=== PATIENT | male | born 1975 | race Caucasian/White ===

== ENCOUNTER 2020-08-03 19:57 | Emergency (ER) | payer OTHER, SELFPAY ==
--- NOTE | 2020-08-03 20:06 | XR_ITS ---
WS: [id number] Portable AP upright chest, 08/03/2020 Clinical Data: Dyspnea Comparison: None. Findings: No nodules, masses or effusions are seen. The heart is normal. The pulmonary vascularity is not increased. No pneumonia or pneumothorax is seen. The patient has a poor inspiratory effort. XR/XR chest 1V portable [id number] Impression: Negative chest.
--- NOTE | 2020-08-03 20:07 | ECG_ITS ---
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 Measurements Intervals [place] Rate: 122 P: 18 WA: 144 QRS: 7 QRSD: 81 T: 28 QT: 287 QTc: 410 Interpretive Statements SINUS TACHYCARDIA ABNORMAL RHYTHM ECG No previous ECG available for comparison Electronically Signed On 08-04-2020 20:20:45 CDT by Breezy Alexis M.D. [id number]
--- NOTE | 2020-08-03 20:13 | W.ED.GENADLT ---
HPI - General Adult General: Chief complaint: Shortness of Breath/Dyspnea Stated complaint: FEVER Time Seen by Provider: 08/03/20 19:59 Source: patient Mode of arrival: ambulatory Limitations: no limitations History of Present Illness: HPI narrative: Rui is a 44-year-old male comes in with cough, fever, shortness of breath, sore throat and generalized weakness. Patient's been exposed to multiple other family members that have been positive for the COVID-19 virus. Patient states that he has had the symptoms for the past 4 to 5 days. He is unaware of anything that makes his symptoms better or worse. He denies any chest pain only a pain when he coughs. Patient denies any urinary symptoms, skin rashes, headache or neck pain or stiffness. Associated symptoms: Deny chest pain, confusion, dyspnea, headache(s), rash, palpitations, syncope or vomiting Review of Systems Eyes: Denies: change in vision, blurry vision, photophobia, eye discomfort, eye discharge or eye redness ENMT: Denies: throat pain, odynophagia, hoarseness, swelling of lips/tongue, ear or mastoid pain, ear discharge, change in hearing or nasal discharge Card: Denies: chest pain, palpitations, irregular heart rhythm, edema, lightheadedness, syncope, pre-syncope, dyspnea on exertion or orthopnea Resp: Denies: dyspnea, productive cough, non-productive cough, wheezing, hemoptysis or chest congestion GI: Denies: abdominal pain, vomiting, hematemesis, coffee ground emesis, heartburn, diarrhea, constipation, GI cramping, hematochezia or melena : Denies: flank pain, dysuria, urinary frequency, urinary urgency or hematuria Musc: Denies: neck pain, back pain, extremity pain, extremity swelling, joint pain, joint swelling, joint redness, joint warmth or joint stiffness Skin/Breast: Denies: rash, pruritus, erythema or skin tenderness Neuro: Denies: headache(s), numbness in extremities, weakness in extremities, sensory changes, lack of coordination, difficulty walking, dizziness, vertigo, confusion, Slurred speech present or seizure-like activity Jeff/Lymph: Denies: easy bruising, easy bleeding, petechiae, purpura or enlarged lymph nodes All/Imm: Denies: urticaria, throat swelling, tongue swelling, facial swelling or acute wheezing [facility] ED PFSH: Medical History Anxiety DM type 2 (diabetes mellitus, type 2) Hypertension Physical Exam Const: COMMON NORMALS: no acute distress, patient oriented x3, no limitations, healthy appearing and well nourished GENERAL APPEARANCE: cooperative, well kempt and well developed HENMT: COMMON NORMALS: normocephalic, atraumatic, external ears normal, EAC's normal and Normal external nose present HEAD & SCALP: normal to inspection, normocephalic and atraumatic FACE & SINUS: normal facial exam and face symmetric NOSE: Normal external nose present and Normal nares present EXTERNAL EAR: Yes external ears normal EXTERNAL AUDITORY CANAL: EAC's normal MOUTH: Normal oral and palatal mucosa present, lip normal and tongue normal Eye: COMMON NORMALS: Equal, round and reactive pupils present and conjunctivae normal GENERAL EYE: appearance normal, both eyes and all related structures ALIGNMENT: Yes alignment normal PERIORBITAL: periorbital findings normal EYELID: eyelids normal CONJUNCTIVA: Yes conjunctivae normal SCLERA: sclerae normal PUPIL: Yes Equal, round and reactive pupils present Neck/C-Spine: COMMON NORMALS: full ROM, no lymphadenopathy, supple, no meningeal signs and no JVD GENERAL: Yes normal visual inspection and Yes trachea midline Chest: COMMONS NORMALS: normal inspection of the chest and normal palpation of entire chest wall Resp: COMMON NORMALS: normal respiratory effort, No retractions, No use of accessory muscles and clear to auscultation bilaterally EFFORT & INSPECTION: Yes able to speak in complete sentences and Yes symmetric chest movement AUSCULTATION: clear to auscultation bilaterally, no crackles, no rales, no rhonchi and no wheezes Cardio: COMMON NORMALS: no JVD, regular rhythm, S1 normal heart sound present and S2 normal heart sound present RATE: tachycardic RHYTHM: regular rhythm HEART SOUNDS: S1 normal heart sound present, S2 normal heart sound present, no click, no gallops, no murmurs, no rubs and abnormal split S2 GI: COMMON NORMALS: Soft to palpation and No hepatosplenomegaly present PALPATION: Yes Soft to palpation, No Tenderness to palpation present (GI), No Guarding due to palpation present (GI), No Rigid due to palpation, Yes No hepatosplenomegaly present, No Hernia present, No Palpable mass present and No Pulsatile mass present : COMMON NORMALS: Yes no CVA tenderness BLADDER/KIDNEY EXAM: Yes no CVA tenderness Back/Pelvis: COMMON NORMALS: no CVA tenderness, thoracic and lumbar spine normal to inspection, no thoracic nor lumbar tenderness and thoraco-lumbar ROM normal Extremity: COMMON NORMALS: normal to inspection, full ROM, capillary refill normal, no joint enlargement, no clubbing, cyanosis or edema and no calf tenderness Neuro: COMMON NORMALS: patient oriented x3, CN's II-XII intact bilaterally, moves all extremities, no focal motor deficits and no sensory deficits noted MENINGEAL SIGNS: Yes no meningeal signs SPEECH: speech normal Psych: COMMON NORMALS: mental status grossly normal, Normal thought process present, cooperative, normal affect, speech normal and activity/motor behavior normal APPEARANCE: Yes well kempt SPEECH: Yes normal speech THOUGHT PROCESS: Normal thought process present Skin: COMMON NORMALS: no rashes or lesions noted, turgor normal, no jaundice, no petechiae and no mottling GENERAL SKIN EXAM: no rashes or lesions noted and turgor normal Course Vital Signs: Vital signs: Vital Signs Temperature 100.8 F H 08/03/20 20:15 Pulse Rate 119 H 08/03/20 21:22 Respiratory Rate 16 08/03/20 21:22 Blood Pressure 141/88 08/03/20 21:22 Pulse Oximetry 93 08/03/20 21:22 MDM - General Adult MDM Narrative: Medical decision making narrative: Rui is a nice 44-year-old male who comes in with COVID-19 viral pneumonitis. On room air his pulse ox does not drop below 91%. He is not in respiratory distress. His chest x-ray shows a mild vascular prominence but no evidence of significant viral pneumonia. Patient is about 4 to 5 days into this illness. Because of his comorbidities I have recommended he come into the hospital for further care but he refuses. He states he thinks he can take care of this at home. I reviewed the case with Dr. Whaley and he believes the patient can be discharged but should go home on Decadron and azithromycin. The patient needs to check his pulse ox at home and if it worsens or goes below 90% he needs to come back to the ER. The patient states he does have a pulse oximeter at home and can do this. He agrees to return should his symptoms change or worsen. Lab Data: Attestation: I reviewed the patient's lab results. Labs: Lab Results 08/03/20 08/03/20 08/03/20 Range/Units 20:19 20:19 20:19 WBC 5.7 (4.0-10.0) 10^3/ uL RBC 5.77 H (4.1-5.3) 10^6/u L Hgb 16.5 (11.7-16.6) g/dL Hct 49.6 (42.0-52.0) % MCV 86.0 (80-94) fL MCH 28.6 (28.0-34.0) pg MCHC 33.3 (30.0-36.0) g/dL RDW 12.3 (12.1-15.1) % Plt Count 180 (130-400) 10^3/c mm MPV 9.4 (7.4-10.4) fL Neut % (Auto) 63.0 % Lymph % (Auto) 22.7 % Shackelford % (Auto) 12.0 % Eos % (Auto) 0.0 % Baso % (Auto) 0.5 % Neut # (Auto) 3.59 (1.8-7.7) 10^3/u L Lymph # (Auto) 1.3 (0.8-4.8) 10^3/u L Shackelford # (Auto) 0.7 (0.2-0.9) 10^3/u L Eos # (Auto) 0.0 (0.0-0.8) 10^3/u L Baso # (Auto) 0.0 (0.0-0.1) 10^3/u L Nucleated RBC % (a uto) 0 % Nucleated RBCs # 0.0 /100WBC ESR 11 H (0-10) mm/hr Fibrinogen (174-498) mg/dL D-Dimer (0-0.59) ug/mIFE U Specimen Type Sample Site ABG pH (7.35-7.45) ABG pCO2 (35-45) mmHg ABG pO2 (80.0-100.0) mmH g ABG HCO3 (22-26) mmol/L ABG Base Excess (-2.0-2.0) mmol/ L Celio Test Hematocrit (42-52) % O2 Delivery Device FiO2 % Compliance Tester ID Sodium 135 L (136-145) mmol/L Potassium 4.1 (3.5-5.1) mmol/L Chloride 98 (98-107) mmol/L Carbon Dioxide 23 (22-29) mmol/L Anion Gap 18.1 (5-19) BUN 13 (6-20) mg/dL Creatinine 0.8 (0.7-1.2) mg/dL GFR Calculation 106.0 (90-130) mL/min Glucose 236 H (65-115) mg/dL Calculated Osmolal ity 284 L (285-295) mOsm/k g Lactic Acid (0.5-2.2) mmol/L Calcium 9.1 (8.5-10.5) mg/dL Magnesium 1.9 (1.7-2.3) mg/dL Ferritin 562 H (30-400) ng/mL Total Bilirubin 0.4 (0.15-1.2) mg/dL AST 21 (0-40) U/L ALT 33 (0-41) U/L Alkaline Phosphata se 80 (40-130) IU/L Lactate Dehydrogen ase 244 H (135-225) U/L Troponin T Baselin e (0-15) ng/L C-Reactive Protein 10.7 H (0.0-4.9) mg/L Total Protein 8.6 (6.6-8.7) g/dL Albumin 4.8 (3.5-5.2) g/dL Globulin 3.8 (1.3-4.6) g/dL Lipase 26 (13-60) U/L TSH 1.47 (0.27-4.20) uIU/ mL Serum Ketones Negative (Negative) Influenza Type A A g (Negative) Influenza Type B A g (Negative) SARS-CoV-2 Ag (Rap id) (Negative) 08/03/20 08/03/20 08/03/20 Range/Units 20:19 20:19 21:18 WBC (4.0-10.0) 10^3/ uL RBC (4.1-5.3) 10^6/u L Hgb (11.7-16.6) g/dL Hct (42.0-52.0) % MCV (80-94) fL MCH (28.0-34.0) pg MCHC (30.0-36.0) g/dL RDW (12.1-15.1) % Plt Count (130-400) 10^3/c mm MPV (7.4-10.4) fL Neut % (Auto) % Lymph % (Auto) % Shackelford % (Auto) % Eos % (Auto) % Baso % (Auto) % Neut # (Auto) (1.8-7.7) 10^3/u L Lymph # (Auto) (0.8-4.8) 10^3/u L Shackelford # (Auto) (0.2-0.9) 10^3/u L Eos # (Auto) (0.0-0.8) 10^3/u L Baso # (Auto) (0.0-0.1) 10^3/u L Nucleated RBC % (a uto) % Nucleated RBCs # /100WBC ESR (0-10) mm/hr Fibrinogen 499 H (174-498) mg/dL D-Dimer 0.33 (0-0.59) ug/mIFE U Specimen Type Sample Site ABG pH (7.35-7.45) ABG pCO2 (35-45) mmHg ABG pO2 (80.0-100.0) mmH g ABG HCO3 (22-26) mmol/L ABG Base Excess (-2.0-2.0) mmol/ L Celio Test Hematocrit (42-52) % O2 Delivery Device FiO2 % Compliance Tester ID Sodium (136-145) mmol/L Potassium (3.5-5.1) mmol/L Chloride (98-107) mmol/L Carbon Dioxide (22-29) mmol/L Anion Gap (5-19) BUN (6-20) mg/dL Creatinine (0.7-1.2) mg/dL GFR Calculation (90-130) mL/min Glucose (65-115) mg/dL Calculated Osmolal ity (285-295) mOsm/k g Lactic Acid (0.5-2.2) mmol/L Calcium (8.5-10.5) mg/dL Magnesium (1.7-2.3) mg/dL Ferritin (30-400) ng/mL Total Bilirubin (0.15-1.2) mg/dL AST (0-40) U/L ALT (0-41) U/L Alkaline Phosphata se (40-130) IU/L Lactate Dehydrogen ase (135-225) U/L Troponin T Baselin e 16 H (0-15) ng/L C-Reactive Protein (0.0-4.9) mg/L Total Protein (6.6-8.7) g/dL Albumin (3.5-5.2) g/dL Globulin (1.3-4.6) g/dL Lipase (13-60) U/L TSH (0.27-4.20) uIU/ mL Serum Ketones (Negative) Influenza Type A A g (Negative) Influenza Type B A g (Negative) SARS-CoV-2 Ag (Rap id) Positive H (Negative) 08/03/20 08/03/20 08/03/20 Range/Units 21:24 21:40 21:59 WBC (4.0-10.0) 10^3/ uL RBC (4.1-5.3) 10^6/u L Hgb (11.7-16.6) g/dL Hct (42.0-52.0) % MCV (80-94) fL MCH (28.0-34.0) pg MCHC (30.0-36.0) g/dL RDW (12.1-15.1) % Plt Count (130-400) 10^3/c mm MPV (7.4-10.4) fL Neut % (Auto) % Lymph % (Auto) % Shackelford % (Auto) % Eos % (Auto) % Baso % (Auto) % Neut # (Auto) (1.8-7.7) 10^3/u L Lymph # (Auto) (0.8-4.8) 10^3/u L Shackelford # (Auto) (0.2-0.9) 10^3/u L Eos # (Auto) (0.0-0.8) 10^3/u L Baso # (Auto) (0.0-0.1) 10^3/u L Nucleated RBC % (a uto) % Nucleated RBCs # /100WBC ESR (0-10) mm/hr Fibrinogen (174-498) mg/dL D-Dimer (0-0.59) ug/mIFE U Specimen Type Arterial Sample Site Umbilical cord ABG pH 7.38 (7.35-7.45) ABG pCO2 40.2 (35-45) mmHg ABG pO2 63.6 L (80.0-100.0) mmH g ABG HCO3 23.8 (22-26) mmol/L ABG Base Excess -1.3 (-2.0-2.0) mmol/ L Celio Test Pos Hematocrit 50.2 (42-52) % O2 Delivery Device Room air FiO2 21.0 % Compliance Tester ID vossa Sodium (136-145) mmol/L Potassium (3.5-5.1) mmol/L Chloride (98-107) mmol/L Carbon Dioxide (22-29) mmol/L Anion Gap (5-19) BUN (6-20) mg/dL Creatinine (0.7-1.2) mg/dL GFR Calculation (90-130) mL/min Glucose (65-115) mg/dL Calculated Osmolal ity (285-295) mOsm/k g Lactic Acid 1.4 (0.5-2.2) mmol/L Calcium (8.5-10.5) mg/dL Magnesium (1.7-2.3) mg/dL Ferritin (30-400) ng/mL Total Bilirubin (0.15-1.2) mg/dL AST (0-40) U/L ALT (0-41) U/L Alkaline Phosphata se (40-130) IU/L Lactate Dehydrogen ase (135-225) U/L Troponin T Baselin e (0-15) ng/L C-Reactive Protein (0.0-4.9) mg/L Total Protein (6.6-8.7) g/dL Albumin (3.5-5.2) g/dL Globulin (1.3-4.6) g/dL Lipase (13-60) U/L TSH (0.27-4.20) uIU/ mL Serum Ketones (Negative) Influenza Type A A g Negative (Negative) Influenza Type B A g Negative (Negative) SARS-CoV-2 Ag (Rap id) (Negative) Imaging Data^: CXR: Attestation: I personally reviewed and interpreted this imaging study as follows: My impression: Mild interstitial prominence/thickening. Possible viral pneumonitis. EKG Data^: EKG 1: Attestation: I personally reviewed and interpreted this EKG as follows: EKG interpretation date: 08/03/20 EKG interpretation time: 21:03 Interpretation: Normal sinus rhythm and 122 beats a minute, normal axis, no blocks, normal intervals, no acute ST or T wave changes. Discharge Plan Discharge Patient Disposition: Home Clinical Impression: Viral pneumonitis, COVID-19 virus infection Condition: Stable Prescriptions: New albuterol sulfate 90 mcg/actuation HFA aerosol inhaler 2 inh INHALATION Q4H PRN (Reason: shortness of breath or wheezing) Qty: 6.7 RF: 0 Zithromax Z-Garrett 250 mg tablet See Rx Instructions .ROUTE .COMPLEX Qty: 6 RF: 0 Decadron 6 mg tablet 6 mg PO DAILY Qty: 5 RF: 0 albuterol sulfate 90 mcg/actuation HFA aerosol inhaler 2 inh INHALATION Q4H PRN (Reason: shortness of breath or wheezing) Qty: 6.7 RF: 0 No Action simvastatin 40 mg tablet 40 mg PO DAILY RF: 0 methocarbamol 750 mg tablet 750 mg PO TID RF: 0 paroxetine HCl 30 mg tablet 30 mg PO DAILY RF: 0 buspirone 10 mg tablet 10 mg PO DAILY PRN (Reason: UNKNOWN) RF: 0 lisinopril 30 mg tablet 30 mg PO DAILY RF: 0 metformin 500 mg tablet extended release 24 hr 1,000 mg PO BID RF: 0 naproxen 500 mg tablet 500 mg PO BID RF: 0 Ozempic See Rx Instructions .ROUTE .COMPLEX RF: 0 Discharge Orders: Discharge Order (Routine); Ordered 08/03/20 Ordered By: Keri Cerrato Referrals: Monica Urena, TEASEL GIG OPERATOR-C [Primary Care Provider] - 1-3 days Discharge Diet: Advance as tolerated Discharge Activity: Increase activity as tolerated Patient Instructions: Viral Pneumonia (ED) Activity Restrictions/Additional Instructions: Please return to the ER immediately for any of the signs or symptoms listed on your discharge instruction sheets, worsening/changing of your symptoms, you are not getting better as quickly as expected, or for ANY other cause or concerns. Check your pulse oximetry every hour at home and if it goes below 90% please return to the ER immediately for recheck. I have recommended and offered to put you in the hospital for further therapy but you have refused. You are leaving AGAINST MEDICAL ADVICE and are at risk of severe pulmonary complications from this virus. If you change your mind, your symptoms worsen, you began to cough up blood, you cannot catch her breath or develop any other symptoms please return to the ER immediately for recheck. Take the medications as I have prescribed you. Coding Level of Care Code ED Butter Wrapper for Anthony Fwd Exam Comprehensive
[2020-08-03 20:15] VITALS: BP 141/100; PULSE 128; RESP 26; TEMP 38.2; O2SAT 91; BMI 43.0
[2020-08-03 20:24] LABS: Basophils % 0.5 %; Hematocrit 49.6 % (42.0-52.0); Hemoglobin 16.5 g/dL (11.7-16.6); Lymphocytes # 1.3 10^3/uL (0.8-4.8); Lymphocytes % 22.7 %; Mean Corpuscular HGB Conc 33.3 g/dL (30.0-36.0); Mean Corpuscular Hemoglobin 28.6 pg (28.0-34.0); Mean Platelet Volume 9.4 fL (7.4-10.4); Monocytes # 0.7 10^3/uL (0.2-0.9); Neutrophils # 3.59 10^3/uL (1.8-7.7); Nucleated Red Blood Cells % 0 %; Platelet Count 180 10^3/cmm (130-400); Red Blood Count 5.77 10^6/uL (4.1-5.3); Red Cell Distribution Width 12.3 % (12.1-15.1); White Blood Count 5.7 10^3/uL (4.0-10.0)
[2020-08-03 20:45] LABS: Fibrinogen 499 mg/dL (174-498)
[2020-08-03 20:48] LABS: D Dimer 0.33 ug/mIFEU (0-0.59)
[2020-08-03 20:57] LABS: Troponin(5th) Baseline 16 ng/L (0-15)
[2020-08-03 21:04] LABS: Alanine Aminotransferase 33 U/L (0-41); Albumin Level 4.8 g/dL (3.5-5.2); Alkaline Phosphatase 80 IU/L (40-130); Aspartate Amino Transferase 21 U/L (0-40); Blood Urea Nitrogen 13 mg/dL (6-20); C Reactive Protein 10.7 mg/L (0.0-4.9); Calcium 9.1 mg/dL (8.5-10.5); Carbon Dioxide 23 mmol/L (22-29); Chloride 98 mmol/L (98-107); Ferritin 562 ng/mL (30-400); Globulin 3.8 g/dL (1.3-4.6); Glucose 236 mg/dL (65-115); Lipase 26 U/L (13-60); Magnesium 1.9 mg/dL (1.7-2.3); Osmolality Calculated 284 mOsm/kg (285-295); Sodium 135 mmol/L (136-145); Thyroid Stimulating Hormone 1.47 uIU/mL (0.27-4.20); Total Bilirubin 0.4 mg/dL (0.15-1.2); Total Protein 8.6 g/dL (6.6-8.7)
[2020-08-03 21:05] LABS: Anion Gap 18.1 (5-19); Lactate Dehydrogenase 244 U/L (135-225); Potassium 4.1 mmol/L (3.5-5.1)
[2020-08-03 21:06] LABS: Ketone (Acetest) Serum Negative (Negative)
[2020-08-03 21:22] VITALS: BP 141/88; PULSE 119; RESP 16; O2SAT 93
[2020-08-03] MEDS: dexamethasone 4 mg/mL INJ 6 MG IVP (21:22)
[2020-08-03] MEDS: sodium chloride 0.9% 1,000 ML 100 ML IV (21:22)
[2020-08-03] MEDS: sodium chloride 0.9% 1,000 ML 999 ML IV (21:22)
[2020-08-03 21:51] LABS: Lactic Sepsis W/Reflex 1.4 mmol/L (0.5-2.2)
[2020-08-03 22:11] LABS: Influenza A by IFA Negative (Negative); Influenza B by IFA Negative (Negative)
[2020-08-03 22:11] LABS: SARS Covid-2 Antigen Positive (Negative)
[2020-08-03 22:12] LABS: ABG PCO2 40.2 mmHg (35-45); ABG PH Result 7.38 (7.35-7.45); Arterial Blood Gas Hematocrit 50.2 % (42-52); Base Excess ABG -1.3 mmol/L (-2.0-2.0); Blood Gas Allen Test Pos; Blood Gas Sample Site Umbilical cord; Blood Gas Sample Type Arterial; HCO3 ABG 23.8 mmol/L (22-26); Oxygen Device ROOM AIR; PO2 ABG 63.6 mmHg (80.0-100.0)
[2020-08-03 22:37] LABS: Erythrocyte Sedimentation Rate 11 mm/hr (0-10)
[2020-08-03 22:59] VITALS: BP 170/109; PULSE 117; RESP 16; O2SAT 95
[2020-08-03] MEDS: azithromycin 250 mg Tablet 500 MG PO (23:08)
[2020-08-03] MEDS: dexamethasone 10 mg/mL INJ IVP (23:08)
[2020-08-04 00:55] VITALS: BP 158/96; PULSE 104; RESP 20; O2SAT 94
== END 2020-08-04 00:57 | disposition home or self-care (01) ==
PROVIDERS: Emergency Provider Emergency Medicine; PCP Nurse Practitioner Family
DX: U07.1 COVID-19 (principal); J12.89 Other viral pneumonia; Z79.84 Long term (current) use of oral hypoglycemic drugs; E11.9 Type 2 diabetes mellitus without complications; I10 Essential (primary) hypertension
CPT/HCPCS: 12345; 36600; 71045; 80053; 82009; 82728; 82803; 83605; 83615; 83690; 83735; 84443; 84484; 85025; 85378; 85384; 85651; 86140; 87040; 87426; 87804; 93005; 96361; 96365; 96374; 96375; 96376; 99283; 99284; J0131; J1100; J7030; Q0144

== ENCOUNTER 2020-11-07 07:51 | Outpatient (CLI) | payer SELFPAY ==
--- NOTE | 2020-11-07 07:55 | ECG_ITS ---
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
--- NOTE | 2020-11-07 07:55 | NMCV_ITS ---
NM suhas perf SPECT r/s* [id number] Rui Jiang Age: 44 Gender: M : 1975 Exam Date: 11/07/2020 08:47 Ordering Phys: Monica Urena Technologist: ERIN Nowak Exam Location: [facility] Indications: Chest pain STRESS TEST Please see separate stress test report in [facility] for full findings IMAGE PROTOCOL Rest/Stress 1 Exercise Day Radiopharmaceutical Dose (mCi) Administration Site Administered by Rest: Tc-99m 11.0 IV ERIN Nowak Sestamibi Stress:Tc-99m 33.0 IV ERIN Nowak Sestamineal Rest: 07-Nov-2020 60 Discovery 630 Stress: 07-Nov-2020 30 Discovery 630 Radiopharmaceutical was injected at 85 % maximum heart rate. Images obtained in supine and prone position. SPECT RESULTS Technical Quality: Excellent Raw Data Analysis: Normal Image Corrections: No attenuation or motion correction applied Summed Stress Score: 0 Summed Rest Score: 0 Summed Difference Score: 0 PERFUSION FINDINGS SPECT images demonstrate homogeneous tracer distribution throughout the myocardium. FUNCTIONAL RESULTS (calculated via Gated SPECT) Stress Image LV EF (%): 50 Stress EDV (mL):126 TID: 0.99 Stress ESV (mL):63 Rest Image LV EF (%): 50 FUNCTIONAL FINDINGS: There appeared to be anterior wall/septal bounce could be interventricular conduction delay or postoperative state IMPRESSIONS Myocardial perfusion imaging is normal. EKG segment will be documented separately. Breezy Alexis MD (Electronically Signed) Final Date: 07 November 2020 17:54 S
[2020-11-07 08:09] VITALS: BMI 42.6
[2020-11-07 10:15] VITALS: BP 154/79; PULSE 114
== END 2020-11-07 07:52 | disposition home or self-care (01) ==
PROVIDERS: PCP Nurse Practitioner Family; Visit Provider Nurse Practitioner Family
DX: R07.9 Chest pain, unspecified (principal)
CPT/HCPCS: 78452; 93017; A9500

== ENCOUNTER → 2021-04-13 11:08 | Outpatient (BNVA) | payer OTHER, SELFPAY | PROVIDERS: PCP Family Medicine; Visit Provider Family Medicine | DX: Z20.822 Contact with and (suspected) exposure to COVID-19 (principal) | CPT/HCPCS: 87635 ==

== ENCOUNTER 2021-04-17 12:50 | Outpatient (CLI) | payer OTHER, SELFPAY ==
--- NOTE | 2021-04-17 13:29 | PFTS_ITS ---
Date of Study:04/17/21 Date of Dictation: 04/19/21 MECHANICS: Forced vital capacity (FVC) is reduced 58% Forced expiratory volume in one second (FEV1) is moderately reduced 66%. FEV1/FVC is Normal There is no significant response to bronchodilators. FLOW VOLUME LOOP: normal . LUNG VOLUMES: Not measured DIFFUSING CAPACITY FOR CARBON MONOXIDE: Not measured . INTERPRETATION: The spirometry consistent with moderate restriction. Please correlate clinically MTDD
== END 2021-04-17 12:51 | disposition home or self-care (01) ==
LOC: RT 12:52
PROVIDERS: PCP Family Medicine; Visit Provider Family Medicine
DX: U07.1 COVID-19 (principal); R06.02 Shortness of breath
CPT/HCPCS: 94060; J7611

== ENCOUNTER → 2021-05-01 11:27 | Outpatient (BNVA) | payer SELFPAY | PROVIDERS: PCP Family Medicine; Visit Provider Family Medicine | DX: E11.9 Type 2 diabetes mellitus without complications (principal); E78.5 Hyperlipidemia, unspecified; R06.02 Shortness of breath; J98.4 Other disorders of lung; U07.1 COVID-19; I10 Essential (primary) hypertension | CPT/HCPCS: 80053; 80061; 83036 ==

== ENCOUNTER 2021-05-15 16:07 | Outpatient (CLI) | payer SELFPAY ==
[2021-05-15 16:48] LABS: Basophils # 0.1 10^3/uL (0.0-0.1); Eosinophils # 0.2 10^3/uL (0.0-0.8); Eosinophils % 1.4 %; Hematocrit 42.4 % (42.0-52.0); Hemoglobin 14.4 g/dL (11.7-16.6); Lymphocytes # 3.6 10^3/uL (0.8-4.8); Mean Corpuscular Volume 82.5 fL (80-94); Mean Platelet Volume 9.2 fL (7.4-10.4); Monocytes # 0.8 10^3/uL (0.2-0.9); Neutrophils # 6.46 10^3/uL (1.8-7.7); Neutrophils % 57.5 %; Nucleated Red Blood Cells % 0 %; Platelet Count 205 10^3/cmm (130-400); Red Blood Count 5.14 10^6/uL (4.1-5.3); Red Cell Distribution Width 11.9 % (12.1-15.1); White Blood Count 11.2 10^3/uL (4.0-10.0)
[2021-05-15 17:28] LABS: Alanine Aminotransferase 19 U/L (0-41); Albumin Level 4.2 g/dL (3.5-5.2); Alkaline Phosphatase 112 IU/L (40-130); Aspartate Amino Transferase 9 U/L (0-40); Blood Urea Nitrogen 13 mg/dL (6-20); C Reactive Protein 3.8 mg/L (0.0-4.9); Calcium 8.8 mg/dL (8.5-10.5); Carbon Dioxide 25 mmol/L (22-29); Chloride 100 mmol/L (98-107); Globulin 2.6 g/dL (1.3-4.6); Glucose 301 mg/dL (65-115); Osmolality Calculated 293 mOsm/kg (285-295); Sodium 136 mmol/L (136-145); Total Bilirubin 0.2 mg/dL (0.15-1.2); Total Protein 6.8 g/dL (6.6-8.7)
[2021-05-15 17:40] LABS: Erythrocyte Sedimentation Rate 11 mm/hr (0-10)
[2021-05-17 13:33] LABS: Anti-Double Strand DNA AB <1 IU/mL; Centromere B Antibody <1.0 NEG AI (<1.0 NEG); JO-1 Antibody <1.0 NEG AI (<1.0 NEG); SCL 70 <1.0 NEG AI (<1.0 NEG); SS A Ro Sjogrens Antibody <1.0 NEG AI (<1.0 NEG); SS-B/LA IGG <1.0 NEG AI (<1.0 NEG); Sm/RNP Antibody <1.0 NEG AI (<1.0 NEG); Smith Antibody <1.0 NEG AI (<1.0 NEG)
[2021-05-17 16:18] LABS: Cyclic Citrullinated Peptide <16 UNITS
[2021-05-18 20:48] LABS: Anti-Nuclear Antibody Screen NEGATIVE (NEGATIVE)
== END 2021-05-15 16:08 | disposition home or self-care (01) ==
LOC: LAB 16:16
PROVIDERS: PCP Family Medicine; Visit Provider Internal Medicine Pulmonary Disease
DX: J98.4 Other disorders of lung (principal)
CPT/HCPCS: 36415; 80053; 85025; 85651; 86038; 86140; 86225; 86235; 86431

== ENCOUNTER 2021-05-16 12:35 | Outpatient (CLI) | payer SELFPAY ==
--- NOTE | 2021-05-16 13:15 | CT_ITS ---
WS: [id number] CT CHEST HIGH-RESOLUTION TECHNIQUE: High-resolution Noncontrast CT of the chest with inspiratory, expiratory, prone imaging CLINICAL INFORMATION: rule out restrictive lung disease COMPARISON: None. DLP: 1893.[address] scans at [facility] use at least one of these dose optimization techniques: automat ed exposure control; mA and/or kV adjustment per patient size (includes targeted exams where dose is matched to clinical indication); or iterative reconstruction. FINDINGS: Both lungs are well aerated. No acute pulmonary infiltrates. No focal consolidation or pleural fluid. No focal pneumonia. Calcified right hilar lymph nodes. No suspicious pulmonary parenchymal opacities . No evidence of interstitial lung disease. No subpleural fibrosis or honeycombing. Mild air trapping o n the expiratory imaging. No significant bronchiectasis. Normal caliber thoracic aorta. Coronary calcification. Adrenal glands are normal. Partially visualized fatty atrophy of the pancreas. Normal GE junction. CT/CT chest wo con [id number] IMPRESSION: 1. No evidence of interstitial lung disease. No subpleural fibrosis or honeyco mbing. 2. No significant bronchiectasis. 3. Mild air trapping on expiratory imaging can be seen with small airways dise ase. 4. No mediastinal or hilar lymphadenopathy.
== END 2021-05-16 12:36 | disposition home or self-care (01) ==
PROVIDERS: PCP Family Medicine; Visit Provider Internal Medicine Pulmonary Disease
DX: J98.4 Other disorders of lung (principal)
CPT/HCPCS: 71250

== ENCOUNTER → 2021-05-22 09:38 | Outpatient (BNVA) | payer SELFPAY | PROVIDERS: PCP Family Medicine; Visit Provider Internal Medicine Pulmonary Disease | DX: J98.4 Other disorders of lung (principal); Z20.822 Contact with and (suspected) exposure to COVID-19 | CPT/HCPCS: 87635 ==

== ENCOUNTER 2021-05-25 07:08 | Outpatient (CLI) | payer SELFPAY ==
--- NOTE | 2021-05-25 14:04 | PFTS_ITS ---
Date of Study:05/25/21 Date of Dictation: MECHANICS: Forced vital capacity (FVC) is reduced. Forced expiratory volume in one second (FEV1) is reduced. FEV1/FVC is normal. FLOW VOLUME LOOP: Narrow. LUNG VOLUMES: Total lung capacity (TLC) is reduced. Residual volume (RV) is normal. DIFFUSING CAPACITY FOR CARBON MONOXIDE: Normal. INTERPRETATION: The pulmonary function tests are consistent with moderate restriction. There is no significant postbronchodilator response. The patient has mild reduction in total lung capacity with relatively preserved residual volume and an increased RV/TLC ratio. The combination of this finding and restrictive physiology on spirometry, could be consistent with neuromuscular weakness. Gas exchange (DLCO) is normal. MTDD
== END 2021-05-25 07:09 | disposition home or self-care (01) ==
LOC: RT 07:11
PROVIDERS: PCP Family Medicine; Visit Provider Family Medicine
DX: J98.4 Other disorders of lung (principal)
CPT/HCPCS: 94060; 94618; 94726; 94729; J7611

== ENCOUNTER 2021-06-05 06:00 | Outpatient (RCR) | payer SELFPAY | END 2021-06-24 23:59 | disposition home or self-care (01) | LOC: WPT 06:00 | PROVIDERS: PCP Family Medicine; Referring Provider Nurse Practitioner Family; Visit Provider Nurse Practitioner Family | DX: R42 Dizziness and giddiness (principal) | CPT/HCPCS: 97110; 97162 ==

== ENCOUNTER 2021-07-21 17:30 | Observation (INO) | payer SELFPAY ==
[2021-07-21 17:37] VITALS: BP 169/92; PULSE 93; RESP 18; TEMP 36.7; O2SAT 96; BMI 41.5
--- NOTE | 2021-07-21 17:42 | ECG_ITS ---
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 Measurements Intervals [place] Rate: 92 P: 28 UT: 152 QRS: 24 QRSD: 88 T: 15 QT: 328 QTc: 407 Interpretive Statements SINUS RHYTHM Compared to ECG 08/03/2020 21:03:54 Sinus tachycardia no longer present Electronically Signed On 07-22-2021 22:06:23 CDT by Dereje Kimball M.D. [email or web address] [email or web address]'s choice [facility] of smith countyIvy Health and Life Sciencesohio state university wexner medical [email or web address] [id number]
--- NOTE | 2021-07-21 17:43 | ED_ITS ---
HPI - Neuro Symptoms/Deficit General: Chief Complaint: ER Hold Stated Complaint: left facial droop, numb mouth, high bp Time Seen by Provider: 07/21/21 17:42 Source: patient and family () Mode of arrival: ambulatory Limitations: no limitations History of Present Illness: HPI Narrative: This is a 45 year old male with a history of HTN and DM who presents to the ED with complaints of left sided facial droop and slurred speech. Symptoms of slurred speech and facial droop started about 1-1/2 hours ago, however he noticed that about 8 AM this morning he had an abnormal sensation of his tongue and some numbness of his tongue. He does not have any significant gait issues. No arm or leg weakness. He is here to be evaluated for the above symptoms. Onset (ago): hour(s) Timing confirmed by: spouse Location: speech and left face History of same: No Severity: mild Quality: weak and numb Relieving factors: none Exacerbating factors: none Context: sudden onset Associated symptoms: Deny chest pain, cough, diaphoresis, fevers/chills, headache(s), anorexia, malaise, nausea, seizures, short of breath, syncope, tingling, vertigo, vomiting or weakness Review of Systems General: Reports: 10 or more systems reviewed and unremarkable except in HPI and below Const: Denies: malaise or diaphoresis Card: Denies: chest pain or syncope GI: Denies: nausea or vomiting Neuro: Denies: headache(s) or vertigo PFS ED PFSH: Medical History Anxiety Bilateral lower extremity edema COVID-19 virus infection DM type 2 (diabetes mellitus, type 2) Herpes zoster Hyperlipidemia Hypertension Left knee pain Obese Restrictive lung disease Shortness of breath Vertigo Social History Quit status (tobacco): has quit using tobacco Year quit tobacco: unknown Former quit date comment: smoked 4-5 cigars/day x 3 years Second hand smoke exposure: Yes Smoking risk assessment/counseling performed?: Yes Alcohol intake: current Alcohol intake frequency: holidays/special occasions only Desire information about alcohol rehabilitation?: No Lives independently: Yes Household members: spouse Marital status: service: No Current occupational status: employed Pets and animals: Yes History of recent travel: No Current gender identity: Male NIH stroke score NIHSS: Level Of Consciousness - 1a: 0 Level Of Consciousness Questions - 1b: Both Correct Level Of Consciousness Commands - 1c: Both Correct Best Gaze - 2: Normal Visual Brown - 3: No Visual Loss Facial Palsy - 4: Partial Paralysis Motor Arm Right - 5: No Drift Motor Arm Left - 5: No Drift Motor Leg Right - 6: No Drift Motor Leg Left - 6: No Drift Limb Ataxia - 7: Absent Sensory - 8: Mild To Moderate Loss Best Language - 9: No Aphasia Dysarthia - 10: Mild/Moderate Dysarthia Extinction And Inattention - 11: 0 Score: Total Score: 4 Physical Exam Const: COMMON NORMALS: no acute distress, average body habitus, patient oriented x3, no limitations, healthy appearing, alert and well nourished HENMT: COMMON NORMALS: normocephalic, atraumatic and moist oral mucous membranes HEAD & SCALP: normocephalic and atraumatic Eye: COMMON NORMALS: Equal, round and reactive pupils present, EOMs intact bilaterally, conjunctivae normal and no scleral icterus CONJUNCTIVA: Yes conjunctivae normal PUPIL: Yes Equal, round and reactive pupils present Neck/C-Spine: COMMON NORMALS: no meningeal signs and no JVD Resp: COMMON NORMALS: normal respiratory effort, No retractions, No use of accessory muscles, clear to auscultation bilaterally and percussion normal AUSCULTATION: clear to auscultation bilaterally PERCUSSION: percussion normal Cardio: COMMON NORMALS: no JVD, regular rate, regular rhythm, S1 normal heart sound present, S2 normal heart sound present, No gallops present (Cardio), No clicks present (Cardio), No murmurs present (Cardio), No rub (Cardio) and Peripheral pulses 2+ throughout RATE: regular rate RHYTHM: regular rhythm HEART SOUNDS: S1 normal heart sound present and S2 normal heart sound present PERIPHERAL PULSES: Peripheral pulses 2+ throughout GI: COMMON NORMALS: Normal to inspection, nondistended, normoactive bowel sounds present, Soft to palpation, non-tender, No hepatosplenomegaly present, no masses and no bruits PALPATION: Yes Soft to palpation and Yes No hepatosplenomegaly present Extremity: COMMON NORMALS: normal to inspection, full ROM, capillary refill normal, no calf tenderness and no pedal edema Neuro: COMMON NORMALS: patient oriented x3 SENSORIUM/ORIENTATION: Yes alert MENINGEAL SIGNS: Yes no meningeal signs Skin: COMMON NORMALS: no rashes or lesions noted, no wounds, turgor normal, no jaundice, no petechiae and no mottling GENERAL SKIN EXAM: no rashes or lesions noted and turgor normal Course Consultations: Consultation #1: Discussed the patient with Dr. Campbell, hospitalist and she kindly accepted the patient to her service. Time: 19:18 Vital Signs: Vital signs: Vital Signs Temperature 97.6 F 07/22/21 10:04 Pulse Rate 83 07/22/21 18:55 Respiratory Rate 17 07/22/21 18:55 Blood Pressure 158/95 07/22/21 10:04 Pulse Oximetry 93 07/22/21 18:55 MDM - Neuro Symptoms/Deficit MDM Narrative: Medical decision making narrative: This 45 year old male with multiple risk factors including obseity, HTN, DM who presented to the ED with stroke-like symptoms. His NIHSS is low, and he has deficits that are not significant. After consulting with tele neurology at [facility] in [place], and he also evaluated the patient, it was suggested that he not get tPA but be admitted for a stroke work up. Head CT and CTA negative. He is being admitted to the hospital for a stroke work up. Medical Records: Attestation: I reviewed the patient's medical records. Lab Data: Attestation: I reviewed the patient's lab results. Labs: Lab Results 07/21/21 07/21/21 07/21/21 Range/Units 17:38 17:38 17:38 WBC 9.7 (4.0-10.0) 10^3/ uL RBC 5.44 H (4.1-5.3) 10^6/u L Hgb 15.4 (11.7-16.6) g/dL Hct 44.7 (42.0-52.0) % MCV 82.2 (80-94) fl MCH 28.3 (28.0-34.0) pg MCHC 34.5 (30.0-36.0) g/dL RDW 12.2 (12.1-15.1) % Plt Count 225 (130-400) 10^3/c mm MPV 9.2 (7.4-10.4) fL Neut % (Auto) 60.7 % Lymph % (Auto) 30.0 % Blanco % (Auto) 6.2 % Eos % (Auto) 1.0 % Baso % (Auto) 1.1 % Neut # (Auto) 5.85 (1.8-7.7) 10^3/u L Lymph # (Auto) 2.9 (0.8-4.8) 10^3/u L Blanco # (Auto) 0.6 (0.2-0.9) 10^3/u L Eos # (Auto) 0.1 (0.0-0.8) 10^3/u L Baso # (Auto) 0.1 (0.0-0.1) 10^3/u L Nucleated RBC % (a uto) 0 % Nucleated RBCs # 0.0 /100WBC PT 13.20 (12.1-14.9) SECO NDS INR 0.97 (0.8-1.2) APTT 29.7 (23.9-36.7) SECO NDS Sodium 136 (136-145) mmol/L Potassium 4.1 (3.5-5.1) mmol/L Chloride 99 (98-107) mmol/L Carbon Dioxide 27 (22-29) mmol/L Anion Gap 14.1 (5-19) BUN 10 (6-20) mg/dL Creatinine 0.7 (0.7-1.2) mg/dL GFR Calculation 123.1 (90-130) mL/min Glucose 324 H (65-115) mg/dL POC Glucose (70-110) mg/dL Calculated Osmolal ity 294 (285-295) mOsm/k g Calcium 9.2 (8.5-10.5) mg/dL Total Bilirubin 0.2 (0.15-1.2) mg/dL AST 13 (0-40) U/L ALT 16 (0-41) U/L Alkaline Phosphata se 131 H (40-130) IU/L Total Protein 7.1 (6.6-8.7) g/dL Albumin 4.2 (3.5-5.2) g/dL Globulin 2.9 (1.3-4.6) g/dL Urine Color (Yellow) Urine Appearance (CLEAR) Urine pH (5-7) Ur Specific Gravit y (1.005-1.030) Urine Protein (Negative) Urine Glucose (UA) (Normal) Urine Ketones (Negative) Urine Blood (Negative) Urine Nitrate (Negative) Urine Bilirubin (Negative) Urine Urobilinogen (Negative) mg/dL Ur Leukocyte Naila ase (Negative) Urine Opiates Scre en (Negative) ng/mL Ur Barbiturates Sc reen (Negative) ng/mL Ur Phencyclidine S crn (Negative) ng/mL Ur Amphetamines Sc reen (Negative) ng/mL U Benzodiazepines Scrn (Negative) ng/mL Urine Cocaine Scre en (Negative) ng/mL U Marijuana (THC) Screen (Negative) ng/mL 07/21/21 07/21/21 07/21/21 Range/Units 17:51 18:26 18:26 WBC (4.0-10.0) 10^3/ uL RBC (4.1-5.3) 10^6/u L Hgb (11.7-16.6) g/dL Hct (42.0-52.0) % MCV (80-94) fl MCH (28.0-34.0) pg MCHC (30.0-36.0) g/dL RDW (12.1-15.1) % Plt Count (130-400) 10^3/c mm MPV (7.4-10.4) fL Neut % (Auto) % Lymph % (Auto) % Blanco % (Auto) % Eos % (Auto) % Baso % (Auto) % Neut # (Auto) (1.8-7.7) 10^3/u L Lymph # (Auto) (0.8-4.8) 10^3/u L Blanco # (Auto) (0.2-0.9) 10^3/u L Eos # (Auto) (0.0-0.8) 10^3/u L Baso # (Auto) (0.0-0.1) 10^3/u L Nucleated RBC % (a uto) % Nucleated RBCs # /100WBC PT (12.1-14.9) SECO NDS INR (0.8-1.2) APTT (23.9-36.7) SECO NDS Sodium (136-145) mmol/L Potassium (3.5-5.1) mmol/L Chloride (98-107) mmol/L Carbon Dioxide (22-29) mmol/L Anion Gap (5-19) BUN (6-20) mg/dL Creatinine (0.7-1.2) mg/dL GFR Calculation (90-130) mL/min Glucose (65-115) mg/dL POC Glucose 294 H (70-110) mg/dL Calculated Osmolal ity (285-295) mOsm/k g Calcium (8.5-10.5) mg/dL Total Bilirubin (0.15-1.2) mg/dL AST (0-40) U/L ALT (0-41) U/L Alkaline Phosphata se (40-130) IU/L Total Protein (6.6-8.7) g/dL Albumin (3.5-5.2) g/dL Globulin (1.3-4.6) g/dL Urine Color Straw (Yellow) Urine Appearance Clear (CLEAR) Urine pH 5 (5-7) Ur Specific Gravit y 1.020 (1.005-1.030) Urine Protein Neg (Negative) Urine Glucose (UA) 4+ H (Normal) Urine Ketones Negative (Negative) Urine Blood Neg (Negative) Urine Nitrate Negative (Negative) Urine Bilirubin Neg (Negative) Urine Urobilinogen Norm (Negative) mg/dL Ur Leukocyte Naila ase Negative (Negative) Urine Opiates Scre en Negative (Negative) ng/mL Ur Barbiturates Sc reen Negative (Negative) ng/mL Ur Phencyclidine S crn Negative (Negative) ng/mL Ur Amphetamines Sc reen Negative (Negative) ng/mL U Benzodiazepines Scrn Negative (Negative) ng/mL Urine Cocaine Scre en Negative (Negative) ng/mL U Marijuana (THC) Screen Negative (Negative) ng/mL 07/22/21 07/22/21 07/22/21 Range/Units 00:57 07:15 13:03 WBC (4.0-10.0) 10^3/ uL RBC (4.1-5.3) 10^6/u L Hgb (11.7-16.6) g/dL Hct (42.0-52.0) % MCV (80-94) fl MCH (28.0-34.0) pg MCHC (30.0-36.0) g/dL RDW (12.1-15.1) % Plt Count (130-400) 10^3/c mm MPV (7.4-10.4) fL Neut % (Auto) % Lymph % (Auto) % Blanco % (Auto) % Eos % (Auto) % Baso % (Auto) % Neut # (Auto) (1.8-7.7) 10^3/u L Lymph # (Auto) (0.8-4.8) 10^3/u L Blanco # (Auto) (0.2-0.9) 10^3/u L Eos # (Auto) (0.0-0.8) 10^3/u L Baso # (Auto) (0.0-0.1) 10^3/u L Nucleated RBC % (a uto) % Nucleated RBCs # /100WBC PT (12.1-14.9) SECO NDS INR (0.8-1.2) APTT (23.9-36.7) SECO NDS Sodium (136-145) mmol/L Potassium (3.5-5.1) mmol/L Chloride (98-107) mmol/L Carbon Dioxide (22-29) mmol/L Anion Gap (5-19) BUN (6-20) mg/dL Creatinine (0.7-1.2) mg/dL GFR Calculation (90-130) mL/min Glucose (65-115) mg/dL POC Glucose 183 H 244 H 338 H (70-110) mg/dL Calculated Osmolal ity (285-295) mOsm/k g Calcium (8.5-10.5) mg/dL Total Bilirubin (0.15-1.2) mg/dL AST (0-40) U/L ALT (0-41) U/L Alkaline Phosphata se (40-130) IU/L Total Protein (6.6-8.7) g/dL Albumin (3.5-5.2) g/dL Globulin (1.3-4.6) g/dL Urine Color (Yellow) Urine Appearance (CLEAR) Urine pH (5-7) Ur Specific Gravit y (1.005-1.030) Urine Protein (Negative) Urine Glucose (UA) (Normal) Urine Ketones (Negative) Urine Blood (Negative) Urine Nitrate (Negative) Urine Bilirubin (Negative) Urine Urobilinogen (Negative) mg/dL Ur Leukocyte Naila ase (Negative) Urine Opiates Scre en (Negative) ng/mL Ur Barbiturates Sc reen (Negative) ng/mL Ur Phencyclidine S crn (Negative) ng/mL Ur Amphetamines Sc reen (Negative) ng/mL U Benzodiazepines Scrn (Negative) ng/mL Urine Cocaine Scre en (Negative) ng/mL U Marijuana (THC) Screen (Negative) ng/mL Imaging Data^: CT Head: Attestation: I personally reviewed and interpreted this imaging study as follows: Radiologist's impression: [employer] [id number] Scan ReportSigned Patient: Roya Jiang #: [id number]: 1975Acct#:[id number]/Sex: 45 / MADM Date: 07/21/21Loc: ERRoom/Bed:Attending Dr: Ordering Provider/Ordering MD: Diaz Brown MD, [facility] Date of Service: 07/21/21 Procedure(s): CT head wo con* [id number] Accession Number(s): [id number] Report Number: [id number] PROCEDURE INFORMATION: Exam: CT Head Without Contrast Exam date and time: 07/21/2021 5:42 PM Age: 45 years old Clinical indication: Weakness, facial; Additional info: Symptoms of acute stroke TECHNIQUE: Imaging protocol: Computed tomography of the head without contrast. Radiation optimization: All CT scans at this facility use at least one of these dose optimization techniques: automated exposure control; mA and/or kV adjustment per patient size (includes targeted exams where dose is matched to clinical indication); or iterative reconstruction. COMPARISON: No relevant prior studies available. RADIATION DOSE METRICS: Total DLP (mGy-cm): 1005.82 FINDINGS: Brain: Bilateral somewhat symmetric frontal lobe subtle linear areas of hyperdensity measuring up to 10 mm on the left suggestive of calcification given symmetry, hemorrhage is felt unlikely, MRI could further characterize these. Cerebral ventricles: No ventriculomegaly. Paranasal sinuses: Visualized sinuses are unremarkable. No fluid levels. Mastoid air cells: Visualized mastoid air cells are well aerated. Bones/joints: Unremarkable. No acute fracture. Soft tissues: Unremarkable. CT/CT head wo con* [id number] IMPRESSION: Bilateral somewhat symmetric frontal lobe subtle linear areas of hyperdensity measuring up to 10 mm on the left suggestive of calcification given symmetry, hemorrhage is felt unlikely, MRI could further characterize these. Radiation Dose CTDIVOL = (mGy): DLP = 1005.82 (mGy-cm) Dictated By:Jerome Camarena MDSigned By:Jerome Camarena MDSigned Date/Time:07/21/21 1802DD/ [address]: Attestation: I personally reviewed and interpreted this imaging study as follows: Radiologist's impression: Lorri Oliva[address] [place] [id number] Scan ReportSigned with Addenda Patient: Roya Jiang #: [id number]: 1975Acct#:[id number]/Sex: 45 / MADM Date: 07/21/21Loc: ERRoom/Bed:Attending Dr: Ordering Provider/Ordering MD: Diaz Brown MD, [facility] Date of Service: 07/21/21 Procedure(s): CT angio headneck* [id number] Accession Number(s): [id number] Report Number: [id number]/CT angio headneck* [id number] THIS REPORT CONTAINS FINDINGS THAT MAY BE CRITICAL TO PATIENT CARE. The findings were verbally communicated via telephone conference with DIAZ BROWN at 6:37 PM CDT on 07/21/2021. The findings were acknowledged and understood. Radiation Dose CTDIVOL = (mGy): DLP = 2596.29~2596.29 (mGy-cm) Addendum Dictated By: Bandar Dubois MDAddendum Signed By: Bandar Dubois MDSigned Date/Time:07/21/21 1839Addendum Cosigned By: PROCEDURE INFORMATION: Exam: CT Angiography Head With Contrast, Arteriography Exam date and time: 07/21/2021 5:42 PM Age: 45 years old Clinical indication: Speech disturbance; Slurred speech; Additional info: Stroke symptoms TECHNIQUE: Imaging protocol: Computed tomography angiography of the head with contrast. Exam focused on the arteries. 3D rendering (Not supervised by radiologist): MIP and/or 3D reconstructed images were created by the technologist. Radiation optimization: All CT scans at this facility use at least one of these dose optimization techniques: automated exposure control; mA and/or kV adjustment per patient size (includes targeted exams where dose is matched to clinical indication); or iterative reconstruction. Contrast material: OMNI 300; Contrast volume: 95 ml; Contrast route: INTRAVENOUS (IV); COMPARISON: CT head wo con* [id number] 07/21/2021 5:44 PM RADIATION DOSE METRICS: Total DLP (mGy-cm): 2596.29 FINDINGS: ANTERIOR CIRCULATION: Right internal carotid artery: Unremarkable. Intracranial segment is patent with no significant stenosis. No aneurysm. Right middle cerebral artery: Unremarkable. No occlusion or significant stenosis. No aneurysm. Right anterior cerebral artery: Unremarkable. No occlusion or significant stenosis. No aneurysm. Left internal carotid artery: Unremarkable. Intracranial segment is patent with no significant stenosis. No aneurysm. Left middle cerebral artery: Unremarkable. No occlusion or significant stenosis. No aneurysm. Left anterior cerebral artery: Unremarkable. No occlusion or significant stenosis. No aneurysm. POSTERIOR CIRCULATION: Right vertebral artery: Unremarkable. No occlusion or significant stenosis. No aneurysm. Left vertebral artery: Unremarkable. No occlusion or significant stenosis. No aneurysm. Basilar artery: Unremarkable. No occlusion or significant stenosis. No aneurysm. Right posterior cerebral artery: Unremarkable. No occlusion or significant stenosis. No aneurysm. Left posterior cerebral artery: Unremarkable. No occlusion or significant stenosis. No aneurysm. Veins: Dural venous sinuses are patent. Brain: There is no pathologic enhancement of the brain. Cerebral ventricles: No ventriculomegaly. Bones/joints: Unremarkable. No acute fracture. Soft tissues: Unremarkable. IMPRESSION: No arterial stenosis, occlusion or aneurysm. PROCEDURE INFORMATION: Exam: CT Angiography Neck With Contrast Exam date and time: 07/21/2021 5:42 PM Age: 45 years old Clinical indication: Speech disturbance; Slurred speech; Additional info: Stroke symptoms TECHNIQUE: Imaging protocol: Computed tomography angiography of the neck with contrast. 3D rendering (Not supervised by radiologist): MIP and/or 3D reconstructed images were created by the technologist. Radiation optimization: All CT scans at this facility use at least one of these dose optimization techniques: automated exposure control; mA and/or kV adjustment per patient size (includes targeted exams where dose is matched to clinical indication); or iterative reconstruction. Contrast material: OMNI 300; Contrast volume: 95 ml; Contrast route: INTRAVENOUS (IV); COMPARISON: CT head wo con* [id number] 07/21/2021 5:44 PM RADIATION DOSE METRICS: Total DLP (mGy-cm): 2596.29 FINDINGS: Right common carotid artery: No stenosis. No dissection or occlusion. Right internal carotid artery: No stenosis of the extracranial segment. No dissection or occlusion. Right external carotid artery: No occlusion or stenosis of the origin. Left common carotid artery: No stenosis. No dissection or occlusion. Left internal carotid artery: No stenosis of the extracranial segment. No dissection or occlusion. Left external carotid artery: No occlusion or stenosis of the origin. Right vertebral artery: No stenosis. No dissection or occlusion. Left vertebral artery: No stenosis. No dissection or occlusion. Soft tissues: Soft tissues in the neck and thoracic inlet are unremarkable. Bones/joints: Bones are unremarkable. Lungs: Lung apices are clear. CT/CT angio headneck* [id number] IMPRESSION: No arterial stenosis, occlusion or dissection. REFERENCES: NASCET CRITERIA. The degree of internal carotid artery stenosis is based on NASCET criteria. Normal is no stenosis. Mild is less than 50% stenosis. Moderate is 50-69% stenosis. Severe is 70% to 99% stenosis. Total occlusion is no detectable patent lumen. Radiation Dose CTDIVOL = (mGy): DLP = 2596.29~2596.29 (mGy-cm) Dictated By:Bandar Dubois MDSigned By:Bandar Dubois MDSigned Date/Time:07/21/21 1824DD/ EKG Data^: EKG 1: Attestation: I personally reviewed and interpreted this EKG as follows: EKG interpretation date: 07/21/21 EKG interpretation time: 17:56 Prior EKG tracings: not available for review Interpretation: sinus rhythm HR 89 bpm Normal axis No ST changes. Discharge Plan Discharge Patient Disposition: Admitted As Inpatient Admit Provider: Sierra Campbell Clinical Impression: CVA (cerebral vascular accident) Condition: Stable Discharge Diet: Cardiac and Diabetic Discharge Activity: Resume usual activity Coding Level of Care Code ED Wheat [employer]er for Chg Fwd Exam Comprehensive
[2021-07-21 17:54] LABS: Glucose Point of Care 294 mg/dL (70-110)
[2021-07-21 18:04] LABS: Basophils # 0.1 10^3/uL (0.0-0.1); Basophils % 1.1 %; Eosinophils # 0.1 10^3/uL (0.0-0.8); Hematocrit 44.7 % (42.0-52.0); Hemoglobin 15.4 g/dL (11.7-16.6); Lymphocytes # 2.9 10^3/uL (0.8-4.8); Mean Corpuscular HGB Conc 34.5 g/dL (30.0-36.0); Mean Corpuscular Hemoglobin 28.3 pg (28.0-34.0); Mean Corpuscular Volume 82.2 fl (80-94); Mean Platelet Volume 9.2 fL (7.4-10.4); Monocytes # 0.6 10^3/uL (0.2-0.9); Monocytes % 6.2 %; Neutrophils # 5.85 10^3/uL (1.8-7.7); Neutrophils % 60.7 %; Nucleated Red Blood Cells % 0 %; Platelet Count 225 10^3/cmm (130-400); Red Blood Count 5.44 10^6/uL (4.1-5.3); Red Cell Distribution Width 12.2 % (12.1-15.1); White Blood Count 9.7 10^3/uL (4.0-10.0)
[2021-07-21] MEDS: iohexol 350 mg/mL 100 mL Btl IV (18:10)
[2021-07-21 18:16] VITALS: BP 144/82; PULSE 92; RESP 37; O2SAT 96
[2021-07-21 18:33] LABS: Alanine Aminotransferase 16 U/L (0-41); Albumin Level 4.2 g/dL (3.5-5.2); Alkaline Phosphatase 131 IU/L (40-130); Anion Gap 14.1 (5-19); Aspartate Amino Transferase 13 U/L (0-40); Blood Urea Nitrogen 10 mg/dL (6-20); Calcium 9.2 mg/dL (8.5-10.5); Carbon Dioxide 27 mmol/L (22-29); Chloride 99 mmol/L (98-107); Globulin 2.9 g/dL (1.3-4.6); Glomerular Filtration Rate 123.1 mL/min (90-130); Glucose 324 mg/dL (65-115); Osmolality Calculated 294 mOsm/kg (285-295); Potassium 4.1 mmol/L (3.5-5.1); Sodium 136 mmol/L (136-145); Total Bilirubin 0.2 mg/dL (0.15-1.2); Total Protein 7.1 g/dL (6.6-8.7)
[2021-07-21 18:42] LABS: Add Urine Microscopic? NO; Charge for UA Resulting for Rev
[2021-07-21 18:59] LABS: Amphetamines Screen Urine Negative (Negative); Barbiturates Screen Urine Negative (Negative); Benzodiazepines Screen Urine Negative (Negative); Cocaine Screen Urine Negative (Negative); Opiate Screen Urine Negative (Negative); PCP Screen Urine Negative (Negative); THC Screen Urine Negative (Negative)
[2021-07-21 19:05] LABS: Bilirubin Urine Neg (Negative); Blood Urine Neg (Negative); Glucose Urine UA 4+ (Normal); Ketones Urine Negative (Negative); Leukocyte Esterase Urine Negative (Negative); Nitrate Urine Negative (Negative); Protein Urine Neg (Negative); Urine Appearance Clear (CLEAR); Urine Color Straw (Yellow); Urobilinogen Urine Norm (Negative); pH Urine 5 (5-7)
[2021-07-21 19:07] LABS: INR 0.97 (0.8-1.2)
[2021-07-21 19:08] LABS: Partial Thromboplastin Time 29.7 SECONDS (23.9-36.7)
--- NOTE | 2021-07-21 20:50 | PC.NURSE ---
Patient states he is now able to feel his gums and teeth.
[2021-07-21 22:00] VITALS: PULSE 92
--- NOTE | 2021-07-22 00:14 | P.HP_ITS ---
Providers/Chief Complaint Admitting Physician: Sierra Campbell MD Primary Care Provider: Benjamin Funk MD Chief Complaint: Stroke symptoms, numb mouth, high bp History of Present Illness Rui Jiang is a 45 year old male with a past medical history of diabetes mellitus, hypertension who presented to the emergency room after noticing a left facial droop starting at around 4 PM last evening. Patient states he was in his usual state of health until 4pm when he noticed numbness in his tongue, then followed by drooling of liquids from left side of mouth. Noted his BP to be 175/90 at home at that time. Numbness slightly improved but still persisting. No weakness in any limb. Patient was evaluted by tele stroke at [facility], not considered a candidate for tPA given low NIHSS . H/o shingles + over back few months ago. Review of Systems General: Reports: 10 or more systems reviewed and unremarkable except in HPI and below Const: Denies: fever(s), chills or body aches Eyes: Denies: change in vision, blurry vision or photophobia ENMT: Reports: hoarseness; Denies: throat pain, enlarged tonsils, odynophagia or nasal congestion Card: Denies: chest pain, palpitations, irregular heart rhythm, edema, swelling of feet/ankles, lightheadedness, pre-syncope, dyspnea on exertion or orthopnea Resp: Denies: dyspnea, productive cough, non-productive cough, wheezing, stridor, pain on inspiration, change in phlegm color, hemoptysis or chest congestion GI: Denies: abdominal pain, nausea, vomiting, hematemesis, coffee ground emesis, dysphagia, heartburn, diarrhea, constipation, GI cramping, change in stool character, hematochezia or melena : Denies: flank pain, dysuria, urinary frequency, urinary urgency, urinary hesitancy or hematuria Musc: Denies: neck pain, back pain, extremity pain, joint swelling, joint warmth or deformity Neuro: Denies: headache(s), numbness in extremities, weakness in extremities, sensory changes, difficulty walking, frequent falls, dizziness, vertigo, behavioral changes, Slurred speech present or seizure-like activity Psych: Denies: anxiety, depression, suicidal ideation or homicidal ideation Endo: Denies: polyuria, polydipsia, tired all the time, cold intolerance or hot flashes Jeff/Lymph: Denies: easy bruising or easy bleeding Medications/Allergies Home Medications Medication Instructions Recorded Confirmed Last Taken Type metformin 1,000 mg PO BID 08/03/20 07/21/21 07/21/21 History naproxen 500 mg PO BID PRN 08/03/20 07/21/21 Unknown History simvastatin 40 mg PO DAILY 08/03/20 07/21/21 07/20/21 History albuterol sulfate 90 mcg/actuation 2 inh INHALATION Q4H PRN #6.7 gm 03/22/21 07/21/21 Unknown Rx aerosol inhaler cholecalciferol (vitamin D3) 125 125 mcg PO DAILY 03/22/21 07/21/21 07/21/21 History mcg (5,000 unit) capsule cyanocobalamin (vitamin B-12) 5,000 mcg PO DAILY 03/22/21 07/21/21 07/21/21 History 5,000 mcg capsule chlorthalidone 25 mg tablet 25 mg PO DAILY 90 Days #90 tab 03/27/21 07/21/21 07/21/21 Rx furosemide 20 mg tablet 20 mg PO DAILY 30 Days #30 tab 05/01/21 07/21/21 07/21/21 Rx potassium chloride 10 mEq 10 meq PO DAILY 30 Days #30 tab 05/01/21 07/21/21 07/21/21 Rx tablet,extended release tiotropium bromide 18 mcg capsule 1 cap INHALATION DAILY 30 Days #30 05/03/21 07/21/21 07/21/21 Rx with inhalation device inh fluticasone propionate 50 1 spray INTRANASAL DAILY PRN 05/15/21 07/21/21 Unknown History mcg/actuation nasal spray,suspension paroxetine HCl 40 mg tablet 40 mg PO DAILY 90 Days #90 tab 05/30/21 07/21/21 07/21/21 Rx glipizide 10 mg tablet 10 mg PO DAILY 90 Days #90 tab 07/05/21 07/21/21 07/21/21 Rx lisinopril 10 mg tablet 10 mg PO DAILY 90 Days #90 tab 07/05/21 07/21/21 07/21/21 Rx meclizine 25 mg tablet 25 mg PO DAILY PRN 30 Days #30 tab 07/05/21 07/21/21 Unknown Rx metoprolol tartrate 25 mg tablet 25 mg PO BID 30 Days #60 tab 07/05/21 07/21/21 07/21/21 Rx fluticasone 250 mcg-salmeterol 50 1 inh INHALATION BID #60 ea 07/19/21 07/21/21 07/21/21 Rx mcg/dose blistr powdr for inhalation insulin NPH isoph U-100 human 32 unit SUBCUT BEDTIME 07/21/21 07/21/21 07/20/21 History [Novolin N NPH U-100 Insulin] insulin regular human [Novolin R See Rx Instructions .ROUTE .COMPLEX 07/21/21 07/21/21 07/21/21 History Regular U-100 Insuln] Allergies Allergy/AdvReac Type Severity Reaction Status Date / Time nalbuphine [From Nubain] Allergy Unknown Verified 07/19/21 15:06 PFSH Acute PFSH: Medical History Anxiety Bilateral lower extremity edema DM type 2 (diabetes mellitus, type 2) Herpes zoster Hyperlipidemia Hypertension Left knee pain Vertigo Social History Smoking and tobacco status: former smoker (cigars) Quit status (tobacco): has quit using tobacco Year quit tobacco: unknown Former quit date comment: smoked 4-5 cigars/day x 3 years Second hand smoke exposure: Yes Smoking risk assessment/counseling performed?: Yes Alcohol intake: current Alcohol intake frequency: holidays/special occasions only Desire information about alcohol rehabilitation?: No Lives independently: Yes Household members: spouse Marital status: service: No Current occupational status: employed Pets and animals: Yes History of recent travel: No Current gender identity: Male Vitals/I&O/Wt Last Vital Signs Temp 98.0 F 07/21/21 17:37 Pulse 92 07/21/21 22:00 Resp 37 H 07/21/21 18:16 BP 144/82 07/21/21 18:16 Pulse Ox 96 07/21/21 18:16 Weight last 48 hrs Weight 131.542 kg Physical Exam Narrative: EXAM NARRATIVE: General: No acute distress, AO x3 HEENT: PERRLA, pupils bilaterally equal and reactive, pallors not present Chest: Normal vesicular breath sounds, no added sounds, equal good air entry bilaterally CVS: S1-S2 regular, no murmurs, no tachycardia, no gallops, no rubs Abdomen: Soft, nontender, no organomegaly, bowel sounds present Neuro: Left facial palsy+, appears to involve eye as well, left eye closure slightly sluggish compared to right. Data : 07/21/21 17:38 07/21/21 17:38 A&P Assessment and plan (1) CVA (cerebral vascular accident): 45M with multiple risk factors presenting with left side facial droop, predominantly affecting lower face however slightly sluggish eye movements subtly. Chief concern at this time is for CVA, CT head Bilateral somewhat symmetric frontal lobe subtle linear areas of hyperdensity measuring up to 10 mm on the left suggestive of calcification. hemorrhage is felt unlikely. CTA with No arterial stenosis, occlusion or aneurysm. Pt. evaluated by tele stroke at [facility]- recommended to obtain MRI and MRA of head and neck and echo. Also recommended to start ASA, Plavix, atorvastatin 80. 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
[2021-07-22 00:18] VITALS: BP 147/77; PULSE 82; RESP 16; O2SAT 95
--- NOTE | 2021-07-22 00:22 | MRR_ITS ---
PROCEDURE INFORMATION: Exam: MR Head Without Contrast Exam date and time: 07/22/2021 12:22 AM Age: 45 years old Clinical indication: Other: Facial droop, CVA; Additional info: CVA, left facial droop, CVA TECHNIQUE: Imaging protocol: MR of the head without contrast. COMPARISON: CT head wo con* [id number] 07/21/2021 5:44 PM FINDINGS: Brain: Normal. No acute infarct. No hemorrhage. No significant white matter disease. No edema. The small hyperdensity in the bilateral frontal lobes on this exam appears may be calcification or small vessels with flow artifact. Cerebral ventricles: Normal. No ventriculomegaly. Bones/joints: Unremarkable. Paranasal sinuses: Normal as visualized. No acute sinusitis. Mastoid air cells: Normal as visualized. No mastoid effusion. Orbital cavity: Unremarkable. Soft tissues: Unremarkable. MR/MR head wo con* [id number] IMPRESSION: No acute findings.
[2021-07-22 01:02] LABS: Glucose Point of Care 183 mg/dL (70-110)
[2021-07-22 02:20] VITALS: PULSE 78; RESP 17; O2SAT 95
[2021-07-22 05:00] VITALS: BP 157/97; PULSE 79; RESP 16; O2SAT 96
[2021-07-22 07:17] LABS: Glucose Point of Care 244 mg/dL (70-110)
--- NOTE | 2021-07-22 08:16 | MRR_ITS ---
PROCEDURE INFORMATION: Exam: MRA Neck Without Contrast Exam date and time: 07/22/2021 8:16 AM Age: 45 years old Clinical indication: Other: CVA , facial droop; Additional info: CVA, left facial droop TECHNIQUE: Imaging protocol: Magnetic resonance angiography of the neck without contrast. COMPARISON: CT angio headneck* [id number] 07/21/2021 6:03 PM FINDINGS: Right common carotid artery: Visualized portions of the right common carotid artery, carotid bifurcation and internal and external carotid arteries normal. Right internal carotid artery: No stenosis of the extracranial segment. No dissection or occlusion. Right external carotid artery: No stenosis. No dissection or occlusion of the origin. Right vertebral artery: Code dominant vertebral arteries Left common carotid artery: Visualized portions of the left common carotid artery, carotid bifurcation and proximal internal and external carotid arteries normal. Left internal carotid artery: No stenosis of the extracranial segment. No dissection or occlusion. Left external carotid artery: No stenosis. No dissection or occlusion of the origin. Left vertebral artery: No stenosis. No dissection or occlusion. MR/MR angio neck wo con [id number] IMPRESSION: Unremarkable MR angiogram of the neck. REFERENCES: NASCET CRITERIA. The degree of internal carotid artery stenosis is based on NASCET criteria. Normal is no stenosis. Mild is less than 50% stenosis. Moderate is 50-69% stenosis. Severe is 70% to 99% stenosis. Total occlusion is no detectable patent lumen.
--- NOTE | 2021-07-22 08:16 | MRR_ITS ---
Examination: CT angiogram of the brain. 07/22/2021 8:16 AM Indication: Other: CVA, facial droop; Additional info: CVA , left facial droop Technique: Imaging protocol: Magnetic resonance angiography head without contrast. Exam focused on the arteries. Findings: The axial source images were carefully reviewed and interpreted in conjunction with the projected images. Right petrous carotid, cavernous carotid, supraclinoid carotid: Normal Right M1 and M2 segments: Normal Right A1 and A2 segments: Normal Left petrous and cavernous carotids and supraclinoid carotid: Normal Left M1 and M2 segments: Normal Left A1 and A2 segments: Normal Right and left posterior inferior cerebellar arteries: Normal Basilar artery: Normal Superior cerebellar arteries and the left and right P1 and P2 segments: Left P1 and P2 segments normal. Calcarine branch normal. Right P1 and P2 segments appear normal. Rather diminutive distal right posterior cerebral artery/occipital and calcarine branches although appear patent. Correlate with MRI. MR/MR angio head wo con [id number] Impression: No acute process clearly visualized.
[2021-07-22] MEDS: aspirin 81 mg EC Tablet PO (08:28)
[2021-07-22] MEDS: metoprolol tartrate 25 mg Tablet PO ×2 (08:28→17:52)
--- NOTE | 2021-07-22 08:28 | P.PN_ITS ---
Subjective Subjective: Interval history: no acute interim events, awaiting MRI, symptoms unchanged Medications: Reviewed: Yes Vitals/I&O/Wt Last Vital Signs Temp 98.0 F 07/21/21 17:37 Pulse 79 07/22/21 05:00 Resp 16 07/22/21 05:00 BP 157/97 07/22/21 05:00 Pulse Ox 96 07/22/21 05:00 07/21/21 07/22/21 07/22/21 22:59 06:59 14:59 Output Total 475 / 475 Balance -475 / -475 Weight last 48 hrs Weight 131.542 kg Physical Exam Narrative: EXAM NARRATIVE: General: No acute distress, AO x3 HEENT: PERRLA, pupils bilaterally equal and reactive, pallors not present Chest: Normal vesicular breath sounds, no added sounds, equal good air entry bilaterally CVS: S1-S2 regular, no murmurs, no tachycardia, no gallops, no rubs Abdomen: Soft, nontender, no organomegaly, bowel sounds present Neuro: Left facial palsy+, appears to involve eye as well, left eye closure slightly sluggish compared to right. Data : 07/21/21 17:38 07/21/21 17:38 A&P Assessment and plan (1) CVA (cerebral vascular accident): 45M with multiple risk factors presenting with left side facial droop, predominantly affecting lower face however slightly sluggish eye movements subtly. Chief concern at this time is for CVA. 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
[2021-07-22] MEDS: atorvastatin 40 mg Tablet 80 MG PO (10:00)
[2021-07-22] MEDS: clopidogrel 75 mg Tablet PO (10:01)
[2021-07-22] MEDS: FUROsemide 20 mg Tablet PO (10:01)
[2021-07-22] MEDS: PARoxetine 20 mg Tablet 40 MG PO (10:01)
[2021-07-22 10:04] VITALS: BP 158/95; PULSE 79; RESP 14; TEMP 36.4; O2SAT 94
--- NOTE | 2021-07-22 12:44 | XRR_ITS ---
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 Exam was performed for MR screening. Views: 1 or 2 views Total images: 3 COMPARISON: CT head wo con* [id number] 07/21/2021 5:44 PM FINDINGS: Sinuses: Well aerated. No opacification. Bones/joints: No fracture. Soft tissues: Unremarkable. Radiopaque foreign body: None. Aneurysm clip: None. Implantable device: None. Notes: No visible contraindication to MRI on this exam. XR/[place] [id number] IMPRESSION: No evidence of foreign body.
[2021-07-22 13:08] LABS: Glucose Point of Care 338 mg/dL (70-110)
[2021-07-22 13:15] VITALS: PULSE 83; RESP 17; O2SAT 93
--- NOTE | 2021-07-22 17:34 | P.DS_ITS ---
Discharge Providers Date of Admission: 07/22/21 15:05 Date of Discharge: July 22, 2021 Attending Provider at Admission: Sierra Campbell MD Attending Provider at Discharge: Sierra Campbell MD Consults: Telemetry neurology: [facility] Primary Care Provider: Benjamin Funk MD Diagnoses at Discharge Discharge Diagnosis (1) CVA (cerebral vascular accident): Status: Acute Reason for Visit Reason for Visit: Stroke symptoms, numb mouth, high bp Hospital Course Hospital Course Rui Jiang is a 45 year old male with a past medical history of diabetes mellitus, hypertension, multiple episodes of shingles in the past with most recently few months ago who presented to the emergency room after noticing a left facial droop starting at around 4 PM last evening. Patient states he was in his usual state of health until 4pm when he noticed numbness in his tongue, then followed by drooling of liquids from left side of mouth. Noted his BP to be 175/90 at home at that time. Numbness slightly improved but still persisting. No weakness in any limb. Patient was evaluted by tele stroke at [facility], not considered a candidate for tPA given low NIHSS . Patient returned to the hospital for further monitoring. Neurologically he remained stable. Patient's care was discussed in detail with neurology from [facility] who recommended for an MRI/MRA head and neck. They also stated if that is normal to start patient on Valtrex. Patient was ambulatory by himself and was tolerating his diet well. During hospitalization he was found to have elevated blood sugars for which his insulin has been adjusted. Most recent HbA1c in April 2021 8.9. He has been discharged hemodynamically stable condition advised to follow-up with his primary care provider within next 1 week, Dr. Zhang within next 10 days. His dose of Lantus has been increased to 40 units nightly with advised to increase it by 5 units weekly keeping goal fasting blood sugars of less than 120. His dose of metoprolol and lisinopril have been increased as well. He is advised to take Valtrex 1 g twice daily for next 7 days. Physical Exam Narrative: EXAM NARRATIVE: General: No acute distress, AO x3 HEENT: PERRLA, pupils bilaterally equal and reactive, pallors not present Chest: Normal vesicular breath sounds, no added sounds, equal good air entry bilaterally CVS: S1-S2 regular, no murmurs, no tachycardia, no gallops, no rubs Abdomen: Soft, nontender, no organomegaly, bowel sounds present Neuro: Left facial palsy+, appears to involve eye as well, left eye closure slightly sluggish compared to right. Discharge Data Data Completed and Pending: Completed Studies During Hospitalization Category Date Time Status CT angio headneck * [id number] Stat Cat Scan 07/21/21 17:[address] head wo con* 7 [id number] Stat Cat Scan 07/21/21 17:42 [place]R [place] BI [id number] 0 Routine Exams 07/22/21 12:44 Completed MR angio head wo con [id number] Routine MRI 07/22/21 08:16 Completed MR angio neck wo con [id number] Routine MRI 07/22/21 08:16 Completed MR head wo con* 7 [id number] Routine MRI 07/22/21 00:22 Completed Pending at discharge Category Date Time Status CV. echo complete * [id number] Routine Ultrasound 07/23/21 06:00 Ordered Labs from last 24 hours 07/22/21 07/22/21 07/22/21 13:03 07:15 00:57 WBC RBC Hgb Hct MCV MCH MCHC RDW Plt Count MPV Neut % (Auto) Lymph % (Auto) [place] % (Auto) Eos % (Auto) Baso % (Auto) Neut # (Auto) Lymph # (Auto) [place] # (Auto) Eos # (Auto) Baso # (Auto) Nucleated RBC % (a uto) Nucleated RBCs # PT INR APTT Sodium Potassium Chloride Carbon Dioxide Anion Gap BUN Creatinine GFR Calculation Glucose POC Glucose 338 H 244 H 183 H Calculated Osmolal ity Calcium Total Bilirubin AST ALT Alkaline Phosphata se Total Protein Albumin Globulin Urine Color Urine Appearance Urine pH Ur Specific Gravit y Urine Protein Urine Glucose (UA) Urine Ketones Urine Blood Urine Nitrate Urine Bilirubin Urine Urobilinogen Ur Leukocyte Naila ase Urine Opiates Scre en Ur Barbiturates Sc reen Ur Phencyclidine S crn Ur Amphetamines Sc reen U Benzodiazepines Scrn Urine Cocaine Scre en U Marijuana (THC) Screen 07/21/21 07/21/21 07/21/21 18:26 18:26 17:51 WBC RBC Hgb Hct MCV MCH MCHC RDW Plt Count MPV Neut % (Auto) Lymph % (Auto) [place] % (Auto) Eos % (Auto) Baso % (Auto) Neut # (Auto) Lymph # (Auto) [place] # (Auto) Eos # (Auto) Baso # (Auto) Nucleated RBC % (a uto) Nucleated RBCs # PT INR APTT Sodium Potassium Chloride Carbon Dioxide Anion Gap BUN Creatinine GFR Calculation Glucose POC Glucose 294 H Calculated Osmolal ity Calcium Total Bilirubin AST ALT Alkaline Phosphata se Total Protein Albumin Globulin Urine Color Straw Urine Appearance Clear Urine pH 5 Ur Specific Gravit y 1.020 Urine Protein Neg Urine Glucose (UA) 4+ H Urine Ketones Negative Urine Blood Neg Urine Nitrate Negative Urine Bilirubin Neg Urine Urobilinogen Norm Ur Leukocyte Naila ase Negative Urine Opiates Scre en Negative Ur Barbiturates Sc reen Negative Ur Phencyclidine S crn Negative Ur Amphetamines Sc reen Negative U Benzodiazepines Scrn Negative Urine Cocaine Scre en Negative U Marijuana (THC) Screen Negative 07/21/21 07/21/21 07/21/21 17:38 17:38 17:38 WBC 9.7 RBC 5.44 H Hgb 15.4 Hct 44.7 MCV 82.2 MCH 28.3 MCHC 34.5 RDW 12.2 Plt Count 225 MPV 9.2 Neut % (Auto) 60.7 Lymph % (Auto) 30.0 [place] % (Auto) 6.2 Eos % (Auto) 1.0 Baso % (Auto) 1.1 Neut # (Auto) 5.85 Lymph # (Auto) 2.9 [place] # (Auto) 0.6 Eos # (Auto) 0.1 Baso # (Auto) 0.1 Nucleated RBC % (a uto) 0 Nucleated RBCs # 0.0 PT 13.20 INR 0.97 APTT 29.7 Sodium 136 Potassium 4.1 Chloride 99 Carbon Dioxide 27 Anion Gap 14.1 BUN 10 Creatinine 0.7 GFR Calculation 123.1 Glucose 324 H POC Glucose Calculated Osmolal ity 294 Calcium 9.2 Total Bilirubin 0.2 AST 13 ALT 16 Alkaline Phosphata se 131 H Total Protein 7.1 Albumin 4.2 Globulin 2.9 Urine Color Urine Appearance Urine pH Ur Specific Gravit y Urine Protein Urine Glucose (UA) Urine Ketones Urine Blood Urine Nitrate Urine Bilirubin Urine Urobilinogen Ur Leukocyte Naila ase Urine Opiates Scre en Ur Barbiturates Sc reen Ur Phencyclidine S crn Ur Amphetamines Sc reen U Benzodiazepines Scrn Urine Cocaine Scre en U Marijuana (THC) Screen Addt'l Data from Hospital Stay: Laboratory Results WBC 9.7 10^3/uL (4.0- 10.0) 07/21/21 17:38 RBC 5.44 10^6/uL (4.1 -5.3) H 07/21/21 17:38 Hgb 15.4 g/dL (11.7-1 6.6) 07/21/21 17:38 Hct 44.7 % (42.0-52.0 ) 07/21/21 17:38 MCV 82.2 fl (80-94) 07/21/21 17:38 MCH 28.3 pg (28.0-34. 0) 07/21/21 17:38 MCHC 34.5 g/dL (30.0-3 6.0) 07/21/21 17:38 RDW 12.2 % (12.1-15.1 ) 07/21/21 17:38 Plt Count 225 10^3/cmm (130 -400) 07/21/21 17:38 MPV 9.2 fL (7.4-10.4) 07/21/21 17:38 Neut % (Auto) 60.7 % 07/21/21 17:38 Lymph % (Auto) 30.0 % 07/21/21 17:38 [place] % (Auto) 6.2 % 07/21/21 17:38 Eos % (Auto) 1.0 % 07/21/21 17:38 Baso % (Auto) 1.1 % 07/21/21 17:38 Neut # (Auto) 5.85 10^3/uL (1.8 -7.7) 07/21/21 17:38 Lymph # (Auto) 2.9 10^3/uL (0.8- 4.8) 07/21/21 17:38 [place] # (Auto) 0.6 10^3/uL (0.2- 0.9) 07/21/21 17:38 Eos # (Auto) 0.1 10^3/uL (0.0- 0.8) 07/21/21 17:38 Baso # (Auto) 0.1 10^3/uL (0.0- 0.1) 07/21/21 17:38 Nucleated RBC % (a uto) 0 % 07/21/21 17:38 Nucleated RBCs # 0.0 /100WBC 07/21/21 17:38 PT 13.20 SECONDS (12 .1-14.9) 07/21/21 17:38 INR 0.97 (0.8-1.2) 07/21/21 17:38 APTT 29.7 SECONDS (23. 9-36.7) 07/21/21 17:38 Sodium 136 mmol/L (136-1 45) 07/21/21 17:38 Potassium 4.1 mmol/L (3.5-5 .1) 07/21/21 17:38 Chloride 99 mmol/L (98-107 ) 07/21/21 17:38 Carbon Dioxide 27 mmol/L (22-29) 07/21/21 17:38 Anion Gap 14.1 (5-19) 07/21/21 17:38 BUN 10 mg/dL (6-20) 07/21/21 17:38 Creatinine 0.7 mg/dL (0.7-1. 2) 07/21/21 17:38 GFR Calculation 123.1 mL/min (90- 130) 07/21/21 17:38 Glucose 324 mg/dL (65-115 ) H 07/21/21 17:38 POC Glucose 338 mg/dL (70-110 ) H 07/22/21 13:03 Calculated Osmolal ity 294 mOsm/kg (285- 295) 07/21/21 17:38 Calcium 9.2 mg/dL (8.5-10 .5) 07/21/21 17:38 Total Bilirubin 0.2 mg/dL (0.15-1 .2) 07/21/21 17:38 AST 13 U/L (0-40) 07/21/21 17:38 ALT 16 U/L (0-41) 07/21/21 17:38 Alkaline Phosphata se 131 IU/L (40-130) H 07/21/21 17:38 Total Protein 7.1 g/dL (6.6-8.7 ) 07/21/21 17:38 Albumin 4.2 g/dL (3.5-5.2 ) 07/21/21 17:38 Globulin 2.9 g/dL (1.3-4.6 ) 07/21/21 17:38 Urine Color Straw (Yellow) 07/21/21 18:26 Urine Appearance Clear (CLEAR) 07/21/21 18:26 Urine pH 5 (5-7) 07/21/21 18:26 Ur Specific Gravit y 1.020 (1.005-1.0 30) 07/21/21 18:26 Urine Protein Neg (Negative) 07/21/21 18:26 Urine Glucose (UA) 4+ (Normal) H 07/21/21 18:26 Urine Ketones Negative (Negati ve) 07/21/21 18:26 Urine Blood Neg (Negative) 07/21/21 18:26 Urine Nitrate Negative (Negati ve) 07/21/21 18:26 Urine Bilirubin Neg (Negative) 07/21/21 18:26 Urine Urobilinogen Norm mg/dL (Negat alex) 07/21/21 18:26 Ur Leukocyte Naila ase Negative (Negati ve) 07/21/21 18:26 Urine Opiates Scre en Negative ng/mL (N egative) 07/21/21 18:26 Ur Barbiturates Sc reen Negative ng/mL (N egative) 07/21/21 18:26 Ur Phencyclidine S crn Negative ng/mL (N egative) 07/21/21 18:26 Ur Amphetamines Sc reen Negative ng/mL (N egative) 07/21/21 18:26 U Benzodiazepines Scrn Negative ng/mL (N egative) 07/21/21 18:26 Urine Cocaine Scre en Negative ng/mL (N egative) 07/21/21 18:26 U Marijuana (THC) Screen Negative ng/mL (N egative) 07/21/21 18:[address] 07/21/21 17:42 IMPRESSION: Bilateral somewhat symmetric frontal lobe subtle linear areas of hyperdensity measuring up to 10 mm on the left suggestive of calcification given symmetry, hemorrhage is felt unlikely, MRI could further characterize these. Radiation Dose CTDIVOL = (mGy): DLP = 1005.82 (mGy-cm) Head/Neck CTA 07/21/21 17:42 IMPRESSION: No arterial stenosis, occlusion or dissection. REFERENCES: NASCET CRITERIA. The degree of internal carotid artery stenosis is based on NASCET criteria. Normal is no stenosis. Mild is less than 50% stenosis. Moderate is 50-69% stenosis. Severe is 70% to 99% stenosis. Total occlusion is no detectable patent lumen. Radiation Dose CTDIVOL = (mGy): DLP = 2596.29~2596.29 (mGy-cm) ADDENDUM: 07/21/21 1839 THIS REPORT CONTAINS FINDINGS THAT MAY BE CRITICAL TO PATIENT CARE. The findings were verbally communicated via telephone conference with TONY BROWN at 6:37 PM CDT on 07/21/2021. The findings were acknowledged and understood. Radiation Dose CTDIVOL = (mGy): DLP = 2596.29~2596.29 (mGy-cm) Head MRI 07/22/21 00:22 IMPRESSION: No acute findings. Head MRA 07/22/21 08:16 Impression: No acute process clearly visualized. Neck MRA 07/22/21 08:16 IMPRESSION: Unremarkable MR angiogram of the neck. REFERENCES: NASCET CRITERIA. The degree of internal carotid artery stenosis is based on NASCET criteria. Normal is no stenosis. Mild is less than 50% stenosis. Moderate is 50-69% stenosis. Severe is 70% to 99% stenosis. Total occlusion is no detectable patent lumen. Orbit X-Ray 07/22/21 12:44 IMPRESSION: No evidence of foreign body. Vitals: Last Vital Signs Temp 97.6 F 07/22/21 10:04 Pulse 83 07/22/21 13:15 Resp 17 07/22/21 13:15 BP 158/95 07/22/21 10:04 Pulse Ox 93 07/22/21 13:15 Discharge Plan Discharge Patient Disposition: Home Condition: Stable Prescriptions: New clopidogrel 75 mg Tablet 75 mg PO DAILY 30 Days Qty: 30 RF: 0 aspirin 81 mg Tablet,Delayed Release (Dr/Ec) 81 mg PO DAILY 30 Days Qty: 30 RF: 0 valacyclovir [Valtrex] 1 gram tablet 1,000 mg PO BID 7 Days Qty: 14 RF: 0 Continued meclizine 25 mg tablet 25 mg PO DAILY PRN (Reason: motion sickness) 30 Days Qty: 30 RF: 0 glipizide 10 mg tablet 10 mg PO DAILY 90 Days Qty: 90 RF: 0 paroxetine HCl [Paxil] 40 mg tablet 40 mg PO DAILY 90 Days Qty: 90 RF: 0 cyanocobalamin (vitamin B-12) 5,000 mcg capsule 5,000 mcg PO DAILY RF: 0 cholecalciferol (vitamin D3) 125 mcg (5,000 unit) capsule 125 mcg PO DAILY RF: 0 albuterol sulfate 90 mcg/actuation HFA aerosol inhaler 2 inh INHALATION Q4H PRN (Reason: shortness of breath or wheezing) Qty: 6.7 RF: 0 furosemide [Lasix] 20 mg tablet 20 mg PO DAILY 30 Days Qty: 30 RF: 1 potassium chloride [Klor-Con 10] 10 mEq tablet extended release 10 meq PO DAILY 30 Days Qty: 30 RF: 1 Spiriva with HandiHaler 18 mcg capsule, w/inhalation device 1 cap inhalation DAILY 30 Days Qty: 30 RF: 1 fluticasone propionate 50 mcg/actuation spray,suspension 1 spray intranasal DAILY PRN (Reason: Nasal Congestion) RF: 0 chlorthalidone 25 mg tablet 25 mg PO DAILY 90 Days Qty: 90 RF: 0 fluticasone propion-salmeterol [Advair Diskus] 250-50 mcg/dose blister with device 1 inh inhalation BID Qty: 60 RF: 3 simvastatin 40 mg tablet 40 mg PO DAILY RF: 0 metformin 500 mg tablet extended release 24 hr 1,000 mg PO BID RF: 0 naproxen 500 mg tablet 500 mg PO BID PRN (Reason: Pain) RF: 0 Novolin R Regular U-100 Insuln 100 unit/mL Solution See Rx Instructions .ROUTE .COMPLEX RF: 0 Changed metoprolol tartrate 25 mg tablet 50 mg PO BID 30 Days Qty: 60 RF: 0 lisinopril 10 mg tablet 20 mg PO DAILY 90 Days Qty: 90 RF: 0 Novolin N NPH U-100 Insulin 100 unit/mL Suspension 40 unit SUBCUT BEDTIME Qty: 0 RF: 0 Discharge Orders: Discharge Order (Routine); Ordered 07/22/21 Ordered By: Oswald Rodriguez Referrals: Maureen Zhang MD [Physician] - 7-10 days Benjamin Funk MD [Primary Care Provider] - 4-7 days Discharge Diet: Cardiac and Diabetic Discharge Activity: Resume usual activity Patient Instructions: Opioid Safety Activity Restrictions/Additional Instructions: Your dose of lisinopril has been increased to 20 mg daily. Dose of metoprolol has been increased to 50 mg twice daily. Dose of insulin has been increased to 40 units nightly for Lantus. Your goal fasting blood sugar should be less than 120. If in 1 week even after taking Lantus 40 units nightly blood sugars are more than 120 increase it by 5 units. Please take Valtrex 1 g twice daily for next 1 week. Please follow-up with Dr. Zhang from neurology within next 10 days. Please follow-up with a primary care provider within next 1 week. Discharge Attestations Time Spent in Discharge Care*: greater than 30 min Specific Discharge Activities: educating patient, educating and/or supporting family/caregiver, discussing with pcp/other providers, discussing with immigration case worker/social workers/dc planners, documenting/other paperwork and evaluating patient/reviewing data Status at Discharge: Cognitive status at discharge: cognitively intact , Behavioral status at discharge: cooperative , Functional status at discharge: independent ambulation Overall status at discharge: patient is progressing back to baseline Quality Metrics Clinical Quality Measures During this hospital stay, did patient experience: Stroke Contraindication to Antithrombotic: Antithrombotic prescribed Contraindication to Anticoagulation: Anticoagulation prescribed Contraindication to Statin: Statin prescribed Contraindication to tPA: Did not meet criteria Coding Level of Care Code Acute [facility] DC note Diagnoses CVA (cerebral vascular accident) I63.9
[2021-07-22 17:48] LABS: Glucose Point of Care 320 mg/dL (70-110)
[2021-07-22 18:55] VITALS: PULSE 83; RESP 17; O2SAT 93
--- NOTE | 2021-07-24 18:31 | PC.RESP ---
PULMONARY REHAB INFORMATION SENT TO PATIENT.
== END 2021-07-22 18:57 | disposition home or self-care (01) ==
LOC: ER 23:33 → MEDSURG 07-22 15:05
PROVIDERS: Admitting Provider Student in an Organized Health Care Education/Training Program; Emergency Provider Family Medicine; PCP Family Medicine; Visit Provider Student in an Organized Health Care Education/Training Program
DX: I63.9 Cerebral infarction, unspecified (principal); I10 Essential (primary) hypertension; E11.9 Type 2 diabetes mellitus without complications
CPT/HCPCS: 36416; 70200; 70450; 70496; 70498; 70544; 70547; 70551; 80053; 80306; 81003; 82962; 85025; 85610; 85730; 93005; 96372; 99291; G0378; J1815; Q9967

== ENCOUNTER 2021-07-28 11:48 | Outpatient (CLI) | payer MEDICAID, SELFPAY ==
--- NOTE | 2021-07-28 13:30 | USCV_ITS ---
Rui Jiang Age: 45 Gender: M : 1975 Exam Date: 07/28/2021 12:07 Ordering Phys: Benjamin Funk MD Technologist: Josee Queen Exam Location: [facility] [place] Indication: shortness of breath BP: 145 / 90 HR: 73 Rhythm: Sinus Technical Quality: Fair MEASUREMENTS (Male / Female) Normal Values 2D ECHO LV Diastolic Diameter PLAX 4.8 cm 4.2 - 5.9 / 3.9 - 5.3 cm LV Systolic Diameter PLAX 2.9 cm IVS Diastolic Thickness 1.2 cm 0.6 - 1.0 / 0.6 - 0.9 cm IVS Systolic Thickness 1.6 cm LVPW Diastolic Thickness 1.2 cm 0.6 - 1.0 / 0.6 - 0.9 cm LVPW Systolic Thickness 2.0 cm LVOT Diameter 2.2 cm LV Ejection Fraction 2D Teich 70.8 % LV Ejection Fraction MOD 2C 36.5 % LV Ejection Fraction 2C AL 38.6 % LA Diameter 3.0 cm LA Width 2.9 cm LA Height 4.5 cm RA Width 2.8 cm RA Height 5.9 cm Aorta at Sinotubular Diameter 3.1 cm DOPPLER AV Peak Velocity 184.0 cm/s LVOT Peak Velocity 123.0 cm/s AV Area Cont Eq vti 2.7 cm squared AV Area Cont Eq pk 2.4 cm squared MV Peak Velocity 106.0 cm/s MV Area PHT 3.1 cm squared Mitral E to A Ratio 0.8 MV E' Velocity 50.5 cm/s Mitral E to MV E' Ratio 13.6 Mitral E to LV E' Lateral Ratio 13.8 Mitral E to LV E' Septal Ratio 13.6 TR Peak Velocity 118.3 cm/s TR Peak Gradient 5.6 mmHg Right Atrial Pressure 3.0 mmHg Pulmonary Artery Systolic Pressu 8.6 mmHg PV Peak Velocity 104.0 cm/s RV Acceleration Time 0.1 s RV Ejection Time 0.3 s RV AcT/ET 0.3 FINDINGS Left Ventricle Normal left ventricular cavity size. Normal left ventricular systolic function. No regional wall motion abnormalities. Left ventricular ejection fraction is estimated at 65 %. Normal diastolic function. Right Ventricle The right ventricle is normal in size and function. Right Atrium The right atrium is normal in size. Left Atrium The left atrium is normal in size. Mitral Valve Structurally normal mitral valve without significant stenosis or prolapse. There is no mitral regurgitation. Aortic Valve Structurally normal aortic valve without significant sclerosis or stenosis. There is no aortic regurgitation. Tricuspid Valve Structurally normal tricuspid valve without significant stenosis or regurgitation. Pulmonary artery systolic pressure is normal. Pulmonic Valve Structurally normal pulmonic valve without significant stenosis. There is no pulmonic regurgitation. Pericardium Normal pericardium without effusion. Aorta Normal ascending aorta dimension. CONCLUSIONS 1-Normal left ventricular cavity size. Normal left ventricular systolic function. No regional wall motion abnormalities. Left ventricular ejection fraction is estimated at 65 %. Normal diastolic function. 2-There is no pericardial effusion. 3-No significant valve abnormalities. 4-Pulmonary artery systolic pressure is within normal limits. 5-Right atrial pressure is around 5 mm of mercury. 6-There are no prior echocardiogram studies to compare. Breezy Alexis MD (Electronically Signed) Final Date: 28 July 2021 14:52 S
== END 2021-07-28 11:49 | disposition home or self-care (01) ==
LOC: RAD 11:52
PROVIDERS: PCP Family Medicine; Visit Provider Family Medicine
DX: R06.02 Shortness of breath (principal)
CPT/HCPCS: 93306

== ENCOUNTER → 2021-08-07 10:50 | Outpatient (BNVA) | payer MEDICAID, SELFPAY | PROVIDERS: PCP Family Medicine; Referring Provider Student in an Organized Health Care Education/Training Program; Visit Provider Nurse Practitioner | DX: G51.0 Bell's palsy (principal); Z87.891 Personal history of nicotine dependence | CPT/HCPCS: 99203 ==

== ENCOUNTER → 2021-08-10 13:07 | Outpatient (BNVA) | payer MEDICAID, SELFPAY | PROVIDERS: PCP Family Medicine; Visit Provider Nurse Practitioner Family | DX: I10 Essential (primary) hypertension (principal); I63.9 Cerebral infarction, unspecified; R07.9 Chest pain, unspecified | CPT/HCPCS: 80053; 83735; 85025 ==

== ENCOUNTER 2021-09-19 06:39 | Outpatient (CLI) | payer MEDICAID, SELFPAY ==
[2021-09-19 07:45] LABS: Estmated Average Glucose 246; Hemoglobin A1C 10.2 % (4.0-6.0)
== END 2021-09-19 06:40 | disposition home or self-care (01) ==
PROVIDERS: PCP Family Medicine; Visit Provider Family Medicine
DX: Z79.4 Long term (current) use of insulin (principal); E11.65 Type 2 diabetes mellitus with hyperglycemia
CPT/HCPCS: 83036

== ENCOUNTER 2021-09-19 09:24 | Inpatient (IN) | payer MEDICAID, SELFPAY ==
[2021-09-19 06:46] VITALS: BMI 42.3
--- NOTE | 2021-09-19 06:48 | NMCV_ITS ---
NM suhas perf SPECT r/s* [id number] Rui Jiang Age: 45 Gender: M : 1975 Exam Date: 09/19/2021 07:57 Ordering Phys: Berhane Hollins MD ([email or web address]) Technologist: ERIN Manzo Exam Location: [facility] Indications: SHORTNESS OF BREATH STRESS TEST Please see separate stress test report in [facility] for full findings IMAGE PROTOCOL Rest/Stress 1 Exercise Day Radiopharmaceutical Dose (mCi) Administration Site Administered by Rest: Tc-99m 11.0 IV ERIN Nowak Sestamibi Stress:Tc-99m 33.0 IV ERIN Manzo Sestamineal Rest: 19-Sep-2021 60 Discovery 630 Stress: 19-Sep-2021 30 Discovery 630 Radiopharmaceutical was injected at 85 % maximum heart rate. Images obtained in supine and prone position. SPECT RESULTS Technical Quality: Excellent Raw Data Analysis: Normal Image Corrections: No attenuation or motion correction applied Summed Stress Score: 26 Summed Rest Score: 19 Summed Difference Score: 7 PERFUSION FINDINGS Moderate to severely decreases uptake was noted in the basal, mid and apical anterior, basal and mid anteroseptal, mid anterolateral and all the apical segments. Some reversibility was noted in all the segments FUNCTIONAL RESULTS (calculated via Gated SPECT) Stress Image LV EF (%): 51 Stress EDV (mL):189 TID: 0.94 Stress ESV (mL):93 FUNCTIONAL FINDINGS: Segmental wall motion analysis revealed a severe diffuse hypokinesia of the septum and mild hypokinesia of the LV apex. IMPRESSIONS 1. Myocardial perfusion imasgingrevealing severely decreased tracer uptake in the anterior, anterolateral, anteroseptal and apical regions with some reversibility, suggestive of myocardial scarring with ischemia mostly in the distribution of the left anterior descending artery with some involvement of the circumflex and the right coronary artery. 2. Normal LV ejection fraction 51%. 3. LV wall motion abnormalities as mentioned above. 4. Moderately dilated LV cavity. End-systolic volume of 93 mL. No similar previous studies are available for comparison Dr Berhane Hollins MD FAC (Electronically Signed) Final Date: 19 September 2021 12:30 S
--- NOTE | 2021-09-19 06:48 | ECG_ITS ---
[facility] Test Date: 2021-09-19 Pat Name: Rui Jiang Department: Room: Gender: Male Director Of Recruitment: : 1975 Requested By: Berhane Hollins Order Number: [id number] Derrek MD: Berhane Hollins M.D. Interpretive Statements NAME OF STUDY: Exercise SESTAMIBI/sestamibi STRESS TEST INDICATION: Chest Pain PROCEDURE: The baseline electrocardiogram showed [normal sinus rhythm with some nonspecific ST-T changes in the inferolateral leads. At the baseline, the patient's blood pressure was 138/93 mm Hg with a heart rate of 77. The patient exercised for 7 minutes on a standard Greg protocol. Patient attained a maximum heart rate of 152 beats per minute(85% of the maximum predicted heart rate) with a blood pressure at the peak exercise of mm Hg. The EKG at the peak exercise revealed some nonspecific ST-T changes.. Patient did not have any chest pain or any significant arrhythmis with the exercise Sestamibi was injected 1 minute prior to the peak exercise During the recovery phase, 9 minutes into the recovery, the patient went into polymorphic ventricular tachycardia, degenerated to ventricular fibrillation. At that point, the patient fell off the bed to the floor. He was successfully cardioverted with 100 J of biphasic current to sinus rhythm. Blood pressure at the end of the recovery phase was 149/97 mm Hg with a heart rate of 98 per minute. CONCLUSION: 1. Nonspecific EKG changes with the treadmill exercise 2. Post exercise V. fib arrest, 9 minutes into the recovery phase-cardioverted to sinus rhythm 3. Fair exercise tolerance, attained a maximum of 7.0 METs. 4. Sestamibi/Sestamibi perfusion results pending; see separate report. Electronically Signed On 09-22-2021 22:59:52 CDT by Berhane Hollins M.D. [id number]
--- NOTE | 2021-09-19 08:41 | SUR.PREOP ---
Patient reports no pain or discomfort prior to the start of the procedure.
[2021-09-19 08:52] VITALS: BP 151/67; PULSE 98
--- NOTE | 2021-09-19 09:25 | PM.HP ---
Providers/Chief Complaint Primary Care Provider: Benjamin Funk MD Chief Complaint: 62358 R06.02 History of Present Illness Rui Jiang is a 45 year old male past medical history significant for hypertension hyperlipidemia strong family history of coronary artery disease congenital abnormality of abdominal wall hernia s/p repair diabetes mellitus continues tobacco abuse for worsening of chest pain and shortness of breath underwent treadmill nuclear stress test. 3 minutes into recovery patient while sitting by the bedside had multifocal ventricular tachycardia leading to cramps, he hit the floor with his head. He was immediately shocked out of the rhythm by electrical cardioversion. I was called by CPR you nurses I immediately saw the patient he denied any chest pain he was in sinus rhythm. Since patient has completed treadmill protocol he was also noted to have significant ST depression in the inferior leads also in the phase of recovery around 3 minutes which did not resolve even after 6 7 minutes. Patient is being admitted to cardiac stepdown unit. Since he has been injected with tracer will complete the scan. I will obtain CT head to rule out any bleed since he hit his head. We are planning to proceed with left heart cath tomorrow or earlier if needed. I will ask for basic labs and magnesium level. We will obtain twelve-lead EKG to assess QT intervals. He will be monitored on telemetry. Will continue beta-roseline, will also assess electrolytes. Review of Systems Eyes: Denies: photophobia ENMT: Denies: enlarged tonsils Musc: Denies: joint warmth All/Imm: Denies: acute wheezing Medications/Allergies Home Medications Medication Instructions Recorded Confirmed Last Taken Type naproxen 500 mg PO BID PRN 08/03/20 09/28/21 09/17/21 08:00 History fluticasone propionate 50 1 spray INTRANASAL PRN PRN 05/15/21 09/28/21 Unknown History mcg/actuation nasal spray,suspension glipizide 10 mg tablet 10 mg PO DAILY 90 Days #90 tab 07/05/21 09/28/21 09/18/21 08:00 Rx meclizine 25 mg tablet 25 mg PO DAILY PRN 30 Days #30 tab 07/05/21 09/28/21 Unknown Rx Novolin R Regular U-100 Insuln See Rx Instructions .ROUTE .COMPLEX 07/21/21 09/28/21 09/18/21 18:00 History Novolin N NPH U-100 Insulin 40 unit SUBCUT BEDTIME #0 ml 07/22/21 09/28/21 09/18/21 21:00 Rx gabapentin 300 mg capsule 300 mg PO TID #90 cap 08/07/21 09/28/21 09/18/21 21:00 Rx chlorthalidone 25 mg tablet 25 mg PO DAILY 90 Days #90 tab 08/22/21 09/28/21 09/18/21 08:00 Rx cholecalciferol (vitamin D3) 25 25 mcg PO DAILY 90 Days #90 cap 08/22/21 09/28/21 09/18/21 21:00 Rx mcg (1,000 unit) capsule metformin 500 mg tablet,extended 1,000 mg PO BID 90 Days #360 tab 08/22/21 09/28/21 09/18/21 21:00 Rx release 24 hr paroxetine HCl 40 mg tablet 40 mg PO DAILY 90 Days #90 tab 08/22/21 09/28/21 09/18/21 21:00 Rx potassium chloride 10 mEq 10 meq PO DAILY 90 Days #90 tab 08/22/21 09/28/21 09/18/21 08:00 Rx tablet,extended release simvastatin 40 mg tablet 40 mg PO DAILY 90 Days #90 tab 08/22/21 09/28/21 09/18/21 21:00 Rx lisinopril 10 mg tablet 10 mg PO DAILY #90 tab 08/23/21 09/28/21 09/18/21 21:00 Rx nitroglycerin 0.4 mg sublingual 0.4 mg SUBLINGUAL Q5M PRN 90 Days 08/31/21 09/28/21 09/17/21 09:30 Rx tablet #90 tab aspirin [Adult Aspirin Regimen] 81 mg PO DAILY #90 tab 09/21/21 09/28/21 Unknown Rx ticagrelor [Brilinta] 90 mg PO BID #60 tab 09/21/21 09/28/21 Unknown Rx metoprolol tartrate 25 mg tablet 50 mg PO BID tab 09/28/21 09/28/21 Unknown History Allergies Allergy/AdvReac Type Severity Reaction Status Date / Time nalbuphine [From Nubain] Allergy Unknown Verified 09/28/21 10:18 PFSH Acute PFSH: Medical History (Updated 09/28/21 @ 10:48 by KENTRELL Braswell) Abnormal stress test Anxiety Atherosclerosis of coronary artery Bilateral lower extremity edema Chest pain COVID-19 virus infection CVA (cerebral vascular accident) Diabetes mellitus DM type 2 (diabetes mellitus, type 2) Herpes zoster Hyperlipidemia Hypertension Left knee pain Obese Restrictive lung disease Shortness of breath Vertigo Family History Grandfather Anesthesia complication CAD (coronary artery disease) Chronic kidney disease (CKD) Dementia Diabetes Grandmother CAD (coronary artery disease) Cancer Chronic kidney disease (CKD) Diabetes Lung disease Stroke Family/Other CAD (coronary artery disease) Cancer Mother Diabetes CAD (coronary artery disease) Grandfather Diabetes Denies family history of Clotting disorder Suicide Bleeding disorder Social History Smoking and tobacco status: former smoker Quit status (tobacco): has quit using tobacco Year quit tobacco: unknown Former quit date comment: smoked 4-5 cigars/day x 3 years Second hand smoke exposure: Yes Smoking risk assessment/counseling performed?: Yes Alcohol intake: current Alcohol intake frequency: holidays/special occasions only Desire information about alcohol rehabilitation?: No Lives independently: Yes Household members: spouse Marital status: service: No Current occupational status: employed Pets and animals: Yes History of recent travel: No Current gender identity: Male Vitals/I&O/Wt Last Vital Signs Pulse 98 09/19/21 08:52 BP 151/67 09/19/21 08:52 09/18/21 09/19/21 09/19/21 22:59 06:59 14:59 Intake Total 480 / 480 240 / 240 Balance 480 / 480 240 / 240 Weight last 48 hrs Weight 295 lb Physical Exam Narrative: EXAM NARRATIVE: GENERAL: Patient is alert, awake and oriented x3. NECK: No jugular vein distension. HEENT: No cyanosis. No icterus. No pallor. HEART: Regular S1 and S2. No murmur, rub or gallop. LUNGS: Clear to auscultate bilaterally. ABDOMEN: Soft, nontender and nondistended. Positive bowel sounds. No guarding, rebound or tenderness. CENTRAL NERVOUS SYSTEM: Grossly nonfocal. EXTREMITIES: Lower extremities without edema bilaterally. Data : 09/20/21 07:40 09/19/21 09:18 A&P Assessment and plan (1) Ventricular tachycardia, polymorphic: Patient exhibited sustained tachycardia during recovery phase which was polymorphic and perhaps ischemic. We will admit the patient on CSU. I will ask for basic labs rule out an electrolyte imbalance will continue beta-roseline and proceed with left heart cath in the morning. Patient has been explained and all risk benefit and already for the procedure he understand risk for major minor bleed stroke contrast-induced nephropathy urgent emergent bypass surgery. He would like to proceed with it he is a good candidate for DAPT. Patient has recent echocardiogram which showed normal ejection fraction. No further echo needed at this point Status: Resolved (2) Essential hypertension: Well-controlled continue current regimen Status: Acute (3) Hyperlipidemia associated with type 2 diabetes mellitus: Continue statin. Status: Acute (4) Diabetes mellitus: Sliding scale insulin hold Metformin Status: Acute Qualifiers: Diabetes mellitus complication status: with other specified complication Diabetes mellitus intermediate card tender insulin use: without intermediate card tender use Diabetes mellitus type: type 2 Qualified Code(s): E11.69 - Type 2 diabetes mellitus with other specified complication (5) Abnormal stress test: Patient has abnormal stress test with perhaps ischemia in LAD and circumflex territory. We will proceed with left heart cath in the morning. Attestations Medical Necessity Statement*: I am expecting his stay to cross more than 2 midnights Coding Level of Care Code New Pt Acute Digital Performance Analyst for [facility] Fwd Patient Type New Medical Decision Making High Complexity Diagnoses Ventricular tachycardia, polymorphic I47.2 Essential hypertension I10 Hyperlipidemia associated with type 2 diabetes mellitus E11.69; E78.5 Diabetes mellitus E11.69 Diabetes mellitus complication status: with other specified complication Diabetes mellitus group home insulin use: without group home use Diabetes mellitus type: type 2 Abnormal stress test R94.39
--- NOTE | 2021-09-19 09:31 | SUR.PHASEII ---
V FIB ARREST/DIRECT ADMIT Patient noted to have ST depression 10 minutes post exercise. Chest pain and burning in chest resolved in late recovery. IV pulled post procedure per normal fashion, but after IV was removed and while i was attempting to notify MD of the ekg changes the patient went to V FIB ARREST and fell off the side of the bed. Cath team immediately called for and AP pads placed. Biphasic Defibrillation at 120 J performed with spontaneous conversion to SR. Fell against the treadmill and c/o head pain. Head CT ordered. MD at bedside. To direct admit to CSU- 112-2. Patient condition stable at this point. Family notified by MD. Taken to CSU via bed. Report to Alyson CARVALHO. Head CT, 12 lead EKG, and 2nd nuclear scans to be completed today. Ancillary's notified.
--- NOTE | 2021-09-19 09:35 | CT_ITS ---
WS: [id number] CT HEAD NONCONTRAST HISTORY: Fall, rule out bleed TECHNIQUE: Contiguous axial imaging performed through the brain in 2.5 mm imaging. Bone and soft tiss ue windows. Sagittal and coronal reformats reviewed. All CT scans at [facility] use at least one of these dose optimization techniques: automated exposure control; mA and/or kV adjustment per pa tient size (includes targeted exams where dose is matched to clinical indication); or iterative recon struction. DLP: 1065.23 mGy.cm COMPARISON: 07/21/2021 No acute intracranial hemorrhage, midline shift or mass effect. No atrophy or prior infarcts or herniation. Tiny parenchymal calcifications are stable. Ventricles: Normal size with no hydrocephalus. Paranasal sinuses: As visualized are clear. Mastoid air cells: Well pneumatized. Calvarium and scalp: Skull is intact with no soft tissue edema or swelling. CT/CT head wo con* [id number] IMPRESSION: Stable noncontrast head CT. No acute intracranial hemorrhage.
--- NOTE | 2021-09-19 09:40 | ECG_ITS ---
[facility] Test Date: 2021-09-19 Pat Name: Rui Jiang Department: Room: 112 Gender: Male Radio Electrician: : 1975 Requested By: Breezy Alexis Order Number: [id number] Derrek MD: Dereje Kimball M.D. Measurements Intervals [place] Rate: 87 P: 22 IA: 160 QRS: 23 QRSD: 87 T: 2 QT: 350 QTc: 421 Interpretive Statements SINUS RHYTHM Compared to ECG 07/21/2021 17:55:54 No significant changes Electronically Signed On 09-19-2021 23:26:04 CDT by Dereje Kimball M.D. [id number]
[2021-09-19] MEDS: nitroglycerin 1 gm/inch oint Pkt 1 INCH TOPICAL ×3 (09:44→21:45)
[2021-09-19 09:59] LABS: Blood Urea Nitrogen 12 mg/dL (6-20); Calcium 9.3 mg/dL (8.5-10.5); Carbon Dioxide 18 mmol/L (22-29); Chloride 100 mmol/L (98-107); Glomerular Filtration Rate 123.1 mL/min (90-130); Glucose 193 mg/dL (65-115); Magnesium 1.8 mg/dL (1.7-2.3); Osmolality Calculated 293 mOsm/kg (285-295); Sodium 139 mmol/L (136-145)
--- NOTE | 2021-09-19 10:54 | PC.NURSE ---
Admit Note Patient admitted to CSU 112-2 from CPRU via stretcher. Covering service notified. Patient presents with treadmill induced arrhythmia resolved Patient NSR. Orders reviewed & will continue to monitor. Patient and/or bank representative oriented to environment, equipment, and informed of the following as found in the admission booklet: patient rights & responsibilities, visitor policy, hand and respiratory hygiene practice. Other education includes: further work up and plan of care. Patient and/or bank representative verbalized understanding.
[2021-09-19 19:00] VITALS: BP 138/73; PULSE 78; RESP 21; TEMP 36.6; O2SAT 93
--- NOTE | 2021-09-19 19:43 | PC.NURSE ---
Shift Note Frequent safety and comfort rounds continue. Orders and/or nursing care completed as indicated. Patient monitored for response to intervention and treatment(s). Education provided includes Angiogram. Patient and/or business process representative verbalized understanding. Will continue to monitor.
[2021-09-19 20:37] LABS: Glucose Point of Care 154 mg/dL (70-110)
[2021-09-19] MEDS: acetaminophen 325 mg Tablet PO (20:40)
[2021-09-19] MEDS: insulin nph human 100 units/1 mL 40 UNIT SUBCUT (21:20)
[2021-09-19 21:47] VITALS: PULSE 78
[2021-09-19 22:25] LABS: Troponin T (5th) Once 54 ng/L (0-15)
[2021-09-19 23:56] VITALS: BP 134/68; PULSE 89; RESP 15; TEMP 36.6; O2SAT 94
[2021-09-20] VITALS (32 sets, daily range): BP systolic 91–147; BP diastolic 50–87; PULSE 55–84; RESP 9–27; TEMP 36.3–36.6; O2SAT 89–100
--- NOTE | 2021-09-20 00:50 | PC.NURSE ---
Around 1999: Patient c/o headache. Notified Dr. Alexis. Orders received. See, MAR. Around 2099: Patient had not dietary orders. Notified Dr. Hollins. Orders received, see orders.
[2021-09-20] MEDS: nitroglycerin 1 gm/inch oint Pkt 1 INCH TOPICAL (03:52)
[2021-09-20] MEDS: acetaminophen 325 mg Tablet 650 MG PO (04:00)
--- NOTE | 2021-09-20 06:00 | XACV_ITS ---
Exam Room: [facility] Ht: 178 cm Wt: 136 kg BSA: 2.65 m2 Gender: Male : 1975 Any Known Allergies: Other Exam Priority: Routine Procedure(s): Procedure Description: Diagnostic procedure Procedure Description: PCI procedure Procedure Description: Drug Eluting Coronary Stent Procedure Description: PTCA Procedure Description: Miscellaneous Procedure Description: ACT Procedure Description[facility] Cath Status: Elective Diagnostic Findings * Left Main has no disease. * Circumflex has no disease. * Right Coronary Artery has no disease. * Proximal Left Anterior Descending: severe 90% stenosis, MADHAV: 3 flow. * Coronary angiography shows right dominance. PCI Status: Elective Interventional Findings * Proximal Left Anterior Descendin% stenosis treated with a AB TREK 3.00X15 RX BALLOON, and MDT R CHARU 4.0X18 SALAS. 0% residual stenosis, MADHAV: 3 flow. Conclusions 1. There is severe coronary artery disease with one vessel disease. 2. Proximal Left Anterior Descending was treated with a Balloon, and Drug Eluting Stent. Recommendations * Continue current medical management and risk factor modification. Pressures Phase:Rest AO : 130 / 83 ( 100 ) @ 8:48:00 AM 117 / 85 ( 100 ) @ 8:52:00 AM 124 / 92 ( 94 ) @ 8:54:00 AM 114 / 77 ( 94 ) @ 9:02:00 AM 115 / 77 ( 94 ) @ 9:04:00 AM 122 / 80 ( 100 ) @ 9:15:00 AM 102 / 71 ( 85 ) @ 9:17:00 AM Clinical Evaluation EBL: 5mL-10mL Procedural Details Procedure Consent Obtained. Current Diagnosis : NSTEMI. Pre-Procedure Time Out. Does the consent match the physician's order: Yes. Identified patient by full name and date of as verbalized by the patient/guarantor. Accurate & Complete Informed Consent: Yes. Inpatient/Outpatient History & Physical on Chart: Yes. If H&P is completed, is and addenduem needed: Yes; If yes, is the addendum complete: N/A. Visualize and Verify Site with Patient/Guarantor: N/A. Relevant Radiology Images available: Yes. Pre-op teaching completed and patient verbalized understanding. The risks, benefits, and alternatives of sedation and/or procedure were discussed by physician. The patient agrees to continue. Procedure started. [facility] Clinical Fraility Score: 3: Managing Well. Cellar Packer Indications: ACS > 24 hours. Cellar Packer Indications: Cardiac Arrhythmia. Chest Pain Symptom Assessment: Typical Angina Symptoms. Correct patient, site and procedure confirmed by cath team. Current diagnosis: NSTEMI. PERRLA. Strong, equal hand lead generation representative bilaterally. Lungs clear x 5 lobes. IV Site on Arrival: 18 gauge in the right anticubital. IV Fluids: 0.9% NaCl at KVO. 400 mL infused prior to labor operator. Pre Procedural Pulses: right radial was 3+. Oxygen started at 2liters/min via nasal canula. right groin was prepped with chloroprep then draped in the usual sterile fashion. right radial was prepped with chloroprep then draped in the usual sterile fashion. Physician notified. Baseline sample Acquired. HR: 0 BPM. Physician arrived. Vital chart was stopped. Physician scrubbed in. Immediate Pre-Procedure Time Out. Correct Patient: Yes; Correct Procedure: Yes; Correct Site: Yes; Correct Patient Position: Yes; Correct Supplies: Yes; Dried Flammable Prep: Yes; Blood Products Available: N/A;. Arterial access obtained. A 5 mauritian Jayme catheter in over wire. Cory Gonzalez scrubbing and Margret Gibbons circulating. Multiple views taken of right coronary artery. Catheter redirected to the LCA. Multiple views taken of left coronary artery. Catheter removed over the exchange wire. 6 mauritian XB 3.5 guide catheter was inserted over the wire. Runthrough guidewire was advanced through the guide catheter to lesion in the prox LAD. Inflation number : 1 A AB TREK 3.00X15 RX BALLOON was prepped and advanced across the Prox LAD , then inflated to 12 BRENNON for 0:14 seconds. Balloon out. Inflation Number : 2 Nory Fair CHARU 4.0X18 SALAS -Lot Number# _[id number] EXP: 02/17/2023 was prepped and advanced across the Prox LAD. The stent was deployed at 11 BRENNON for 0:25 seconds. Results checked. Stent balloon out over wire. ACT drawn. Results 192 seconds. Therapeutic limits - pre-heparin administration 90-150 seconds and monitoring heparin during a vascular procedure >250 seconds. Results checked. Wire out. Guide catheter out. Vital chart was stopped. A TR Band was successful obtaining hemostatsis at the Right Radial artery insertion site. Post Procedure: Pulses reassessed and unchanged. PERRLA. Strong, equal hand lead generation representative bilaterally. No VTE prophylaxis required. Medication's Wasted: Lidocaine 1% = 16 mL. Medication's Wasted: Nitro = 49.6 mcg. Total IV fluids: 63 mL. Contrast type used: Omnipaque 300 mgI/mL, 500 mL bottle. Complications: None. Estimated blood loss: 5mL-10mL. Procedure completed. Patient transferred by wheelchair to 1st floor. Access Site Site: Right Radial artery Sheath Size: 6 Fr Hemostasis Method: TR Band Hemostasis Success: Successful Procedure Medications Start: 9:30 AM Stop: 9:30 AM Medication: Versed Amount: 2 mg Route: I.V. Start: 9:30 AM Stop: 9:30 AM Medication: Fentanyl Amount: 50 mcg Route: I.V. Start: 9:36 AM Stop: 9:36 AM Medication: Versed Amount: 2 mg Route: I.V. Start: 9:36 AM Stop: 9:36 AM Medication: Fentanyl Amount: 50 mcg Route: I.V. Start: 9:45 AM Stop: 9:45 AM Medication: Nitrogylcerin Amount: 200 mcg Route: I.A. Start: 9:47 AM Stop: 9:47 AM Medication: Heparin Amount: 5000 units Route: I.V. Start: 9:58 AM Stop: 9:58 AM Medication: Aggrastat 12.5 mg/250 mL Amount: 67.5 ml Route: I.V. bolus Start: 9:59 AM Stop: 9:59 AM Medication: Aggrastat 12.5 mg/250 mL Amount: 24.3 ml/hr Route: I.V. drip Start: 10:00 AM Stop: 10:00 AM Medication: Versed Amount: 1 mg Route: I.V. Start: 10:04 AM Stop: 10:04 AM Medication: Heparin Amount: 7000 units Route: I.V. Start: 10:14 AM Stop: 10:14 AM Medication: Fentanyl Amount: 50 mcg Route: I.V. Start: 10:14 AM Stop: 10:14 AM Medication: Versed Amount: 1 mg Route: I.V. Start: 10:16 AM Stop: 10:16 AM Medication: Nitrogylcerin Amount: 200 mcg Route: I.C. Start: 10:18 AM Stop: 10:18 AM Medication: Heparin Amount: 3000 units Route: I.V. Start: 10:19 AM Stop: 10:19 AM Medication: Brilinta Amount: 180 mg Route: P.O. I, the attending physician, have reviewed and verified all procedure medications. Yes, all medications given per verbal order History/Risk Factors Hypertension: Yes Dyslipidemia: Yes Peripheral Arterial Disease (PAD): No Myocardial Infarction (AZ): No Obesity: Yes Renal Disease: No Tobacco Use: Former Prior Interventions Valve Surgery: No Report Signatures Finalized by Breezy Alexis MD on 10/03/2021 07:13 PM
[2021-09-20 06:32] LABS: Glucose Point of Care 120 mg/dL (70-110)
[2021-09-20 07:53] LABS: Basophils # 0.1 10^3/uL (0.0-0.1); Basophils % 0.9 %; Eosinophils # 0.1 10^3/uL (0.0-0.8); Hemoglobin 14.1 g/dL (11.7-16.6); Lymphocytes # 2.5 10^3/uL (0.8-4.8); Lymphocytes % 28.6 %; Mean Corpuscular HGB Conc 33.6 g/dL (30.0-36.0); Mean Corpuscular Volume 86.4 fl (80-94); Mean Platelet Volume 9.3 fL (7.4-10.4); Monocytes # 0.5 10^3/uL (0.2-0.9); Monocytes % 6.2 %; Neutrophils # 5.49 10^3/uL (1.8-7.7); Neutrophils % 62.7 %; Nucleated Red Blood Cells % 0 %; Platelet Count 216 10^3/cmm (130-400); Red Blood Count 4.86 10^6/uL (4.1-5.3); Red Cell Distribution Width 12.8 % (12.1-15.1); White Blood Count 8.8 10^3/uL (4.0-10.0)
[2021-09-20] MEDS: atorvastatin 40 mg Tablet 20 MG PO (08:56)
[2021-09-20] MEDS: chlorthalidone 25 mg Tablet PO (08:57)
[2021-09-20] MEDS: PARoxetine 20 mg Tablet 40 MG PO (08:57)
[2021-09-20] MEDS: potassium chloride ER 10 mEq Tablet PO (08:57)
[2021-09-20] MEDS: metoprolol succinate ER (24 HR) 25 mg Tablet PO (08:57)
[2021-09-20] MEDS: lisinopril 10 mg Tablet PO (08:57)
[2021-09-20] MEDS: sodium chloride 0.9% 1,000 ML 50 ML IV (08:58)
[2021-09-20] MEDS: diphenhydrAMINE 50 mg Capsule PO (09:08)
--- NOTE | 2021-09-20 09:35 | W.PM.OPSUD ---
Surgery/Procedure H&P Update DATE OF PROCEDURE: September 20, 2021 DATE H&P PERFORMED: 09/19/21 H&P UPDATE INFORMATION: I have reviewed H&P completed within last 30 days and I have examined patient prior to procedure PREOP DIAGNOSIS: Ventricle tachycardia arrest status post shock, abnormal stress test PLANNED PROCEDURE: Operation Date: 09/20/21 06:00 Proposed Procedures p Cardiac Catheterization(Not Applicable) - Breezy Alexis MD Operation Date: 09/20/21 10:00 Proposed Procedures p Cardiac Catheterization(Left) - Breezy Alexis MD PATIENT REASSESSED PRIOR TO SEDATION, WITH NO CHANGE NOTED: Yes PHYSICAL EXAM: alert, oriented x 3 and clear to auscultation bilaterally AIRWAY EVAL/ANESTHESIA PLAN: ASA II and Risks, benefits & alternatives of sedation and/or procedure discussed ADDITIONAL INFORMATION: I have personally explained all risk benefit and alternative for the procedure. Patient understand risk of stroke major minor bleed urgent emergent bypass surgery vascular surgery hematoma infection pseudoaneurysm. He would like to proceed with it. He understand the risk of contrast-induced nephropathy.
--- NOTE | 2021-09-20 09:55 | PC.CHAP ---
Pastoral Care Encounter/Spiritual Assessment Type of Contact [] Declined glass products inspector visit [] Patient/Family/Request visit [] Outpatient visit [] Follow-up visit [] Physician referral [] Code/Alert [x] Routine visit [] Staff referral [] Actively dying [] Patient sleeping [] Family support [] [x] Out of room [] Palliative care [] [] Receiving care in room [] Pre-surgical visit [] Trauma [] Long length of stay [] ICU visit [x] Other:out for procedure Relational/Emotional Strength [] Patient feels connected with others/family/visitors/staff [] Distress [] Loneliness/isolation [] Abandonment Spirituality of Patient [] Person of Claudine [] Attends Mandaen of their Claudine [] Believes in Prayer [] Reads Bible or Congregational materials [] There are Spiritual issues to be addressed Excel Analyst Interventions [x] Prayer [] Active listening [] Non-anxious presence [] Spiritual/emotional support [] Crisis/trauma care [] Spiritual counseling [] Bereavement support [] Provided bereavement packet [] Provided Bible/devotional materials [] Provided toy/stuffed animal, coloring book to patient or family member [] Provided Communion [] Anointing/Anthon [] Salvation [x] Completed spiritual assessment [] Other: Impact on Illness or Injury [] Angry [] Fearful [] Anxious [] Often cries [] Exhaustion [] Unable to work [] Unable to attend presybeterian [] Unable to walk/stand [] Unable to read [] Unable to drive [] Unable to eat/drink [] Unable to sleep [] Unable to be with family [] Patient intubated [] Other: Summary Time spent with patient
--- NOTE | 2021-09-20 10:35 | P.PN_ITS ---
Subjective Subjective: Interval history: Patient underwent patient underwent coronary angiogram noted to have proximal significant 80% stenosis treated with balloon angioplasty and drug-eluting stent. Medications: Reviewed: Yes Vitals/I&O/Wt Last Vital Signs Temp 97.8 F 09/20/21 03:53 Pulse 69 09/20/21 05:56 Resp 20 H 09/20/21 03:53 BP 125/75 09/20/21 03:53 Pulse Ox 97 09/20/21 03:53 09/19/21 09/20/21 09/20/21 22:59 06:59 14:59 Intake Total 240 / 720 Output Total 700 / 1400 Balance 240 / 20 -700 / -680 Weight last 48 hrs Weight 299 lb Weight 295 lb Physical Exam Narrative: EXAM NARRATIVE: GENERAL: Patient is alert, awake and oriented x3. NECK: No jugular vein distension. HEENT: No cyanosis. No icterus. No pallor. HEART: Regular S1 and S2. No murmur, rub or gallop. LUNGS: Clear to auscultate bilaterally. ABDOMEN: Soft, nontender and nondistended. Positive bowel sounds. No guarding, rebound or tenderness. CENTRAL NERVOUS SYSTEM: Grossly nonfocal. EXTREMITIES: Lower extremities without edema bilaterally. Const: COMMON NORMALS: alert Resp: COMMON NORMALS: clear to auscultation bilaterally AUSCULTATION: clear to auscultation bilaterally Neuro: SENSORIUM/ORIENTATION: Yes alert Data : 09/20/21 07:40 09/19/21 09:18 A&P Assessment and plan (1) Ventricular tachycardia, polymorphic: S/p drug-eluting stent to proximal LAD for significant stenosis. Most likely this was the culprit lesion resulted in polymorphic tachycardia/cardiac arrest during stress test. Patient is loaded with Brilinta on Aggrastat for 90 minutes. Will optimize medicine continue beta-roseline aspirin statin lisinopril. Status: Acute (2) Abnormal stress test: Patient was noted to have coronary artery disease treated with drug- eluting stent as above. Status: Acute (3) Essential hypertension: Well-controlled continue current regimen Status: Acute (4) Hyperlipidemia associated with type 2 diabetes mellitus: Continue statin. Status: Acute (5) Diabetes mellitus: Sliding scale insulin hold Metformin Status: Acute Qualifiers: Diabetes mellitus type: type 2 Diabetes mellitus senior living insulin use: without senior living use Diabetes mellitus complication status: with other specified complication Qualified Code(s): E11.69 - Type 2 diabetes mellitus with other specified complication Attestations Medical Necessity Statement*: Patient require continuation hospitalization for above defined care. Coding Level of Care Code Acute [employer] Special Education Teacher for [facility] Fwd History Detailed Exam Detailed Medical Decision Making Moderate Complexity Diagnoses Ventricular tachycardia, polymorphic I47.2 Abnormal stress test R94.39 Essential hypertension I10 Hyperlipidemia associated with type 2 diabetes mellitus E11.69; E78.5 Diabetes mellitus E11.69 Diabetes mellitus type: type 2 Diabetes mellitus termite exterminator helper insulin use: without termite exterminator helper use Diabetes mellitus complication status: with other specified complication
[2021-09-20 10:44] LABS: SARS Covid-2 Antigen Negative (Negative)
[2021-09-20 13:11] LABS: Glucose Point of Care 140 mg/dL (70-110)
[2021-09-20 17:23] LABS: Glucose Point of Care 171 mg/dL (70-110)
[2021-09-20] MEDS: insulin lispro 100 unit/1 mL SUBCUT ×2 (17:25→20:59)
[2021-09-20 20:20] LABS: Glucose Point of Care 165 mg/dL (70-110)
[2021-09-20] MEDS: insulin nph human 100 units/1 mL 40 UNIT SUBCUT (20:59)
[2021-09-20] MEDS: gabapentin 300 mg Capsule PO (20:59)
[2021-09-21 04:23] VITALS: BP 148/77; PULSE 69; RESP 16; TEMP 36.2; O2SAT 94
[2021-09-21 04:29] VITALS: PULSE 66
--- NOTE | 2021-09-21 05:48 | PC.NURSE ---
Shift Note Frequent safety and comfort rounds continue. Orders and/or nursing care completed as indicated. Patient monitored for response to intervention and treatment(s). Education provided includes Brilinta and post [facility] site care. Patient verbalized complete understanding. Patient denies any chest pain or other discomforts. No ectopy observed on telemetry throughout the night. No distress observed. Patient slept well this night. Will continue to monitor.
[2021-09-21 06:37] LABS: Glucose Point of Care 123 mg/dL (70-110)
[2021-09-21] MEDS: cholecalciferol (vitamin D3) 1,000 unit Tablet 1000 UNIT PO (08:33)
[2021-09-21] MEDS: atorvastatin 40 mg Tablet 20 MG PO (08:34)
[2021-09-21] MEDS: PARoxetine 20 mg Tablet 40 MG PO (08:34)
[2021-09-21] MEDS: chlorthalidone 25 mg Tablet PO (08:34)
[2021-09-21] MEDS: ticagrelor 90 mg Tablet PO (08:34)
[2021-09-21] MEDS: gabapentin 300 mg Capsule PO (08:34)
[2021-09-21] MEDS: lisinopril 10 mg Tablet PO (08:34)
[2021-09-21] MEDS: metoprolol succinate ER (24 HR) 25 mg Tablet PO (08:34)
[2021-09-21] MEDS: potassium chloride ER 10 mEq Tablet PO (08:35)
--- NOTE | 2021-09-21 09:40 | PM.DCS ---
Discharge Providers Date of Admission: 09/19/21 09:24 Date of Discharge: September 21, 2021 Attending Provider at Admission: Breezy Alexis MD Attending Provider at Discharge: Berhane Hollins MD Primary Care Provider: Benjamin Funk MD Diagnoses at Discharge Discharge Diagnosis (1) Ventricular tachycardia, polymorphic: Status: Resolved (2) Abnormal stress test: (3) Essential hypertension: Status: Acute (4) Hyperlipidemia associated with type 2 diabetes mellitus: Status: Acute (5) Diabetes mellitus: Status: Acute Qualifiers: Diabetes mellitus complication status: with other specified complication 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 He was admitted to the hospital treated as per ACS protocol he did not bump up troponin however next morning he underwent left heart cath which revealed proximal high-grade significant stenotic 80 to 90% lesion it was treated with single drug-eluting stent. Post PCI course remains uncomplicated his medicine was optimized he is walking around without any problem he is being discharged home. Physical Exam Narrative: EXAM NARRATIVE: GENERAL: Patient is alert, awake and oriented x3. NECK: No jugular vein distension. HEENT: No cyanosis. No icterus. No pallor. HEART: Regular S1 and S2. No murmur, rub or gallop. LUNGS: Clear to auscultate bilaterally. ABDOMEN: Soft, nontender and nondistended. Positive bowel sounds. No guarding, rebound or tenderness. CENTRAL NERVOUS SYSTEM: Grossly nonfocal. EXTREMITIES: Lower extremities without edema bilaterally. Const: COMMON NORMALS: alert Resp: COMMON NORMALS: clear to auscultation bilaterally AUSCULTATION: clear to auscultation bilaterally Neuro: SENSORIUM/ORIENTATION: Yes alert Discharge Data Data Completed and Pending: Completed Studies During Hospitalization Category Date Time Status CT head wo con* 7 0450 Routine Cat Scan 09/19/21 09:35 Completed [address] Stress Te st MIBI [Sestamibi Stress Test Reque st Exams 09/19/21 06:48 Draft ] Routine NM suhas perf SPECT r/s* 01926 Routin e Nuc Med 09/19/21 06:48 Completed Pending at discharge Category Date Time Status FANCY PACKER request for service Routin e Exams 09/20/21 06:00 Taken Labs from last 24 hours 09/21/21 09/20/21 09/20/21 06:32 19:46 17:20 POC Glucose 123 H 165 H 171 H SARS-CoV-2 Ag (Rap id) 09/20/21 09/20/21 13:07 07:30 POC Glucose 140 H SARS-CoV-2 Ag (Rap id) Negative Vitals: Last Vital Signs Temp 97.1 F L 09/21/21 04:23 Pulse 66 09/21/21 04:29 Resp 16 09/21/21 04:23 BP 148/77 09/21/21 04:23 Pulse Ox 94 09/21/21 04:23 Discharge Plan Discharge Patient Disposition: Home Condition: Stable Prescriptions: New Brilinta 90 mg Tablet 90 mg PO BID Qty: 60 RF: 6 Adult Aspirin Regimen 81 mg tablet,delayed release (DR/EC) 81 mg PO DAILY Qty: 90 RF: 4 Continued meclizine 25 mg tablet 25 mg PO DAILY PRN (Reason: motion sickness) 30 Days Qty: 30 RF: 0 glipizide 10 mg tablet 10 mg PO DAILY 90 Days Qty: 90 RF: 0 simvastatin 40 mg tablet 40 mg PO DAILY 90 Days Qty: 90 RF: 0 chlorthalidone 25 mg tablet 25 mg PO DAILY 90 Days Qty: 90 RF: 1 cholecalciferol (vitamin D3) 25 mcg (1,000 unit) capsule 25 mcg PO DAILY 90 Days Qty: 90 RF: 0 metformin 500 mg tablet extended release 24 hr 1,000 mg PO BID 90 Days Qty: 360 RF: 0 metoprolol tartrate 25 mg tablet 25 mg PO BID 90 Days Qty: 180 RF: 0 paroxetine HCl [Paxil] 40 mg tablet 40 mg PO DAILY 90 Days Qty: 90 RF: 0 potassium chloride [Klor-Con 10] 10 mEq tablet extended release 10 meq PO DAILY 90 Days Qty: 90 RF: 1 gabapentin 300 mg capsule 300 mg PO TID Qty: 90 RF: 2 nitroglycerin 0.4 mg tablet, sublingual 0.4 mg sublingual Q5M PRN (Reason: chest pain) 90 Days Qty: 90 RF: 0 fluticasone propionate 50 mcg/actuation spray,suspension 1 spray intranasal PRN PRN (Reason: Nasal Congestion) RF: 0 lisinopril 10 mg tablet 10 mg PO DAILY Qty: 90 RF: 1 naproxen 500 mg tablet 500 mg PO BID PRN (Reason: Pain) RF: 0 Novolin R Regular U-100 Insuln 100 unit/mL Solution See Rx Instructions .ROUTE .COMPLEX RF: 0 Novolin N NPH U-100 Insulin 100 unit/mL Suspension 40 unit SUBCUT BEDTIME Qty: 0 RF: 0 Discontinued furosemide [Lasix] 20 mg tablet 20 mg PO DAILY 90 Days Qty: 90 RF: 1 Discharge Orders: Discharge Order (Routine); Ordered 09/21/21 Ordered By: Breezy Alexis Referrals: Berhane Hollins MD [Physician] - 10/24/21 2:30 pm (You have a follow up appointment on September, at 2:30pm. If you have questions or concerns please call the office. ) Fabiola Velázquez FNP [Nurse Practitioner] - 09/28/21 10:15 am (You have a follow up appointment with Fabiola Velázquez on September 28, at 10:15am. If you have any questions or concerns please call the office. ) Discharge Diet: Cardiac and Diabetic Discharge Activity: Increase activity as tolerated Patient Instructions: Aspirin (By mouth), Ticagrelor (By mouth) (Brilinta), Coronary Angioplasty (DC), Opioid Safety, Post Angiogram Home Care Instructions Activity Restrictions/Additional Instructions: Follow-up with Dr. Hollins in 4 weeks. Follow-up with Fabiola Velázquez cardiology nurse practitioner in 7 days. Discharge Attestations Time Spent in Discharge Care*: greater than 30 min Status at Discharge: Cognitive status at discharge: cognitively intact, Behavioral status at discharge: cooperative, Quality Metrics Clinical Quality Measures During this hospital stay, did patient experience: None Coding Level of Care Code Established Pt Acute Chg FW DC note Patient Type Established History Expanded Problem Focused Exam Expanded Problem Focused Medical Decision Making Moderate Complexity Diagnoses Ventricular tachycardia, polymorphic I47.2 Abnormal stress test R94.39 Essential hypertension I10 Hyperlipidemia associated with type 2 diabetes mellitus E11.69; E78.5 Diabetes mellitus E11.69 Diabetes mellitus complication status: with other specified complication Diabetes mellitus alf insulin use: without alf use Diabetes mellitus type: type 2
--- NOTE | 2021-09-21 10:48 | PC.CHAP ---
Pastoral Care Encounter/Spiritual Assessment Type of Contact [] Declined dishwasher visit [] Patient/Family/Request visit [] Outpatient visit [] Follow-up visit [] Physician referral [] Code/Alert [x] Routine visit [] Staff referral [] Actively dying [] Patient sleeping [] Family support [] [] Out of room [] Palliative care [] [x] Receiving care in room [] Pre-surgical visit [] Trauma [] Long length of stay [] ICU visit [] Other: Relational/Emotional Strength [x] Patient feels connected with others/family/visitors/staff [x] Distress [] Loneliness/isolation [] Abandonment Spirituality of Patient [x] Person of Claudine [] Attends Orthodox of their Claudine [x] Believes in Prayer [] Reads Bible or Anglican materials [] There are Spiritual issues to be addressed 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 Interventions [x] Prayer [x] Active listening [x] Non-anxious presence [x] Spiritual/emotional support [] Crisis/trauma care [x] Spiritual counseling [] Bereavement support [] Provided bereavement packet [] Provided Bible/devotional materials [] Provided toy/stuffed animal, coloring book to patient or family member [] Provided Communion [] Anointing/Banner [] Salvation [x] Completed spiritual assessment [] Other: Impact on Illness or Injury [] Angry [] Fearful [x] Anxious [] Often cries [] Exhaustion [x] Unable to work [] Unable to attend yazidism [] Unable to walk/stand [] Unable to read [] Unable to drive [] Unable to eat/drink [] Unable to sleep [] Unable to be with family [] Patient intubated [] Other: Summary Had a stent proceeduer feels better going home has a good attitude about recovery Time spent with patient 10 mins
[2021-09-21 11:26] VITALS: PULSE 66
--- NOTE | 2021-09-21 11:28 | PC.NURSE ---
Pt education provided regarding follow up appointments and post angiogram homecare. Pt has no questions or concerns. Pt accompanied by spouse at discharge. VS stable upon departure.
== END 2021-09-21 11:29 | disposition home or self-care (01) | DRG 247 ==
LOC: CSU 09:26
PROVIDERS: Admitting Provider Internal Medicine Cardiovascular Disease; PCP Family Medicine; Visit Provider Internal Medicine Cardiovascular Disease
DX: I47.2 Ventricular tachycardia (principal); Z68.41 Body mass index [BMI] 40.0-44.9, adult; I10 Essential (primary) hypertension; E78.5 Hyperlipidemia, unspecified; Z82.49 Family history of ischemic heart disease and other diseases of the circulatory system; E11.69 Type 2 diabetes mellitus with other specified complication; Z87.891 Personal history of nicotine dependence; F41.9 Anxiety disorder, unspecified; I25.10 Atherosclerotic heart disease of native coronary artery without angina pectoris; Z86.16 Personal history of COVID-19; Z86.73 Personal history of transient ischemic attack (TIA), and cerebral infarction without residual deficits; E66.9 Obesity, unspecified; Z79.84 Long term (current) use of oral hypoglycemic drugs; Z79.4 Long term (current) use of insulin
CPT/HCPCS: 36415; 36416; 70450; 78452; 80048; 82962; 83735; 84484; 85025; 85347; 87426; 93005; 93017; 93454; 96372; A9500; C1725; C1769; C1874; C1887; C1894; C9600; J1644; J1815; J2250; J3010; J3246; J3490; J7030; Q0163; Q9967

== ENCOUNTER → 2021-09-28 11:07 | Outpatient (BNVA) | payer MEDICAID, SELFPAY | PROVIDERS: PCP Family Medicine; Visit Provider Nurse Practitioner Family | DX: I10 Essential (primary) hypertension (principal); I25.10 Atherosclerotic heart disease of native coronary artery without angina pectoris; I63.9 Cerebral infarction, unspecified; Z09 Encounter for follow-up examination after completed treatment for conditions other than malignant neoplasm | CPT/HCPCS: 80048 ==

== ENCOUNTER 2021-10-04 22:39 | Observation (INO) | payer MEDICAID, SELFPAY ==
--- NOTE | 2021-10-04 22:41 | ECG_ITS ---
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 Measurements Intervals [place] Rate: 79 P: 4 CO: 157 QRS: 6 QRSD: 92 T: 56 QT: 369 QTc: 424 Interpretive Statements SINUS RHYTHM NONSPECIFIC T-WAVE ABNORMALITY Compared to ECG 09/19/2021 09:41:00 T-wave abnormality now present Electronically Signed On 10-05-2021 22:38:25 ACCOUNTS RECEIVABLE CLERK by Berhane Hollins M.D. [id number] f
--- NOTE | 2021-10-04 22:41 | XRR_ITS ---
PROCEDURE INFORMATION: Exam: XR Chest Exam date and time: 10/04/2021 10:41 PM Age: 45 years old Clinical indication: Shortness of breath; Additional info: Michael, TONY TECHNIQUE: Imaging protocol: XR of the chest. Views: 1 view. Total images: 1 COMPARISON: CT chest wo con [id number] 05/16/2021 1:07 PM FINDINGS: Lungs: Diminished inspiratory effort. Vascular crowding in the lung bases. Minimal discoid atelectasis right lung base. Calcified granulomas of antecedent disease. Pleural spaces: No pleural effusion. No pneumothorax. Heart/Mediastinum: Cardiac structures and configuration unremarkable for age and AP projection.. Bones/joints: Unremarkable. Other findings: Obesity. XR/XR chest 1V portable [id number] IMPRESSION: Poor inspiratory effort. Radiation Dose CTDIVOL = (mGy): DLP = (mGy-cm)
[2021-10-04 22:46] VITALS: BP 171/100; PULSE 80; RESP 18; TEMP 36.6; O2SAT 95; BMI 43.0
--- NOTE | 2021-10-04 23:08 | ED_ITS ---
HPI - Chest Pain General: Chief Complaint: Chest Pain Stated Complaint: cp Time Seen by Provider: 10/04/21 22:41 Source: patient Mode of arrival: ambulatory Limitations: no limitations History of Present Illness: HPI narrative: 45-year-old male who had a V. fib arrest after a stress test here 2 weeks ago and had a stent placed he states that tonight at home he started having pressure pain in the center of his chest like an elephant sitting on his chest. He states pain was an 8 out of 10 is currently a 4 out of 10. He has some dyspnea denies any radiation of his pain denies any diaphoresis. Denies any vomiting or diarrhea. Associated symptoms: Deny abdominal pain, dyspnea, fever(s), nausea or vomiting Review of Systems Const: Denies: fever(s), chills, body aches or change in appetite Eyes: Denies: blurry vision or eye discomfort ENMT: Denies: throat pain or dental pain Card: Reports: chest pain Resp: Denies: dyspnea GI: Denies: abdominal pain, nausea, vomiting or diarrhea : Denies: dysuria Musc: Denies: neck pain or back pain Skin/Breast: Denies: rash Neuro: Denies: headache(s) Psych: Denies: depression Jeff/Lymph: Denies: easy bruising All/Imm: Denies: urticaria PFSH ED PFSH: Medical History Abnormal stress test Anxiety Atherosclerosis of coronary artery Bilateral lower extremity edema Chest pain COVID-19 virus infection CVA (cerebral vascular accident) Diabetes mellitus DM type 2 (diabetes mellitus, type 2) Herpes zoster Hyperlipidemia Hypertension Left knee pain Obese Restrictive lung disease Shortness of breath Vertigo Family History Grandfather Anesthesia complication CAD (coronary artery disease) Chronic kidney disease (CKD) Dementia Diabetes Grandmother CAD (coronary artery disease) Cancer Chronic kidney disease (CKD) Diabetes Lung disease Stroke Family/Other CAD (coronary artery disease) Cancer Mother Diabetes CAD (coronary artery disease) Grandfather Diabetes Denies family history of Clotting disorder Suicide Bleeding disorder Social History Smoking and tobacco status: former smoker Quit status (tobacco): has quit using tobacco Year quit tobacco: unknown Former quit date comment: smoked 4-5 cigars/day x 3 years Second hand smoke exposure: Yes Smoking risk assessment/counseling performed?: Yes Alcohol intake: current Alcohol intake frequency: holidays/special occasions only Desire information about alcohol rehabilitation?: No Lives independently: Yes Household members: spouse Marital status: service: No Current occupational status: employed Pets and animals: Yes History of recent travel: No Current gender identity: Male Physical Exam Const: COMMON NORMALS: no acute distress, patient oriented x3 and healthy appearing HENMT: COMMON NORMALS: normocephalic and atraumatic HEAD & SCALP: normocephalic and atraumatic Eye: COMMON NORMALS: Equal, round and reactive pupils present and EOMs intact bilaterally PUPIL: Yes Equal, round and reactive pupils present Neck/C-Spine: COMMON NORMALS: full ROM and supple Chest: COMMONS NORMALS: normal inspection of the chest and normal palpation of entire chest wall Resp: COMMON NORMALS: normal respiratory effort, No retractions, No use of accessory muscles and clear to auscultation bilaterally AUSCULTATION: clear to auscultation bilaterally Cardio: COMMON NORMALS: regular rate, regular rhythm and No murmurs present (Cardio) RATE: regular rate RHYTHM: regular rhythm GI: COMMON NORMALS: Normal to inspection, nondistended, normoactive bowel sounds present, Soft to palpation, non-tender and no masses PALPATION: Yes Soft to palpation Extremity: COMMON NORMALS: normal to inspection and full ROM Neuro: COMMON NORMALS: patient oriented x3, moves all extremities and no focal motor deficits Psych: COMMON NORMALS: mental status grossly normal, Normal thought process present and cooperative THOUGHT PROCESS: Normal thought process present Skin: COMMON NORMALS: no rashes or lesions noted and no wounds GENERAL SKIN EXAM: no rashes or lesions noted Course Vital Signs: Vital signs: Vital Signs Temperature 97.8 F 10/04/21 22:46 Pulse Rate 79 10/05/21 00:00 Respiratory Rate 18 10/05/21 00:00 Blood Pressure 152/84 10/05/21 00:00 Pulse Oximetry 94 10/05/21 00:00 MDM - Chest Pain MDM Narrative: Medical decision making narrative: Patient presents for chest pain EKG here is normal no signs of ST elevation he did have a recent cath pains improved with nitro spoke to the hospitalist and will admit at this time. Lab Data: Labs: Lab Results 10/04/21 10/04/21 10/04/21 23:11 23:11 23:11 WBC 10.8 10^3/uL H 10 ^3/uL (4.0-10.0) RBC 4.22 10^6/uL 10^6 /uL (4.1-5.3) Hgb 12.5 g/dL g/dL (11.7-16.6) Hct 36.7 % L % (42.0-52.0) MCV 87.0 fl fl (80-94) MCH 29.6 pg pg (28.0-34.0) MCHC 34.1 g/dL g/dL (30.0-36.0) RDW 12.9 % % (12.1-15.1) Plt Count 231 10^3/cmm 10^3 /cmm (130-400) MPV 8.9 fL fL (7.4-10.4) Neut % (Auto) 66.4 % % Lymph % (Auto) 23.0 % % Ransom % (Auto) 5.8 % % Eos % (Auto) 2.6 % % Baso % (Auto) 1.0 % % Neut # (Auto) 7.19 10^3/uL 10^3 /uL (1.8-7.7) Lymph # (Auto) 2.5 10^3/uL 10^3/ uL (0.8-4.8) Ransom # (Auto) 0.6 10^3/uL 10^3/ uL (0.2-0.9) Eos # (Auto) 0.3 10^3/uL 10^3/ uL (0.0-0.8) Baso # (Auto) 0.1 10^3/uL 10^3/ uL (0.0-0.1) Nucleated RBC % (a uto) 0 % % Nucleated RBCs # 0.0 /100WBC /100W BC Sodium 137 mmol/L mmol/L (136-145) Potassium 3.7 mmol/L mmol/L (3.5-5.1) Chloride 103 mmol/L mmol/L (98-107) Carbon Dioxide 25 mmol/L mmol/L (22-29) Anion Gap 12.7 (5-19) BUN 7 mg/dL mg/dL (6-20) Creatinine 0.5 mg/dL L mg/dL (0.7-1.2) GFR Calculation 181.5 mL/min H mL /min (90-130) Glucose 144 mg/dL H mg/dL (65-115) Calculated Osmolal ity 285 mOsm/kg mOsm/ kg (285-295) Calcium 8.7 mg/dL mg/dL (8.5-10.5) Total Bilirubin 0.2 mg/dL mg/dL (0.15-1.2) AST 9 U/L U/L (0-40) ALT 13 U/L U/L (0-41) Alkaline Phosphata se 83 IU/L IU/L (40-130) Troponin T Baselin e 13 ng/L ng/L (0-15) Total Protein 6.6 g/dL g/dL (6.6-8.7) Albumin 3.8 g/dL g/dL (3.5-5.2) Globulin 2.8 g/dL g/dL (1.3-4.6) Imaging Data^: CXR: Attestation: I personally reviewed and interpreted this imaging study as follows: My impression: no acute abnormality EKG Data^: EKG 1: Attestation: I personally reviewed and interpreted this EKG as follows: EKG interpretation date: 10/04/21 EKG interpretation time: 22:44 Interpretation: nsr hr [address] or t wave abnormalities qrs 92 qtc 404 Discharge Plan Discharge Patient Disposition: Admitted As Inpatient Clinical Impression: Chest pain Condition: Stable Coding Level of Care Code ED Sports Team Manager for Chg Fwd Exam Comprehensive
[2021-10-04 23:19] LABS: Basophils # 0.1 10^3/uL (0.0-0.1); Eosinophils # 0.3 10^3/uL (0.0-0.8); Eosinophils % 2.6 %; Hematocrit 36.7 % (42.0-52.0); Hemoglobin 12.5 g/dL (11.7-16.6); Lymphocytes # 2.5 10^3/uL (0.8-4.8); Mean Corpuscular HGB Conc 34.1 g/dL (30.0-36.0); Mean Corpuscular Hemoglobin 29.6 pg (28.0-34.0); Mean Platelet Volume 8.9 fL (7.4-10.4); Monocytes # 0.6 10^3/uL (0.2-0.9); Monocytes % 5.8 %; Neutrophils # 7.19 10^3/uL (1.8-7.7); Neutrophils % 66.4 %; Nucleated Red Blood Cells % 0 %; Platelet Count 231 10^3/cmm (130-400); Red Blood Count 4.22 10^6/uL (4.1-5.3); Red Cell Distribution Width 12.9 % (12.1-15.1); White Blood Count 10.8 10^3/uL (4.0-10.0)
[2021-10-04 23:23] VITALS: BP 179/95; PULSE 75; RESP 17; O2SAT 96
[2021-10-04] MEDS: aspirin 81 mg Chew Tablet 324 MG PO (23:29)
[2021-10-04 23:40] LABS: Alanine Aminotransferase 13 U/L (0-41); Albumin Level 3.8 g/dL (3.5-5.2); Alkaline Phosphatase 83 IU/L (40-130); Anion Gap 12.7 (5-19); Aspartate Amino Transferase 9 U/L (0-40); Blood Urea Nitrogen 7 mg/dL (6-20); Calcium 8.7 mg/dL (8.5-10.5); Carbon Dioxide 25 mmol/L (22-29); Chloride 103 mmol/L (98-107); Globulin 2.8 g/dL (1.3-4.6); Glomerular Filtration Rate 181.5 mL/min (90-130); Glucose 144 mg/dL (65-115); Osmolality Calculated 285 mOsm/kg (285-295); Potassium 3.7 mmol/L (3.5-5.1); Sodium 137 mmol/L (136-145); Total Bilirubin 0.2 mg/dL (0.15-1.2); Total Protein 6.6 g/dL (6.6-8.7)
[2021-10-04 23:41] LABS: Troponin(5th) Baseline 13 ng/L (0-15)
[2021-10-04] MEDS: nitroglycerin 0.4 mg sublingual Tablet SUBLINGUAL (23:42)
--- NOTE | 2021-10-04 23:55 | P.HP_ITS ---
Providers/Chief Complaint Primary Care Provider: Benjamin Funk MD Chief Complaint: cp History of Present Illness Rui Jiang is a 45 year old male with past medical history of coronary artery disease, recent cardiac catheterization and stent placement, status post cardiac arrest and CPR secondary to V. fib, diabetes, hypertension, dyslipidemia, tobacco use disorder who is presenting to emergency room with complaints of substernal chest discomfort which is described as heaviness and tightness which started earlier today. Was associated with some shortness of breath. Nitroglycerin in the emergency room helped to resolve the pain. Currently the patient feels better. 3 weeks ago he underwent stress test for worsening of shortness of breath and chest pressure during the recovery phase patient had polymorphic cardiac arrest he was shocked out of the rhythm. He was admitted to the hospital treated as per ACS protocol he did not bump up troponin however next morning he underwent left heart cath which revealed proximal high-grade significant stenotic 80 to 90% lesion. It was treated with single drug-eluting stent. He reports being compliant with his medications. Unfortunately still uses chewing tobacco. Review of Systems General: Reports: 10 or more systems reviewed and unremarkable except in HPI and below Medications/Allergies Home Medications Medication Instructions Recorded Confirmed Last Taken Type naproxen 500 mg PO BID PRN 08/03/20 09/28/21 09/17/21 08:00 History fluticasone propionate 50 1 spray INTRANASAL PRN PRN 05/15/21 09/28/21 Unknown History mcg/actuation nasal spray,suspension glipizide 10 mg tablet 10 mg PO DAILY 90 Days #90 tab 07/05/21 09/28/21 09/18/21 08:00 Rx meclizine 25 mg tablet 25 mg PO DAILY PRN 30 Days #30 tab 07/05/21 09/28/21 Unknown Rx Novolin R Regular U-100 Insuln See Rx Instructions .ROUTE .COMPLEX 07/21/21 09/28/21 09/18/21 18:00 History Novolin N NPH U-100 Insulin 40 unit SUBCUT BEDTIME #0 ml 07/22/21 09/28/21 09/18/21 21:00 Rx gabapentin 300 mg capsule 300 mg PO TID #90 cap 08/07/21 09/28/21 09/18/21 21:00 Rx chlorthalidone 25 mg tablet 25 mg PO DAILY 90 Days #90 tab 08/22/21 09/28/21 09/18/21 08:00 Rx cholecalciferol (vitamin D3) 25 25 mcg PO DAILY 90 Days #90 cap 08/22/21 09/28/21 09/18/21 21:00 Rx mcg (1,000 unit) capsule metformin 500 mg tablet,extended 1,000 mg PO BID 90 Days #360 tab 08/22/21 09/28/21 09/18/21 21:00 Rx release 24 hr paroxetine HCl 40 mg tablet 40 mg PO DAILY 90 Days #90 tab 08/22/21 09/28/21 09/18/21 21:00 Rx potassium chloride 10 mEq 10 meq PO DAILY 90 Days #90 tab 08/22/21 09/28/21 09/18/21 08:00 Rx tablet,extended release simvastatin 40 mg tablet 40 mg PO DAILY 90 Days #90 tab 08/22/21 09/28/21 1 21:00 Rx lisinopril 10 mg tablet 10 mg PO DAILY #90 tab 08/23/21 09/28/21 09/18/21 21:00 Rx nitroglycerin 0.4 mg sublingual 0.4 mg SUBLINGUAL Q5M PRN 90 Days 08/31/21 09/28/21 09/17/21 09:30 Rx tablet #90 tab aspirin [Adult Aspirin Regimen] 81 mg PO DAILY #90 tab 09/21/21 09/28/21 Unknown Rx ticagrelor [Brilinta] 90 mg PO BID #60 tab 09/21/21 09/28/21 Unknown Rx metoprolol tartrate 25 mg tablet 50 mg PO BID tab 09/28/21 09/28/21 Unknown History Allergies Allergy/AdvReac Type Severity Reaction Status Date / Time nalbuphine [From Nubain] Allergy Unknown Verified 09/28/21 10:18 PFSH Acute PFSH: Medical History Abnormal stress test Anxiety Atherosclerosis of coronary artery Bilateral lower extremity edema Chest pain COVID-19 virus infection CVA (cerebral vascular accident) Diabetes mellitus DM type 2 (diabetes mellitus, type 2) Herpes zoster Hyperlipidemia Hypertension Left knee pain Obese Restrictive lung disease Shortness of breath Vertigo Family History Grandfather Anesthesia complication CAD (coronary artery disease) Chronic kidney disease (CKD) Dementia Diabetes Grandmother CAD (coronary artery disease) Cancer Chronic kidney disease (CKD) Diabetes Lung disease Stroke Family/Other CAD (coronary artery disease) Cancer Mother Diabetes CAD (coronary artery disease) Grandfather Diabetes Denies family history of Clotting disorder Suicide Bleeding disorder Social History Smoking and tobacco status: former smoker Quit status (tobacco): has quit using tobacco Year quit tobacco: unknown Former quit date comment: smoked 4-5 cigars/day x 3 years Second hand smoke exposure: Yes Smoking risk assessment/counseling performed?: Yes Alcohol intake: current Alcohol intake frequency: holidays/special occasions only Desire information about alcohol rehabilitation?: No Lives independently: Yes Household members: spouse Marital status: service: No Current occupational status: employed Pets and animals: Yes History of recent travel: No Current gender identity: Male Vitals/I&O/Wt Last Vital Signs Temp 97.8 F 10/04/21 22:46 Pulse 79 10/05/21 00:00 Resp 18 10/05/21 00:00 BP 152/84 10/05/21 00:00 Pulse Ox 94 10/05/21 00:00 Weight last 48 hrs Weight 136.078 kg Physical Exam Narrative: EXAM NARRATIVE: The patient is awake alert oriented. No acute distress. Mood and affect are appropriate. Responses are adequate. Skin is warm and dry. Moist mucous membranes Eyes PERRL, extraocular muscle intact Neck supple. No JVD Lungs are clear to auscultation bilaterally. No wheezes or crackles Heart S1, S2, regular Abdomen is obese, soft, nontender, bowel sounds are present Extremities bilateral symmetric edema. No cyanosis no calf tenderness bilaterally Nonfocal neuro eval. Normal speech. Data : 10/04/21 23:11 10/04/21 23:11 Other Labs: Laboratory Results WBC 10.8 10^3/uL (4.0-10.0) H 10/04/21 23:11 RBC 4.22 10^6/uL (4.1-5.3) 10/04/21 23:11 Hgb 12.5 g/dL (11.7-16.6) 10/04/21 23:11 Hct 36.7 % (42.0-52.0) L 10/04/21 23:11 MCV 87.0 fl (80-94) 10/04/21 23:11 MCH 29.6 pg (28.0-34.0) 10/04/21 23:11 MCHC 34.1 g/dL (30.0-36.0) 10/04/21 23:11 RDW 12.9 % (12.1-15.1) 10/04/21 23:11 Plt Count 231 10^3/cmm (130-400) 10/04/21 23:11 MPV 8.9 fL (7.4-10.4) 10/04/21 23:11 Neut % (Auto) 66.4 % 10/04/21 23:11 Lymph % (Auto) 23.0 % 10/04/21 23:11 Steele % (Auto) 5.8 % 10/04/21 23:11 Eos % (Auto) 2.6 % 10/04/21 23:11 Baso % (Auto) 1.0 % 10/04/21 23:11 Neut # (Auto) 7.19 10^3/uL (1.8-7.7) 10/04/21 23:11 Lymph # (Auto) 2.5 10^3/uL (0.8-4.8) 10/04/21 23:11 Steele # (Auto) 0.6 10^3/uL (0.2-0.9) 10/04/21 23:11 Eos # (Auto) 0.3 10^3/uL (0.0-0.8) 10/04/21 23:11 Baso # (Auto) 0.1 10^3/uL (0.0-0.1) 10/04/21 23:11 Nucleated RBC % (auto) 0 % 10/04/21 23:11 Nucleated RBCs # 0.0 /100WBC 10/04/21 23:11 Sodium 137 mmol/L (136-145) 10/04/21 23:11 Potassium 3.7 mmol/L (3.5-5.1) 10/04/21 23:11 Chloride 103 mmol/L (98-107) 10/04/21 23:11 Carbon Dioxide 25 mmol/L (22-29) 10/04/21 23:11 Anion Gap 12.7 (5-19) 10/04/21 23:11 BUN 7 mg/dL (6-20) 10/04/21 23:11 Creatinine 0.5 mg/dL (0.7-1.2) L 10/04/21 23:11 GFR Calculation 181.5 mL/min (90-130) H 10/04/21 23:11 Glucose 144 mg/dL (65-115) H 10/04/21 23:11 Calculated Osmolality 285 mOsm/kg (285-295) 10/04/21 23:11 Calcium 8.7 mg/dL (8.5-10.5) 10/04/21 23:11 Total Bilirubin 0.2 mg/dL (0.15-1.2) 10/04/21 23:11 AST 9 U/L (0-40) 10/04/21 23:11 ALT 13 U/L (0-41) 10/04/21 23:11 Alkaline Phosphatase 83 IU/L (40-130) 10/04/21 23:11 Troponin T Baseline 13 ng/L (0-15) 10/04/21 23:11 Total Protein 6.6 g/dL (6.6-8.7) 10/04/21 23:11 Albumin 3.8 g/dL (3.5-5.2) 10/04/21 23:11 Globulin 2.8 g/dL (1.3-4.6) 10/04/21 23:11 Impressions Chest X-Ray 10/04/21 22:41 IMPRESSION: Poor inspiratory effort. Radiation Dose CTDIVOL = (mGy): DLP = (mGy-cm) A&P Assessment and plan (1) Chest pain: Status: Acute (2) Diabetes mellitus: Status: Acute Qualifiers: Diabetes mellitus type: type 2 Diabetes mellitus press tender long goods insulin use: without press tender long goods use Diabetes mellitus complication status: with other specified complication Qualified Code(s): E11.69 - Type 2 diabetes mellitus with other specified complication (3) Hyperlipidemia associated with type 2 diabetes mellitus: Status: Acute (4) Essential hypertension: Status: Acute (5) Tobacco use disorder: Status: Acute Additional A&P Information 45 year old male with past medical history of coronary artery disease, recent cardiac catheterization and stent placement, status post cardiac arrest and CPR secondary to V. fib, diabetes, hypertension, dyslipidemia, tobacco use disorder who is presenting to emergency room with complaints of substernal chest discomfort. Being admitted for observation to rule out ACS. We will continue his home antiplatelet medications, statin, as needed nitroglycerin and blood pressure medications. N.p.o. after midnight in case if he needs to undergo additional testing or procedures. Diabetes. We will hold Metformin and sulfa drug. We will decrease the dose of Lantus. We will cover him with insulin sliding scale. Hypertension. Currently well controlled. We will continue his home medications . DVT prophylaxis. Teds and SCDs. He is also on dual antiplatelet therapy. Adding anticoagulant would increase the risk of bleeding. CODE STATUS. He wants to be full code. The plan of care was discussed with the patient and his family. They verbalized understanding and agreement. The patient was seen, interviewed and evaluated on October 04, 2021 at 1155. Attestations Medical Necessity Statement*: Observation Coding Level of Care Code Acute Hand Umbrella Tipper for [facility] Diagnoses Chest pain R07.9 Diabetes mellitus E11.69 Diabetes mellitus type: type 2 Diabetes mellitus fci insulin use: without fci use Diabetes mellitus complication status: with other specified complication Hyperlipidemia associated with type 2 diabetes mellitus E11.69; E78.5 Essential hypertension I10 Tobacco use disorder F17.200
[2021-10-05] VITALS (14 sets, daily range): BP systolic 112–158; BP diastolic 78–97; PULSE 51–80; RESP 14–33; TEMP 36.4; O2SAT 93–98
[2021-10-05 01:41] LABS: Troponin 5 2HR 10.88 ng/L (0-15)
[2021-10-05 01:43] LABS: Troponin 5 2HR Delta -2.12 ABS# (0-10)
--- NOTE | 2021-10-05 04:41 | ECG_ITS ---
[facility] Test Date: 2021-10-05 Pat Name: Rui Jiang Department: Room: 112 Gender: Male Field Health Officer: : 1975 Requested By: Ace Becerra Order Number: [id number] Derrek MD: Berhane Hollins M.D. Measurements Intervals [place] Rate: 64 P: -4 KS: 152 QRS: 7 QRSD: 81 T: 53 QT: 399 QTc: 412 Interpretive Statements SINUS RHYTHM Compared to ECG 10/04/2021 22:44:53 T-wave abnormality no longer present Electronically Signed On 10-05-2021 22:54:07 UC ARCHITECT by Berhane Hollins M.D. [id number]
[2021-10-05 05:15] LABS: Troponin 5 6HR 11.46 ng/L (0-15); Troponin 5 6HR Delta -1.54 ng/L (0-12)
--- NOTE | 2021-10-05 08:30 | PC.PHAR ---
PT STATES HE TAKES CARE OF HIS OWN MEDICATIONS-PT STATES THE KCL WAS DCED LAST FILLED 08/12/21 90D/S WHEN HIS LASIX WAS DCED-Rx written on 09/28/21 for metoprolol tartrate 50mg bid from [facility] will pt states he didnt get ext med history doesnt show filled pt states he is still taking 25mg bid last filled on 09/21/21 90d/s-pt states he is on glipizide 10mg ext med history doesnt show when last filled-pt states he has inhalers but hasnt used them in months-notes are made in the pharmacy comments
[2021-10-05] MEDS: atorvastatin 40 mg Tablet 20 MG PO (09:19)
[2021-10-05] MEDS: metoprolol tartrate 50 mg Tablet PO ×2 (09:19→17:23)
[2021-10-05] MEDS: aspirin 81 mg EC Tablet PO (09:20)
[2021-10-05] MEDS: gabapentin 300 mg Capsule PO ×2 (09:20→16:16)
[2021-10-05] MEDS: lisinopril 10 mg Tablet PO (09:21)
[2021-10-05] MEDS: PARoxetine 20 mg Tablet 40 MG PO (09:21)
[2021-10-05] MEDS: ticagrelor 90 mg Tablet PO ×2 (09:21→17:24)
[2021-10-05 09:31] LABS: Glucose Point of Care 147 mg/dL (70-110)
[2021-10-05] MEDS: insulin lispro 100 unit/1 mL SUBCUT ×2 (09:33→12:49)
--- NOTE | 2021-10-05 10:36 | PC.CHAP ---
Pastoral Care Encounter/Spiritual Assessment Type of Contact [] Declined gut snatcher visit [] Patient/Family/Request visit [] Outpatient visit [] Follow-up visit [] Physician referral [] Code/Alert [x] Routine visit [] Staff referral [] Actively dying [] Patient sleeping [] Family support [] [] Out of room [] Palliative care [] [x] Receiving care in room [] Pre-surgical visit [] Trauma [] Long length of stay [] ICU visit [] Other: Relational/Emotional Strength [x] Patient feels connected with others/family/visitors/staff [] Distress [] Loneliness/isolation [] Abandonment Spirituality of Patient [x] Person of Claudine [] Attends Confucianist of their Claudine [x] Believes in Prayer [] Reads Bible or Jehovah'S Witness materials [] There are Spiritual issues to be addressed Electric Motor Tester Interventions [x] Prayer [x] Active listening [x] Non-anxious presence [x] Spiritual/emotional support [] Crisis/trauma care [x] Spiritual counseling [] Bereavement support [] Provided bereavement packet [] Provided Bible/devotional materials [] Provided toy/stuffed animal, coloring book to patient or family member [] Provided Communion [] Anointing/Basin [] Salvation [x] Completed spiritual assessment [] Other: Impact on Illness or Injury [] Angry [] Fearful [x] Anxious [] Often cries [] Exhaustion [x] Unable to work [] Unable to attend mormonism [] Unable to walk/stand [] Unable to read [] Unable to drive [] Unable to eat/drink [] Unable to sleep [] Unable to be with family [] Patient intubated [] Other: Summary has a postive attitude will mbe going home soon Time spent with patient 10 mins
[2021-10-05 12:03] LABS: Glucose Point of Care 312 mg/dL (70-110)
[2021-10-05 12:03] LABS: Glucose Point of Care 161 mg/dL (70-110)
[2021-10-05] MEDS: chlorthalidone 25 mg Tablet PO (12:39)
[2021-10-05] MEDS: pneumococcal (23 valent) SDV 0.5 mL IM (12:46)
--- NOTE | 2021-10-05 13:17 | PM.PN ---
Subjective Subjective: Interval history: SOB Vitals/I&O/Wt Last Vital Signs Temp 97.5 F L 10/05/21 08:00 Pulse 69 10/05/21 12:00 Resp 30 H 10/05/21 12:00 BP 151/97 10/05/21 12:00 Pulse Ox 94 10/05/21 12:00 Weight last 48 hrs Weight 136.078 kg Data : 10/04/21 23:11 10/04/21 23:11 A&P Assessment and plan (1) Chest pain: Status: Acute (2) Diabetes mellitus: Status: Acute Qualifiers: Diabetes mellitus type: type 2 Diabetes mellitus senior living insulin use: without emt intermediate use Diabetes mellitus complication status: with other specified complication Qualified Code(s): E11.69 - Type 2 diabetes mellitus with other specified complication (3) Hyperlipidemia associated with type 2 diabetes mellitus: Status: Acute (4) Essential hypertension: Status: Acute (5) Tobacco use disorder: Status: Acute Additional A&P Information 45 year old male with past medical history of coronary artery disease, recent cardiac catheterization and stent placement, status post cardiac arrest and CPR secondary to V. fib, diabetes, hypertension, dyslipidemia, tobacco use disorder who is presenting to emergency room with complaints of substernal chest discomfort. Being admitted for observation to rule out ACS. We will continue his home antiplatelet medications, statin, as needed nitroglycerin and blood pressure medications. N.p.o. after midnight in case if he needs to undergo additional testing or procedures. Diabetes. We will hold Metformin and sulfa drug. We will decrease the dose of Lantus. We will cover him with insulin sliding scale. Hypertension. Currently well controlled. We will continue his home medications. DVT prophylaxis. Teds and SCDs. He is also on dual antiplatelet therapy. Adding anticoagulant would increase the risk of bleeding. CODE STATUS. He wants to be full code. The plan of care was discussed with the patient and his family. They verbalized understanding and agreement. The patient was seen, interviewed and evaluated on October 04, 2021 at 1155. Coding Level of Care Code Acute Bacteriologist Industrial for [facility] Diagnoses Chest pain R07.9 Diabetes mellitus E11.69 Diabetes mellitus type: type 2 Diabetes mellitus emt intermediate insulin use: without emt intermediate use Diabetes mellitus complication status: with other specified complication Hyperlipidemia associated with type 2 diabetes mellitus E11.69; E78.5 Essential hypertension I10 Tobacco use disorder F17.200
[2021-10-05] MEDS: chlorthalidone 25 mg Tablet 12.5 MG PO (16:16)
--- NOTE | 2021-10-05 17:03 | PM.DCS ---
Discharge Providers Date of Admission: 10/05/21 01:14 Date of Discharge: October 05, 2021 Attending Provider at Admission: Breezy Alexis MD Attending Provider at Discharge: Ludwig Glez MD Primary Care Provider: Benjamin Funk MD Diagnoses at Discharge Discharge Diagnosis (1) Chest pain: Status: Resolved (2) Diabetes mellitus: Status: Acute Qualifiers: Diabetes mellitus complication status: with other specified complication Diabetes mellitus care home insulin use: without care home use Diabetes mellitus type: type 2 Qualified Code(s): E11.69 - Type 2 diabetes mellitus with other specified complication (3) Hyperlipidemia associated with type 2 diabetes mellitus: Status: Acute (4) Essential hypertension: Status: Acute (5) Tobacco use disorder: Status: Acute Reason for Visit Reason for Visit: cp Hospital Course Hospital Course 45 year old male with past medical history of coronary artery disease, recent cardiac catheterization and stent placement, status post cardiac arrest and CPR secondary to V. fib, diabetes, hypertension, dyslipidemia, tobacco use disorder who is presenting to emergency room with complaints of substernal chest discomfort which is described as heaviness and tightness which started earlier today. Was associated with some shortness of breath. Nitroglycerin in the emergency room helped to resolve the pain. Currently the patient feels better. 3 weeks ago he underwent stress test for worsening of shortness of breath and chest pressure during the recovery phase patient had polymorphic cardiac arrest he was shocked out of the rhythm. He was admitted to the hospital treated as per ACS protocol he did not bump up troponin however next morning he underwent left heart cath which revealed proximal high-grade significant stenotic 80 to 90% lesion. It was treated with single drug-eluting stent. Patient was admitted for management and evaluation of chest pain as well as shortness of breath. During the observation period patient remained chest pain-free, denied any shortness of breath, troponin trend without any significant delta, EKG failed to show any acute ST-T wave changes, x-ray chest: No infiltrates. Patient denied any fever or cough. His blood pressure was slightly elevated received extra dose of chlorthalidone:12.5 mg po 1 time. Possible explanation for chest pain and shortness of breath is likely slightly elevated blood pressure at home, versus noncardiac chest pain. Patient responded well to above medical management. Patient will continue with the home medications.Patient was discharged in stable condition and home will continue to follow-up with his primary care physician as well as dog behaviorist as an output. Physical Exam Const: COMMON NORMALS: patient oriented x3 HENMT: COMMON NORMALS: normocephalic and atraumatic HEAD & SCALP: normocephalic and atraumatic Resp: COMMON NORMALS: clear to auscultation bilaterally EFFORT & INSPECTION: Yes symmetric chest movement AUSCULTATION: clear to auscultation bilaterally Cardio: COMMON NORMALS: regular rate, regular rhythm, S1 normal heart sound present, S2 normal heart sound present, No gallops present (Cardio), No murmurs present (Cardio), No rub (Cardio) and Peripheral pulses 2+ throughout RATE: regular rate RHYTHM: regular rhythm HEART SOUNDS: S1 normal heart sound present and S2 normal heart sound present PERIPHERAL PULSES: Peripheral pulses 2+ throughout GI: COMMON NORMALS: Normal to inspection, nondistended, normoactive bowel sounds present, Soft to palpation, non-tender, No hepatosplenomegaly present and no masses AUSCULTATION: Yes normoactive bowel sounds PALPATION: Yes Soft to palpation and Yes No hepatosplenomegaly present RECTAL EXAM: Yes deferred Extremity: COMMON NORMALS: no clubbing, cyanosis or edema and no pedal edema Neuro: COMMON NORMALS: patient oriented x3 Discharge Data Data Completed and Pending: Completed Studies During Hospitalization Category Date Time Status XR chest 1V dusty ble [id number] Stat Exams 10/04/21 22:41 Completed Pending at discharge Category Date Time Status Complete Blood Co unt w/Auto AM LABS Lab 10/06/21 04:00 Ordered Comprehensive Met abolic Panel AM LA BS Lab 10/06/21 04:00 Ordered Lipid Panel AM LA BS Lab 10/06/21 04:00 Ordered Labs from last 24 hours 10/05/21 10/05/21 10/05/21 11:54 11:44 09:27 WBC RBC Hgb Hct MCV MCH MCHC RDW Plt Count MPV Neut % (Auto) Lymph % (Auto) [place] % (Auto) Eos % (Auto) Baso % (Auto) Neut # (Auto) Lymph # (Auto) [place] # (Auto) Eos # (Auto) Baso # (Auto) Nucleated RBC % (a uto) Nucleated RBCs # Sodium Potassium Chloride Carbon Dioxide Anion Gap BUN Creatinine GFR Calculation Glucose POC Glucose 312 H 161 H 147 H Calculated Osmolal ity Calcium Total Bilirubin AST ALT Alkaline Phosphata se Troponin T Baselin e Troponin T 120 Min modoc Delta Troponin T Troponin T Hi Sens 6Hr Troponin T Hi Sens 6Hr Delta Total Protein Albumin Globulin 10/05/21 10/05/21 10/04/21 04:35 01:03 23:11 WBC RBC Hgb Hct MCV MCH MCHC RDW Plt Count MPV Neut % (Auto) Lymph % (Auto) [place] % (Auto) Eos % (Auto) Baso % (Auto) Neut # (Auto) Lymph # (Auto) [place] # (Auto) Eos # (Auto) Baso # (Auto) Nucleated RBC % (a uto) Nucleated RBCs # Sodium Potassium Chloride Carbon Dioxide Anion Gap BUN Creatinine GFR Calculation Glucose POC Glucose Calculated Osmolal ity Calcium Total Bilirubin AST ALT Alkaline Phosphata se Troponin T Baselin e 13 Troponin T 120 Min modoc 10.88 Delta Troponin T -2.12 L Troponin T Hi Sens 6Hr 11.46 Troponin T Hi Sens 6Hr Delta -1.54 L Total Protein Albumin Globulin 10/04/21 10/04/21 23:11 23:11 WBC 10.8 H RBC 4.22 Hgb 12.5 Hct 36.7 L MCV 87.0 MCH 29.6 MCHC 34.1 RDW 12.9 Plt Count 231 MPV 8.9 Neut % (Auto) 66.4 Lymph % (Auto) 23.0 [place] % (Auto) 5.8 Eos % (Auto) 2.6 Baso % (Auto) 1.0 Neut # (Auto) 7.19 Lymph # (Auto) 2.5 [place] # (Auto) 0.6 Eos # (Auto) 0.3 Baso # (Auto) 0.1 Nucleated RBC % (a uto) 0 Nucleated RBCs # 0.0 Sodium 137 Potassium 3.7 Chloride 103 Carbon Dioxide 25 Anion Gap 12.7 BUN 7 Creatinine 0.5 L GFR Calculation 181.5 H Glucose 144 H POC Glucose Calculated Osmolal ity 285 Calcium 8.7 Total Bilirubin 0.2 AST 9 ALT 13 Alkaline Phosphata se 83 Troponin T Baselin e Troponin T 120 Min modoc Delta Troponin T Troponin T Hi Sens 6Hr Troponin T Hi Sens 6Hr Delta Total Protein 6.6 Albumin 3.8 Globulin 2.8 Vitals: Last Vital Signs Temp 97.5 F L 10/05/21 08:00 Pulse 68 10/05/21 16:00 Resp 22 H 11/11/21 16:00 BP 151/90 10/05/21 16:00 Pulse Ox 94 10/05/21 16:00 Discharge Plan Discharge Patient Disposition: Home Condition: Stable Prescriptions: Continued meclizine 25 mg tablet 25 mg PO DAILY PRN (Reason: motion sickness) 30 Days Qty: 30 RF: 0 glipizide 10 mg tablet 10 mg PO DAILY 90 Days Qty: 90 RF: 0 chlorthalidone 25 mg tablet 25 mg PO DAILY 90 Days Qty: 90 RF: 1 metformin 500 mg tablet extended release 24 hr 1,000 mg PO BID 90 Days Qty: 360 RF: 0 nitroglycerin 0.4 mg tablet, sublingual 0.4 mg sublingual Q5M PRN (Reason: chest pain) 90 Days Qty: 90 RF: 0 metoprolol tartrate 25 mg tablet 25 mg PO BID RF: 0 fluticasone propionate 50 mcg/actuation spray,suspension 2 spray intranasal DAILY PRN (Reason: Allergy Symptoms) RF: 0 Brilinta 90 mg Tablet 90 mg PO BID Qty: 60 RF: 6 aspirin [Adult Aspirin Regimen] 81 mg tablet,delayed release (DR/EC) 81 mg PO DAILY Qty: 90 RF: 4 Advair Diskus 250-50 mcg/dose Blister With Device 1 inh INHALATION BID PRN (Reason: PT STATES NOT USED IN MONTHS RX LAST FILLED07/19/21) RF: 0 simvastatin 40 mg Tablet 40 mg PO BEDTIME RF: 0 lisinopril 10 mg Tablet 10 mg PO QAM RF: 0 gabapentin 300 mg Capsule 300 mg PO BID RF: 0 ProAir HFA 90 mcg/actuation Hfa Aerosol Inhaler 2 puff INHALATION Q4H PRN (Reason: Shortness Of Breath) RF: 0 Paxil 40 mg Tablet 40 mg PO BEDTIME RF: 0 cholecalciferol (vitamin D3) 25 mcg (1,000 unit) capsule 25 mcg PO QAM RF: 0 naproxen 500 mg tablet 500 mg PO BID PRN (Reason: Pain) RF: 0 Novolin R Regular U-100 Insuln 100 unit/mL Solution See Rx Instructions .ROUTE .COMPLEX RF: 0 Novolin N NPH U-100 Insulin 100 unit/mL Suspension 40 unit SUBCUT BEDTIME Qty: 0 RF: 0 Discharge Orders: Discharge Order (Routine); Ordered 10/05/21 Ordered By: Ludwig Glez Referrals: Benjamin Funk MD [Primary Care Provider] - 2 weeks ([facility] will be calling to schedule a hospital followup with Dr. Funk to be seen in 2 weeks. If you don't hear from them by Tomorrow afternoon, please give them a call at ) Discharge Diet: Diabetic Discharge Activity: Resume usual activity Patient Instructions: Opioid Safety Discharge Attestations Time Spent in Discharge Care*: less than 30 min Specific Discharge Activities: educating patient, educating and/or supporting family/caregiver, discussing with pcp/other providers, discussing with family independence case manager/social workers/dc planners, documenting/other paperwork and evaluating patient/reviewing data Status at Discharge: Cognitive status at discharge: cognitively intact, Behavioral status at discharge: cooperative, Quality Metrics Clinical Quality Measures During this hospital stay, did patient experience: None Coding Level of Care Code Acute Chg FW DC note Diagnoses Chest pain R07.9 Diabetes mellitus E11.69 Diabetes mellitus complication status: with other specified complication Diabetes mellitus medical terminologist insulin use: without medical terminologist use Diabetes mellitus type: type 2 Hyperlipidemia associated with type 2 diabetes mellitus E11.69; E78.5 Essential hypertension I10 Tobacco use disorder F17.200
[2021-10-05 17:04] LABS: Glucose Point of Care 129 mg/dL (70-110)
== END 2021-10-05 17:51 | disposition home or self-care (01) ==
LOC: ER 10-05 00:08 → ER IP 10-05 06:33 → CSU 10-05 06:34
PROVIDERS: Admitting Provider Internal Medicine Cardiovascular Disease; Emergency Provider Emergency Medicine; PCP Family Medicine; Visit Provider Internal Medicine
DX: R07.9 Chest pain, unspecified (principal); E11.9 Type 2 diabetes mellitus without complications; E78.5 Hyperlipidemia, unspecified; I10 Essential (primary) hypertension; I25.10 Atherosclerotic heart disease of native coronary artery without angina pectoris; E66.9 Obesity, unspecified; Z68.41 Body mass index [BMI] 40.0-44.9, adult; F17.200 Nicotine dependence, unspecified, uncomplicated; Z95.5 Presence of coronary angioplasty implant and graft; Z79.4 Long term (current) use of insulin; Z79.84 Long term (current) use of oral hypoglycemic drugs; Z79.82 Long term (current) use of aspirin; Z79.899 Other long term (current) drug therapy; Z82.49 Family history of ischemic heart disease and other diseases of the circulatory system; Z86.16 Personal history of COVID-19; Z87.891 Personal history of nicotine dependence; Z86.73 Personal history of transient ischemic attack (TIA), and cerebral infarction without residual deficits
CPT/HCPCS: 36416; 71045; 80053; 82962; 84484; 85025; 90471; 90686; 90732; 93005; 96360; 96361; 96372; 99285; G0378; J1815

== ENCOUNTER → 2022-01-24 10:27 | Outpatient (BNVA) | payer MEDICAID, SELFPAY | PROVIDERS: PCP Family Medicine; Visit Provider Family Medicine | DX: F41.9 Anxiety disorder, unspecified (principal); F32.A Depression, unspecified | CPT/HCPCS: 83036 ==

== ENCOUNTER → 2022-03-01 10:23 | Outpatient (BNVA) | payer MEDICAID, SELFPAY | PROVIDERS: PCP Family Medicine; Visit Provider Internal Medicine Cardiovascular Disease | DX: I25.118 Atherosclerotic heart disease of native coronary artery with other forms of angina pectoris (principal); I10 Essential (primary) hypertension; R55 Syncope and collapse; E78.2 Mixed hyperlipidemia; E11.65 Type 2 diabetes mellitus with hyperglycemia; Z79.4 Long term (current) use of insulin | CPT/HCPCS: 99214 ==

== ENCOUNTER → 2022-03-07 09:57 | Outpatient (BNVA) | payer MEDICAID, SELFPAY | PROVIDERS: PCP Family Medicine; Visit Provider Family Medicine | DX: F41.9 Anxiety disorder, unspecified (principal); F32.A Depression, unspecified | CPT/HCPCS: 80053; 80061 ==

== ENCOUNTER → 2022-06-07 10:04 | Outpatient (BNVA) | payer MEDICAID, SELFPAY | PROVIDERS: PCP Family Medicine; Visit Provider Family Medicine | DX: F41.9 Anxiety disorder, unspecified (principal); F32.A Depression, unspecified; R06.83 Snoring; E11.9 Type 2 diabetes mellitus without complications; E11.65 Type 2 diabetes mellitus with hyperglycemia; Z79.4 Long term (current) use of insulin | CPT/HCPCS: 83036 ==

== ENCOUNTER → 2022-06-21 12:34 | Outpatient (BNVA) | payer MEDICAID, SELFPAY | LOC: HCSOACUTE 06-22 08:28 | PROVIDERS: PCP Family Medicine; Visit Provider Internal Medicine Cardiovascular Disease | DX: R07.9 Chest pain, unspecified (principal); I25.118 Atherosclerotic heart disease of native coronary artery with other forms of angina pectoris; E78.2 Mixed hyperlipidemia; E11.65 Type 2 diabetes mellitus with hyperglycemia; Z79.4 Long term (current) use of insulin; I10 Essential (primary) hypertension; Z87.891 Personal history of nicotine dependence; Z95.5 Presence of coronary angioplasty implant and graft | CPT/HCPCS: 99213; 99214 ==

== ENCOUNTER → 2022-06-22 09:59 | Outpatient (BNVA) | payer MEDICAID, SELFPAY | PROVIDERS: PCP Family Medicine; Visit Provider Internal Medicine Cardiovascular Disease | DX: I10 Essential (primary) hypertension (principal); R07.9 Chest pain, unspecified; Z95.5 Presence of coronary angioplasty implant and graft; E11.9 Type 2 diabetes mellitus without complications | CPT/HCPCS: 80048; 85025; 85610 ==

== ENCOUNTER 2022-06-27 05:57 | Outpatient (CLI) | payer MEDICAID, SELFPAY ==
[2022-06-27] VITALS (24 sets, daily range): BP systolic 100–134; BP diastolic 61–93; PULSE 62–78; RESP 14–27; TEMP 36.6; O2SAT 92–99; BMI 40.0
--- NOTE | 2022-06-27 06:00 | XACV_ITS ---
Exam Room: 1 Ht: 178 cm Wt: 127 kg BSA: 2.56 m2 Gender: Male : 1975 Any Known Allergies: Nubaine Exam Priority: Routine Procedure(s): Procedure Description: Diagnostic procedure Procedure Description: PCI procedure Procedure Description: Drug Eluting Coronary Stent Procedure Description: PTCA Procedure Description: Coronary Angiography Diagnostic Cath Status: Elective Diagnostic Findings * This patient had a stent placed to the proximal LAD several months ago in August 2021. He presented to the office the other day with recurrent angina. This was similar in nature to the angina he felt prior to the stent placement. * Angiography reveals a normal left main. The circumflex contains minor luminal irregularities. There is significant in-stent restenosis within the LAD stent. Otherwise, minor luminal irregularities. The right coronary artery remains essentially normal. PCI Status: Elective PCI LVEF Assessed: No PCI Indication: New Onset Angina <= 2 months Interventional Findings * The existing restenotic area was treated with plain old balloon angioplasty with a noncompliant balloon initially. The area was then restented with a 4 oh by 20 mm stent. The end angiographic result was excellent. * I spoke to the patient and his immediately after the procedure was completed. Decision for PCI with Surgical Consult: No PCI for Multi-vessel Disease: No Conclusions 1. In-stent restenosis plain old balloon angioplasty followed by restenting. Interventional RX Recommendation: PCI w/o planned CABG Diagnostic RX Recommendation: PCI w/o planned CABG Anticoagulation: Heparin Pressures Phase:Rest AO : 103 / 69 ( 80 ) @ 8:16:00 AM 92 / 70 ( 81 ) @ 8:17:00 AM 90 / 67 ( 78 ) @ 8:19:00 AM 87 / 60 ( 72 ) @ 8:24:00 AM 97 / 61 ( 74 ) @ 8:27:00 AM 91 / 64 ( 77 ) @ 8:31:00 AM Clinical Evaluation EBL: 5mL-10mL Procedural Details Pre-Procedure Time Out. Identified patient by full name and date of as verbalized by the patient/guarantor. Does the consent match the physician's order: Yes. Accurate & Complete Informed Consent: Yes. Inpatient/Outpatient History & Physical on Chart: Yes. If H&P is completed, is and addenduem needed: No; If yes, is the addendum complete: N/A. Visualize and Verify Site with Patient/Guarantor: N/A. Relevant Radiology Images available: Yes. Pre-op teaching completed and patient verbalized understanding. The risks, benefits, and alternatives of sedation and/or procedure were discussed by physician. The patient agrees to continue. Procedure started. [facility] Clinical Fraility Score: 3: Managing Well. Dress Operator Indications: Suspected CAD. Chest Pain Symptom Assessment: Atypical Angina. Correct patient, site and procedure confirmed by cath team. Current diagnosis: Chest Pain. PERRLA. Strong, equal hand mechanic industrial truck bilaterally. Lungs clear x 5 lobes. IV Site on Arrival: 20 gauge in the left anticubital. IV Fluids: 0.9% NaCl at KVO. 0 mL infused prior to general labor forklift operator. Pre Procedural Pulses: bilateral dorsalis pedis was 3+. Pre Procedural Pulses: bilateral posterior tibial was 3+. Pre Procedural Pulses: right radial was 3+. Oxygen started at 2liters/min via nasal canula. right groin was prepped with chloroprep then draped in the usual sterile fashion. right radial was prepped with chloroprep then draped in the usual sterile fashion. Physician notified. Baseline sample Acquired. HR: 109 BPM. Physician arrived. Current Diagnosis : Chest Pain. Physician scrubbed in. Immediate Pre-Procedure Time Out. Correct Patient: Yes; Correct Procedure: Yes; Correct Site: Yes; Correct Patient Position: Yes; Correct Supplies: Yes; Dried Flammable Prep: Yes; Blood Products Available: N/A;. Lidocaine 1% infiltrated to the right radial. Arterial access obtained. A 6 panamanian TIG catheter in over wire. Multiple views taken of left coronary artery. Catheter redirected to the RCA. Multiple views taken of right coronary artery. Catheter removed over the standard wire. 6 panamanian XB 3.5 guide catheter was inserted over the wire. Patient's family updated. [place] guidewire was advanced through the guide catheter to lesion in the prox LAD. Inflation number : 1 A SHIRLEY RODRIGUEZ EUPHORA RX [id number] BALLOON was prepped and advanced across the Prox LAD , then inflated to 12 BRENNON for 0:31 seconds. Balloon out. Inflation Number : 2 Nory Fair CHARU 4.0X22 SALAS -Lot Number# _[id number] EXP: 04/01/2024 was prepped and advanced across the Prox LAD. The stent was deployed at 15 BRENNON for 0:36 seconds. Stent balloon out over wire. Wire out. Guide catheter out. A TR Band was successful obtaining hemostatsis at the Right Radial artery insertion site. Post Procedure: Pulses reassessed and unchanged. PERRLA. Strong, equal hand mechanic industrial truck bilaterally. No VTE prophylaxis required. Medication's Wasted: Lidocaine 1% = 3 mL. Medication's Wasted: Nitro = 49.8 mg. Medication's Wasted: Heparin = 1000 units. Medication's Wasted: Other = Fentanyl 25 mcg Versed 1 mg. Total IV fluids: 53 mL. Complications: None. Estimated blood loss: 5mL-10mL. Responsiveness - Normal response to verbal stimuli; alert and oriented, PERRLA. Airway - Unaffected, no intervention required; spontaneous ventilation. Circulation: W/N/L, pulses unchanged. Nausea/Vomiting: No. Procedure completed. Patient transferred by wheelchair to CPRU. Vital chart was stopped. Access Site Site: Right Radial artery Sheath Size: 6 Fr Hemostasis Method: TR Band Hemostasis Success: Successful Procedure Medications Start: 7:01 AM Stop: 7:01 AM Medication: Versed Amount: 1 mg Route: I.V. Start: 7:01 AM Stop: 7:01 AM Medication: Fentanyl Amount: 50 mcg Route: I.V. Start: 7:10 AM Stop: 7:10 AM Medication: Versed Amount: 1 mg Route: I.V. Start: 7:12 AM Stop: 7:12 AM Medication: Fentanyl Amount: 25 mcg Route: I.V. Start: 7:13 AM Stop: 7:13 AM Medication: Nitrogylcerin Amount: 200 mcg Route: I.A. Start: 7:16 AM Stop: 7:16 AM Medication: Heparin Amount: 5000 units Route: I.V. Start: 7:21 AM Stop: 7:21 AM Medication: Versed Amount: 1 mg Route: I.V. I, the attending physician, have reviewed and verified all procedure medications. Yes, all medications given per verbal order History/Risk Factors Hypertension: Yes Dyslipidemia: Yes Peripheral Arterial Disease (PAD): No Myocardial Infarction (VA): No Obesity: No Renal Disease: No Prior Interventions PCI: Yes CABG: No Valve Surgery: No Date of PCI: 09/20/2021 Report Signatures Finalized by Dr. Johan Richards MD on 06/27/2022 07:57 AM
[2022-06-27] MEDS: diphenhydrAMINE 50 mg Capsule PO (06:54)
--- NOTE | 2022-06-27 08:00 | PC.NURSE ---
received pt from laborer heading post stent to prox lad. pt alert and oriented. tr band present on right wrist with distal pulses palpable. no bruising or hematoma present. pt complains of no pain but hungry. will order breakfast. pt placed on monitor and will be monitored per protocol. per dr, pt will discharge after lunch sometime. nurse to clarify closer to that time. pt is diaphoretic. poc blood surgar will be taken and will respond with sliding scale insulin. pt and educated with restrictions of right wrist and nurse will re-educate throughout recovery.
[2022-06-27 08:50] LABS: Glucose Point of Care 409 mg/dL (70-110)
[2022-06-27] MEDS: insulin lispro 100 unit/1 mL SUBCUT ×2 (09:09→12:52)
--- NOTE | 2022-06-27 11:33 | PM.DCS ---
Discharge Providers Date of Admission: 06/27/2022 Date of Discharge: June 27, 2022 Attending Provider at Admission: melanie Attending Provider at Discharge: Johan Richards MD Primary Care Provider: Benjamin Funk MD Reason for Visit Reason for Visit: Z95.5 Brief History: Patient presented to my office with fairly typical angina the other day. He had a stent placed to his LAD after a cardiac arrest in July of last year. He arrested 10 minutes after walking on a treadmill in the treadmill laboratory. He called the office the other day stating that his chest pain has returned. Hospital Course Hospital Course Went angiography where he was found to have restenosis of the stented area of the LAD. This underwent balloon angioplasty and restenting without incident. The circumflex and the right coronary arteries are still normal. There was done from the right radial artery. Post procedure the the radial artery was unremarkable without bleeding, hematoma or other vascular anomalies. There was a pulse in the radial artery at the time of discharge Physical Exam Narrative: GENERAL: He looks and feels well HEENT: Exam within normal limits. NECK: Supple without jugular vein distention. The carotid upstroke is normal without bruits. BACK: Exam normal. LUNGS: Clear. HEART: Regular rate and rhythm. ABDOMEN: Benign without organomegaly or tenderness. EXTREMITIES: No edema. The right radial artery area is flat and dry without bleeding or hematoma. 2+ pulse. NEUROLOGIC: Exam normal. SKIN: Unremarkable. Discharge Data Studies Completed and Pending Completed Studies During Hospitalization Category Date Time Status NUTRITION INTERN request for service Routine Exams 06/27/22 06:00 Completed Laboratory Results POC Glucose 409 mg/dL (70-110) H 06/27/22 08:42 Vitals Last Vital Signs Temp 97.8 F 06/27/22 06:44 Pulse 64 06/27/22 10:00 Resp 21 H 06/27/22 10:00 BP 114/67 06/27/22 10:00 Pulse Ox 95 06/27/22 10:00 O2 Del Method 06/27/22 10:00 Discharge Plan Discharge Patient Disposition: Home Prescriptions: Continued cholecalciferol (vitamin D3) 1,250 mcg (50,000 unit) capsule 50,000 unit PO .weekly 30 Days Qty: 4 0RF Rx Instructions: one weekly for a month, then stop, go back to low dose bupropion HCl [Wellbutrin XL] 300 mg tablet extended release 24 hr 150 mg PO QAM 90 Days Qty: 45 1RF Victoza 3-Garrett 0.6 mg/0.1 mL (18 mg/3 mL) pen injector 1.8 mg SUBCUT Q24H 90 Days Qty: 27 1RF lisinopril 20 mg tablet See Rx Instructions .ROUTE .COMPLEX Qty: 90 0RF Dose Instruction: Take 1 tablet by mouth once daily Rx Instructions: Take 1 tablet by mouth once daily Brilinta 90 mg tablet 90 mg PO BID 90 Days Qty: 180 0RF Rx Instructions: 340b metformin 500 mg tablet extended release 24 hr 1,000 mg PO BID 90 Days Qty: 360 1RF duloxetine 60 mg capsule,delayed release(DR/EC) 60 mg PO DAILY 90 Days Qty: 90 0RF aspirin [Adult Aspirin Regimen] 81 mg tablet,delayed release (DR/EC) 81 mg PO DAILY Qty: 90 1RF gabapentin 300 mg capsule 600 mg PO BID 90 Days Qty: 360 0RF levocetirizine [Xyzal] 5 mg tablet 5 mg PO DAILY PRN (Reason: allergy symptoms) 30 Days Qty: 30 0RF albuterol sulfate [ProAir HFA] 90 mcg/actuation HFA aerosol inhaler See Rx Instructions .ROUTE .COMPLEX Qty: 8.5 0RF Dose Instruction: USE ONE INHALATION 4 TIMES DAILY NEEDED FOR SHORTNESS OF BREATH OR WHEEZING Rx Instructions: USE ONE INHALATION 4 TIMES DAILY NEEDED FOR SHORTNESS OF BREATH OR WHEEZING nitroglycerin 0.4 mg tablet, sublingual 0.4 mg sublingual Q5M PRN (Reason: chest pain) 90 Days Qty: 90 0RF Rx Instructions: do not exceed 3 doses per episode simvastatin 40 mg tablet See Rx Instructions .ROUTE .COMPLEX Qty: 90 1RF Dose Instruction: TAKE 1 TABLET BY MOUTH EVERY DAY Rx Instructions: TAKE 1 TABLET BY MOUTH EVERY DAY metoprolol tartrate 25 mg tablet See Rx Instructions .ROUTE .COMPLEX Qty: 180 1RF Dose Instruction: TAKE 1 TABLET BY MOUTH TWICE DAILY Rx Instructions: TAKE 1 TABLET BY MOUTH TWICE DAILY chlorthalidone 25 mg tablet See Rx Instructions .ROUTE .COMPLEX Qty: 90 1RF Dose Instruction: TAKE 1 TABLET BY MOUTH EVERY DAY Rx Instructions: TAKE 1 TABLET BY MOUTH EVERY DAY Novolin R Regular U-100 Insuln 100 unit/mL Solution See Rx Instructions .ROUTE .COMPLEX Rx Instructions: PER SLIDING SCALE WITH MEALS Novolin N NPH U-100 Insulin 100 unit/mL Suspension 40 unit SUBCUT BEDTIME Qty: 0 0RF Discharge Orders: Discharge Order (Routine); Ordered 06/27/22 Ordered By: Johan Richards Referrals: Fabiola Velázquez FNP [Nurse Practitioner] - 7-10 days (check right radial and chem panel) Diet: Diabetic Activity: Limit activity as instructed Patient Instructions: Coronary Angioplasty (DC) Activity Restrictions/Additional Instructions: No lifting over 10 pounds for two days with right arm Discharge Attestations Time Spent in Discharge Care*: less than 30 min Status at Discharge: Cognitive status at discharge: cognitively intact, Behavioral status at discharge: cooperative, Quality Metrics Clinical Quality Measures [ No reported AMI, CVA or VTE this stay] Coding Level of Care Code Established Pt Acute Chg FW DC note Patient Type Established History Detailed Exam Detailed Medical Decision Making Moderate Complexity
[2022-06-27 12:37] LABS: Glucose Point of Care 454 mg/dL (70-110)
== END 2022-06-27 13:13 | disposition home or self-care (01) ==
PROVIDERS: PCP Family Medicine; Visit Provider Internal Medicine Cardiovascular Disease
DX: I20.0 Unstable angina (principal); Z95.5 Presence of coronary angioplasty implant and graft; Z79.82 Long term (current) use of aspirin; F41.9 Anxiety disorder, unspecified; Z86.16 Personal history of COVID-19; Z86.73 Personal history of transient ischemic attack (TIA), and cerebral infarction without residual deficits; E11.65 Type 2 diabetes mellitus with hyperglycemia; Z79.4 Long term (current) use of insulin; Z79.84 Long term (current) use of oral hypoglycemic drugs; E78.5 Hyperlipidemia, unspecified
CPT/HCPCS: 36416; 82962; 93454; 96360; 96361; 99152; 99153; C1725; C1769; C1874; C1887; C1894; C9600; J1644; J1815; J2250; J3010; J3490; J7030; Q0163; Q9967

== ENCOUNTER → 2022-07-04 13:11 | Outpatient (BNVA) | payer MEDICAID, SELFPAY | PROVIDERS: PCP Family Medicine; Visit Provider Nurse Practitioner Family | DX: I25.118 Atherosclerotic heart disease of native coronary artery with other forms of angina pectoris (principal); I10 Essential (primary) hypertension; Z87.891 Personal history of nicotine dependence; Z95.5 Presence of coronary angioplasty implant and graft | CPT/HCPCS: 36415; 80048; 99214 ==

== ENCOUNTER 2022-07-08 22:08 | Inpatient (IN) | payer MEDICAID, SELFPAY ==
[2022-07-08 22:13] VITALS: BP 189/106; PULSE 103; RESP 28; TEMP 36.9; O2SAT 98; BMI 40.8
--- NOTE | 2022-07-08 22:22 | CTR_ITS ---
PROCEDURE INFORMATION: Exam: CTA Chest Without And With Contrast CTA Abdomen and Pelvis With Contrast Exam date and time: 07/08/2022 11:16 PM Age: 46 years old Clinical indication: Abdominal pain; Localized; Upper; Prior surgery; Surgery type: Stents; Additional info: Abd pain TECHNIQUE: Imaging protocol: Computed tomographic angiography of the chest without and with contrast. Computed tomographic angiography of the abdomen and pelvis with contrast. 3D rendering (Not supervised by radiologist): MIP and/or 3D reconstructed images were created by the technologist. Radiation optimization: All CT scans at this facility use at least one of these dose optimization techniques: automated exposure control; mA and/or kV adjustment per patient size (includes targeted exams where dose is matched to clinical indication); or iterative reconstruction. Contrast material: OMNI 350; Contrast volume: 95 ml; Contrast route: INTRAVENOUS (IV); COMPARISON: CT chest wo con [id number] 05/16/2021 1:07 PM RADIATION DOSE METRICS: Total DLP (mGy-cm): 1483.58 FINDINGS: VASCULATURE: Pulmonary arteries: There is no evidence of filling defects within the pulmonary arterial circulation to suggest pulmonary embolism. Aorta: There is no thoracic aortic aneurysm or dissection. There is no evidence of an abdominal aortic aneurysm. Celiac trunk and mesenteric arteries: No occlusion or significant stenosis. Renal arteries: There is a single renal artery on each side without stenosis. Right iliac arteries: There is some mild atherosclerotic calcification in the right internal iliac artery. External iliac artery is patent without stenosis. Left iliac arteries: There is some mild atherosclerotic calcification in the left internal iliac artery. External iliac artery is patent without stenosis. CHEST: Lungs: There is calcified granuloma in the right lower lobe. There is some partial atelectasis in the lower lobes. Pleural spaces: Unremarkable. No pneumothorax. No pleural effusion. Heart: There is a stent in the left coronary artery. Mediastinal space: There is no evidence of mediastinal fluid, masses, or gas. ABDOMEN AND PELVIS: Liver: There is no focal abnormality within the liver. There is moderate enlargement of the liver. Liver is proximally 25 cm in height. Gallbladder and bile ducts: Unremarkable. No calcified stones. No ductal dilation. Pancreas: The pancreas is normal. Spleen: The spleen is normal. There is mild nonspecific splenomegaly. Spleen measures approximately 16 cm in height. Adrenal glands: The adrenal glands are normal. Kidneys and ureters: The kidneys are normal. There is no evidence of hydronephrosis. There is no evidence of renal or ureteral calcifications. Stomach and bowel: There is a large paramedian hypogastric ventral hernia containing multiple loops of bowel. Some of the bowel loops within the hernia may be incarcerated in this appears to be causing small-bowel obstruction. There are distended small bowel loops proximally and what appear to be nondistended distal bowel loops. Definite point of transition is not identified but this appears to be related to the ventral hernia. There may also be a portion of colon within the ventral hernia, with the colon proximal to this being dilated and distal colon without dilatation. Appendix: No evidence of appendicitis. Intraperitoneal space: Unremarkable. No free air. No significant fluid collection. Urinary bladder: Unremarkable. No mass. Reproductive: Unremarkable as visualized. Lymph nodes: There are calcified right hilar lymph nodes in keeping with old granulomatous disease. There is no evidence of lymphadenopathy. Bones/joints: The lumbar spine demonstrates mild degenerative changes at multiple levels. Soft tissues: There is diastasis of the rectus abdominal muscles. CT/CT angio chest abdomen pelvis IMPRESSION: 1. No acute findings in the chest 2. There is no evidence of significant vascular stenosis or occlusion. 3. Ventral hernia which appears to be causing small bowel and large bowel obstruction.
--- NOTE | 2022-07-08 22:22 | ECG_ITS ---
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 Measurements Intervals [place] Rate: 97 P: -45 FL: 140 QRS: 26 QRSD: 85 T: 41 QT: 328 QTc: 417 Interpretive Statements ECTOPIC ATRIAL RHYTHM Compared to ECG 10/05/2021 08:52:02 Ectopic atrial rhythm now present Sinus rhythm no longer present Electronically Signed On 07-09-2022 13:13:10 CDT by Dereje Kimball M.D. [email or web address]
--- NOTE | 2022-07-08 22:28 | ED_ITS ---
HPI - Abdominal Pain General: Chief Complaint: Abdominal Pain Stated Complaint: ABD PAIN Time Seen by Provider: 07/08/22 22:10 Source: patient and EMS Mode of arrival: EMS Limitations: no limitations History of Present Illness: 46-year-old male has extensive cardiac history states that today has been having severe diffuse abdominal pain mainly in his mid abdomen radiating to his back. States his pain is currently an 8 out of 10 he has had nausea denies any vomiting or diarrhea. He denies any worsening improving factors he denies any chest pain or shortness of breath. 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 PFS ED PFSH: Medical History Abnormal stress test Anxiety Atherosclerosis of coronary artery Bilateral lower extremity edema Chest pain Chest pain Chest pain COVID-19 virus infection CVA (cerebral vascular accident) Diabetes mellitus DM type 2 (diabetes mellitus, type 2) Essential hypertension Herpes zoster Hyperlipidemia Hyperlipidemia associated with type 2 diabetes mellitus Hypertension Left knee pain Obese Restrictive lung disease Shortness of breath Tobacco use disorder Vertigo Surgical History History of heart artery stent Family History Grandfather Anesthesia complication CAD (coronary artery disease) Chronic kidney disease (CKD) Dementia Diabetes Grandmother CAD (coronary artery disease) Cancer Chronic kidney disease (CKD) Diabetes Lung disease Stroke Family/Other CAD (coronary artery disease) Cancer Mother Diabetes CAD (coronary artery disease) Grandfather Diabetes Denies family history of Clotting disorder Suicide Bleeding disorder Social History Smoking and tobacco status: former smoker Quit status (tobacco): has quit using tobacco Year quit tobacco: unknown Former quit date comment: smoked 4-5 cigars/day x 3 years Second hand smoke exposure: Yes Smoking risk assessment/counseling performed?: Yes Alcohol intake: current Alcohol intake frequency: holidays/special occasions only Desire information about alcohol rehabilitation?: No Lives independently: Yes Household members: spouse Marital status: service: No Current occupational status: employed Pets and animals: Yes History of recent travel: No Current gender identity: Male Physical Exam Const: COMMON NORMALS: patient oriented x3 HENMT: COMMON NORMALS: normocephalic and atraumatic HEAD & SCALP: normocephalic and atraumatic Eye: COMMON NORMALS: Equal, round and reactive pupils present and EOMs intact bilaterally PUPIL: Yes Equal, round and reactive pupils present Neck/C-Spine: COMMON NORMALS: full ROM and supple Chest: COMMONS NORMALS: normal inspection of the chest and normal palpation of entire chest wall Resp: COMMON NORMALS: normal respiratory effort, No retractions, No use of accessory muscles and clear to auscultation bilaterally AUSCULTATION: clear to auscultation bilaterally Cardio: COMMON NORMALS: regular rate, regular rhythm and No murmurs present (Cardio) RATE: regular rate RHYTHM: regular rhythm GI: COMMON NORMALS: Normal to inspection, nondistended, normoactive bowel so unds present, Soft to palpation and no masses PALPATION: Yes Soft to palp ation and Yes Tenderness to palpation present (GI) (diffuse tenderness) OTHER: diffuse abd tenderness Extremity: COMMON NORMALS: normal to inspection and full ROM Neuro: COMMON NORMALS: patient oriented x3, moves all extremities and no focal motor deficits Psych: COMMON NORMALS: mental status grossly normal, Normal thought process present and cooperative THOUGHT PROCESS: Normal thought process present Skin: COMMON NORMALS: no rashes or lesions noted and no wounds GENERAL SKIN EXAM: no rashes or lesions noted Course Vital Signs: Vital signs: Vital Signs Temperature 98.4 F 07/08/22 22:13 Pulse Rate 98 07/09/22 02:37 Respiratory Rate 18 07/09/22 02:14 Blood Pressure 152/94 07/09/22 02:14 Pulse Oximetry 95 07/09/22 02:37 Oxygen Delivery Me thod 07/09/22 02:37 Oxygen Flow Rate 2 07/09/22 00:42 MDM - Abdominal Pain Medical Decision Making Patient presents with abdominal pain CT shows ventral hernia with likely incarceration I spoke to surgeon on-call along with hospitalist patient given IV antibiotics will admit at this time with plans going on to the OR. He has been stable here with normal blood pressures. Lab Data : 07/08/22 22:20 07/08/22 22:20 Labs/Radiology: Radiology Impressions Chest/Abdomen/Pelvis CTA 07/08/22 22:22 IMPRESSION: 1. No acute findings in the chest 2. There is no evidence of significant vascular stenosis or occlusion. 3. Ventral hernia which appears to be causing small bowel and large bowel obstruction. ADDENDUM: 07/09/22 0031 Addendum: THIS REPORT CONTAINS FINDINGS THAT MAY BE CRITICAL TO PATIENT CARE. The findings were verbally communicated via telephone conference with DEEJAY PAREDES at 12:30 AM CDT on 07/09/2022. The findings were acknowledged and understood. Laboratory Results WBC 16.8 10^3/uL (4.0-10.0) H 07/08/22 22:20 RBC 4.79 10^6/uL (4.1-5.3) 07/08/22 22:20 Hgb 13.8 g/dL (11.7-16.6) 07/08/22 22:20 Hct 41.1 % (42.0-52.0) L 07/08/22 22:20 MCV 85.8 fl (80-94) 07/08/22 22:20 MCH 28.8 pg (28.0-34.0) 07/08/22 22:20 MCHC 33.6 g/dL (30.0-36.0) 07/08/22 22:20 RDW 12.0 % (12.1-15.1) L 07/08/22 22:20 Plt Count 271 10^3/cmm (130-400) 07/08/22 22:20 MPV 9.3 fL (7.4-10.4) 07/08/22 22:20 Neut % (Auto) 85.9 % 07/08/22 22:20 Lymph % (Auto) 8.2 % 07/08/22 22:20 [place] % (Auto) 4.2 % 07/08/22 22:20 Eos % (Auto) 0.1 % 07/08/22 22:20 Baso % (Auto) 0.5 % 07/08/22 22:20 Neut # (Auto) 14.39 10^3/uL (1.8-7.7) H 07/08/22 22:20 Lymph # (Auto) 1.4 10^3/uL (0.8-4.8) 07/08/22 22:20 [place] # (Auto) 0.7 10^3/uL (0.2-0.9) 07/08/22 22:20 Eos # (Auto) 0.0 10^3/uL (0.0-0.8) 07/08/22 22:20 Baso # (Auto) 0.1 10^3/uL (0.0-0.1) 07/08/22 22:20 Nucleated RBC % (auto) 0 % 07/08/22 22:20 Nucleated RBCs # 0.0 /100WBC 07/08/22 22:20 Sodium 133 mmol/L (136-145) L 07/08/22 22:20 Potassium 4.4 mmol/L (3.5-5.1) 07/08/22 22:20 Chloride 95 mmol/L (98-107) L 07/08/22 22:20 Carbon Dioxide 21 mmol/L (22-29) L 07/08/22 22:20 Anion Gap 21.4 (5-19) H 07/08/22 22:20 BUN 20 mg/dL (6-20) 07/08/22 22:20 Creatinine 1.0 mg/dL (0.7-1.2) 07/08/22 22:20 GFR Calculation 81.2 mL/min (90-130) L 07/08/22 22:20 Glucose 454 mg/dL (65-115) H 07/08/22 22:20 Calculated Osmolality 298 mOsm/kg (285-295) H 07/08/22 22:20 Lactate 2.9 mmol/L (0.5-2.2) H 07/08/22 22:20 Calcium 9.6 mg/dL (8.5-10.5) 07/08/22 22:20 Total Bilirubin 0.3 mg/dL (0.15-1.2) 07/08/22 22:20 AST 15 U/L (0-40) 07/08/22 22:20 ALT 20 U/L (0-41) 07/08/22 22:20 Alkaline Phosphatase 103 IU/L (40-130) 07/08/22 22:20 Troponin T Baseline 10 ng/L (0-15) 07/08/22 22:20 Troponin T 120 Minute 9.07 ng/L (0-15) 07/09/22 00:29 Delta Troponin T -0.93 ABS# (0-10) L 07/09/22 00:29 Total Protein 7.2 g/dL (6.6-8.7) 07/08/22 22:20 Albumin 4.3 g/dL (3.5-5.2) 07/08/22 22:20 Globulin 2.9 g/dL (1.3-4.6) 07/08/22 22:20 Lipase 24 U/L (13-60) 07/08/22 22:20 Urine Color Yellow (Yellow) 07/08/22 22:48 Urine Appearance Clear (CLEAR) 07/08/22 22:48 Urine pH 5 (5-7) 07/08/22 22:48 Ur Specific L[place] 1.020 (1.005-1.030) 07/08/22 22:48 Urine Protein Neg (Negative) 07/08/22 22:48 Urine Glucose (UA) 4+ (Normal) H 07/08/22 22:48 Urine Ketones 1+ (Negative) H 07/08/22 22:48 Urine Blood Neg (Negative) 07/08/22 22:48 Urine Nitrate Negative (Negative) 07/08/22 22:48 Urine Bilirubin Neg (Negative) 07/08/22 22:48 Urine Urobilinogen Neg mg/dL (Negative) 07/08/22 22:48 Ur Leukocyte Esterase Negative (Negative) 07/08/22 22:48 EKG Data EKG 1: I personally reviewed and interpreted this EKG as follows: EKG interpretation date: 07/08/22 EKG interpretation time: 22:21 Interpretation: nsr hr [address] or t wave abnormalities qrs 85 qtc 382 Discharge Plan Discharge Patient Disposition: Admitted As Inpatient Admit Provider: Jorge Iverson Clinical Impression: Incarcerated epigastric hernia Condition: Stable Coding Level of Care Code ED Price Clerk for Chg Fwd Exam Comprehensive
[2022-07-08 22:30] VITALS: RESP 26
[2022-07-08] MEDS: HYDROmorphone 1 mg/mL INJ 1 mL IVP (22:30)
[2022-07-08] MEDS: ondansetron 2 mg/ML SDV 2 mL 4 MG IVP (22:32)
[2022-07-08] MEDS: sodium chloride 0.9% 1,000 ML 999 ML IV (22:32)
[2022-07-08 22:33] VITALS: BP 183/111; PULSE 110; RESP 26; O2SAT 91
[2022-07-08 22:36] LABS: Basophils # 0.1 10^3/uL (0.0-0.1); Basophils % 0.5 %; Eosinophils % 0.1 %; Hematocrit 41.1 % (42.0-52.0); Hemoglobin 13.8 g/dL (11.7-16.6); Lymphocytes # 1.4 10^3/uL (0.8-4.8); Lymphocytes % 8.2 %; Mean Corpuscular HGB Conc 33.6 g/dL (30.0-36.0); Mean Corpuscular Hemoglobin 28.8 pg (28.0-34.0); Mean Corpuscular Volume 85.8 fl (80-94); Mean Platelet Volume 9.3 fL (7.4-10.4); Monocytes # 0.7 10^3/uL (0.2-0.9); Monocytes % 4.2 %; Neutrophils # 14.39 10^3/uL (1.8-7.7); Neutrophils % 85.9 %; Nucleated Red Blood Cells % 0 %; Platelet Count 271 10^3/cmm (130-400); Red Blood Count 4.79 10^6/uL (4.1-5.3); White Blood Count 16.8 10^3/uL (4.0-10.0)
[2022-07-08 22:58] LABS: Alanine Aminotransferase 20 U/L (0-41); Albumin Level 4.3 g/dL (3.5-5.2); Alkaline Phosphatase 103 IU/L (40-130); Anion Gap 21.4 (5-19); Aspartate Amino Transferase 15 U/L (0-40); Blood Urea Nitrogen 20 mg/dL (6-20); Calcium 9.6 mg/dL (8.5-10.5); Carbon Dioxide 21 mmol/L (22-29); Chloride 95 mmol/L (98-107); Globulin 2.9 g/dL (1.3-4.6); Glomerular Filtration Rate 81.2 mL/min (90-130); Glucose 454 mg/dL (65-115); Lipase 24 U/L (13-60); Osmolality Calculated 298 mOsm/kg (285-295); Potassium 4.4 mmol/L (3.5-5.1); Sodium 133 mmol/L (136-145); Total Bilirubin 0.3 mg/dL (0.15-1.2); Total Protein 7.2 g/dL (6.6-8.7)
[2022-07-08 22:59] LABS: Troponin(5th) Baseline 10 ng/L (0-15)
[2022-07-08 23:00] LABS: Lactate (Lactic Acid level) 2.9 mmol/L (0.5-2.2)
[2022-07-08] MEDS: insulin regular-human 100 units/1 mL 10 UNIT IVP (23:10)
[2022-07-08 23:20] LABS: Add Urine Microscopic? NO; Charge for UA Resulting for Rev
[2022-07-08 23:34] LABS: Urine Appearance Clear (CLEAR); Urine Color Yellow (Yellow)
[2022-07-08 23:35] LABS: Bilirubin Urine Neg (Negative); Blood Urine Neg (Negative); Glucose Urine UA 4+ (Normal); Ketones Urine 1+ (Negative); Leukocyte Esterase Urine Negative (Negative); Nitrate Urine Negative (Negative); Protein Urine Neg (Negative); Urobilinogen Urine Neg (Negative); pH Urine 5 (5-7)
[2022-07-08] MEDS: iohexol 350 mg/mL 100 mL Btl IV (23:38)
[2022-07-09] VITALS (15 sets, daily range): BP systolic 138–183; BP diastolic 79–105; PULSE 98–118; RESP 12–18; TEMP 36.6–36.9; O2SAT 90–96; BMI 39.2
--- NOTE | 2022-07-09 00:26 | ECG_ITS ---
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 Measurements Intervals [place] Rate: 96 P: 38 NE: 153 QRS: 46 QRSD: 83 T: 54 QT: 337 QTc: 427 Interpretive Statements SINUS RHYTHM Compared to ECG 07/08/2022 22:21:28 Ectopic atrial rhythm no longer present Electronically Signed On 07-09-2022 17:44:41 CDT by Dereje Kimball M.D. [id number]
[2022-07-09] MEDS: ondansetron 2 mg/ML SDV 2 mL 4 MG IVP ×2 (00:27→02:08)
[2022-07-09] MEDS: HYDROmorphone 1 mg/mL INJ 1 mL IVP ×2 (00:27→01:53)
[2022-07-09] MEDS: midazolam 1 mg/mL INJ 2 mL IVP (00:38)
[2022-07-09 01:24] LABS: Troponin 5 2HR 9.07 ng/L (0-15)
[2022-07-09 01:26] LABS: Troponin 5 2HR Delta -0.93 ABS# (0-10)
[2022-07-09] MEDS: piperacillin-tazobactam 3.375 GM in sodium chloride 0.9% (plus) 50 ML IV ×3 (01:27→16:36)
[2022-07-09] MEDS: sodium chloride 0.9% 1,000 ML 999 ML IV (01:28)
--- NOTE | 2022-07-09 01:54 | P.HP_ITS ---
Providers/Chief Complaint Admitting Physician: Jorge Iverson MD Primary Care Provider: Benjamin Funk MD Chief Complaint: ABD PAIN History of Present Illness Rui Jiang is a 46 year old male Review of Systems Card: Denies: chest pain Resp: Denies: dyspnea GI: Reports: abdominal pain and nausea; Denies: vomiting Medications/Allergies Home Medications Medication Instructions Recorded Confirmed Last Taken Type cholecalciferol (vitamin D3) 1,250 50,000 unit PO .weekly 1 month #4 10/31/21 07/04/22 06/27/22 05:00 Rx mcg (50,000 unit) capsule caps bupropion HCl 300 mg 24 hr tablet, 150 mg PO QAM 90 days #45 tabs 03/07/22 07/04/22 06/27/22 05:00 Rx extended release (Wellbutrin XL) duloxetine 60 mg capsule,delayed 60 mg PO DAILY 90 days #90 caps 03/16/22 07/04/22 06/27/22 05:00 Rx release lisinopril 20 mg tablet See Rx Instructions .Route 03/16/22 07/04/22 06/27/22 05:00 Rx .COMPLEX #90 tabs metformin 500 mg tablet,extended 1,000 mg PO BID 90 days #360 tabs 03/16/22 07/04/22 06/26/22 09:00 Rx release 24 hr ticagrelor 90 mg tablet (Brilinta) 90 mg PO BID 90 days #180 tabs 03/16/22 07/04/22 06/27/22 05:00 Rx aspirin 81 mg tablet,delayed 81 mg PO DAILY #90 tabs 03/20/22 07/04/22 06/27/22 05:00 Rx release (Adult Aspirin Regimen) gabapentin 300 mg capsule 600 mg PO BID 90 days #360 caps 03/20/22 07/04/22 0 06/27/22 05:00 Rx liraglutide 0.6 mg/0.1 mL (18 mg/3 1.8 mg (0.3 mL) SUBCUT Q24H 90 04/02/22 07/04/22 06/26/22 09:00 Rx mL) subcutaneous pen injector days #27 mL (Victoza 3-Garrett) albuterol sulfate 90 mcg/actuation See Rx Instructions .Route 05/21/22 07/04/22 Unknown Rx aerosol inhaler (ProAir HFA) .COMPLEX #8.5 grams nitroglycerin 0.4 mg sublingual 0.4 mg sublingual Q5M PRN chest 06/15/22 07/04/22 Unknown Rx tablet pain 90 days #90 tabs chlorthalidone 25 mg tablet See Rx Instructions .Route 06/18/22 07/04/22 06/27/22 05:00 Rx .COMPLEX #90 tabs metoprolol tartrate 25 mg tablet See Rx Instructions .Route 06/18/22 07/04/22 06/27/22 05:00 Rx .COMPLEX #180 tabs simvastatin 40 mg tablet See Rx Instructions .Route 06/18/22 07/04/22 06/26/22 22:00 Rx .COMPLEX #90 tabs levocetirizine 5 mg tablet (Xyzal) 5 mg PO DAILY PRN allergy symptoms 07/03/22 07/04/22 Unknown Rx 30 days #30 tabs pen needle, diabetic 32 gauge x #100 ea 07/03/22 07/04/22 Unknown Rx 5/16 (Comfort EZ Pen Ingram) insulin NPH isoph U-100 human 100 40 unit (0.4 mL) SUBCUT BEDTIME 07/06/22 Unknown Rx unit/mL subcutaneous suspension #10 mL (Novolin N NPH U-100 Insulin isophane) insulin regular human 100 unit/mL See Rx Instructions .Route 07/06/22 Unknown Rx injection solution (Novolin R .COMPLEX #10 mL Regular U-100 Insulin) Allergies Allergy/AdvReac Type Severity Reaction Status Date / Time nalbuphine [From Nubain] Allergy Unknown Verified 07/04/22 08:53 PFSH Acute PFSH: Medical History Abnormal stress test Anxiety Atherosclerosis of coronary artery Bilateral lower extremity edema Chest pain Chest pain Chest pain COVID-19 virus infection CVA (cerebral vascular accident) Diabetes mellitus DM type 2 (diabetes mellitus, type 2) Essential hypertension Herpes zoster Hyperlipidemia Hyperlipidemia associated with type 2 diabetes mellitus Hypertension Left knee pain Obese Restrictive lung disease Shortness of breath Tobacco use disorder Vertigo Surgical History History of heart artery stent Family History Grandfather Anesthesia complication CAD (coronary artery disease) Chronic kidney disease (CKD) Dementia Diabetes Grandmother CAD (coronary artery disease) Cancer Chronic kidney disease (CKD) Diabetes Lung disease Stroke Family/Other CAD (coronary artery disease) Cancer Mother Diabetes CAD (coronary artery disease) Grandfather Diabetes Denies family history of Clotting disorder Suicide Bleeding disorder Social History Smoking and tobacco status: former smoker Quit status (tobacco): has quit using tobacco Year quit tobacco: unknown Former quit date comment: smoked 4-5 cigars/day x 3 years Second hand smoke exposure: Yes Smoking risk assessment/counseling performed?: Yes Alcohol intake: current Alcohol intake frequency: holidays/special occasions only Desire information about alcohol rehabilitation?: No Lives independently: Yes Household members: spouse Marital status: service: No Current occupational status: employed Pets and animals: Yes History of recent travel: No Current gender identity: Male Vitals/I&O/Wt Last Vital Signs Temp 98.4 F 07/08/22 22:13 Pulse 98 07/09/22 00:42 Resp 18 07/09/22 01:53 BP 164/105 07/09/22 00:42 Pulse Ox 96 07/09/22 00:42 O2 Del Method 07/09/22 00:42 O2 Flow Rate 2 07/09/22 00:42 Weight last 48 hrs Weight 129.274 kg Physical Exam Const: COMMON NORMALS: no acute distress and patient oriented x3 OTHER: Currently standing up HENMT: COMMON NORMALS: normocephalic HEAD & SCALP: normocephalic Neck/C-Spine: COMMON NORMALS: no JVD Resp: COMMON NORMALS: normal respiratory effort, No retractions, No use of accessory muscles and clear to auscultation bilaterally AUSCULTATION: clear to auscultation bilaterally Cardio: COMMON NORMALS: no JVD, regular rate, regular rhythm, S1 normal heart sound present and S2 normal heart sound present RATE: regular rate RHYTHM: regular rhythm HEART SOUNDS: S1 normal heart sound present and S2 normal heart sound present GI: PALPATION: Yes Firmness to palpation present (GI), Yes Tenderness to palpation present (GI) (Generalized tender this), Yes Guarding due to palpation present (GI), No Rigid due to palpation and Yes Hernia present (Not reducible during my examination, in severe pain) ventral Extremity: COMMON NORMALS: capillary refill normal, no clubbing, cyanosis or edema, no calf tenderness and no pedal edema Neuro: COMMON NORMALS: patient oriented x3 Psych: COMMON NORMALS: mental status grossly normal Data : 07/08/22 22:20 07/08/22 22:20 A&P Assessment and plan (1) Incarcerated ventral hernia: Status: Acute Plan Incarcerated ventral hernia -Keep n.p.o. -Last dose of Brilinta was Saturday morning -IV fluids -Dilaudid for pain control -Lactic acid 2.8, recheck pending -General surgery on consult, plans on urgent surgical evaluation Type 2 diabetes mellitus, low-dose sliding scale CAD status post stenting, on aspirin, hold Brilinta, metoprolol Attestations Medical Necessity Statement*: Patient requires hospitalization, inpatient, greater than 2 midnights, for incarcerated ventral hernia Coding Level of Care Code Acute Blood And Plasma Laboratory Assistant for Anthony Lara Diagnoses Incarcerated ventral hernia K43.6
[2022-07-09] MEDS: pantoprazole 40 mg SDV IVP (02:06)
[2022-07-09] MEDS: metoprolol tartrate 25 mg Tablet PO (02:24)
[2022-07-09] MEDS: atorvastatin 40 mg Tablet 20 MG PO (02:24)
[2022-07-09 02:29] LABS: Lactate (Lactic Acid level) 2.9 mmol/L (0.5-2.2)
[2022-07-09] MEDS: metoclopramide 5 mg/mL SDV 2 mL 10 MG IVP (02:40)
[2022-07-09] MEDS: diphenhydrAMINE 50 mg/mL SDV 1mL IVP (02:40)
[2022-07-09] MEDS: sodium chloride 0.9% 1,000 ML 75 ML IV ×2 (03:15→14:45)
--- NOTE | 2022-07-09 03:19 | PC.NURSE ---
ADMIT NOTE Pt was received to floor from ER at 0300. Walked to bed from [facility]. Has c/o abd pain all over on arrival to floor. Received IV Dilaudid in the ER. Says abdominal pain started on the and just did not get any better. Reports he had nausea with it but no vomiting until the ER. Vomited again on arrival to floor. Emesis of 600ml yellow/brown liquid. Says he thought he was constipated and gave self some enemas and did have results with these. Abdomen is firm and tender but with bowel sounds present. Says he did not know he had a hernia. IV patent to left ac with NS started at 75nl/hr rate. Is NPO and pt is aware. Was sleepy during assessment. Answering questions but tries to fall asleep. Had quite a bit of Dilaudid in the ER. Placed on 2l NC O2 and placed on cont pulse oximetry and criminalist. Is showing ST and sat 95%. RN completed admission assessment
[2022-07-09 03:46] LABS: Glucose Point of Care 337 mg/dL (70-110)
--- NOTE | 2022-07-09 04:23 | PM.CONSULT ---
Providers/Reason For Consult Consulting Physician/Specialty*: Jorge Iverson MD Reason for Consult*: Bowel obstruction Requesting Physician: Dr. Becerra Attending Physician: Jorge Iverson MD Primary Care Provider: Benjamin Funk MD History of Present Illness History of Present Illness Mr. 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 Patient undergone blood work in the ER that did show WBC count of 16.8, hemoglobin 13.8, platelet count of 271, sodium 133, potassium 4.4, creatinine 1.0 and a lactate of 2.9 with a current blood glucose check to 337. Patient reports that he had passed gas last time 13 hours ago and he vomited once per nursing staff. He feels better now. Undergone a CT of the chest abdomen pelvis Pulmonary arteries: There is no evidence of filling defects within the pulmonary arterial circulation to suggest pulmonary embolism. Aorta: There is no thoracic aortic aneurysm or dissection. There is no evidence of an abdominal aortic aneurysm. Celiac trunk and mesenteric arteries: No occlusion or significant stenosis. Renal arteries: There is a single renal artery on each side without stenosis. Right iliac arteries: There is some mild atherosclerotic calcification in the right internal iliac artery. External iliac artery is patent without stenosis. Left iliac arteries: There is some mild atherosclerotic calcification in the left internal iliac artery.? External iliac artery is patent without stenosis. With regard to the abdominal exam did show; 1. No acute findings in the chest 2. There is no evidence of significant vascular stenosis or occlusion. 3. Ventral hernia which appears to be causing small bowel and large bowel obstruction. General surgery was consulted for further evaluation potential management, patient was admitted to the hospitalist service because of his medical comorbidities. Review of Systems General: Reports: 10 or more systems reviewed and unremarkable except in HPI and below Medications/Allergies Home Medications Medication Instructions Recorded Confirmed Last Taken Type metformin 500 mg tablet,extended 1,000 mg PO BID 90 days #360 tabs 03/16/22 07/09/22 06/26/22 09:00 Rx release 24 hr ticagrelor 90 mg tablet (Brilinta) 90 mg PO BID 90 days #180 tabs 03/16/22 07/09/22 06/27/22 05:00 Rx gabapentin 300 mg capsule 600 mg PO BID 90 days #360 caps 03/20/22 07/09/22 06/27/22 05:00 Rx liraglutide 0.6 mg/0.1 mL (18 mg/3 1.8 mg (0.3 mL) SUBCUT Q24H 90 04/02/22 07/09/22 06/26/22 09:00 Rx mL) subcutaneous pen injector days #27 mL (Victoza 3-Garrett) nitroglycerin 0.4 mg sublingual 0.4 mg sublingual Q5M PRN chest 06/15/22 07/09/22 Unknown Rx tablet pain 90 days #90 tabs pen needle, diabetic 32 gauge x #100 ea 07/03/22 07/09/22 Unknown Rx 5/16 (Comfort EZ Pen [place]) insulin regular human 100 unit/mL See Rx Instructions .Route 07/06/22 07/09/22 Unknown Rx injection solution (Novolin R .COMPLEX #10 mL Regular U-100 Insulin) albuterol sulfate 90 mcg/actuation 1 puff inhalation QID PRN 07/09/22 07/09/22 Unknown History aerosol inhaler (ProAir HFA) Shortness Of Breath aspirin 81 mg tablet,delayed 81 mg PO QAM 07/09/22 07/09/22 Unknown History release bupropion HCl 150 mg 24 hr tablet, 150 mg PO QAM 07/09/22 07/09/22 Unknown History extended release chlorthalidone 25 mg tablet 25 mg PO QAM 07/09/22 07/09/22 Unknown History cholecalciferol (vitamin D3) 25 25 mcg PO QAM 07/09/22 07/09/22 Unknown History mcg (1,000 unit) capsule (Vitamin D3) duloxetine 60 mg capsule,delayed 60 mg PO BEDTIME 07/09/22 07/09/22 Unknown History release insulin NPH isoph U-100 human 100 42 unit SUBCUT BEDTIME 07/09/22 07/09/22 Unknown History unit/mL subcutaneous suspension (Novolin N NPH U-100 Insulin isophane) levocetirizine 5 mg tablet 5 mg PO BEDTIME 07/09/22 07/09/22 Unknown History lisinopril 20 mg tablet 20 mg PO QAM 07/09/22 07/09/22 Unknown History metoprolol tartrate 25 mg tablet 25 mg PO BID 07/09/22 07/09/22 Unknown History multivitamin 1 tab PO DAILY 07/09/22 07/09/22 Unknown History simvastatin 40 mg tablet 40 mg PO BEDTIME 07/09/22 07/09/22 Unknown History Allergies Allergy/AdvReac Type Severity Reaction Status Date / Time nalbuphine [From Diaferon] Allergy Unknown Verified 07/09/22 04:40 Current Medications Generic Name Dose Route Start Last Admin Trade Name Freq PRN Reason Stop Dose Admin Atorvastatin Calcium 20 mg 07/09/22 02:15 07/09/22 02:24 Atorvastatin 40 Mg Tablet PO 20 mg DAILY STEPH Administration Sodium Chloride 1,000 mls @ 75 mls/hr 07/09/22 02:00 07/09/22 03:15 Sodium Chloride 0.9% IV 75 mls/hr .[id number] STEPH Administration Metoclopramide HCl 10 mg 07/09/22 02:30 07/09/22 02:40 Metoclopramide 5 Mg/Ml Sdv 2 Ml IVP 10 mg ONCE PRN Administration NAUSEA AND VOMITING Metoprolol Tartrate 25 mg 07/09/22 02:00 07/09/22 02:24 Metoprolol Tartrate 25 Mg Tablet PO 25 mg BID STEPH Administration Ondansetron HCl 4 mg 07/09/22 01:49 07/09/22 02:08 Ondansetron 2 Mg/Ml Sdv 2 Ml IVP 4 mg Q8H PRN Administration vomiting, or N/V if npo Pantoprazole Sodium 40 mg 07/09/22 02:00 07/09/22 02:06 Pantoprazole 40 Mg Sdv IVP 40 mg Q24H STEPH Administration PFSH Acute PFSH: Medical History Abnormal stress test Anxiety Atherosclerosis of coronary artery Bilateral lower extremity edema Chest pain Chest pain Chest pain COVID-19 virus infection CVA (cerebral vascular accident) Diabetes mellitus DM type 2 (diabetes mellitus, type 2) Essential hypertension Herpes zoster Hyperlipidemia Hyperlipidemia associated with type 2 diabetes mellitus Hypertension Left knee pain Obese Restrictive lung disease Shortness of breath Tobacco use disorder Vertigo Surgical History History of heart artery stent Family History Grandfather Anesthesia complication CAD (coronary artery disease) Chronic kidney disease (CKD) Dementia Diabetes Grandmother CAD (coronary artery disease) Cancer Chronic kidney disease (CKD) Diabetes Lung disease Stroke Family/Other CAD (coronary artery disease) Cancer Mother Diabetes CAD (coronary artery disease) Grandfather Diabetes Denies family history of Clotting disorder Suicide Bleeding disorder Social History Smoking and tobacco status: former smoker Quit status (tobacco): has quit using tobacco Year quit tobacco: unknown Former quit date comment: smoked 4-5 cigars/day x 3 years Second hand smoke exposure: Yes Smoking risk assessment/counseling performed?: Yes Alcohol intake: current Alcohol intake frequency: holidays/special occasions only Desire information about alcohol rehabilitation?: No Lives independently: Yes Household members: spouse Marital status: service: No Current occupational status: employed Pets and animals: Yes History of recent travel: No Current gender identity: Male Vitals/I&O/Wt Last Vital Signs Temp 98.4 F 07/08/22 22:13 Pulse 98 07/09/22 02:37 Resp 18 07/09/22 02:14 BP 152/94 07/09/22 02:14 Pulse Ox 95 07/09/22 02:37 O2 Del Method 07/09/22 02:37 O2 Flow Rate 2 07/09/22 00:42 07/08/22 07/08/22 07/09/22 14:59 22:59 06:59 Output Total 600 / 600 Balance -600 / -600 Weight last 48 hrs Weight 281 lb Weight 285 lb Physical Exam Const: COMMON NORMALS: no acute distress and patient oriented x3 GENERAL APPEARANCE: cooperative ORIENTATION/CONSCIOUSNESS: Yes awake, Yes oriented to person, Yes oriented to place and Yes oriented to time HENMT: COMMON NORMALS: normocephalic HEAD & SCALP: normocephalic Eye: COMMON NORMALS: Equal, round and reactive pupils present and no scleral icterus PUPIL: Yes Equal, round and reactive pupils present Lymph: LYMPHATIC: no lymphadenopathy noted Chest: COMMONS NORMALS: normal inspection of the chest Resp: COMMON NORMALS: normal respiratory effort and clear to auscultation bilaterally AUSCULTATION: clear to auscultation bilaterally Cardio: COMMON NORMALS: S1 normal heart sound present and S2 normal heart sound present; negative for No murmurs present (Cardio) HEART SOUNDS: S1 normal heart sound present and S2 normal heart sound present GI: COMMON NORMALS: Soft to palpation; negative for No hepatosplenomegaly present INSPECTION: Yes normal to inspection and Yes scar (Midline scar) PALPATION: Yes Soft to palpation, No Firmness to palpation present (GI), Yes Tenderness to palpation present (GI) (Lower abdomen, chronic incarcerated hernia), No Guarding due to palpation present (GI), No Rigid due to palpation and No No hepatosplenomegaly present Neuro: COMMON NORMALS: patient oriented x3 SENSORIUM/ORIENTATION: Yes oriented to person, Yes oriented to place and Yes oriented to time Psych: COMMON NORMALS: mental status grossly normal Skin: COMMON NORMALS: no rashes or lesions noted GENERAL SKIN EXAM: no rashes or lesions noted Data : 07/08/22 22:20 07/08/22 22:20 A&P Assessment and plan (1) Incarcerated ventral hernia: After thorough history physical examination reviewing the chart and images with my personal interpretion, likely the patient has chronic incarcerated ventral hernia that got slightly worse as the patient has been working on the backyard yesterday, will place an NG for decompression, with repeated physical examination. Patient is currently on Brilinta Will follow on blood work IV fluid resuscitation N.p.o. Strict Is&Os Assurance and education All questions have been answered and all concerns have been addressed to patient's satisfaction. Status: Chronic Consult Attestations Medical Necessity Statement: [place] 2 midnights as an inpatient till resolution of PETER. Coding Level of Care Code Acute Marble Machine Operator for Chg Fwd Exam Comprehensive Diagnoses Incarcerated ventral hernia K43.6
--- NOTE | 2022-07-09 04:26 | ECG_ITS ---
[facility] Test Date: 2022-07-09 Pat Name: Rui Jiang Department: Room: 268 Gender: Male Clinical Quality Assurance Specialist: : [id number] Requested By: Ace Becerra Order Number: [id number] Derrek MD: Dereje Kimball M.D. Measurements Intervals [place] Rate: 114 P: 45 ID: [id number] QRS: 53 QRSD: 82 T: 66 QT: 318 QTc: 439 Interpretive Statements SINUS TACHYCARDIA WITH OCCASIONAL VENTRICULAR PREMATURE COMPLEXES Compared to ECG 07/09/2022 00:42:33 Ventricular premature complex(es) now present Sinus rhythm no longer present Electronically Signed On 07-09-2022 17:44:32 CDT by Dereje Kimball M.D. [id number]
[2022-07-09 04:37] LABS: INR 0.95 (0.8-1.2)
[2022-07-09 04:49] LABS: Troponin 5 6HR 9.98 ng/L (0-15)
[2022-07-09 04:51] LABS: Lactate (Lactic Acid level) 2.1 mmol/L (0.5-2.2)
[2022-07-09] MEDS: insulin lispro 100 unit/1 mL 10 UNIT SUBCUT (05:00)
--- NOTE | 2022-07-09 05:08 | PC.NURSE ---
NG/GIURGIUS VISIT Dr Iverson in this am to see pt. NG was ordered and was placed without difficulty. Immediate return of 700ml yellow/brown liquid. Pt will remain NPO and will be starting IV antibiotics. Did report some pain/nausea relief with NG placement. NG to LIS
[2022-07-09 05:23] LABS: Troponin 5 6HR Delta -0.02 ng/L (0-12)
[2022-07-09 06:03] LABS: Estmated Average Glucose 280; Hemoglobin A1C 11.4 % (4.0-6.0)
[2022-07-09 06:22] LABS: Glucose Point of Care 365 mg/dL (70-110)
[2022-07-09] MEDS: insulin lispro 100 unit/1 mL SUBCUT ×3 (08:37→17:39)
--- NOTE | 2022-07-09 08:40 | PM.PN ---
Subjective Subjective: Rui reports that he is still having some abdominal pain. He has not passed any gas yet. He reports he does burp frequently. He reports his abdominal discomfort is better than when he was admitted. I reviewed his history and physical, and reviewed with the patient as well. Medications: Reviewed: Yes Vitals/I&O/Wt Last Vital Signs Temp 98.2 F 07/09/22 08:00 Pulse 115 H 07/09/22 08:00 Resp 18 07/09/22 08:00 BP 144/97 07/09/22 08:00 Pulse Ox 92 07/09/22 08:00 O2 Del Method 07/09/22 08:00 O2 Flow Rate 2 07/09/22 00:42 07/08/22 07/09/22 07/09/22 22:59 06:59 14:59 Output Total 1550 / 1550 Balance -1550 / -1550 Weight last 48 hrs Weight 127.459 kg Weight 129.274 kg Physical Exam Narrative: General exam is a white male, complaining of abdominal discomfort Neck is supple no lymphadenopathy thyromegaly Cardiovascular tachycardic, no murmur Lungs clear. No wheezing or crackles Abdomen is tender. A few hypoactive bowel sounds are noted. Extremities no cyanosis clubbing or edema Data : 07/08/22 22:20 07/08/22 22:20 A&P Assessment and plan (1) Incarcerated ventral hernia: With associated small bowel obstruction. Continue Zosyn Appreciate surgical consultation Continue hydration Pain control with morphine, Zofran for nausea Status: Chronic (2) Atherosclerosis of coronary artery: Patient had drug-eluting stent LAD in July. Had in-stent stenosis earlier this month and was changed to Brilinta. We will call cardiology and see what their preferences. May need to moved to [place] in this potential perioperative period. Continue other medicines such as beta-roseline, statin, aspirin by NG, with intermittent clamping Status: Acute Qualifiers: Coronary Disease-Associated Artery/Lesion type: [place] artery [place] vs. transplanted heart: [place] heart Associated angina: with stable angina Qualified Code(s): I25.118 - Atherosclerotic heart disease of [place] coronary artery with other forms of angina pectoris (3) DM type 2 (diabetes mellitus, type 2): Mild sliding scale insulin Status: Acute Qualifiers: Diabetes mellitus ocean transportation intermediary insulin use: with ocean transportation intermediary use Diabetes mellitus complication status: with hyperglycemia Qualified Code(s): E11.65 - Type 2 diabetes mellitus with hyperglycemia; Z79.4 - extermination inspector (current) use of insulin (4) Hypertension: Meds per NG. Hydralazine as needed. Status: Acute Qualifiers: Hypertension type: primary hypertension Qualified Code(s): I10 - Essential (primary) hypertension Attestations Medical Necessity Statement*: Needs continued hospitalization for close follow-up of incarcerated hiatal hernia with associated small bowel obstruction Coding Level of Care Code Acute Telecommunications Line Mechanic for [facility] Fwd Diagnoses Incarcerated ventral hernia K43.6 Atherosclerosis of coronary artery I25.118 Coronary Disease-Associated Artery/Lesion type: [place] artery [place] vs. transplanted heart: [place] heart Associated angina: with stable angina DM type 2 (diabetes mellitus, type 2) E11.65; Z79.4 Diabetes mellitus ocean transportation intermediary insulin use: with nursing home use Diabetes mellitus complication status: with hyperglycemia Hypertension I10 Hypertension type: primary hypertension
[2022-07-09] MEDS: morphine 4 mg/mL SDV 1 mL 2 MG IVP ×3 (09:25→23:13)
--- NOTE | 2022-07-09 10:15 | PM.CONSULT ---
Providers/Reason For Consult Consulting Physician/Specialty*: Dr. 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 Last fall, he had a stress test for what sounded like fairly typical chest and shoulder discomfort.? After the stress test was completed he had ventricular tachycardia and suffered a cardiac arrest in the stress lab.? He ended up having a stent placed to his LAD and survived it without any difficulty.? He was seen by Dr. Richards on 06/21/22 in office for typical anginal symptoms. He underwent coronary angiography on 06/27/22where he was found to have restenosis of the stented area of the LAD.? This underwent balloon angioplasty and restenting without incident.? The circumflex and the right coronary arteries were still normal.? He was presented with acute onset of abdominal pain yesterday around 4:30 PM as the pain got worse in his abdomen he came to the ER for further evaluation. He is still complaining of chest pain. His last dose of Brillinta was Saturday Morning. I have been asked to assist in management of the patient. Review of Systems General: Reports: 10 or more systems reviewed and unremarkable except in HPI and below ENMT: Denies: ear discharge, change in hearing or nasal congestion Card: Denies: chest pain, irregular heart rhythm or edema GI: Reports: abdominal pain and nausea; Denies: hematochezia : Denies: hematuria Musc: Denies: extremity swelling Skin/Breast: Denies: rash Neuro: Denies: headache(s) or weakness in extremities Endo: Denies: tired all the time All/Imm: Denies: throat swelling or tongue swelling Medications/Allergies Home Medications Medication Instructions Recorded Confirmed Last Taken Type metformin 500 mg tablet,extended 1,000 mg PO BID 90 days #360 tabs 03/16/22 07/04/22 06/26/22 09:00 Rx release 24 hr ticagrelor 90 mg tablet (Brilinta) 90 mg PO BID 90 days #180 tabs 03/16/22 07/04/2222 05:00 Rx gabapentin 300 mg capsule 600 mg PO BID 90 days #360 caps 03/20/22 07/04/22 06/27/22 05:00 Rx liraglutide 0.6 mg/0.1 mL (18 mg/3 1.8 mg (0.3 mL) SUBCUT Q24H 90 04/02/22 07/04/22 06/26/22 09:00 Rx mL) subcutaneous pen injector days #27 mL (Victoza 3-Garrett) nitroglycerin 0.4 mg sublingual 0.4 mg sublingual Q5M PRN chest 06/15/22 07/04/22 Unknown Rx tablet pain 90 days #90 tabs pen needle, diabetic 32 gauge x #100 ea 07/03/22 07/04/22 Unknown Rx /16 (Comfort EZ Pen [place]) insulin regular human 100 unit/mL See Rx Instructions .Route 07/06/22 Unknown Rx injection solution (Novolin R .COMPLEX #10 mL Regular U-100 Insulin) albuterol sulfate 90 mcg/actuation 1 puff inhalation QID PRN 07/09/22 07/09/22 Unknown History aerosol inhaler (ProAir HFA) Shortness Of Breath aspirin 81 mg tablet,delayed 81 mg PO QAM 07/09/22 07/09/22 Unknown History release bupropion HCl 150 mg 24 hr tablet, 150 mg PO QAM 07/09/22 07/09/22 Unknown History extended release chlorthalidone 25 mg tablet 25 mg PO QAM 07/09/22 07/09/22 Unknown History cholecalciferol (vitamin D3) 25 25 mcg PO QAM 07/09/22 07/09/22 Unknown History mcg (1,000 unit) capsule (Vitamin D3) duloxetine 60 mg capsule,delayed 60 mg PO BEDTIME 07/09/22 07/09/22 Unknown History release insulin NPH isoph U-100 human 100 42 unit SUBCUT BEDTIME 07/09/22 07/09/22 Unknown History unit/mL subcutaneous suspension (Novolin N NPH U-100 Insulin isophane) levocetirizine 5 mg tablet 5 mg PO BEDTIME 07/09/22 07/09/22 Unknown History lisinopril 20 mg tablet 20 mg PO QAM 07/09/22 07/09/22 Unknown History metoprolol tartrate 25 mg tablet 25 mg PO BID 07/09/22 07/09/22 Unknown History multivitamin 1 tab PO DAILY 07/09/22 07/09/22 Unknown History simvastatin 40 mg tablet 40 mg PO BEDTIME 07/09/22 07/09/22 Unknown History Allergies Allergy/AdvReac Type Severity Reaction Status Date / Time nalbuphine [From Nancyrichard] Allergy Unknown Verified 07/09/22 04:40 Current Medications Generic Name Dose Route Start Last Admin Trade Name Freq PRN Reason Stop Dose Admin Atorvastatin Calcium 20 mg 07/09/22 02:15 07/09/22 02:24 Atorvastatin 40 Mg Tablet PO 20 mg DAILY STEPH Administration Bupropion HCl 150 mg 07/09/22 06:00 07/09/22 05:26 Bupropion Xl (24 Hr) 150 Mg Tablet PO Not Given QAM STEPH Sodium Chloride 1,000 mls @ 100 mls/hr 07/09/22 02:00 07/09/22 03:15 Sodium Chloride 0.9% IV 75 mls/hr .Q10H STEPH Administration Piperacillin Sod/Tazobactam 50 mls @ 12.5 mls/hr 07/09/22 09:30 07/09/22 08:40 Sod 3.375 gm/ Sodium Chloride IV 12.5 mls/hr Q8H STEPH Administration Protocol Insulin Human Lispro 0 unit 07/09/22 08:00 07/09/22 08:37 Insulin Lispro 100 Unit/1 Ml SUBCUT 14 unit TIDWM STEPH Administration Protocol Metoclopramide HCl 10 mg 07/09/22 02:30 07/09/22 02:40 Metoclopramide 5 Mg/Ml Sdv 2 Ml IVP 10 mg ONCE PRN Administration NAUSEA AND VOMITING Metoprolol Tartrate 25 mg 07/09/22 02:00 07/09/22 02:24 Metoprolol Tartrate 25 Mg Tablet PO 25 mg BID STEPH Administration Morphine Sulfate 2 mg 07/09/22 08:52 07/09/22 09:25 Morphine 4 Mg/Ml Sdv 1 Ml IVP 2 mg Q4H PRN Administration SEVERE PAIN Ondansetron HCl 4 mg 07/09/22 01:49 07/09/22 02:08 Ondansetron 2 Mg/Ml Sdv 2 Ml IVP 4 mg Q8H PRN Administration vomiting, or N/V if npo Pantoprazole Sodium 40 mg 07/09/22 02:00 07/09/22 02:06 Pantoprazole 40 Mg Sdv IVP 40 mg Q24H STEPH Administration PFSH Acute PFSH: Medical History Abnormal stress test Anxiety Atherosclerosis of coronary artery Bilateral lower extremity edema Chest pain Chest pain Chest pain COVID-19 virus infection CVA (cerebral vascular accident) Diabetes mellitus DM type 2 (diabetes mellitus, type 2) Essential hypertension Herpes zoster Hyperlipidemia Hyperlipidemia associated with type 2 diabetes mellitus Hypertension Left knee pain Obese Restrictive lung disease Shortness of breath Tobacco use disorder Vertigo Surgical History History of heart artery stent Family History Grandfather Anesthesia complication CAD (coronary artery disease) Chronic kidney disease (CKD) Dementia Diabetes Grandmother CAD (coronary artery disease) Cancer Chronic kidney disease (CKD) Diabetes Lung disease Stroke Family/Other CAD (coronary artery disease) Cancer Mother Diabetes CAD (coronary artery disease) Grandfather Diabetes Denies family history of Clotting disorder Suicide Bleeding disorder Social History Smoking and tobacco status: former smoker Quit status (tobacco): has quit using tobacco Year quit tobacco: unknown Former quit date comment: smoked 4-5 cigars/day x 3 years Second hand smoke exposure: Yes Smoking risk assessment/counseling performed?: Yes Alcohol intake: current Alcohol intake frequency: holidays/special occasions only Desire information about alcohol rehabilitation?: No Lives independently: Yes Household members: spouse Marital status: service: No Current occupational status: employed Pets and animals: Yes History of recent travel: No Current gender identity: Male Vitals/I&O/Wt Last Vital Signs Temp 98.2 F 07/09/22 08:00 Pulse 115 H 07/09/22 08:00 Resp 18 07/09/22 09:25 BP 144/97 07/09/22 08:00 Pulse Ox 92 07/09/22 08:00 O2 Del Method 07/09/22 08:00 O2 Flow Rate 2 07/09/22 00:42 07/08/22 07/09/22 07/09/22 22:59 06:59 14:59 Output Total 1550 / 1550 Balance -1550 / -1550 Weight last 48 hrs Weight 281 lb Weight 285 lb Physical Exam Narrative: GENERAL: obese man laying in bed in mild painful distress HEENT: Extraocular movement intact. No pallor or icterus. NECK: central trachea, No carotid bruit. CARDIOVASCULAR SYSTEM: S1-S2 regular. tachycardia+ RESPIRATORY SYSTEM: Chest clear to auscultation. No wheezes rhonchi or rubs heard. No use of accessory muscles. ABDOMEN: deferred EXTREMITIES: No cyanosis or edema]. No signs of chronic venous insufficiency. 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 No focal neurological deficits. Data : 07/09/22 16:34 07/08/22 22:20 Other data: troponin T X 3: negative; EKG with sinus tachycardia with occasional PVC's. A&P Assessment and plan (1) Incarcerated ventral hernia: Status: Chronic (2) Atherosclerosis of coronary artery: Recent instent restenosis of px LAD treated with plain old balloon angioplasty with a noncompliant balloon initially.? The area was then restented with a 4 mm by 20 mm stent on 06/27/22. -< 1 month since PCI -patient is at high risk for stent thrombosis -IV Cangrelor unavailable and cannot be obtained per pharmacy -recommend continuing IV Aggrasat in the time being -Patient is at high risk but based on CT abdomen/pelvis findings as listed below, if surgery is deemed necessary by the surgery service; patient may proceed with surgery. There is a large paramedian hypogastric ventral hernia containing multiple loops of bowel. Some of the bowel loops within the hernia may be incarcerated in this appears to be causing small-bowel obstruction. There are distended small bowel loops proximally and what appear to be nondistended distal bowel loops. Definite point of transition is not identified but this appears to be related to the ventral hernia. There may also be a portion of colon within the ventral hernia, with the colon proximal to this being dilated and distal colon without dilatation . Status: Acute Qualifiers: Associated angina: with stable angina Coronary Disease-Associated Artery/Lesion type: [place] artery [place] vs. transplanted heart: [place] heart Qualified Code(s): I25.118 - Atherosclerotic heart disease of [place] coronary artery with other forms of angina pectoris (3) Hypertension: Status: Acute Qualifiers: Hypertension type: primary hypertension Qualified Code(s): I10 - Essential (primary) hypertension (4) Hyperlipidemia: Status: Acute Qualifiers: Hyperlipidemia type: mixed hyperlipidemia Qualified Code(s): E78.2 - Mixed hyperlipidemia (5) DM type 2 (diabetes mellitus, type 2): Status: Acute Qualifiers: Diabetes mellitus complication status: with hyperglycemia Diabetes mellitus [facility] insulin use: with intermodal customer service use Qualified Code(s): E11.65 - Type 2 diabetes mellitus with hyperglycemia; Z79.4 - salvage determiner (current) use of insulin Plan Sinus tachycardia Consult Attestations Time Spent in Patient Care: 16 - 35 minutes Coding Level of Care Code Acute Superintendent Recreation for g Fwd Diagnoses Incarcerated ventral hernia K43.6 Atherosclerosis of coronary artery I25.118 Associated angina: with stable angina Coronary Disease-Associated Artery/Lesion type: [place] artery [place] vs. transplanted heart: [place] heart Hypertension I10 Hypertension type: primary hypertension Hyperlipidemia E78.2 Hyperlipidemia type: mixed hyperlipidemia DM type 2 (diabetes mellitus, type 2) E11.65; Z79.4 Diabetes mellitus complication status: with hyperglycemia Diabetes mellitus [employer] customer service insulin use: with [facility] use
--- NOTE | 2022-07-09 10:41 | PC.CHAP ---
Pastoral Care Encounter/Spiritual Assessment Type of Contact [] Declined fish protector visit [] Patient/Family/Request visit [] Outpatient visit [] Follow-up visit [] Physician referral [] Code/Alert [x] Routine visit [] Staff referral [] Actively dying [] Patient sleeping [] Family support [] [] Out of room [] Palliative care [] [] Receiving care in room [] Pre-surgical visit [] Trauma [] Long length of stay [] ICU visit [] Other: Relational/Emotional Strength [x] Patient feels connected with others/family/visitors/staff [] Distress [] Loneliness/isolation [] Abandonment Spirituality of Patient [x] Person of Claudine [x] Attends Christian of their Claudine [x] Believes in Prayer [] Reads Bible or Jew materials [] There are Spiritual issues to be addressed 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 Interventions [x] Prayer []x Active listening x[x] Non-anxious presence [] Spiritual/emotional support [] Crisis/trauma care [] Spiritual counseling [] Bereavement support [] Provided bereavement packet [] Provided Bible/devotional materials [] Provided toy/stuffed animal, coloring book to patient or family member [] Provided Communion [] Anointing/[place] [] Salvation [x] Completed spiritual assessment [] Other: Impact on Illness or Injury [] Angry [] Fearful [] Anxious [] Often cries [] Exhaustion [] Unable to work [] Unable to attend buddhist [] Unable to walk/stand [] Unable to read [] Unable to drive [] Unable to eat/drink [] Unable to sleep [] Unable to be with family [] Patient intubated [] Other: Summary Time spent with patient
[2022-07-09] MEDS: metoprolol tartrate 1 mg/1 mL SDV 5 mL 5 MG IVP ×3 (11:14→22:31)
[2022-07-09 11:16] LABS: Glucose Point of Care 273 mg/dL (70-110)
--- NOTE | 2022-07-09 12:20 | PC.NURSE ---
Aggrastat was given at this time. This medication was not delivered to this nurse until noon. Dr. Leung spoke with this nurse in the hallway and updated that they medication was just delivered and would be given as soon as possible.
[2022-07-09] MEDS: tirofiban 5 MG/100 ML PREMIX 22.94 MG IV ×3 (12:21→18:59)
[2022-07-09] MEDS: famotidine 20 mg/2 mL INJ IVP (12:39)
[2022-07-09 16:59] LABS: Basophils # 0.1 10^3/uL (0.0-0.1); Basophils % 0.6 %; Eosinophils % 0.2 %; Hematocrit 40.2 % (42.0-52.0); Hemoglobin 13.7 g/dL (11.7-16.6); Lymphocytes # 1.8 10^3/uL (0.8-4.8); Lymphocytes % 14.5 %; Mean Corpuscular HGB Conc 34.1 g/dL (30.0-36.0); Mean Corpuscular Hemoglobin 28.8 pg (28.0-34.0); Mean Corpuscular Volume 84.6 fl (80-94); Mean Platelet Volume 9.1 fL (7.4-10.4); Neutrophils # 9.56 10^3/uL (1.8-7.7); Neutrophils % 76.2 %; Nucleated Red Blood Cells % 0 %; Platelet Count 291 10^3/cmm (130-400); Red Blood Count 4.75 10^6/uL (4.1-5.3); Red Cell Distribution Width 12.2 % (12.1-15.1); White Blood Count 12.5 10^3/uL (4.0-10.0)
[2022-07-09 17:29] LABS: Glucose Point of Care 203 mg/dL (70-110)
--- NOTE | 2022-07-09 19:06 | PC.NURSE ---
bedside report given to Omar RN at this time.
[2022-07-09 22:03] LABS: Glucose Point of Care 212 mg/dL (70-110)
--- NOTE | 2022-07-09 23:26 | XRR_ITS ---
PROCEDURE INFORMATION: Exam: XR Chest Exam date and time: 07/10/2022 1:09 AM Age: 46 years old Clinical indication: Device placement; Ng tube; Prior surgery; Surgery type: Cardiac stents; Patient HX: Check S/P ng placement; Additional info: Ng tube placement TECHNIQUE: Imaging protocol: Radiologic exam of the chest. Views: 1 view. COMPARISON: CT angio chest abdomen pelvis 07/08/2022 11:16 PM FINDINGS: Tubes, catheters and devices: Nasogastric tube is seen with distal aspect overlying the left upper abdominal region. The tip is not visualized on the exam. Lungs: There are decreased small lung volumes with mild bilateral perihilar lung interstitial opacities. These findings may represent mild pulmonary vascular congestion and atelectasis. No airspace opacities in the lungs. Pleural spaces: No pleural effusion. No pneumothorax. Heart/Mediastinum: The heart size is normal. The mediastinal contour is normal. The trachea is midline. Bones/joints: No acute osseous abnormalities seen. Soft tissues: Multiple external densities are seen overlying the chest, limiting assessment. XR/XR chest 1V portable [id number] IMPRESSION: 1. Decreased small lung volumes with mild bilateral perihilar lung interstitial opacities. These findings may represent mild pulmonary vascular congestion and atelectasis. No airspace opacities in the lungs. 2. Nasogastric tube, as noted above.
[2022-07-09] MEDS: tirofiban 5 MG/100 ML PREMIX 22.8 MG IV (23:29)
[2022-07-10] VITALS (10 sets, daily range): BP systolic 117–157; BP diastolic 74–89; PULSE 85–110; RESP 12–20; TEMP 36.4–37.4; O2SAT 91–98
[2022-07-10] MEDS: sodium chloride 0.9% 1,000 ML 75 ML IV ×2 (00:46→12:41)
[2022-07-10] MEDS: famotidine 20 mg/2 mL INJ IVP ×2 (00:47→12:37)
[2022-07-10] MEDS: piperacillin-tazobactam 3.375 GM in sodium chloride 0.9% (plus) 50 ML IV ×3 (00:49→17:58)
[2022-07-10 05:01] LABS: Basophils # 0.1 10^3/uL (0.0-0.1); Basophils % 0.6 %; Eosinophils % 0.4 %; Hematocrit 39.4 % (42.0-52.0); Hemoglobin 12.8 g/dL (11.7-16.6); Lymphocytes # 2.2 10^3/uL (0.8-4.8); Mean Corpuscular HGB Conc 32.5 g/dL (30.0-36.0); Mean Corpuscular Hemoglobin 29.1 pg (28.0-34.0); Mean Corpuscular Volume 89.5 fl (80-94); Mean Platelet Volume 9.2 fL (7.4-10.4); Monocytes # 0.9 10^3/uL (0.2-0.9); Neutrophils # 7.62 10^3/uL (1.8-7.7); Neutrophils % 70.4 %; Nucleated Red Blood Cells % 0 %; Platelet Count 236 10^3/cmm (130-400); Red Cell Distribution Width 12.4 % (12.1-15.1); White Blood Count 10.8 10^3/uL (4.0-10.0)
[2022-07-10] MEDS: tirofiban 5 MG/100 ML PREMIX 22.8 MG IV ×3 (05:03→15:10)
[2022-07-10] MEDS: buPROPion XL (24 HR) 150 mg Tablet PO (05:03)
[2022-07-10] MEDS: metoprolol tartrate 1 mg/1 mL SDV 5 mL 5 MG IVP ×2 (05:03→10:54)
[2022-07-10 05:27] LABS: Alanine Aminotransferase 13 U/L (0-41); Albumin Level 3.7 g/dL (3.5-5.2); Alkaline Phosphatase 80 U/L (40-130); Anion Gap 12.9 (5-19); Aspartate Amino Transferase 9 U/L (0-40); Blood Urea Nitrogen 13 mg/dL (6-20); C Reactive Protein 120.7 mg/L (0.0-4.9); Calcium 8.3 mg/dL (8.5-10.5); Carbon Dioxide 28 mmol/L (22-29); Chloride 100 mmol/L (98-107); Globulin 2.8 g/dL (1.3-4.6); Glucose 246 mg/dL (65-115); Magnesium 1.6 mg/dL (1.7-2.3); Osmolality Calculated 292 mOsm/kg (285-295); Potassium 3.9 mmol/L (3.5-5.1); Sodium 137 mmol/L (136-145); Total Bilirubin 0.7 mg/dL (0.15-1.2); Total Protein 6.5 g/dL (6.6-8.7)
[2022-07-10 05:35] LABS: Lactate (Lactic Acid level) 1.2 mmol/L (0.5-2.2)
[2022-07-10 05:37] LABS: INR 1.06 (0.8-1.2)
--- NOTE | 2022-07-10 06:00 | XRR_ITS ---
PROCEDURE INFORMATION: Exam: XR Abdomen Exam date and time: 07/10/2022 5:59 AM Age: 46 years old Clinical indication: Condition or disease; Intestinal condition; Obstruction; Prior surgery; Surgery date: 6+ months; Surgery type: Gasteresis; Patient HX: Follow up, abd pain. 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 Views: 2 Views. Upright and supine views. AP Supine and Upright COMPARISON: CT angio chest abdomen pelvis 07/08/2022 11:16 PM FINDINGS: Tubes, catheters and devices: There is a nasogastric tube seen in the left upper abdominal region, in the area of the mid stomach. Gastrointestinal tract: Unchanged moderately gas distended loops of small bowel and colon are seen in the abdomen with some air-fluid levels. These findings may represent adynamic ileus , although distal bowel obstruction cannot be excluded. Recommend correlation with bowel sound findings. There is no pneumatosis or mass effect. Intraperitoneal space: There is no definite pneumoperitoneum. Bones/joints: No acute osseous abnormality. Mild rightward scoliosis of the lumbar spine is seen. XR/XR abdomen min 2V [id number] IMPRESSION: 1. Unchanged moderately gas distended loops of small bowel and colon in the abdomen with some air-fluid levels. These findings may represent adynamic ileus , although distal bowel obstruction cannot be excluded. Recommend correlation with bowel sound findings. 2. Nasogastric tube, as noted above.
--- NOTE | 2022-07-10 06:22 | PM.PN ---
Subjective Subjective: Patient was seen and examined. Lab values shows trending down to WBC count to 10.8, normal electrolytes, glucose 246, calcium 8.3 and magnesium 1.6. NG fell and was replaced by nursing staff. Total estimate NG output per shift 700 ml. Overall patient had a better night, did not pass gas yet but he feels it is coming. X-rays reviewed by me and showed the gas pattern all the way to the rectum yet presence of distended bowel loops likely coinciding with partial bowel obstruction. Medications: Reviewed: Yes Vitals/I&O/Wt Last Vital Signs Temp 98.9 F 07/10/22 04:00 Pulse 104 H 07/10/22 04:00 Resp 14 07/10/22 04:00 BP 156/89 07/10/22 04:00 Pulse Ox 98 07/10/22 04:00 O2 Del Method 07/10/22 04:00 O2 Flow Rate 2 07/09/22 20:00 07/09/22 07/09/22 07/10/22 14:59 22:59 06:59 Intake Total 967.556 / 967.556 97.113 / 4134.016 3931.25 / 2115.919 Output Total 500 / 500 1200 / 1700 400 / 2100 Balance 467.556 / 467.556 -1102.887 / -635.331 651.25 / 15.919 Weight last 48 hrs Weight 281 lb Weight 285 lb Physical Exam Narrative: Patient is conscious alert oriented X3 No apparent distress BMI 39.2 Head and neck examination PERRLA no masses no cervical lymphadenopathy no jaundice NG in place Cardiac examination audible S1-S2 no murmurs no gallops no arrhythmias Chest is clear bilateral,abscence of Rhonchi or wheezes,no surgical emphysema Abdomen much less tender nondistended soft no organomegaly guarding or rigidity/no signs of peritonitis Extremities no cyanosis no clubbing no edema Data : 07/10/22 04:26 07/10/22 04:26 A&P Assessment and plan (1) Incarcerated ventral hernia: We will continue NG tube to low intermittent wall suction Repeated physical examination Continue coordinating with hospitalist and cardiac services IV fluid resuscitation N.p.o. Strict Is&Os Encourage ambulation Continue conservative measures for now, patient is certainly at higher risk for surgical intervention given his cardiac status. As any surgical intervention would entail a major surgery due to the extensive scar tissues and expectation of moderate blood loss. Correction of electrolytes per hospitalist service Assurance and education All questions have been answered and all concerns have been addressed to patient's satisfaction. Status: Chronic Attestations Medical Necessity Statement*: Patient requiring inpatient hospitalization passing 2 midnights for continued conservative measures of bowel obstruction potential surgical intervention Coding Level of Care Code Acute Director Medical Writing for Anthony Lara Diagnoses Incarcerated ventral hernia K43.6
[2022-07-10 06:54] LABS: Glucose Point of Care 263 mg/dL (70-110)
--- NOTE | 2022-07-10 07:57 | PC.NURSE ---
patient is making laps on the floor. 360 feet a lap times 5 laps 1800 feet
--- NOTE | 2022-07-10 08:02 | PM.PN ---
Subjective Subjective: Patient reports he feels quite a bit better. He is not yet passed any air. Abdomen hurts less. No nausea with NG. Trying to get up and move around to promote resolution of his bowel obstruction. Medications: Reviewed: Yes Vitals/I&O/Wt Last Vital Signs Temp 97.9 F 07/10/22 07:45 Pulse 103 H 07/10/22 07:45 Resp 18 07/10/22 07:45 BP 143/80 07/10/22 07:45 Pulse Ox 91 07/10/22 07:45 O2 Del Method 07/10/22 07:45 O2 Flow Rate 2 07/09/22 20:00 07/09/22 07/10/22 07/10/22 22:59 06:59 14:59 Intake Total 97.113 / 8303.726 2953.25 / 2115.919 Output Total 1200 / 1700 400 / 2100 Balance -1102.887 / -635.331 651.25 / 15.919 Weight last 48 hrs Weight 127.459 kg Weight 129.274 kg Physical Exam Narrative: General exam is a white male, reporting less pain Neck is supple no lymphadenopathy thyromegaly Cardiovascular tachycardic, no murmur Lungs clear. No wheezing or crackles Abdomen is less tender. Bowel sounds are noted Extremities no cyanosis clubbing or edema Data : 07/10/22 04:26 07/10/22 04:26 A&P Assessment and plan (1) Incarcerated ventral hernia: With associated small bowel obstruction. Hopefully this is resolving Continue Zosyn Appreciate surgical consultation Continue hydration Pain control with morphine, Zofran for nausea Status: Chronic (2) Atherosclerosis of coronary artery: Patient had drug-eluting stent LAD in July. Had in-stent stenosis earlier this month and was changed to Brilinta. Continue Aggrastat as bridge currently until we see if surgery is needed. Appreciate cardiology consultation Continue metoprolol IV. All other medicines by NG with intermittent clamping. When it becomes evident that no surgical procedure is needed, we will try to change all to p.o. Status: Acute Qualifiers: Coronary Disease-Associated Artery/Lesion type: [place] artery [place] vs. 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 Hydralazine as needed. Status: Acute Qualifiers: Hypertension type: primary hypertension Qualified Code(s): I10 - Essential (primary) hypertension Plan Type 2 diabetes. Sliding scale insulin Full code Pepcid for GI prophylaxis SCDs for DVT prophylaxis as he is currently on Aggrenox drip. Attestations Medical Necessity Statement*: Needs continued hospitalization for close follow-up pending resolution of bowel obstruction Coding Level of Care Code Acute Qa Automation Engineer for Chg Fwd Diagnoses Incarcerated ventral hernia K43.6 Atherosclerosis of coronary artery I25.118 Coronary Disease-Associated Artery/Lesion type: [place] artery [place] vs. 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
[2022-07-10] MEDS: magnesium sulfate premix 2 GM/50 ML PIGGYBACK IV (08:03)
[2022-07-10] MEDS: insulin lispro 100 unit/1 mL SUBCUT ×3 (09:04→17:57)
[2022-07-10] MEDS: aspirin 81 mg EC Tablet PO (09:05)
[2022-07-10] MEDS: duloxetine 60 mg Capsule PO (09:05)
[2022-07-10] MEDS: atorvastatin 40 mg Tablet 20 MG PO (09:05)
[2022-07-10] MEDS: gabapentin 300 mg Capsule 600 MG PO ×2 (09:05→17:57)
[2022-07-10] MEDS: lisinopril 20 mg Tablet PO (09:05)
[2022-07-10 11:39] LABS: Glucose Point of Care 247 mg/dL (70-110)
[2022-07-10 17:06] LABS: Glucose Point of Care 201 mg/dL (70-110)
[2022-07-10] MEDS: ticagrelor 90 mg Tablet 180 MG PO (17:58)
[2022-07-10] MEDS: metoprolol tartrate 25 mg Tablet PO (20:07)
[2022-07-10] MEDS: sodium chloride 0.9% 1,000 ML 100 ML IV (20:07)
--- NOTE | 2022-07-10 20:08 | PM.PN ---
Subjective Subjective: The patient is feeling better. He started tolerating the clear liquid diet so far well. He is on IV Aggrastat. Medications: Medication Review Details: Current Medications Aspirin (Aspirin 81 Mg Ec Tablet) 81 mg PO DAILY [facility] Last Admin: 07/10/22 09:05 Dose: 81 mg Atorvastatin Calcium (Atorvastatin 40 Mg Tablet) 20 mg PO DAILY [facility] Last Admin: 07/10/22 09:05 Dose: 20 mg Bupropion HCl (Bupropion Xl (24 Hr) 150 Mg Tablet) 150 mg PO QAM [facility] Last Admin: 07/10/22 05:03 Dose: 150 mg Dextrose (Dextrose 50% Syringe 50 Ml) 25 ml IVP ONCE PRN; Protocol PRN Reason: hypoglycemia protocol Dextrose (Dextrose 50% Syringe 50 Ml) 50 ml IVP PRN PRN; Protocol PRN Reason: hypoglycemia protocol Duloxetine HCl (Duloxetine 60 Mg Capsule) 60 mg PO DAILY [facility] Last Admin: 07/10/22 09:05 Dose: 60 mg Famotidine (Famotidine 20 Mg/2 Ml Inj) 20 mg IVP Q12H [facility] Last Admin: 07/10/22 12:37 Dose: 20 mg Gabapentin (Gabapentin 300 Mg Capsule) 600 mg PO BID [facility] Last Admin: 07/10/22 17:57 Dose: 600 mg Glucagon (Glucagon 1 Mg/Ml Inj 1 Ml) 1 mg IM ONCE PRN; Protocol PRN Reason: Adult Acute Hypoglycemia Prot. Hydralazine HCl (Hydralazine 20 Mg/Ml Inj 1 Ml) 10 mg IVP Q4H PRN PRN Reason: HYPERTENSION Sodium Chloride (Sodium Chloride 0.9%) 1,000 mls @ 100 mls/hr IV .Q10H [facility] Last Admin: 07/10/22 20:07 Dose: 100 mls/hr Dextrose (D5w) 500 mls @ 100 mls/hr IV ONCE PRN; Protocol PRN Reason: Adult Acute Hypoglycemia Prot Piperacillin Sod/Tazobactam (Sod 3.375 gm/ Sodium Chloride) 50 mls @ 12.5 mls/hr IV Q8H [facility]; Protocol Last Admin: 07/10/22 17:58 Dose: 12.5 mls/hr Insulin Human Lispro (Insulin Lispro 100 Unit/1 Ml) 0 unit SUBCUT TIDWM [facility]; Protocol Last Admin: 07/10/22 17:57 Dose: 6 unit Lisinopril (Lisinopril 20 Mg Tablet) 20 mg PO DAILY [facility] Last Admin: 07/10/22 09:05 Dose: 20 mg Metoclopramide HCl (Metoclopramide 5 Mg/Ml Sdv 2 Ml) 10 mg IVP ONCE PRN PRN Reason: NAUSEA AND VOMITING Last Admin: 07/09/22 02:40 Dose: 10 mg Metoprolol Tartrate (Metoprolol Tartrate 25 Mg Tablet) 25 mg PO BID@0900,2100 [facility] Last Admin: 07/10/22 20:07 Dose: 25 mg Morphine Sulfate (Morphine 4 Mg/Ml Sdv 1 Ml) 2 mg IVP Q4H PRN PRN Reason: SEVERE PAIN Last Admin: 07/09/22 23:13 Dose: 2 mg Naloxone HCl (Naloxone 0.4 Mg/Ml Sdv) 0.1 mg IVP Q2M PRN PRN Reason: OPIATERV Ondansetron HCl (Ondansetron 2 Mg/Ml Sdv 2 Ml) 4 mg IVP Q8H PRN PRN Reason: vomiting, or N/V if npo Last Admin: 07/09/22 02:08 Dose: 4 mg Ticagrelor (Ticagrelor 90 Mg Tablet) 90 mg PO BID [facility] Vitals/I&O/Wt Last Vital Signs Temp 98.2 F 07/10/22 15:43 Pulse 85 07/10/22 15:43 Resp 18 07/10/22 15:43 BP 157/74 07/10/22 15:43 Pulse Ox 93 07/10/22 15:43 O2 Del Method 07/10/22 15:43 O2 Flow Rate 2 07/09/22 20:00 07/10/22 07/10/22 07/10/22 06:59 14:59 22:59 Intake Total 1051.25 / 2115.919 1193.75 / 1193.75 1224.583 / 2418.333 Output Total 400 / 2100 400 / 400 Balance 651.25 / 15.919 793.75 / 793.75 1224.583 / 2018.333 Weight last 48 hrs Weight 281 lb Weight 285 lb Physical Exam Narrative: GENERAL: The patient is alert and oriented times three. Not in any acute distress. HEENT: No significant pallor, icterus or lymphadenopathy.Oral cavity: There are no mucous membrane lesions. NECK: Trachea appears to be central. No masses noted. No JVD or thyromegaly appreciated. RESPIRATORY: Chest is symmetrical. No intercostals muscle retraction or any accessory muscle activation. There is no chest wall tenderness. Breath sounds are heard bilaterally. No rales or rhonchi heard. No evidence of any consolidation. BREASTS: Deferred. HEART: The heart sounds are normal. No S3 or S4. Short systolic murmur in the left sternal border patient advised to take blood pressure in the morning, before breakfast, and in the evening, before going to bed - two times a day, and to bring the blood pressure diary to the office in two weeks. No pericardial rub ABDOMEN: No vessel pulsations or distention. No tenderness. No organomegaly appreciated. Bowel sounds are normally heard. : Deferred. RECTAL: Deferred. LYMPHATIC: No lymphadenopathy noted in the neck. EXTREMITIES: No edema or cyanosis. No clubbing. MUSCULOSKELETAL: No acute joint deformities or swelling SKIN: There are no significant rashes or ecchymosis NEUROPSYCHIATRIC: The patient is alert and oriented x3. Appears to be in a good mood. No tremors or rigidity noted. Data : 07/11/22 04:55 07/11/22 04:55 Other Labs: Laboratory Last Values WBC 10.8 10^3/uL (4.0-10.0) H 07/10/22 04:26 RBC 4.40 10^6/uL (4.1-5.3) 07/10/22 04:26 Hgb 12.8 g/dL (11.7-16.6) 07/10/22 04:26 Hct 39.4 % (42.0-52.0) L 07/10/22 04:26 MCV 89.5 fl (80-94) D 07/10/22 04:26 MCH 29.1 pg (28.0-34.0) 07/10/22 04:26 MCHC 32.5 g/dL (30.0-36.0) 07/10/22 04:26 RDW 12.4 % (12.1-15.1) 07/10/22 04:26 Plt Count 236 10^3/cmm (130-400) 07/10/22 04:26 MPV 9.2 fL (7.4-10.4) 07/10/22 04:26 Neut % (Auto) 70.4 % 07/10/22 04:26 Lymph % (Auto) 20.0 % 07/10/22 04:26 [place] % (Auto) 8.0 % 07/10/22 04:26 Eos % (Auto) 0.4 % 07/10/22 04:26 Baso % (Auto) 0.6 % 07/10/22 04:26 Neut # (Auto) 7.62 10^3/uL (1.8-7.7) 07/10/22 04:26 Lymph # (Auto) 2.2 10^3/uL (0.8-4.8) 07/10/22 04:26 [place] # (Auto) 0.9 10^3/uL (0.2-0.9) 07/10/22 04:26 Eos # (Auto) 0.0 10^3/uL (0.0-0.8) 07/10/22 04:26 Baso # (Auto) 0.1 10^3/uL (0.0-0.1) 07/10/22 04:26 Nucleated RBC % (auto) 0 % 07/10/22 04: Nucleated RBCs # 0.0 /100WBC 07/10/22 04:26 PT 14.10 SECONDS (12.1-14.9) 07/10/22 04:26 INR 1.06 (0.8-1.2) 07/10/22 04:26 APTT 32.0 SECONDS (23.9-36.7) 07/10/22 04:26 Sodium 137 mmol/L (136-145) 07/10/22 04:26 Potassium 3.9 mmol/L (3.5-5.1) 07/10/22 04:26 Chloride 100 mmol/L (98-107) 07/10/22 04:26 Carbon Dioxide 28 mmol/L (22-29) 07/10/22 04:26 Anion Gap 12.9 (5-19) 07/10/22 04:26 BUN 13 mg/dL (6-20) 07/10/22 04:26 Creatinine 0.8 mg/dL (0.7-1.2) 07/10/22 04:26 GFR Calculation 105.0 mL/min (90-130) 07/10/22 04:26 Glucose 246 mg/dL (65-115) H 07/10/22 04:26 POC Glucose 201 mg/dL (70-110) H 07/10/22 16:54 Estimat Average Glucose 280 07/09/22 04:12 Hemoglobin A1c 11.4 % (4.0-6.0) H 07/09/22 04:12 Calculated Osmolality 292 mOsm/kg (285-295) 07/10/22 04:26 Lactate 1.2 mmol/L (0.5-2.2) 07/10/22 04:26 Calcium 8.3 mg/dL (8.5-10.5) L 07/10/22 04:26 Magnesium 1.6 mg/dL (1.7-2.3) L 07/10/22 04:26 Total Bilirubin 0.7 mg/dL (0.15-1.2) 07/10/22 04:26 AST 9 U/L (0-40) 07/10/22 04:26 ALT 13 U/L (0-41) 07/10/22 04:26 Alkaline Phosphatase 80 U/L (40-130) 07/10/22 04:26 Troponin T Baseline 10 ng/L (0-15) 07/08/22 22:20 Troponin T 120 Minute 9.07 ng/L (0-15) 07/09/22 00:29 Delta Troponin T -0.93 ABS# (0-10) L 07/09/22 00:29 Troponin T Hi Sens 6Hr 9.98 ng/L (0-15) 07/09/22 04:12 Troponin T Hi Sens 6Hr Delta -0.02 ng/L (0-12) L 07/09/22 04:12 C-Reactive Protein 120.7 mg/L (0.0-4.9) H 07/10/22 04:26 Total Protein 6.5 g/dL (6.6-8.7) L 07/10/22 04:26 Albumin 3.7 g/dL (3.5-5.2) 07/10/22 04:26 Globulin 2.8 g/dL (1.3-4.6) 07/10/22 04:26 Lipase 24 U/L (13-60) 07/08/22 22:20 Urine Color Yellow (Yellow) 07/08/22 22:48 Urine Appearance Clear (CLEAR) 07/08/22 22:48 Urine pH 5 (5-7) 07/08/22 22:48 Ur Specific [place] 1.020 (1.005-1.030) 07/08/22 22:48 Urine Protein Neg (Negative) 07/08/22 22:48 Urine Glucose (UA) 4+ (Normal) H 07/08/22 22:48 Urine Ketones 1+ (Negative) H 07/08/22 22:48 Urine Blood Neg (Negative) 07/08/22 22:48 Urine Nitrate Negative (Negative) 07/08/22 22:48 Urine Bilirubin Neg (Negative) 07/08/22 22:48 Urine Urobilinogen Neg mg/dL (Negative) 07/08/22 22:48 Ur Leukocyte Esterase Negative (Negative) 07/08/22 22:48 A&P Assessment and plan (1) Atherosclerosis of coronary artery: Recent instent restenosis of px LAD treated with plain old balloon angioplasty with a noncompliant balloon initially.? Patient is on IV Aggrastat at this point. Seems to be tolerating medication well. Patient is being reevaluated for surgical intervention. If it is decided that the patient is not requiring surgery, at this point, it would be appropriate to put him back on the Brilinta. So far his cardiovascular status seems to be stable. Status: Acute Qualifiers: Associated angina: with stable angina Coronary Disease-Associated Artery/Lesion type: [place] artery [place] vs. transplanted heart: [place] heart Qualified Code(s): I25.118 - Atherosclerotic heart disease of [place] coronary artery with other forms of angina pectoris (2) Hypertension: Since the blood pressure is in the normal range, patient may not require any medication changes at this time. Advised to continue on the current measures. Status: Acute Qualifiers: Hypertension type: primary hypertension Qualified Code(s): I10 - Essential (primary) hypertension (3) Hyperlipidemia: May continue on the current medication. Status: Acute Qualifiers: Hyperlipidemia type: mixed hyperlipidemia Qualified Code(s): E78.2 - Mixed hyperlipidemia (4) DM type 2 (diabetes mellitus, type 2): Continue on the current management. Follow-up evaluation as scheduled. 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 Status: Chronic Plan Sinus tachycardia-most likely because of the acute abdomen The patient's overall cardiovascular status seems to be stable. May continue on the current management Attestations Medical Necessity Statement*: Disposition as per the primary Coding Level of Care Code Acute Aircraft Refueler for Chg Fwd History Expanded Problem Focused Exam Expanded Problem Focused Medical Decision Making Moderate Complexity Diagnoses Atherosclerosis of coronary artery I25.118 Associated angina: with stable angina Coronary Disease-Associated Artery/Lesion type: [place] artery [place] vs. 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
[2022-07-10 21:24] LABS: Glucose Point of Care 171 mg/dL (70-110)
[2022-07-11] VITALS: BP 103/63; PULSE 89; RESP 17; TEMP 36.9; O2SAT 91
[2022-07-11] MEDS: piperacillin-tazobactam 3.375 GM in sodium chloride 0.9% (plus) 50 ML IV (01:00)
[2022-07-11] MEDS: famotidine 20 mg/2 mL INJ IVP (01:00)
[2022-07-11 04:00] VITALS: BP 125/71; PULSE 86; RESP 20; TEMP 37.1; O2SAT 96
[2022-07-11 05:16] LABS: Basophils # 0.1 10^3/uL (0.0-0.1); Basophils % 0.8 %; Eosinophils # 0.2 10^3/uL (0.0-0.8); Eosinophils % 1.6 %; Hematocrit 34.4 % (42.0-52.0); Hemoglobin 11.4 g/dL (11.7-16.6); Lymphocytes # 2.1 10^3/uL (0.8-4.8); Lymphocytes % 20.2 %; Mean Corpuscular HGB Conc 33.1 g/dL (30.0-36.0); Mean Corpuscular Hemoglobin 29.1 pg (28.0-34.0); Mean Corpuscular Volume 87.8 fl (80-94); Monocytes # 0.6 10^3/uL (0.2-0.9); Monocytes % 6.1 %; Neutrophils # 7.21 10^3/uL (1.8-7.7); Neutrophils % 70.7 %; Nucleated Red Blood Cells % 0 %; Platelet Count 206 10^3/cmm (130-400); Red Blood Count 3.92 10^6/uL (4.1-5.3); Red Cell Distribution Width 12.1 % (12.1-15.1); White Blood Count 10.2 10^3/uL (4.0-10.0)
[2022-07-11] MEDS: buPROPion XL (24 HR) 150 mg Tablet PO (05:22)
[2022-07-11 05:42] LABS: Alanine Aminotransferase 11 U/L (0-41); Albumin Level 3.5 g/dL (3.5-5.2); Alkaline Phosphatase 85 U/L (40-130); Anion Gap 15.6 (5-19); Aspartate Amino Transferase 8 U/L (0-40); Blood Urea Nitrogen 10 mg/dL (6-20); Calcium 8.5 mg/dL (8.5-10.5); Carbon Dioxide 24 mmol/L (22-29); Chloride 101 mmol/L (98-107); Globulin 2.9 g/dL (1.3-4.6); Glomerular Filtration Rate 122.5 mL/min (90-130); Glucose 169 mg/dL (65-115); Osmolality Calculated 287 mOsm/kg (285-295); Potassium 3.6 mmol/L (3.5-5.1); Sodium 137 mmol/L (136-145); Total Bilirubin 0.5 mg/dL (0.15-1.2); Total Protein 6.4 g/dL (6.6-8.7)
[2022-07-11 06:00] VITALS: PULSE 86
[2022-07-11 06:27] LABS: Glucose Point of Care 190 mg/dL (70-110)
--- NOTE | 2022-07-11 06:50 | PM.PN ---
Subjective Subjective: Feels better,toleartin po And has adequate urine output. Medications: Reviewed: Yes Vitals/I&O/Wt Last Vital Signs Temp 98.8 F 07/11/22 04:00 Pulse 86 07/11/22 06:00 Resp 20 H 07/11/22 04:00 BP 125/71 07/11/22 04:00 Pulse Ox 96 07/11/22 04:00 O2 Del Method 07/11/22 04:00 O2 Flow Rate 2 07/09/22 20:00 07/10/22 07/10/22 07/11/22 14:59 22:59 06:59 Intake Total 1193.75 / 1193.75 1274.583 / 2468.333 50 / 2518.333 Output Total 400 / 400 700 / 1100 1025 / 2125 Balance 793.75 / 793.75 574.583 / 1368.333 -975 / 393.333 Physical Exam Narrative: Patient is conscious alert oriented X3 No apparent distress BMI 39.2 Head and neck examination PERRLA no masses no cervical lymphadenopathy no jaundice Abdomen not tender nondistended soft no organomegaly guarding or rigidity/no signs of peritonitis Extremities no cyanosis no clubbing no edema Data : 07/11/22 04:55 07/11/22 04:55 A&P Assessment and plan (1) Incarcerated ventral hernia: Can DC home today Return to surgery office in 1 to 2 weeks Appreciate the hospitalist's input and cardiology feedback Patient was educated about appropriate hydration and avoiding constipation and follow-up with PCP No indication for antimicrobial therapy upon discharge Assurance and education All questions have been answered and all concerns have been addressed to patient's satisfaction. Status: Chronic Attestations Medical Necessity Statement*: Patient required inpatient hospitalization passing 2 midnights for resolution of bowel obstruction Coding Level of Care Code Acute Supervisor Capacitor Processing for g Fwd Diagnoses Incarcerated ventral hernia K43.6
[2022-07-11 08:00] VITALS: BP 138/81; PULSE 78; PULSE 87; RESP 16; RESP 21; TEMP 36.8; O2SAT 93; O2SAT 95
--- NOTE | 2022-07-11 08:36 | PM.DCS ---
Discharge Providers Date of Admission: 07/09/22 01:07 Date of Discharge: July 11, 2022 Attending Provider at Admission: Jorge Iverson MD Attending Provider at Discharge: Jorge Iverson MD Primary Care Provider: Benjamin Funk MD Diagnoses at Discharge Discharge Diagnosis (1) Incarcerated ventral hernia: Status: Chronic Reason for Visit Reason for Visit: ABD PAIN Hospital Course Hospital Course Rui is a 46-year-old white male who presented to the hospital with abdominal pain and vomiting, and was found to have a ventral hernia that was incarcerated with associated small bowel obstruction. Surgery was consulted. NG placed in secondary to elevated white count and concern of bowel obstruction Zosyn was initiated. As he was n.p.o., and had a recent LAD stenosis with drug-eluting stent placed his Brilinta had to be discontinued. In the interim as surgery was potentially needed he was started on Aggrenox. He was managed conservatively, and by the his abdominal pain was doing better. By the he was tolerating a diet and passing gas. Surgery thought he could be discharged home. Instructions on return were given, and he will follow-up with surgery as an outpatient. His Brilinta was restarted the day prior to discharge, and he received a loading dose the night of July 10. Patient was given the opportunity to ask questions, and agreed upon the discharge plan. Physical Exam Narrative: General exam no distress Neck is supple Cardiovascular regular rate and rhythm without murmur Lungs clear Abdomen is soft, positive bowel sounds Extremities no sinus clubbing or edema Discharge Data Studies Completed and Pending Completed Studies During Hospitalization Category Date Time Status CT angio chest abdomen pelvis Stat Cat Scan 07/08/22 22:22 Completed XR abdomen min 2V [id number] Routine Exams 07/10/22 06:00 Completed XR chest 1V portable [id number] Stat Exams 07/09/22 23:26 Completed Pending at discharge Category Date Time Status Complete Blood Count w/Auto AM LABS Lab 07/12/22 04:00 Ordered Comprehensive Metabolic Panel AM LABS Lab 07/12/22 04:00 Ordered Magnesium AM LABS Lab 07/12/22 04:00 Ordered Radiology Impressions Chest/Abdomen/Pelvis CTA 07/08/22 22:22 IMPRESSION: 1. No acute findings in the chest 2. There is no evidence of significant vascular stenosis or occlusion. 3. Ventral hernia which appears to be causing small bowel and large bowel obstruction. ADDENDUM: 07/09/22 0031 Addendum: THIS REPORT CONTAINS FINDINGS THAT MAY BE CRITICAL TO PATIENT CARE. The findings were verbally communicated via telephone conference with DEEJAY PAREDES at 12:30 AM CDT on 07/09/2022. The findings were acknowledged and understood. Chest X-Ray 07/09/22 23:26 IMPRESSION: 1. Decreased small lung volumes with mild bilateral perihilar lung interstitial opacities. These findings may represent mild pulmonary vascular congestion and atelectasis. No airspace opacities in the lungs. 2. Nasogastric tube, as noted above. Abdomen X-Ray 07/10/22 06:00 IMPRESSION: 1. Unchanged moderately gas distended loops of small bowel and colon in the abdomen with some air-fluid levels. These findings may represent adynamic ileus , although distal bowel obstruction cannot be excluded. Recommend correlation with bowel sound findings. 2. Nasogastric tube, as noted above. Laboratory Results WBC 10.2 10^3/uL (4.0-10.0) H 07/11/22 04:55 RBC 3.92 10^6/uL (4.1-5.3) L 07/11/22 04:55 Hgb 11.4 g/dL (11.7-16.6) L 07/11/22 04:55 Hct 34.4 % (42.0-52.0) L 07/11/22 04:55 MCV 87.8 fl (80-94) 07/11/22 04:55 MCH 29.1 pg (28.0-34.0) 07/11/22 04:55 MCHC 33.1 g/dL (30.0-36.0) 07/11/22 04:55 RDW 12.1 % (12.1-15.1) 07/11/22 04:55 Plt Count 206 10^3/cmm (130-400) 07/11/22 04:55 MPV 9.0 fL (7.4-10.4) 07/11/22 04:55 Neut % (Auto) 70.7 % 07/11/22 04:55 Lymph % (Auto) 20.2 % 07/11/22 04:55 [place] % (Auto) 6.1 % 07/11/22 04:55 Eos % (Auto) 1.6 % 07/11/22 04:55 Baso % (Auto) 0.8 % 07/11/22 04:55 Neut # (Auto) 7.21 10^3/uL (1.8-7.7) 07/11/22 04:55 Lymph # (Auto) 2.1 10^3/uL (0.8-4.8) 07/11/22 04:55 [place] # (Auto) 0.6 10^3/uL (0.2-0.9) 07/11/22 04:55 Eos # (Auto) 0.2 10^3/uL (0.0-0.8) 07/11/22 04:55 Baso # (Auto) 0.1 10^3/uL (0.0-0.1) 07/11/22 04:55 Nucleated RBC % (auto) 0 % 07/11/22 04:55 Nucleated RBCs # 0.0 /100WBC 07/11/22 04:55 PT 14.10 SECONDS (12.1-14.9) 07/10/22 04:26 INR 1.06 (0.8-1.2) 07/10/22 04:26 APTT 32.0 SECONDS (23.9-36.7) 07/10/22 04:26 Sodium 137 mmol/L (136-145) 07/11/22 04:55 Potassium 3.6 mmol/L (3.5-5.1) 07/11/22 04:55 Chloride 101 mmol/L (98-107) 07/11/22 04:55 Carbon Dioxide 24 mmol/L (22-29) 07/11/22 04:55 Anion Gap 15.6 (5-19) 07/11/22 04:55 BUN 10 mg/dL (6-20) 07/11/22 04:55 Creatinine 0.7 mg/dL (0.7-1.2) 07/11/22 04:55 GFR Calculation 122.5 mL/min (90-130) 07/11/22 04:55 Glucose 169 mg/dL (65-115) H 07/11/22 04:55 POC Glucose 190 mg/dL (70-110) H 07/11/22 06:02 Estimat Average Glucose 280 07/09/22 04:12 Hemoglobin A1c 11.4 % (4.0-6.0) H 07/09/22 04:12 Calculated Osmolality 287 mOsm/kg (285-295) 07/11/22 04:55 Lactate 1.2 mmol/L (0.5-2.2) 07/10/22 04:26 Calcium 8.5 mg/dL (8.5-10.5) 07/11/22 04:55 Magnesium 2.0 mg/dL (1.7-2.3) 07/11/22 04:55 Total Bilirubin 0.5 mg/dL (0.15-1.2) 07/11/22 04:55 AST 8 U/L (0-40) 07/11/22 04:55 ALT 11 U/L (0-41) 07/11/22 04:55 Alkaline Phosphatase 85 U/L (40-130) 07/11/22 04:55 Troponin T Baseline 10 ng/L (0-15) 07/08/22 22:20 Troponin T 120 Minute 9.07 ng/L (0-15) 07/09/22 00:29 Delta Troponin T -0.93 ABS# (0-10) L 07/09/22 00:29 Troponin T Hi Sens 6Hr 9.98 ng/L (0-15) 07/09/22 04:12 Troponin T Hi Sens 6Hr Delta -0.02 ng/L (0-12) L 07/09/22 04:12 C-Reactive Protein 120.7 mg/L (0.0-4.9) H 07/10/22 04:26 Total Protein 6.4 g/dL (6.6-8.7) L 07/11/22 04:55 Albumin 3.5 g/dL (3.5-5.2) 07/11/22 04:55 Globulin 2.9 g/dL (1.3-4.6) 07/11/22 04:55 Lipase 24 U/L (13-60) 07/08/22 22:20 Urine Color Yellow (Yellow) 07/08/22 22:48 Urine Appearance Clear (CLEAR) 07/08/22 22:48 Urine pH 5 (5-7) 07/08/22 22:48 Ur Specific [place] 1.020 (1.005-1.030) 07/08/22 22:48 Urine Protein Neg (Negative) 07/08/22 22:48 Urine Glucose (UA) 4+ (Normal) H 07/08/22 22:48 Urine Ketones 1+ (Negative) H 07/08/22 22:48 Urine Blood Neg (Negative) 07/08/22 22:48 Urine Nitrate Negative (Negative) 07/08/22 22:48 Urine Bilirubin Neg (Negative) 07/08/22 22:48 Urine Urobilinogen Neg mg/dL (Negative) 07/08/22 22:48 Ur Leukocyte Esterase Negative (Negative) 07/08/22 22:48 Vitals Last Vital Signs Temp 98.3 F 07/11/22 08:00 Pulse 87 07/11/22 08:00 Resp 21 H 07/11/22 08:00 BP 138/81 07/11/22 08:00 Pulse Ox 93 07/11/22 08:00 O2 Del Method 07/11/22 08:00 O2 Flow Rate 2 07/09/22 20:00 Discharge Plan Discharge Patient Disposition: Home Condition: Stable Prescriptions: New docusate sodium [Colace] 100 mg capsule 100 mg PO BID Qty: 60 0RF pantoprazole [Protonix] 40 mg tablet,delayed release (DR/EC) 40 mg PO DAILY Qty: 30 0RF Continued Victoza 3-Garrett 0.6 mg/0.1 mL (18 mg/3 mL) pen injector 1.8 mg SUBCUT Q24H 90 Days Qty: 27 1RF Brilinta 90 mg tablet 90 mg PO BID 90 Days Qty: 180 0RF Rx Instructions: 340b metformin 500 mg tablet extended release 24 hr 1,000 mg PO BID 90 Days Qty: 360 1RF gabapentin 300 mg capsule 600 mg PO BID 90 Days Qty: 360 0RF nitroglycerin 0.4 mg tablet, sublingual 0.4 mg sublingual Q5M PRN (Reason: chest pain) 90 Days Qty: 90 0RF Rx Instructions: do not exceed 3 doses per episode (DME) Comfort EZ Pen [place] 32 gauge x 5/16 needle See Rx Instructions .Route Qty: 100 2RF Rx Instructions: As directed Novolin R Regular U-100 Insuln 100 unit/mL solution See Rx Instructions .ROUTE .COMPLEX Qty: 10 0RF Rx Instructions: PER SLIDING SCALE WITH MEALS multivitamin Tablet 1 tab PO DAILY lisinopril 20 mg tablet 20 mg PO QAM chlorthalidone 25 mg tablet 25 mg PO QAM Aspir-81 81 mg Tablet,Delayed Release (Dr/Ec) 81 mg PO QAM simvastatin 40 mg tablet 40 mg PO BEDTIME Novolin N NPH U-100 Insulin 100 unit/mL Suspension 42 unit SUBCUT BEDTIME ProAir HFA 90 mcg/actuation HFA aerosol inhaler 1 puff INHALATION QID PRN (Reason: Shortness Of Breath) Vitamin D3 25 mcg (1,000 unit) Capsule 25 mcg PO QAM bupropion HCl 150 mg tablet extended release 24 hr 150 mg PO QAM metoprolol tartrate 25 mg tablet 25 mg PO BID duloxetine 60 mg capsule,delayed release(DR/EC) 60 mg PO BEDTIME levocetirizine 5 mg tablet 5 mg PO BEDTIME Discharge Orders: Discharge Order (Routine); Ordered 07/11/22 Ordered By: Mauricio Peters Referrals: Jorge Iverson MD [Physician] - 7-10 days Benjamin Funk MD [Primary Care Provider] - 4-7 days Discharge Diet: Cardiac, Diabetic and Soft Mechanical Discharge Activity: Increase activity as tolerated Patient Instructions: Opioid Safety Activity Restrictions/Additional Instructions: Take all medicine as prescribed. Keep follow-up as arranged Soft foods, avoid constipation Return for any worsening abdominal pain and vomiting, or fever. Discharge Attestations Time Spent in Discharge Care*: greater than 30 min Status at Discharge: Cognitive status at discharge: cognitively intact, Behavioral status at discharge: cooperative, Quality Metrics Clinical Quality Measures [ No reported AMI, CVA or VTE this stay] Coding Level of Care Code Acute Chg FW DC note Diagnoses Incarcerated ventral hernia K43.6
[2022-07-11] MEDS: gabapentin 300 mg Capsule 600 MG PO (09:28)
[2022-07-11] MEDS: aspirin 81 mg EC Tablet PO (09:29)
[2022-07-11] MEDS: duloxetine 60 mg Capsule PO (09:29)
[2022-07-11] MEDS: atorvastatin 40 mg Tablet 20 MG PO (09:29)
[2022-07-11] MEDS: lisinopril 20 mg Tablet PO (09:30)
[2022-07-11] MEDS: metoprolol tartrate 25 mg Tablet PO (09:30)
[2022-07-11] MEDS: insulin lispro 100 unit/1 mL SUBCUT (09:32)
[2022-07-11] MEDS: ticagrelor 90 mg Tablet PO (09:38)
[2022-07-11 11:18] VITALS: BP 138/81; PULSE 78; RESP 16; TEMP 36.8; O2SAT 95
== END 2022-07-11 09:55 | disposition home or self-care (01) | DRG 395 ==
LOC: ER 23:24 → MEDSURG 07-09 01:22
PROVIDERS: Internal Medicine; Admitting Provider Surgery; Emergency Provider Emergency Medicine; PCP Family Medicine; Visit Provider Surgery
DX: K43.6 Other and unspecified ventral hernia with obstruction, without gangrene (principal); I25.118 Atherosclerotic heart disease of native coronary artery with other forms of angina pectoris; I10 Essential (primary) hypertension; E11.42 Type 2 diabetes mellitus with diabetic polyneuropathy; E11.65 Type 2 diabetes mellitus with hyperglycemia; E78.2 Mixed hyperlipidemia; R00.0 Tachycardia, unspecified; Z95.5 Presence of coronary angioplasty implant and graft; Z87.891 Personal history of nicotine dependence; Z79.4 Long term (current) use of insulin; Z79.84 Long term (current) use of oral hypoglycemic drugs; Z86.73 Personal history of transient ischemic attack (TIA), and cerebral infarction without residual deficits; Z86.16 Personal history of COVID-19; Z86.74 Personal history of sudden cardiac arrest; Z79.82 Long term (current) use of aspirin
CPT/HCPCS: 36415; 36416; 71045; 71275; 74019; 74174; 80053; 81003; 82962; 83036; 83605; 83690; 83735; 84484; 85025; 85610; 85730; 86140; 93005; 94664; 96365; 96372; 96375; 99285; C9113; J1170; J1200; J1815; J2250; J2270; J2405; J2543; J2765; J3475; J3490; J7030; Q9967

== ENCOUNTER 2022-07-13 08:51 | Emergency (ER) | payer MEDICAID, SELFPAY ==
[2022-07-13] VITALS (15 sets, daily range): BP systolic 108–158; BP diastolic 54–91; PULSE 70–89; RESP 16–28; TEMP 35.8; O2SAT 90–99; BMI 41.5
--- NOTE | 2022-07-13 08:59 | W.ED.ABDPA2 ---
HPI - Abdominal Pain General: Chief Complaint: Abdominal Pain Stated Complaint: ABDOMINAL PAIN/ HERNIA Time Seen by Provider: 07/13/22 08:59 History of Present Illness: Mr. Jiang is a 46-year-old gentleman with complex past medical history including recent cardiac cath with PCI, recent hospitalization for nonoperatively managed bowel obstruction presenting to the emergency department due to abdominal pain and nausea vomiting. Onset of symptoms was last night and subcu. He has had numerous episodes of nonbilious nonbloody emesis associated with worse abdominal cramping. She denies other evidence of systemic illness. Intensity symptoms is moderate. No other specific changes in health, exacerbating, or alleviating factors identified. Onset (ago): hour(s) Pain Consistency: constant Location: Diffuse Severity: mild Associated Symptoms: Reports diarrhea, nausea and vomiting Review of Systems General: Reports: 10 or more systems reviewed and unremarkable except in HPI and below GI: Reports: nausea, vomiting and diarrhea PFSH ED PFSH: Medical History Abnormal stress test Anxiety Atherosclerosis of coronary artery Bilateral lower extremity edema Chest pain Chest pain Chest pain COVID-19 virus infection CVA (cerebral vascular accident) Diabetes mellitus DM type 2 (diabetes mellitus, type 2) Essential hypertension Herpes zoster Hyperlipidemia Hyperlipidemia associated with type 2 diabetes mellitus Hypertension Left knee pain Obese Restrictive lung disease Shortness of breath Tobacco use disorder Vertigo Surgical History History of heart artery stent Family History Grandfather Anesthesia complication CAD (coronary artery disease) Chronic kidney disease (CKD) Dementia Diabetes Grandmother CAD (coronary artery disease) Cancer Chronic kidney disease (CKD) Diabetes Lung disease Stroke Family/Other CAD (coronary artery disease) Cancer Mother Diabetes CAD (coronary artery disease) Grandfather Diabetes Denies family history of Clotting disorder Suicide Bleeding disorder Social History Smoking and tobacco status: never smoked Quit status (tobacco): has quit using tobacco Year quit tobacco: unknown Former quit date comment: smoked 4-5 cigars/day x 3 years Second hand smoke exposure: Yes Smoking risk assessment/counseling performed?: Yes Alcohol intake: current Alcohol intake frequency: holidays/special occasions only Desire information about alcohol rehabilitation?: No Lives independently: Yes Household members: spouse Marital status: service: No Current occupational status: employed Pets and animals: Yes History of recent travel: No Current gender identity: Male Physical Exam Const: COMMON NORMALS: alert GENERAL APPEARANCE: cooperative and well developed HENMT: COMMON NORMALS: normocephalic and atraumatic HEAD & SCALP: normocephalic and atraumatic THROAT: posterior oropharynx normal Eye: COMMON NORMALS: conjunctivae normal CONJUNCTIVA: Yes conjunctivae normal SCLERA: sclerae normal Neck/C-Spine: COMMON NORMALS: supple GENERAL: Yes trachea midline Resp: COMMON NORMALS: normal respiratory effort and clear to auscultation bilaterally EFFORT & INSPECTION: Yes able to speak in complete sentences AUSCULTATION: clear to auscultation bilaterally Cardio: COMMON NORMALS: regular rate and regular rhythm RATE: regular rate RHYTHM: regular rhythm GI: COMMON NORMALS: Soft to palpation PALPATION: Yes Soft to palpation, Yes Tenderness to palpation present (GI), No Guarding due to palpation present (GI) and No Rigid due to palpation OTHER: Numerous surgical scars which complicates assessment of masses though no obvious palpable mass identified. Extremity: GENERAL: Yes normal exam except as noted and No edema Neuro: COMMON NORMALS: moves all extremities SENSORIUM/ORIENTATION: Yes alert and No Orientation impaired Psych: COMMON NORMALS: mental status grossly normal and Normal thought process present THOUGHT PROCESS: Normal thought process present Course ED course: - Patient was seen and evaluated by me at bedside - Patient placed on cardiac monitors, IV access obtained - Initial evaluation notable for exam as above - Labs and xrays personally interpreted by me - analgesia, and antiemetic given - Labs notable for my leukocytosis, normal hemoglobin. Metabolic panel without acute electrolyte derangement. No UTI. - Imaging notable for small bowel obstruction in addition to abnormal appearance of small bowel and antral hernia concerning for additional small bowel obstruction. Possible closed-loop obstruction. - Upon serial reexamination after treatment the patient was somewhat improved. - Based on patient history, evaluation, and testing as interpreted the most likely cause of the patient's condition is complex small bowel obstruction that has apparently failed conservative management -Discussed with general surgery who, in the context of anticoagulation due to recent cardiac procedure feels that patient exceeds our level of care available. Transfer recommended. - The results of ED evaluation were discussed with the patient including plan for transfer due to requirement for level of care not available if discharged to prevent significant worsening/deterioration. - Patient scented by general surgery in [place]. - Patient was transferred without further deterioration or significant events. Note: Click bubbles or prepopulated roth in note writing are used for assistance with data collection and billing and are inherently more limited than narrative and other text portions of this note. Please use narrative for additional clinical history and defer to narrative/free test for any case of contradictory information. If information appears in only free text or click bubble it should be considered present or absent as reported. Please contact note magnetic tape typewriter operator for clarifications of clinical information or contradictory information. MDM is a brief summary, contradictory or erroneous seeming information should be clarified and full note should be reviewed. Vital Signs: Vital signs: Vital Signs Temperature 96.5 F L 07/13/22 08:52 Pulse Rate 77 07/13/22 15:47 Respiratory Rate 22 H 07/13/22 15:47 Blood Pressure 136/63 07/13/22 15:00 Pulse Oximetry 93 07/13/22 15:47 Oxygen Delivery Me thod 07/13/22 09:50 MDM - Abdominal Pain Medical Decision Making 46-year-old gentleman with complex recent medical history including PCI on anticoagulation presenting with recurrent symptoms of obstruction for which he was previously hospitalized. Bowel obstruction persist on imaging. Discussed with general surgery. Patient transferred for definitive care. Medical Records I reviewed the patient's medical records. Lab Data I reviewed the patient's lab results. : 07/13/22 10:20 07/13/22 10:20 Labs/Radiology: Radiology Impressions Abdomen/Pelvis CT 07/13/22 09:53 IMPRESSION: 1. Findings concerning for intestinal malrotation. 2. Persistent abnormally dilated small bowel loops in the right lower quadrant with a transition in the right lower quadrant of indeterminate etiology, concerning for small bowel obstruction, similar to prior exam. 3. Persistent abnormally dilated small bowel loops in the left abdomen with transition associated with the ventral hernia, concerning for small bowel obstruction with possible closed loop obstruction, similar to prior exam. Minimal wall thickening in the small bowel loops contained within the hernia but no significant fluid or inflammatory changes. 4. The ventral hernia contains portions of the colon but no signs of colonic obstruction. 5. Thread-like scarring/occlusion of the left common iliac vein similar to prior exam with prominent internal iliac collaterals noted. COMMENTS: Evaluation of solid organs and vascular structures is limited as no IV contrast was administered. ADDENDUM: 07/13/22 1110 THIS REPORT CONTAINS FINDINGS THAT MAY BE CRITICAL TO PATIENT CARE. The findings were verbally communicated via telephone conference with Naveen Chaidez at 11:08 AM CDT on 07/13/2022. The findings were acknowledged and understood. Laboratory Results WBC 10.2 10^3/uL (4.0-10.0) H 07/13/22 10:20 RBC 4.04 10^6/uL (4.1-5.3) L 07/13/22 10:20 Hgb 11.8 g/dL (11.7-16.6) 07/13/22 10:20 Hct 34.8 % (42.0-52.0) L 07/13/22 10:20 MCV 86.1 fl (80-94) 07/13/22 10:20 MCH 29.2 pg (28.0-34.0) 07/13/22 10:20 MCHC 33.9 g/dL (30.0-36.0) 07/13/22 10:20 RDW 11.9 % (12.1-15.1) L 07/13/22 10:20 Plt Count 271 10^3/cmm (130-400) 07/13/22 10:20 MPV 8.6 fL (7.4-10.4) 07/13/22 10:20 Neut % (Auto) 76.5 % 07/13/22 10:20 Lymph % (Auto) 14.6 % 07/13/22 10:20 [place] % (Auto) 6.5 % 07/13/22 10:20 Eos % (Auto) 0.8 % 07/13/22 10:20 Baso % (Auto) 0.5 % 07/13/22 10:20 Neut # (Auto) 7.78 10^3/uL (1.8-7.7) H 07/13/22 10:20 Lymph # (Auto) 1.5 10^3/uL (0.8-4.8) 07/13/22 10:20 [place] # (Auto) 0.7 10^3/uL (0.2-0.9) 07/13/22 10:20 Eos # (Auto) 0.1 10^3/uL (0.0-0.8) 07/13/22 10:20 Baso # (Auto) 0.1 10^3/uL (0.0-0.1) 07/13/22 10:20 Nucleated RBC % (auto) 0 % 07/13/22 10:20 Nucleated RBCs # 0.0 /100WBC 07/13/22 10:20 Sodium 139 mmol/L (136-145) 07/13/22 10:20 Potassium 3.6 mmol/L (3.5-5.1) 07/13/22 10:20 Chloride 102 mmol/L (98-107) 07/13/22 10:20 Carbon Dioxide 25 mmol/L (22-29) 07/13/22 10:20 Anion Gap 15.6 (5-19) 07/13/22 10:20 BUN 8 mg/dL (6-20) 07/13/22 10:20 Creatinine 0.8 mg/dL (0.7-1.2) 07/13/22 10:20 GFR Calculation 105.0 mL/min (90-130) 07/13/22 10:20 Glucose 119 mg/dL (65-115) H 07/13/22 10:20 Calculated Osmolality 287 mOsm/kg (285-295) 07/13/22 10:20 Lactic Acid 1.0 mmol/L (0.5-2.2) 07/13/22 10:20 Calcium 8.7 mg/dL (8.5-10.5) 07/13/22 10:20 Total Bilirubin 0.3 mg/dL (0.15-1.2) 07/13/22 10:20 AST 10 U/L (0-40) 07/13/22 10:20 ALT 12 U/L (0-41) 07/13/22 10:20 Alkaline Phosphatase 85 U/L (40-130) 07/13/22 10:20 Total Protein 6.3 g/dL (6.6-8.7) L 07/13/22 10:20 Albumin 3.8 g/dL (3.5-5.2) 07/13/22 10:20 Globulin 2.5 g/dL (1.3-4.6) 07/13/22 10:20 Lipase 19 U/L (13-60) 07/13/22 10:20 Urine Color Yellow (Yellow) 07/13/22 11:15 Urine Appearance Clear (CLEAR) 07/13/22 11:15 Urine pH 5 (5-7) 07/13/22 11:15 Ur Specific [place] 1.025 (1.005-1.030) 07/13/22 11:15 Urine Protein Neg (Negative) 07/13/22 11:15 Urine Glucose (UA) Norm (Normal) 07/13/22 11:15 Urine Ketones 1+ (Negative) H 07/13/22 11:15 Urine Blood Neg (Negative) 07/13/22 11:15 Urine Nitrate Negative (Negative) 07/13/22 11:15 Urine Bilirubin Neg (Negative) 07/13/22 11:15 Urine Urobilinogen Norm mg/dL (Negative) 07/13/22 11:15 Ur Leukocyte Esterase Negative (Negative) 07/13/22 11:15 Discharge Plan Discharge Patient Disposition: Xfer Short-Term Hosp Clinical Impression: Small bowel obstruction, Abdominal pain, Ventral hernia, Anticoagulation adequate Condition: Stable Referrals: Benjamin Funk MD [Primary Care Provider] - Patient Instructions: Abdominal Pain (ED) Coding Level of Care Code ED Windows Consultant for Chg Fwd Exam Comprehensive
[2022-07-13] MEDS: ondansetron 2 mg/ML SDV 2 mL 4 MG IVP (09:44)
[2022-07-13] MEDS: fentaNYL 50 mcg/mL INJ 2mL IVP (09:47)
--- NOTE | 2022-07-13 09:53 | CTR_ITS ---
PROCEDURE INFORMATION: Exam: CT Abdomen And Pelvis Without Contrast Exam date and time: 07/13/2022 10:06 AM Age: 46 years old Clinical indication: Condition or disease; Other: Recurrent bowel obstruction; Prior surgery; Surgery date: 6+ months; Surgery type: Hernia surgery TECHNIQUE: Imaging protocol: Computed tomography of the abdomen and pelvis without contrast. Radiation optimization: All CT scans at this facility use at least one of these dose optimization techniques: automated exposure control; mA and/or kV adjustment per patient size (includes targeted exams where dose is matched to clinical indication); or iterative reconstruction. COMPARISON: CT angio chest abdomen pelvis 07/08/2022 11:16 PM RADIATION DOSE METRICS: Total DLP (mGy-cm): 1292.02 FINDINGS: Lungs: The visualized lung bases demonstrate no focal airspace opacification or pleural effusion. Heart: Coronary artery calcifications noted. Liver: The liver is normal in size and contour. Gallbladder and bile ducts: The gallbladder is distended with normal wall thickness and does not demonstrate calcified gallstones. No intra- or extra-hepatic biliary ductal dilatation. Pancreas: The pancreas appears normal. Spleen: The spleen appears normal. Adrenal glands: The adrenals appear normal. Kidneys and ureters: The kidneys empty into non-dilated ureters. No renal or ureteral stones are identified. No perinephric or periureteral fat tissue stranding is identified. Stomach and bowel: The stomach is partially distended and appears unremarkable. The duodenum noted does not appear to cross the midline. The SMA is to the right of the SMV. These findings may be consistent malrotation. Abnormally dilated small bowel loops in the right abdomen measuring up to 4.6 cm in diameter. Possible transition to collapsed distal small bowel in the right lower quadrant, similar to prior exam, of indeterminate etiology. 15 cm anterior abdominal wall hernia containing multiple small and large bowel loops. Abnormally dilated small bowel loops in the left abdomen measuring up to 4.1 cm in diameter. Transition point associated with the left portion of the ventral hernia. Small bowel loops within the hernia measuring up to 3.1 cm in diameter and again collapse at the transition through the hernia. Short segment of small bowel within the hernia demonstrates circumferential wall thickening. No significant ascites within the hernia or inflammatory changes. Some fecalization noted in the small bowel. No definitive pneumatosis identified. A portion of the transverse colon is contained within the large ventral hernia. No significant upstream colonic dilatation identified. Appendix: No signs of appendicitis. Intraperitoneal space: No ascites. Vasculature: The SMA is to the right of the SMV. The aorta is nonaneurysmal. Thread-like scarring/occlusion of the left common iliac vein similar to prior exam with prominent internal iliac collaterals noted. No portal venous air identified. Lymph nodes: Partially visualized calcified right hilar lymph node identified. No abdominopelvic lymphadenopathy identified. Urinary bladder: The bladder is distended and demonstrates no focal contour abnormality. Reproductive: The prostate is unremarkable. The seminal vesicles are unremarkable. Bones/joints: Review of the bone windows demonstrates no significant abnormality. Soft tissues: Ventral hernia as discussed above. CT/CT abdomen pelvis wo con [id number] IMPRESSION: 1. Findings concerning for intestinal malrotation. 2. Persistent abnormally dilated small bowel loops in the right lower quadrant with a transition in the right lower quadrant of indeterminate etiology, concerning for small bowel obstruction, similar to prior exam. 3. Persistent abnormally dilated small bowel loops in the left abdomen with transition associated with the ventral hernia, concerning for small bowel obstruction with possible closed loop obstruction, similar to prior exam. Minimal wall thickening in the small bowel loops contained within the hernia but no significant fluid or inflammatory changes. 4. The ventral hernia contains portions of the colon but no signs of colonic obstruction. 5. Thread-like scarring/occlusion of the left common iliac vein similar to prior exam with prominent internal iliac collaterals noted. COMMENTS: Evaluation of solid organs and vascular structures is limited as no IV contrast was administered.
[2022-07-13 10:32] LABS: Basophils # 0.1 10^3/uL (0.0-0.1); Basophils % 0.5 %; Eosinophils # 0.1 10^3/uL (0.0-0.8); Eosinophils % 0.8 %; Hematocrit 34.8 % (42.0-52.0); Hemoglobin 11.8 g/dL (11.7-16.6); Lymphocytes # 1.5 10^3/uL (0.8-4.8); Lymphocytes % 14.6 %; Mean Corpuscular HGB Conc 33.9 g/dL (30.0-36.0); Mean Corpuscular Hemoglobin 29.2 pg (28.0-34.0); Mean Corpuscular Volume 86.1 fl (80-94); Mean Platelet Volume 8.6 fL (7.4-10.4); Monocytes # 0.7 10^3/uL (0.2-0.9); Monocytes % 6.5 %; Neutrophils # 7.78 10^3/uL (1.8-7.7); Neutrophils % 76.5 %; Nucleated Red Blood Cells % 0 %; Platelet Count 271 10^3/cmm (130-400); Red Blood Count 4.04 10^6/uL (4.1-5.3); Red Cell Distribution Width 11.9 % (12.1-15.1); White Blood Count 10.2 10^3/uL (4.0-10.0)
[2022-07-13 10:49] LABS: Alanine Aminotransferase 12 U/L (0-41); Albumin Level 3.8 g/dL (3.5-5.2); Alkaline Phosphatase 85 U/L (40-130); Anion Gap 15.6 (5-19); Aspartate Amino Transferase 10 U/L (0-40); Blood Urea Nitrogen 8 mg/dL (6-20); Calcium 8.7 mg/dL (8.5-10.5); Carbon Dioxide 25 mmol/L (22-29); Chloride 102 mmol/L (98-107); Globulin 2.5 g/dL (1.3-4.6); Glucose 119 mg/dL (65-115); Lipase 19 U/L (13-60); Osmolality Calculated 287 mOsm/kg (285-295); Potassium 3.6 mmol/L (3.5-5.1); Sodium 139 mmol/L (136-145); Total Bilirubin 0.3 mg/dL (0.15-1.2); Total Protein 6.3 g/dL (6.6-8.7)
[2022-07-13 12:39] LABS: Add Urine Microscopic? NO; Charge for UA Resulting for Rev
[2022-07-13 12:43] LABS: Bilirubin Urine Neg (Negative); Blood Urine Neg (Negative); Glucose Urine UA Norm (Normal); Ketones Urine 1+ (Negative); Leukocyte Esterase Urine Negative (Negative); Nitrate Urine Negative (Negative); Protein Urine Neg (Negative); Specific Gravity, Urine 1.025 (1.005-1.030); Urine Appearance Clear (CLEAR); Urine Color Yellow (Yellow); Urobilinogen Urine Norm (Negative); pH Urine 5 (5-7)
== END 2022-07-13 15:49 | disposition short-term general hospital (02) ==
PROVIDERS: Emergency Provider Emergency Medicine; PCP Family Medicine
DX: K43.6 Other and unspecified ventral hernia with obstruction, without gangrene (principal); D68.318 Other hemorrhagic disorder due to intrinsic circulating anticoagulants, antibodies, or inhibitors; I25.10 Atherosclerotic heart disease of native coronary artery without angina pectoris; Z86.73 Personal history of transient ischemic attack (TIA), and cerebral infarction without residual deficits; E11.9 Type 2 diabetes mellitus without complications; I10 Essential (primary) hypertension; E78.5 Hyperlipidemia, unspecified; Z87.891 Personal history of nicotine dependence
CPT/HCPCS: 74176; 80053; 81003; 83605; 83690; 85025; 96374; 96375; 99285; J2405; J3010

== ENCOUNTER → 2022-07-23 14:20 | Outpatient (BNVA) | payer MEDICAID, SELFPAY | PROVIDERS: PCP Family Medicine; Visit Provider Nurse Practitioner | DX: R52 Pain, unspecified (principal); U07.1 COVID-19 | CPT/HCPCS: 87426 ==

== ENCOUNTER → 2022-09-24 13:35 | Outpatient (BNVA) | payer MEDICAID, SELFPAY | PROVIDERS: PCP Family Medicine; Visit Provider Nurse Practitioner | DX: R06.2 Wheezing (principal) | CPT/HCPCS: 71046 ==

== ENCOUNTER 2022-09-29 17:11 | Emergency (ER) | payer MEDICAID, SELFPAY ==
[2022-09-29 17:13] VITALS: BMI 42.5
[2022-09-29 17:16] VITALS: BP 170/103; PULSE 99; RESP 18; TEMP 36.3; O2SAT 95
--- NOTE | 2022-09-29 17:31 | CTR_ITS ---
PROCEDURE INFORMATION: Exam: CT Abdomen And Pelvis With Contrast Exam date and time: 09/29/2022 6:33 PM Age: 46 years old Clinical indication: Abdominal pain; Additional info: Bowel obsruction TECHNIQUE: Imaging protocol: Computed tomography of the abdomen and pelvis with contrast. Axial, coronal and sagittal reformatted images were created and reviewed. Radiation optimization: All CT scans at this facility use at least one of these dose optimization techniques: automated exposure control; mA and/or kV adjustment per patient size (includes targeted exams where dose is matched to clinical indication); or iterative reconstruction. Contrast material: OMNIPAQUE 350; Contrast volume: 100 ml; Contrast route: INTRAVENOUS (IV); Other contrast: Oral; COMPARISON: CT abdomen pelvis wo con [id number] 07/13/2022 10:06 AM RADIATION DOSE METRICS: Total DLP (mGy-cm): 1213.93 FINDINGS: Lungs: Linear stranding and groundglass at the lung bases, likely due to atelectasis and/or scarring. Liver: Diffuse hepatic steatosis. Gallbladder and bile ducts: No radiodense gallstones. No biliary ductal dilatation. Pancreas: Unremarkable. Spleen: Coarse calcified splenic granuloma. Adrenal glands: Normal. No mass. Kidneys and ureters: Subcentimeter low-density right renal lesions, measuring up to 9 mm, too small to characterize. No radiodense calculi. No hydronephrosis. Stomach and bowel: Mobile cecum. Multiple dilated loops of small bowel with air-fluid levels and somewhat gradual transition to decompressed small bowel in the right lower quadrant, where there is associated fecalization. Mild dilatation of the right colon to the level of the ventral abdominal wall hernia. No definite bowel wall thickening. No pneumatosis. Appendix: Appendix not identified with certainty. Intraperitoneal space: Mild infiltration of the mesenteric fat in the left mid abdomen. No ascites. No organized collection. No free air. Vasculature: Unremarkable. No aneurysm. Lymph nodes: No pathologically enlarged lymph nodes. Urinary bladder: Unremarkable as visualized. Reproductive: Unremarkable. Bones/joints: No acute osseous abnormality. Osteopenia. Degenerative changes. Soft tissues: Left ventral abdominal wall hernia containing dilated loops of small bowel and a small portion of the transverse colon. CT/CT abdomen pelvis w con* [id number] IMPRESSION: 1. No significant interval change with findings suggestive of possible partial small and large bowel obstructions at the level of a left ventral abdominal wall hernia. 2. Additional findings, as above. COMMENTS: Consistent with the [employer]'s Incidental Findings Committee white paper (J Am Amie Radiol 2018): Any incidental renal lesion less than 1 cm or classified as too small to characterize, or any incidental cystic renal lesion characterized as simple-appearing, is likely benign. No follow-up imaging is recommended for these lesions per consensus recommendations based on imaging criteria.
--- NOTE | 2022-09-29 17:34 | ED_ITS ---
HPI - Abdominal Pain General: Chief Complaint: Abdominal Pain Stated Complaint: abd pain Time Seen by Provider: 09/29/22 17:23 History of Present Illness: 46-year-old male who presents with abdominal pain with associated nausea. The pain started at 3 AM today. The pain came on sudde nly and is gradually worsened. He had associated nausea but no vomiting. Last BM was at 2 PM. He states he has not passed any flatus since that time. He has had a bowel obstruction in the past for similar pain. He has had a previous incarcerated ventral hernia in the past, reduced by NG tube decompression. He states his pain is severe, 10 out of 10. He has had associated diaphoresis but no fever. Associated Symptoms: Denies hematochezia, hematuria, hematemesis, melena and syncope Review of Systems General: Reports: 10 or more systems reviewed and unremarkable except in HPI and below Const: Denies: fatigue Eyes: Denies: change in vision ENMT: Denies: change in hearing, tinnitus, disequilibrium or epistaxis Card: Denies: chest pain, palpitations, irregular heart rhythm, swelling of feet/ankles, lightheadedness, syncope, pre-syncope or dyspnea on exertion (improved) Resp: Reports: productive cough; Denies: dyspnea GI: Reports: abdominal pain; Denies: hematemesis, hematochezia or melena : Denies: hematuria Musc: Reports: extremity pain (LLE heaviness and tenderness), extremity swelling (LLE) and joint pain (chronic); Denies: neck pain, back pain, muscle cramps or muscle weakness Skin/Breast: Denies: rash or pruritus Neuro: Denies: headache(s), numbness in extremities or weakness in extremities Psych: Denies: anxiety or depression Endo: Reports: excessive sweating; Denies: polyuria, polydipsia or tired all the time Jeff/Lymph: Reports: easy bruising and easy bleeding All/Imm: Denies: urticaria, throat swelling, tongue swelling, facial swelling, acute wheezing, itchy eyes, seasonal rhinorrhea or food intolerance [facility] ED PFSH: Medical History Abnormal stress test Anxiety Atherosclerosis of coronary artery Bilateral lower extremity edema Chest pain Chest pain Chest pain COVID-19 virus infection CVA (cerebral vascular accident) Diabetes mellitus DM type 2 (diabetes mellitus, type 2) Essential hypertension Herpes zoster Hyperlipidemia Hyperlipidemia associated with type 2 diabetes mellitus Hypertension Left knee pain Obese Restrictive lung disease Shortness of breath Tobacco use disorder Vertigo Surgical History History of heart artery stent Family History Grandfather Anesthesia complication CAD (coronary artery disease) Chronic kidney disease (CKD) Dementia Diabetes Grandmother CAD (coronary artery disease) Cancer Chronic kidney disease (CKD) Diabetes Lung disease Stroke Family/Other CAD (coronary artery disease) Cancer Mother Diabetes CAD (coronary artery disease) Grandfather Diabetes Denies family history of Clotting disorder Suicide Bleeding disorder Social History Smoking and tobacco status: never smoked Quit status (tobacco): has quit using tobacco Year quit tobacco: unknown Former quit date comment: smoked 4-5 cigars/day x 3 years Second hand smoke exposure: Yes Smoking risk assessment/counseling performed?: Yes Alcohol intake: current Alcohol intake frequency: holidays/special occasions only Desire information about alcohol rehabilitation?: No Lives independently: Yes Household members: spouse Marital status: service: No Current occupational status: employed Pets and animals: Yes History of recent travel: No Current gender identity: Male Physical Exam Narrative: EXAM NARRATIVE: GENERAL: The patient is alert and oriented times three. Not in any acute distress. HEENT: No significant pallor, icterus or lymphadenopathy.Oral cavity: There are no mucous membrane lesions. NECK: Trachea appears to be central. No masses noted. No JVD or thyromegaly appreciated. RESPIRATORY: Chest is symmetrical. No intercostals muscle retraction or any accessory muscle activation. There is no chest wall tenderness. Breath sounds are heard bilaterally. No rales or rhonchi heard. No evidence of any consoli dation. BREASTS: Deferred. HEART: The heart sounds are normal. No S3 or S4. Short systolic murmur at the left sternal border.. No pericardial rub ABDOMEN: Extensive scarring of the abdominal wall from previous surgeries.Diffusely tender but most tender in the left upper abdomen; hyperactive bowel sounds : Deferred. RECTAL: Deferred. LYMPHATIC: No lymphadenopathy noted in the neck. EXTREMITIES: No edema or cyanosis. No clubbing. MUSCULOSKELETAL: No acute joint deformities or swelling SKIN: There are no significant rashes or ecchymosis NEUROPSYCHIATRIC: The patient is alert and oriented x3. Appears to be in a good mood. No tremors or rigidity noted. Course ED course: Patient's been evaluated in the emergency department. He presents with acute onset of abdominal pain with associated nausea and lack of flatus. He had an IV placed and labs obtained. Has been given 1 L saline bolus. Is bee n given Zofran for nausea and morphine for pain. Laboratory studies do reveal leukocytosis with a white blood cell count of 14.7. CT of his abdomen and pelvis shows changes consistent with a large and small bowel obstruction with incarceration in a ventral hernia in association with his previous gastroschisis abdominal surgery scar. Discussed with Dr. Max, surgeon on-call here who does not feel comfortable managing the patient here. Feels patient needs to be transferred. Discussed with the patient he requests [facility] in [place]. Reevaluation(s): Reevaluation #1: Pain is improved after morphine. Nausea is improved after Zofran. CT shows large and small bowel obstruction. We will place an NG tube. Consultations: Consultation #1: Dr. Max - general surgery - doesn't feel comfortable managing the patient here-recommends transfer to higher level of care Consultation #2: Dr. Mosley - general surgery at [facility] - recommends the patient be transferred to the ED DONNA Consultation #3: Dr. King - [facility] - accepts the patient for transfer to the ED Vital Signs: Vital signs: Vital Signs Temperature 97.3 F L 09/29/22 17:16 Pulse Rate 96 09/29/22 19:28 Respiratory Rate 16 09/29/22 19:28 Blood Pressure 144/93 09/29/22 19:28 Pulse Oximetry 94 09/29/22 19:28 Oxygen Delivery Me thod 09/29/22 17:16 MDM - Abdominal Pain Medical Decision Making Patient has a incarcerated ventral hernia with a large and small bowel obstruction, will need NG tube placement. He is comfortable after IV morphine. IV fluids have been infused. The patient also is hyperglycemic with a blood sugar of 434. We will give him 10 units of regular insulin and recheck his blood sugar in 1 hour. Spoke with the surgeon here who is not comfortable managing the patient here. Have spoken with [facility] and awaiting their call back for possible transfer. Discussed with Dr. Mosley, general surgery who recommends patient be transferred to the emergency department at [facility]. The patient has been accepted by Dr. King in the emergency department at [facility]. Differential Diagnosis Likely abdominal pain, constipation, pancreatitis and small bowel obstruction Lab Data : 09/29/22 18:20 09/29/22 18:20 Labs/Radiology: Radiology Impressions Abdomen/Pelvis CT 09/29/22 17:31 IMPRESSION: 1. No significant interval change with findings suggestive of possible partial small and large bowel obstructions at the level of a left ventral abdominal wall hernia. 2. Additional findings, as above. COMMENTS: Consistent with the [employer]'s Incidental Findings Committee white paper (J Am Amie Radiol 2018): Any incidental renal lesion less than 1 cm or classified as too small to characterize, or any incidental cystic renal lesion characterized as simple-appearing, is likely benign. No follow-up imaging is recommended for these lesions per consensus recommendations based on imaging criteria. Laboratory Results WBC 14.7 10^3/uL (4.0-10.0) H 09/29/22 18:20 RBC 5.21 10^6/uL (4.1-5.3) 09/29/22 18:20 Hgb 14.8 g/dL (11.7-16.6) 09/29/22 18:20 Hct 44.5 % (42.0-52.0) 09/29/22 18:20 MCV 85.4 fl (80-94) 09/29/22 18:20 MCH 28.4 pg (28.0-34.0) 09/29/22 18:20 MCHC 33.3 g/dL (30.0-36.0) 09/29/22 18:20 RDW 13.1 % (12.1-15.1) 09/29/22 18:20 Plt Count 274 10^3/cmm (130-400) 09/29/22 18:20 MPV 9.2 fL (7.4-10.4) 09/29/22 18:20 Neut % (Auto) 77.5 % 09/29/22 18:20 Lymph % (Auto) 14.6 % 09/29/22 18:20 Dale % (Auto) 4.6 % 09/29/22 18:20 Eos % (Auto) 0.9 % 09/29/22 18:20 Baso % (Auto) 0.9 % 09/29/22 18:20 Neut # (Auto) 11.40 10^3/uL (1.8-7.7) H 09/29/22 18:20 Lymph # (Auto) 2.2 10^3/uL (0.8-4.8) 09/29/22 18:20 Dale # (Auto) 0.7 10^3/uL (0.2-0.9) 09/29/22 18:20 Eos # (Auto) 0.1 10^3/uL (0.0-0.8) 09/29/22 18:20 Baso # (Auto) 0.1 10^3/uL (0.0-0.1) 09/29/22 18:20 Nucleated RBC % (auto) 0 % 09/29/22 18:20 Nucleated RBCs # 0.0 /100WBC 09/29/22 18:20 Sodium 128 mmol/L (136-145) L 09/29/22 18:20 Potassium 4.8 mmol/L (3.5-5.1) 09/29/22 18:20 Chloride 90 mmol/L (98-107) L 09/29/22 18:20 Carbon Dioxide 27 mmol/L (22-29) 09/29/22 18:20 Anion Gap 15.8 (5-19) 09/29/22 18:20 BUN 17 mg/dL (6-20) 09/29/22 18:20 Creatinine 1.2 mg/dL (0.7-1.2) 09/29/22 18:20 GFR Calculation 65.8 mL/min (90-130) L 09/29/22 18:20 Glucose 434 mg/dL (65-115) H 09/29/22 18:20 POC Glucose 449 mg/dL (70-110) H 09/29/22 20:02 Calculated Osmolality 286 mOsm/kg (285-295) 09/29/22 18:20 Calcium 10.1 mg/dL (8.5-10.5) 09/29/22 18:20 Total Bilirubin 0.3 mg/dL (0.15-1.2) 09/29/22 18:20 AST 16 U/L (0-40) 09/29/22 18:20 ALT 22 U/L (0-41) 09/29/22 18:20 Alkaline Phosphatase 126 U/L (40-130) 09/29/22 18:20 Total Protein 7.8 g/dL (6.6-8.7) 09/29/22 18:20 Albumin 4.8 g/dL (3.5-5.2) 09/29/22 18:20 Globulin 3.0 g/dL (1.3-4.6) 09/29/22 18:20 Lipase 23 U/L (13-60) 09/29/22 18:20 Urine Color Yellow (Yellow) 09/29/22 18:45 Urine Appearance Clear (CLEAR) 09/29/22 18:45 Urine pH 5 (5-7) 09/29/22 18:45 Ur Specific [place] 1.020 (1.005-1.030) 09/29/22 18:45 Urine Protein Neg (Negative) 09/29/22 18:45 Urine Glucose (UA) 4+ (Normal) H 09/29/22 18:45 Urine Ketones 1+ (Negative) H 09/29/22 18:45 Urine Blood Neg (Negative) 09/29/22 18:45 Urine Nitrate Negative (Negative) 09/29/22 18:45 Urine Bilirubin Neg (Negative) 09/29/22 18:45 Urine Urobilinogen Norm mg/dL (Negative) 09/29/22 18:45 Ur Leukocyte Esterase Negative (Negative) 09/29/22 18:45 Imaging Data KUB: My impression: NG tube in appropriate position Discharge Plan Discharge Patient Disposition: er Intermediate Care Fac Clinical Impression: Large bowel obstruction, Incarcerated ventral hernia, Small bowel obstruction, Acute hyperglycemia Condition: Stable Prescriptions: No Action (DME) insulin syringe-needle U-100 [Comfort EZ Insulin Syringe] 1/2 mL 28 gauge x 1/2 syringe See Rx Instructions .Route Qty: 100 5RF Rx Instructions: As directed up to 4 times a day wiht insulin dexamethasone 4 mg tablet 4 mg PO DAILY 7 Days Qty: 7 0RF ceftriaxone 1 gram recon soln 1 g IM ONCE Qty: 1 0RF dexamethasone sodium phosphate 4 mg/mL solution 4 mg IM ONCE Qty: 1 0RF albuterol sulfate 2.5 mg /3 mL (0.083 %) solution for nebulization 2.5 mg inhalation QID PRN (Reason: shortness of breath or wheezing) Qty: 75 0RF prednisone 20 mg tablet 20 mg PO DAILY Qty: 5 0RF doxycycline hyclate 100 mg capsule 100 mg PO BID 7 Days Qty: 14 0RF metformin 500 mg tablet extended release 24 hr 1,000 mg PO BID 90 Days Qty: 360 1RF gabapentin 300 mg capsule 600 mg PO BID 90 Days Qty: 360 0RF nitroglycerin 0.4 mg tablet, sublingual 0.4 mg sublingual Q5M PRN (Reason: chest pain) 90 Days Qty: 90 0RF Rx Instructions: do not exceed 3 doses per episode (DME) Comfort EZ Pen [place] 32 gauge x 5/16 needle See Rx Instructions .Route Qty: 100 2RF Rx Instructions: As directed Novolin R Regular U-100 Insuln 100 unit/mL solution See Rx Instructions .ROUTE .COMPLEX Qty: 10 0RF Rx Instructions: PER SLIDING SCALE WITH MEALS duloxetine 60 mg capsule,delayed release(DR/EC) 60 mg PO BEDTIME Qty: 30 0RF Novolin N NPH U-100 Insulin 100 unit/mL suspension 40 unit SUBCUT BEDTIME Qty: 10 2RF Colace 100 mg capsule 100 mg PO BID Qty: 60 2RF lisinopril 20 mg tablet 20 mg PO QAM Qty: 30 0RF bupropion HCl 150 mg tablet extended release 24 hr See Rx Instructions .ROUTE .COMPLEX Qty: 90 1RF Dose Instruction: TAKE 1 TABLET BY MOUTH EVERY MORNING Rx Instructions: TAKE 1 TABLET BY MOUTH EVERY MORNING Victoza 3-Garrett 0.6 mg/0.1 mL (18 mg/3 mL) pen injector See Rx Instructions .ROUTE .COMPLEX Qty: 27 1RF Dose Instruction: INJECT 1.8 MG SUB-Q DAILY Rx Instructions: INJECT 1.8 MG SUB-Q DAILY Brilinta 90 mg tablet 90 mg PO BID 90 Days Qty: 180 0RF Rx Instructions: 340b multivitamin Tablet 1 tab PO DAILY chlorthalidone 25 mg tablet 25 mg PO QAM aspirin 81 mg Tablet,Delayed Release (Dr/Ec) 81 mg PO QAM simvastatin 40 mg tablet 40 mg PO BEDTIME Vitamin D3 25 mcg (1,000 unit) Capsule 25 mcg PO QAM metoprolol tartrate 25 mg tablet 25 mg PO BID levocetirizine 5 mg tablet 5 mg PO BEDTIME Protonix 40 mg tablet,delayed release (DR/EC) 40 mg PO DAILY Qty: 30 0RF Referrals: Benjamin Funk MD [Primary Care Provider] - Coding Level of Care Code ED Kelly Machine Operator for Anthony Lara
[2022-09-29 18:23] VITALS: RESP 16; O2SAT 97
[2022-09-29] MEDS: sodium chloride 0.9% 1,000 ML 999 ML IV (18:23)
[2022-09-29] MEDS: morphine 4 mg/mL SDV 1 mL IVP ×2 (18:23→21:08)
[2022-09-29] MEDS: ondansetron 2 mg/ML SDV 2 mL 4 MG IVP (18:23)
[2022-09-29] MEDS: diatrizoate meglumine 30 mL Sol PO (18:32)
[2022-09-29] MEDS: iohexol 350 mg/mL 500 mL Btl (per mL) IV (18:33)
[2022-09-29 18:42] LABS: Basophils # 0.1 10^3/uL (0.0-0.1); Basophils % 0.9 %; Eosinophils # 0.1 10^3/uL (0.0-0.8); Eosinophils % 0.9 %; Hematocrit 44.5 % (42.0-52.0); Hemoglobin 14.8 g/dL (11.7-16.6); Lymphocytes # 2.2 10^3/uL (0.8-4.8); Lymphocytes % 14.6 %; Mean Corpuscular HGB Conc 33.3 g/dL (30.0-36.0); Mean Corpuscular Hemoglobin 28.4 pg (28.0-34.0); Mean Corpuscular Volume 85.4 fl (80-94); Mean Platelet Volume 9.2 fL (7.4-10.4); Monocytes # 0.7 10^3/uL (0.2-0.9); Monocytes % 4.6 %; Neutrophils % 77.5 %; Nucleated Red Blood Cells % 0 %; Platelet Count 274 10^3/cmm (130-400); Red Blood Count 5.21 10^6/uL (4.1-5.3); Red Cell Distribution Width 13.1 % (12.1-15.1); White Blood Count 14.7 10^3/uL (4.0-10.0)
[2022-09-29 19:07] LABS: Add Urine Microscopic? NO; Urine Appearance Clear (CLEAR); Urine Color Yellow (Yellow); pH Urine 5 (5-7)
[2022-09-29 19:07] LABS: Alanine Aminotransferase 22 U/L (0-41); Albumin Level 4.8 g/dL (3.5-5.2); Alkaline Phosphatase 126 U/L (40-130); Anion Gap 15.8 (5-19); Aspartate Amino Transferase 16 U/L (0-40); Blood Urea Nitrogen 17 mg/dL (6-20); Calcium 10.1 mg/dL (8.5-10.5); Carbon Dioxide 27 mmol/L (22-29); Chloride 90 mmol/L (98-107); Glomerular Filtration Rate 65.8 mL/min (90-130); Glucose 434 mg/dL (65-115); Lipase 23 U/L (13-60); Osmolality Calculated 286 mOsm/kg (285-295); Potassium 4.8 mmol/L (3.5-5.1); Sodium 128 mmol/L (136-145); Total Bilirubin 0.3 mg/dL (0.15-1.2); Total Protein 7.8 g/dL (6.6-8.7)
[2022-09-29 19:08] LABS: Bilirubin Urine Neg (Negative); Blood Urine Neg (Negative); Charge for UA Resulting for Rev; Glucose Urine UA 4+ (Normal); Ketones Urine 1+ (Negative); Leukocyte Esterase Urine Negative (Negative); Nitrate Urine Negative (Negative); Protein Urine Neg (Negative); Urobilinogen Urine Norm (Negative)
[2022-09-29 19:28] VITALS: BP 144/93; PULSE 96; RESP 16; O2SAT 94
--- NOTE | 2022-09-29 19:54 | XRR_ITS ---
PROCEDURE INFORMATION: Exam: XR Abdomen Exam date and time: 09/29/2022 8:06 PM Age: 46 years old Clinical indication: Device placement; Gi device; Nasogastric tube; Additional info: Ng tube placement TECHNIQUE: Imaging protocol: Radiologic exam of the abdomen. Views: Frontal supine view of the abdomen. 1 View. COMPARISON: CT abdomen pelvis w con* [id number] 09/29/2022 6:33 PM FINDINGS: Tubes, catheters and devices: NG tube in adequate position. Gastrointestinal tract: Multiple mildly distended bowel loops. Bones/joints: No acute osseous abnormality. Mild degenerative changes. XR/XR KUB portable [id number] IMPRESSION: NG tube in adequate position.
[2022-09-29] MEDS: insulin regular-human 100 units/1 mL 10 UNIT IVP (20:05)
[2022-09-29 20:07] LABS: Glucose Point of Care 449 mg/dL (70-110)
--- NOTE | 2022-09-29 20:26 | PC.NURSE ---
NG tube placement confirmed. Intermittent LWS attached.
[2022-09-29 21:08] VITALS: RESP 18
[2022-09-29 21:20] VITALS: BP 137/96; PULSE 92; RESP 18; O2SAT 97
== END 2022-09-29 21:20 | disposition intermediate care facility (04) ==
PROVIDERS: Emergency Provider Emergency Medicine; PCP Family Medicine
DX: K43.0 Incisional hernia with obstruction, without gangrene (principal); E11.65 Type 2 diabetes mellitus with hyperglycemia; Z79.4 Long term (current) use of insulin; Z79.84 Long term (current) use of oral hypoglycemic drugs; Z79.02 Long term (current) use of antithrombotics/antiplatelets; Z79.82 Long term (current) use of aspirin
CPT/HCPCS: 36416; 74018; 74177; 80053; 81003; 82962; 83690; 85025; 96361; 96374; 96375; 99285; J1815; J2270; J2405; J7030; Q9963; Q9967

== ENCOUNTER → 2022-11-14 09:49 | Outpatient (BNVA) | payer MEDICAID, SELFPAY | PROVIDERS: PCP Family Medicine; Visit Provider Family Medicine | DX: E11.65 Type 2 diabetes mellitus with hyperglycemia (principal); Z79.4 Long term (current) use of insulin; J01.90 Acute sinusitis, unspecified | CPT/HCPCS: 83036 ==

== ENCOUNTER 2023-01-16 08:58 | Outpatient (CLI) | payer MEDICAID, SELFPAY ==
--- NOTE | 2023-01-16 09:30 | USCV_ITS ---
Rui Jiang Age: 47 Gender: M : 1975 Exam Date: 01/16/2023 09:18 Ordering Phys: Frances FreireP LONE LEAD LINEMAN Technologist: DENIS Exam Location: [facility] – [place] Indication: RT Foot Pain/Numbness HISTORY: RT Foot Pain/Numbness PROCEDURES: The venous duplex Doppler examination of both lower extremities was performed in the standard fashion. The following venous structures were evaluated: common femoral vein, profunda vein, proximal portion of the greater saphenous vein, superficial femoral vein, and the popliteal vein. In addition, the posterior tibial and peroneal trunk were evaluated. Bilaterally, the common femoral, superficial femoral, profunda femoral, popliteal, posterior tibial, greater saphenous veins, and the peroneal trunk were identified and interrogated in the standard fashion. These veins were found to be easily compressible with spontaneous blood flow. No evidence of insufficiency or thrombus noted. Serial compression, augmentation maneuvers, and spectral Doppler flow evaluation were performed. FINDINGS: No evidence of DVT seen in any vessel visualized at this time. CONCLUSIONS No evidence of right lower extremity DVT. No evidence of left lower extremity DVT. Toño Reilly MD (Electronically Signed) Final Date: 16 January 2023 10:15 S
== END 2023-01-16 08:59 | disposition home or self-care (01) ==
PROVIDERS: PCP Family Medicine; Visit Provider Nurse Practitioner
DX: M79.671 Pain in right foot (principal); M79.672 Pain in left foot
CPT/HCPCS: 93970

== ENCOUNTER 2023-01-24 12:08 | Outpatient (CLI) | payer MEDICAID, SELFPAY ==
--- NOTE | 2023-01-24 12:15 | USCV_ITS ---
Rui Jiang Age: 47 Gender: M : 1975 Exam Date: 01/24/2023 12:35 Ordering Phys: Frances Freire PRESCHOOL ASSISTANT PRESCHOOL ASSISTANT Technologist: ROYER [place] [facility] [place]ication: LT FOOT PAIN AND DISCOLORATION Risk Factors: Previous Vascular Surgery: RIGHT LEFT BP: 158.0 / 94.00 BP: 170.0/ 94.00 0 0 Waveform Velocity (cm/s) Velocity (cm/s) Waveform Triphasic 94.8 Iliac Prox 79.8 Triphasic Triphasic 105.8 Iliac Mid 65.8 Triphasic Triphasic 99.2 Iliac Distal 72.1 Triphasic Triphasic 103.6 DESIGN DRAFTER 104.7 Triphasic Triphasic 98.1 SFA Prox 86.0 Triphasic Triphasic 121.3 SFA Mid 102.5 Triphasic Triphasic SFA Dist Triphasic 99.2 87.1 Triphasic 63.2 POP 86.0 Triphasic Triphasic 60.8 SALES PROMOTION COORDINATOR 95.9 Triphasic Triphasic 75.0 DPA 102.5 Triphasic 1.0 SATURNINO 1.0 FINDINGS Resting SATURNINO of 1.0, bilaterally Normal Doppler waveforms and velocities bilaterally No unstable plaques or lesions were noted CONCLUSIONS Normal resting ABIs, Doppler waveforms and Doppler velocities bilaterally suggesting no significant arterial obstruction. No unstable plaques or lesions noted Dr Berhane Hollins MD [facility] (Electronically Signed) Final Date: 26 January 2023 13:43 S
== END 2023-01-24 12:09 | disposition home or self-care (01) ==
LOC: RAD 12:12
PROVIDERS: PCP Family Medicine; Visit Provider Nurse Practitioner
DX: M79.671 Pain in right foot (principal); M79.672 Pain in left foot
CPT/HCPCS: 93925

== ENCOUNTER → 2023-02-06 14:25 | Outpatient (BNVA) | payer MEDICAID, SELFPAY | PROVIDERS: PCP Family Medicine; Visit Provider Family Medicine | DX: E11.9 Type 2 diabetes mellitus without complications (principal); K43.6 Other and unspecified ventral hernia with obstruction, without gangrene; F41.9 Anxiety disorder, unspecified; F32.A Depression, unspecified; E11.65 Type 2 diabetes mellitus with hyperglycemia; Z79.4 Long term (current) use of insulin; J18.9 Pneumonia, unspecified organism; I10 Essential (primary) hypertension | CPT/HCPCS: 80048; 83036 ==

== ENCOUNTER → 2023-03-14 15:25 | Outpatient (BNVA) | payer OTHER, SELFPAY | PROVIDERS: PCP Family Medicine; Visit Provider Psychiatry & Neurology Psychiatry | DX: F41.9 Anxiety disorder, unspecified (principal) | CPT/HCPCS: 80061 ==

== ENCOUNTER → 2023-12-10 10:35 | Outpatient (BNVA) | payer MEDICAID, SELFPAY ==
[2023-03-27 14:10] VITALS: BP 135/95; BMI 44.8
== END ==
PROVIDERS: PCP Nurse Practitioner Family; Visit Provider Internal Medicine
DX: E11.65 Type 2 diabetes mellitus with hyperglycemia (principal); Z79.4 Long term (current) use of insulin; E78.2 Mixed hyperlipidemia
CPT/HCPCS: 36415; 80053; 80061; 82044; 83036

== ENCOUNTER → 2024-01-30 16:47 | Outpatient (BNVA) | payer MEDICAID, SELFPAY ==
[2024-01-14 10:02] VITALS: BP 126/82; BMI 39.5
== END ==
PROVIDERS: PCP Nurse Practitioner Family; Visit Provider Nurse Practitioner Family
DX: J22 Unspecified acute lower respiratory infection (principal); J20.8 Acute bronchitis due to other specified organisms
CPT/HCPCS: 87400

== ENCOUNTER → 2024-05-25 08:50 | Outpatient (BNVA) | payer MEDICAID, SELFPAY ==
[2024-01-14 10:02] VITALS: BP 126/82; BMI 39.5
== END ==
PROVIDERS: PCP Nurse Practitioner Family; Referring Provider Nurse Practitioner Family; Visit Provider Internal Medicine
DX: E11.65 Type 2 diabetes mellitus with hyperglycemia (principal); Z79.4 Long term (current) use of insulin; E78.2 Mixed hyperlipidemia; E78.1 Pure hyperglyceridemia; Z79.899 Other long term (current) drug therapy
CPT/HCPCS: 80053; 80061; 82043; 83036

== ENCOUNTER → 2024-07-16 16:02 | Outpatient (BNVA) | payer MEDICAID, SELFPAY ==
[2024-07-14 15:01] VITALS: BP 120/72; BMI 40.1
== END ==
PROVIDERS: PCP Nurse Practitioner Family; Visit Provider Nurse Practitioner Family
DX: R05.9 Cough, unspecified (principal)
CPT/HCPCS: 87426

== ENCOUNTER → 2024-08-26 12:04 | Outpatient (BNVA) | payer MEDICAID, SELFPAY ==
[2024-07-14 15:01] VITALS: BP 120/72; BMI 40.1
== END ==
PROVIDERS: PCP Nurse Practitioner Family; Visit Provider Nurse Practitioner Family
DX: I10 Essential (primary) hypertension (principal); E11.65 Type 2 diabetes mellitus with hyperglycemia; Z79.4 Long term (current) use of insulin; F41.9 Anxiety disorder, unspecified; F32.A Depression, unspecified; D64.9 Anemia, unspecified
CPT/HCPCS: 82607; 83735; 84100; 84439; 84443

== ENCOUNTER → 2025-01-26 11:19 | Outpatient (BNVA) | payer MEDICAID, SELFPAY ==
[2024-07-14 15:01] VITALS: BP 120/72; BMI 40.1
== END ==
PROVIDERS: PCP Nurse Practitioner Family; Visit Provider Internal Medicine
DX: E11.65 Type 2 diabetes mellitus with hyperglycemia (principal); Z79.4 Long term (current) use of insulin; E78.2 Mixed hyperlipidemia
CPT/HCPCS: 80053; 80061; 82043; 83036

== ENCOUNTER 2025-01-29 05:48 | Outpatient (CLI) | payer MEDICAID, SELFPAY ==
[2024-07-14 15:01] VITALS: BP 120/72; BMI 40.1
--- NOTE | 2025-01-29 | ECG_ITS ---
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 The perfusion scan will be documented separately. DATA: Baseline heart rate was 70 beats per minute. Baseline blood pressure was 169/86 millimeters of mercury. Target heart rate was 173. Maximum heart rate achieved was 87. which was 50 % of the predicted target heart rate. Maximum blood pressure was 180/90 millimeters of mercury. The reason for ending the test was completion of the protocol. The patient did not experience any symptoms. ELECTROCARDIOGRAM: BASELINE: Sinus rhythm. Normal axis. Otherwise, no ST-T changes suggestive of ischemia noted. No arrhythmia noted. EXERCISE: After Lexiscan injection, no ST-T changes suggestive of ischemic noted. No arrhythmia noted. CONCLUSION: Please note due to baseline abnormality of the EKG specificity and sensitivity of the EKG portion of LexiScan MIBI stress test will be low 1. EKG not suggestive of ischemia 2. Lexiscan injection unremarkable. 3. Perfusion scan will be documented separately. Electronically Signed On 03-07-2025 21:06:16 CDT by BREEZY ALEXIS [email or web address]
--- NOTE | 2025-01-29 06:15 | USCV_ITS ---
Rui Jiang Age: 49 Gender: M : 1975 Exam Date: 01/29/2025 06:30 Ordering Phys: Breezy Alexis MD ([email or web address]) Technologist: Franklin Small Exam Location: [facility] [place] Indication: pre op BP: 132 / 82 HR: 73 Rhythm: Sinus Technical Quality: Adequate MEASUREMENTS (Male / Female) Normal Values 2D ECHO LV Diastolic Diameter PLAX 4.2 cm 4.2 - 5.9 / 3.9 - 5.3 cm IVS Diastolic Thickness 1.3 cm 0.6 - 1.0 / 0.6 - 0.9 cm IVS Systolic Thickness 1.7 cm LVPW Diastolic Thickness 2.0 cm 0.6 - 1.0 / 0.6 - 0.9 cm LVPW Systolic Thickness 2.4 cm LVOT Diameter 2.2 cm LV Ejection Fraction 2D Teich 59.1 % LV Ejection Fraction MOD 4C 56.4 % LV Ejection Fraction MOD 2C 60.3 % LV Ejection Fraction 2C AL 61.7 % LA Diameter 4.0 cm LA Sys Volume AL 74.5 cm cubed LA Sys Volume Index AL 28.7 cm cubed/m squared Aorta at Sinotubular Diameter 2.6 cm IVC Diameter 2.0 cm M-MODE LA Ao Ratio MM 1.5 AV Cusp Separation MM 2.1 cm DOPPLER AV Peak Velocity 155.0 cm/s LVOT Peak Velocity 98.0 cm/s AV Area Cont Eq vti 2.4 cm squared AV Area Cont Eq pk 2.3 cm squared MV Peak Velocity 143.0 cm/s MV Area PHT 4.3 cm squared Mitral E to A Ratio 1.3 TV Peak Velocity 303.0 cm/s TR Peak Velocity 358.0 cm/s TR Peak Gradient 51.3 mmHg TR Mean Velocity 297.0 cm/s TR Mean Gradient 37.5 mmHg TR Velocity Time Integral 89.2 cm PV Peak Velocity 117.0 cm/s RV Ejection Time 0.3 s FINDINGS Left Ventricle Normal left ventricular size, systolic function and wall thickness, with no regional wall motion abnormalities. Left ventricular ejection fraction is estimated at 60 %. Grade I/IV diastolic dysfunction (abnormal relaxation filling pattern), normal to mildly elevated filling pressures. Right Ventricle The right ventricle is normal in size and function. Right Atrium The right atrium is normal in size. Left Atrium The left atrium is normal in size. Mitral Valve Moderately thickened mitral valve. Moderate mitral annular calcification. No mitral valve stenosis. Trace mitral valve regurgitation. Aortic Valve Structurally normal aortic valve without significant sclerosis or stenosis. There is no aortic regurgitation. Tricuspid Valve Structurally normal tricuspid valve without significant stenosis or regurgitation. Pulmonary artery systolic pressure is normal. Pulmonic Valve Structurally normal pulmonic valve without significant stenosis. There is no pulmonic regurgitation. Pericardium Normal pericardium without effusion. Aorta Normal ascending aorta dimension. IVC The inferior vena cava appears normal. CONCLUSIONS Normal left ventricular size, systolic function and wall thickness, with no regional wall motion abnormalities. Left ventricular ejection fraction is estimated at 60 %. Grade I/IV diastolic dysfunction (abnormal relaxation filling pattern), normal to mildly elevated filling pressures. There is no pericardial effusion. No significant valve abnormalities. Right atrial pressure is around 5 mm of mercury. Breezy Alexis MD (Electronically Signed) Final Date: 09 February 2025 12:35 S
[2025-01-29 06:22] VITALS: BMI 41.5
--- NOTE | 2025-01-29 06:22 | NMCV_ITS ---
NM suhas perf SPECT r/s* [id number] Rui Jiang Age: 49 Gender: M : 1975 Exam Date: 01/29/2025 06:22 Ordering Phys: Breezy Alexis MD ([email or web address]) Technologist: ERIN Cortes Exam Location: [facility] Indications: cp STRESS TEST Please see separate stress test report in [facility] for full findings IMAGE PROTOCOL Rest/Stress 1 Lexiscan Day Radiopharmaceutical Dose (mCi) Administration Site Administered by Rest: Tc-99m 11 IV ERIN Cortes Sestamibi Stress:Tc-99m 32.8 IV ERIN [place] Sestamibi Rest: 29-Jan-2025 60 Discovery 630 Stress: 29-Jan-2025 30 Discovery 630 0.4mg Lexiscan. Images obtained in supine and prone position. SPECT RESULTS Technical Quality: Good Raw Data Analysis: Normal Image Corrections: No attenuation or motion correction applied Summed Stress Score: 1 Summed Rest Score: 0 Summed Difference Score: 1 PERFUSION FINDINGS Basal to distal moderate reversibility noted in the anterior wall suggestive of possible stenosis in LAD territory. FUNCTIONAL RESULTS (calculated via Gated SPECT) Stress Image LV EF (%): 58 Stress EDV (mL):155 TID: 1.42 Stress ESV (mL):65 FUNCTIONAL FINDINGS: Global hypokinesis, TID ratio is elevated which could be secondary to LVH however cannot rule out multivessel disease. IMPRESSIONS Basal to distal moderate reversibility noted in the anterior wall suggestive of possible stenosis in LAD territory.In the absence of prone images cannot rule out artifact. Breezy Alexis MD (Electronically Signed) Final Date: 01 February 2025 09:38 S
[2025-01-29] MEDS: regadenoson 0.4 Mg/5 ml Syringe IVP (07:47)
[2025-01-29 08:07] VITALS: BP 167/90; PULSE 77
== END 2025-01-29 05:49 | disposition home or self-care (01) ==
LOC: RAD 05:49 → CDL 07:45
PROVIDERS: PCP Nurse Practitioner Family; Visit Provider Internal Medicine Cardiovascular Disease
DX: R07.9 Chest pain, unspecified (principal); R06.02 Shortness of breath; R93.1 Abnormal findings on diagnostic imaging of heart and coronary circulation; I34.81 Nonrheumatic mitral (valve) annulus calcification
CPT/HCPCS: 36415; 78452; 93017; 93306; 96374; A9500; J2785

== ENCOUNTER → 2025-02-16 14:32 | Outpatient (BNVA) | payer MEDICAID, SELFPAY ==
[2024-07-14 15:01] VITALS: BP 120/72; BMI 40.1
== END ==
PROVIDERS: PCP Nurse Practitioner Family; Visit Provider Nurse Practitioner Family
DX: R53.83 Other fatigue (principal)
CPT/HCPCS: 82607; 82746; 84443

== ENCOUNTER 2025-02-17 16:04 | Observation (INO) | payer MEDICAID, SELFPAY ==
[2024-07-14 15:01] VITALS: BP 120/72; BMI 40.1
[2025-02-17] VITALS (31 sets, daily range): BP systolic 130–177; BP diastolic 71–103; PULSE 71–87; RESP 16–37; TEMP 36.6; O2SAT 90–98; BMI 40.1; BMI 41.5
--- NOTE | 2025-02-17 16:05 | XRR_ITS ---
PROCEDURE INFORMATION: Exam: XR Chest Exam date and time: 02/17/2025 4:44 PM Age: 49 years old Clinical indication: Pain; Chest pressure; Additional info: Cp TECHNIQUE: Imaging protocol: Radiologic exam of the chest. Views: 1 view. COMPARISON: CR XR chest 2V* [id number] 09/24/2022 1:35 PM FINDINGS: Lungs: Unremarkable. No consolidation or mass. Pleural spaces: Unremarkable. No pleural effusion. No pneumothorax. Heart/Mediastinum: Unremarkable. No cardiomegaly. Bones/joints: Unremarkable. XR/XR chest 1V portable [id number] IMPRESSION: No acute findings.
--- NOTE | 2025-02-17 16:13 | ECG_ITS ---
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 Measurements Intervals [place] Rate: 80 P: 22 IA: 158 QRS: 48 QRSD: 89 T: 17 QT: 363 QTc: 420 Interpretive Statements SINUS RHYTHM Compared to ECG 07/09/2022 02:50:19 Sinus tachycardia no longer present Ventricular premature complex(es) no longer present Electronically Signed On 02-17-2025 19:24:55 CDT by Berhane Hollins M.D. [email or web address] [id number]
--- NOTE | 2025-02-17 16:24 | W.ED.CHESTPA ---
Documented by User: Caden Schmid, 02/18/25 06:34 HPI - Chest Pain General: Chief Complaint: Chest Pain Stated Complaint: cheat pressure Time Seen by Provider: 02/17/25 16:24 History of Present Illness: 49-year-old male who presents to the emergency room with complaints of chest pain. Patient intermittently has chest discomfort throughout the day. He has not as well as anything that aggravates or relieves it. He is not having any chest pain at this time does not radiate. It is associate with some shortness of breath has not taken anything for it. This been going on for some time he recently had a stress test earlier this month that was abnormal showed some reversibility in the distribution of the LAD. Patient is scheduled for an angiogram. He was seen today at the cardiac clinic reporting more frequent chest discomfort they referred him to the emergency room. Associated symptoms: Deny abdominal pain, dyspnea or fever(s) Related Data Home Medications ?Medication ?Instructions ?Recorded ?Confirmed multivitamin 1 tab PO DAILY 07/09/22 02/17/25 aspirin 81 mg tablet,delayed 81 mg PO DAILY 02/17/25 02/17/25 release atorvastatin 40 mg tablet 40 mg PO DAILY 02/17/25 02/17/25 cetirizine 10 mg tablet 10 mg PO DAILY 02/17/25 02/17/25 empagliflozin 10 mg tablet 10 mg PO DAILY 02/17/25 02/17/25 (Jardiance) magnesium oxide 400 mg PO DAILY 02/17/25 02/17/25 metformin 500 mg tablet,extended 1,000 mg PO BID 02/17/25 02/17/25 release 24 hr metoprolol tartrate 50 mg tablet 50 mg PO BID 02/17/25 02/17/25 omeprazole 40 mg capsule,delayed 40 mg PO BID 02/17/25 02/17/25 release pregabalin 50 mg capsule 50 mg PO BID 02/17/25 02/17/25 sertraline 100 mg tablet 150 mg PO DAILY 02/17/25 02/17/25 spironolactone 25 mg tablet 12.5 mg PO DAILY 02/17/25 02/17/25 sucralfate 100 mg/mL oral 10 ml PO QID PRN Stomach Upset 02/17/25 02/17/25 suspension ticagrelor 90 mg tablet (Brilinta) 90 mg PO BID 02/17/25 02/17/25 Previous Rx's ?Medication ?Instructions ?Recorded insulin syringe-needle U-100 1/2 #100 ea 07/11/22 mL 28 gauge x 1/2 (Comfort EZ Insulin Syringe) albuterol sulfate 90 mcg/actuation 1 inh inhalation QID PRN shortness 06/15/24 aerosol inhaler of breath or wheezing #8.5 grams insulin pump cartridge,automated #1 ea 09/03/24 dose,BT with controller subcutaneous (Omnipod 5 G6 Intro Kit (Gen 5) subcutaneous cartridge with controller) insulin aspart U-100 100 unit/mL See Rx Instructions continuous 09/30/24 subcutaneous solution subcutaneous infusion DAILY #150 mL fluticasone propionate 50 1 spray intranasal DAILY PRN 12/09/24 mcg/actuation nasal allergy symptoms #16 grams spray,suspension insulin glargine 100 unit/mL (3 10 unit (0.1 mL) SUBCUT DAILY #15 01/28/25 mL) subcutaneous pen (Lantus mL Solostar U-100 Insulin) blood-glucose meter,continuous #1 ea 02/02/25 (Dexcom G7 Anthropology Instructor) blood-glucose sensor (Dexcom G7 #3 ea 02/02/25 Sensor device) insulin pump cart,auto,BT,G6/7 #10 ea 02/09/25 (Omnipod 5 G6-G7 Pods (Gen 5) subcutaneous cartridge) linaclotide 290 mcg capsule 290 mcg PO DAILY 30 days #30 caps 02/16/25 (Linzess) nitroglycerin 0.4 mg sublingual 0.4 mg sublingual Q5M PRN chest 02/16/25 tablet pain 90 days #90 tabs Allergies Allergy/AdvReac Type Severity Reaction Status Date / Time promethazine Allergy Intermediate ALGY-Swell Verified 02/17/25 15:36 Lip/Tongue/Throat nalbuphine (From Nubain) Allergy Unknown Verified 02/17/25 15:36 Review of Systems Const: Denies: fever(s) or chills Card: Reports: chest pain Resp: Denies: dyspnea GI: Denies: abdominal pain : Denies: dysuria, urinary frequency or urinary urgency Musc: Denies: neck pain or back pain Skin/Breast: Denies: rash PFSH ED PFSH: Medical History Chronic idiopathic constipation Cough Upper respiratory infection Headache Sinusitis Anemia Seizure Shingles Near syncope Incarcerated ventral hernia COVID Dermatitis Environmental and seasonal allergies Acute bronchitis Lower respiratory infection Chest pain Tobacco use disorder Chest pain Atherosclerosis of coronary artery Abnormal stress test Diabetes mellitus Hyperlipidemia associated with type 2 diabetes mellitus Essential hypertension Chest pain CVA (cerebral vascular accident) Herpes zoster Vertigo Obese Restrictive lung disease Left knee pain Bilateral lower extremity edema Hyperlipidemia Shortness of breath COVID-19 virus infection Anxiety DM type 2 (diabetes mellitus, type 2) Hypertension Surgical History History of heart artery stent Family History Grandfather Anesthesia complication CAD (coronary artery disease) Chronic kidney disease (CKD) Dementia Diabetes Grandmother CAD (coronary artery disease) Cancer Chronic kidney disease (CKD) Diabetes Lung disease Stroke Family/Other CAD (coronary artery disease) Cancer Mother Diabetes CAD (coronary artery disease) Grandfather Diabetes Denies family history of Clotting disorder Suicide Bleeding disorder Social History Smoking and tobacco/nicotine status: never used tobacco/nicotine Quit status (tobacco/nicotine): has quit using Year quit tobacco: 01/17 Former quit date comment: quit chewing Second hand smoke exposure: No Alcohol intake: current Alcohol intake frequency: holidays/special occasions only Substance/Drug Use: never Adopted: No Caregiver/support person: No Lives independently: Yes Household members: spouse Housing: House Marital status: Number of children: 4 Highest education level completed: Some College, No Degree service: No Current occupational status: employed Current occupational exposures/hazards: No Pets and animals: Yes Pets & animals: cat(s), dog(s), bird(s) and ferret(s) Leisure activites: other Leisure activities details: family time, small project (welding or wood working...something hands on) Sexually active: Yes Do you think of yourself as: Straight/Heterosexual Current gender identity: Male Claudine/Rastafarian: Orthodoxy Special claudine needs: No Agree to transfusion: Yes Physical Exam Const: GENERAL APPEARANCE: cooperative ORIENTATION/CONSCIOUSNESS: Yes awake, Yes oriented to person, Yes oriented to place and Yes oriented to time HENMT: COMMON NORMALS: normocephalic, atraumatic and hearing grossly normal bilaterally HEAD & SCALP: normocephalic and atraumatic Resp: COMMON NORMALS: normal respiratory effort, No retractions, No use of accessory muscles and clear to auscultation bilaterally AUSCULTATION: clear to auscultation bilaterally Cardio: COMMON NORMALS: regular rate, regular rhythm and No murmurs present (Cardio) RATE: regular rate RHYTHM: regular rhythm GI: COMMON NORMALS: Soft to palpation and No hepatosplenomegaly present AUSCULTATION: Yes normoactive bowel sounds PALPATION: Yes Soft to palpation, No Tenderness to palpation present (GI), No Guarding due to palpation present (GI) and Yes No hepatosplenomegaly present Extremity: COMMON NORMALS: normal to inspection, capillary refill normal, no clubbing, cyanosis or edema, no calf tenderness and no pedal edema Neuro: SENSORIUM/ORIENTATION: Yes oriented to person, Yes oriented to place and Yes oriented to time Skin: COMMON NORMALS: no rashes or lesions noted GENERAL SKIN EXAM: no rashes or lesions noted Course Vital Signs: Vital signs: Vital Signs Temperature 97.8 F 02/18/25 04:00 Pulse Rate 64 02/18/25 06:00 Respiratory Rate 21 H 02/18/25 04:00 Blood Pressure 113/67 02/18/25 04:00 Pulse Oximetry 91 02/18/25 04:00 Oxygen Delivery Me thod Room Air 02/18/25 04:00 MDM - Chest Pain Medical Decision Making Initial EKG did not show any acute changes second troponin pending care signed out to Dr. Gonzalez at change of shift. See final notes for diagnosis and disposition. Waited for 2-hour troponin to come back, initial troponin 9, 2-hour troponin 8.1, both EKGs showed no acute changes, this was discussed with Dr. Alexis who says since he has known coronary artery disease and intermittent chest pain throughout the day we can call this unstable angina admit him to the hospitalist for observation and do an angiogram on him in the morning. We will give him 1 shot of Lovenox and make him n.p.o. after midnight. Discussed this with Dr. Carlos we will admit for observation. Medical Records I reviewed the patient's medical records. Lab Data I reviewed the patient's lab results. 02/17/25 16:30 02/18/25 03:36 Radiology Impressions Chest X-Ray 02/17/25 16:05 IMPRESSION: No acute findings. Laboratory Results WBC 10.57 10^3/uL (3.29-11.43) 02/17/25 16:30 RBC 5.58 10^6/uL (3.85-5.65) 02/17/25 16:30 Hgb 15.10 g/dL (11.27-16.99) 02/17/25 16:30 Hct 46.8 % (37-53) 02/17/25 16:30 MCV 83.9 fl (82-101) 02/17/25 16: MCH 27.1 pg (27-33) 02/17/25 16:30 MCHC 32.3 g/dL (30-55) 02/17/25 16:30 RDW 13.6 % (12.1-15.1) 02/17/25 16:30 Plt Count 199 10^3/cmm (157-399) 02/17/25 16:30 MPV 8.6 fL (7.4-10.4) 02/17/25 16:30 Neut % (Auto) 70.5 % 02/17/25 16:30 Lymph % (Auto) 21.9 % 02/17/25 16:30 Barton % (Auto) 5.6 % 02/17/25 16:30 Eos % (Auto) 0.7 % 02/17/25 16:30 Baso % (Auto) 0.6 % 02/17/25 16:30 Neut # (Auto) 7.46 10^3/uL (1.8-7.7) 02/17/25 16:30 Lymph # (Auto) 2.3 10^3/uL (0.8-4.8) 02/17/25 16:30 [place] # (Auto) 0.6 10^3/uL (0.2-0.9) 02/17/25 16:30 Eos # (Auto) 0.1 10^3/uL (0.0-0.8) 02/17/25 16:30 Baso # (Auto) 0.1 10^3/uL (0.0-0.1) 02/17/25 16:30 Nucleated RBC % (auto) 0 % 02/17/25 16:30 Nucleated RBCs # 0.0 /100WBC 02/17/25 16:30 PT 14.10 SECONDS (12.1-14.9) 02/17/25 16:30 INR 1.02 (0.8-1.2) 02/17/25 16:30 Sodium 139 mmol/L (136-145) 02/17/25 16:30 Potassium 4.2 mmol/L (3.5-5.1) 02/17/25 16:30 Chloride 102 mmol/L (98-107) 02/17/25 16:30 Carbon Dioxide 25 mmol/L (22-29) 02/17/25 16:30 Anion Gap 16.2 (5-19) 02/17/25 16:30 BUN 11 mg/dL (6-20) 02/17/25 16:30 Creatinine 0.7 mg/dL (0.7-1.2) 02/17/25 16:30 GFR Calculation 120.9 mL/min (90-130) 02/17/25 16:30 Glucose 71 mg/dL (65-115) 02/17/25 16:30 Calculated Osmolality 286 mOsm/kg (285-295) 02/17/25 16:30 Calcium 9.3 mg/dL (8.5-10.5) 02/17/25 16:30 Total Bilirubin 0.5 mg/dL (0.15-1.2) 02/17/25 16:30 AST 16 U/L (0-40) 02/17/25 16:30 ALT 19 U/L (0-41) 02/17/25 16:30 Alkaline Phosphatase 120 U/L (40-130) 02/17/25 16:30 Troponin T Baseline 9 ng/L (0-15) 02/17/25 16:30 Troponin T 120 Minute 8.16 ng/L (0-15) 02/17/25 18:24 Delta Troponin T -0.84 ABS# (0-10) L 02/17/25 18:24 Total Protein 7.5 g/dL (6.6-8.7) 02/17/25 16:30 Albumin 4.6 g/dL (3.5-5.2) 02/17/25 16:30 Globulin 2.9 g/dL (1.3-4.6) 02/17/25 16:30 Lipase 14 U/L (13-60) 02/17/25 16:30 Discharge Plan Discharge Patient Disposition: Placed in Observation Admit Provider: Breezy Carlos Clinical Impression: Unstable angina pectoris Coding Level of Care Code ED Linux Systems Analyst for Chg Fwd Documented by User: Tyler Gonzalez DO 02/17/25 23:55 HPI - Chest Pain General: Chief Complaint: Chest Pain Stated Complaint: cheat pressure Time Seen by Provider: 02/17/25 16:24 Related Data Home Medications ?Medication ?Instructions ?Recorded ?Confirmed multivitamin 1 tab PO DAILY 07/09/22 02/17/25 aspirin 81 mg tablet,delayed 81 mg PO DAILY 02/17/25 02/17/25 release atorvastatin 40 mg tablet 40 mg PO DAILY 02/17/25 02/17/25 cetirizine 10 mg tablet 10 mg PO DAILY 02/17/25 02/17/25 empagliflozin 10 mg tablet 10 mg PO DAILY 02/17/25 02/17/25 (Jardiance) magnesium oxide 400 mg PO DAILY 02/17/25 02/17/25 metformin 500 mg tablet,extended 1,000 mg PO BID 02/17/25 02/17/25 release 24 hr metoprolol tartrate 50 mg tablet 50 mg PO BID 02/17/25 02/17/25 omeprazole 40 mg capsule,delayed 40 mg PO BID 02/17/25 02/17/25 release pregabalin 50 mg capsule 50 mg PO BID 02/17/25 02/17/25 sertraline 100 mg tablet 150 mg PO DAILY 02/17/25 02/17/25 spironolactone 25 mg tablet 12.5 mg PO DAILY 02/17/25 02/17/25 sucralfate 100 mg/mL oral 10 ml PO QID PRN Stomach Upset 02/17/25 02/17/25 suspension ticagrelor 90 mg tablet (Brilinta) 90 mg PO BID 02/17/25 02/17/25 Previous Rx's ?Medication ?Instructions ?Recorded insulin syringe-needle U-100 1/2 #100 ea 07/11/22 mL 28 gauge x 1/2 (Comfort EZ Insulin Syringe) albuterol sulfate 90 mcg/actuation 1 inh inhalation QID PRN shortness 06/15/24 aerosol inhaler of breath or wheezing #8.5 grams insulin pump cartridge,automated #1 ea 09/03/24 dose,BT with controller subcutaneous (Omnipod 5 G6 Intro Kit (Gen 5) subcutaneous cartridge with controller) insulin aspart U-100 100 unit/mL See Rx Instructions continuous 09/30/24 subcutaneous solution subcutaneous infusion DAILY #150 mL fluticasone propionate 50 1 spray intranasal DAILY PRN 12/09/24 mcg/actuation nasal allergy symptoms #16 grams spray,suspension insulin glargine 100 unit/mL (3 10 unit (0.1 mL) SUBCUT DAILY #15 01/28/25 mL) subcutaneous pen (Lantus mL Solostar U-100 Insulin) blood-glucose meter,continuous #1 ea 02/02/25 (Dexcom G7 Anthropology Instructor) blood-glucose sensor (Dexcom G7 #3 ea 02/02/25 Sensor device) insulin pump cart,auto,BT,G6/7 #10 ea 02/09/25 (Omnipod 5 G6-G7 Pods (Gen 5) subcutaneous cartridge) linaclotide 290 mcg capsule 290 mcg PO DAILY 30 days #30 caps 02/16/25 (Linzess) nitroglycerin 0.4 mg sublingual 0.4 mg sublingual Q5M PRN chest 02/16/25 tablet pain 90 days #90 tabs Allergies Allergy/AdvReac Type Severity Reaction Status Date / Time promethazine Allergy Intermediate ALGY-Swell Verified 02/17/25 15:36 Lip/Tongue/Throat nalbuphine (From Nubain) Allergy Unknown Verified 02/17/25 15:36 [facility] ED PFSH: Medical History Chronic idiopathic constipation Cough Upper respiratory infection Headache Sinusitis Anemia Seizure Shingles Near syncope Incarcerated ventral hernia COVID Dermatitis Environmental and seasonal allergies Acute bronchitis Lower respiratory infection Chest pain Tobacco use disorder Chest pain Atherosclerosis of coronary artery Abnormal stress test Diabetes mellitus Hyperlipidemia associated with type 2 diabetes mellitus Essential hypertension Chest pain CVA (cerebral vascular accident) Herpes zoster Vertigo Obese Restrictive lung disease Left knee pain Bilateral lower extremity edema Hyperlipidemia Shortness of breath COVID-19 virus infection Anxiety DM type 2 (diabetes mellitus, type 2) Hypertension Surgical History History of heart artery stent Family History Grandfather Anesthesia complication CAD (coronary artery disease) Chronic kidney disease (CKD) Dementia Diabetes Grandmother CAD (coronary artery disease) Cancer Chronic kidney disease (CKD) Diabetes Lung disease Stroke Family/Other CAD (coronary artery disease) Cancer Mother Diabetes CAD (coronary artery disease) Grandfather Diabetes Denies family history of Clotting disorder Suicide Bleeding disorder Social History Smoking and tobacco/nicotine status: never used tobacco/nicotine Quit status (tobacco/nicotine): has quit using Year quit tobacco: 01/17 Former quit date comment: quit chewing Second hand smoke exposure: No Alcohol intake: current Alcohol intake frequency: holidays/special occasions only Substance/Drug Use: never Adopted: No Caregiver/support person: No Lives independently: Yes Household members: spouse Housing: House Marital status: Number of children: 4 Highest education level completed: Some College, No Degree service: No Current occupational status: employed Current occupational exposures/hazards: No Pets and animals: Yes Pets & animals: cat(s), dog(s), bird(s) and ferret(s) Leisure activites: other Leisure activities details: family time, small project (welding or wood working...something hands on) Sexually active: Yes Do you think of yourself as: Straight/Heterosexual Current gender identity: Male Claudine/Rastafarian: Orthodoxy Special claudine needs: No Agree to transfusion: Yes Course Vital Signs: Vital signs: Vital Signs Temperature 97.8 F 02/18/25 04:00 Pulse Rate 64 02/18/25 06:00 Respiratory Rate 21 H 02/18/25 04:00 Blood Pressure 113/67 02/18/25 04:00 Pulse Oximetry 91 02/18/25 04:00 Oxygen Delivery Me thod Room Air 02/18/25 04:00 MDM - Chest Pain Medical Decision Making Care signed out to Dr. Gonzalez at change of shift. See final notes for diagnosis and disposition. Waited for 2-hour troponin to come back, initial troponin 9, 2-hour troponin 8.1, both EKGs showed no acute changes, this was discussed with Dr. Alexis who says since he has known coronary artery disease and intermittent chest pain throughout the day we can call this unstable angina admit him to the hospitalist for observation and do an angiogram on him in the morning. We will give him 1 shot of Lovenox and make him n.p.o. after midnight. Discussed this with Dr. Carlos we will admit for observation. Lab Data 02/17/25 16:30 02/18/25 03:36 Radiology Impressions Chest X-Ray 02/17/25 16:05 IMPRESSION: No acute findings. Laboratory Results WBC 10.57 10^3/uL (3.29-11.43) 02/17/25 16:30 RBC 5.58 10^6/uL (3.85-5.65) 02/17/25 16:30 Hgb 15.10 g/dL (11.27-16.99) 02/17/25 16:30 Hct 46.8 % (37-53) 02/17/25 16:30 MCV 83.9 fl (82-101) 02/17/25 16:30 MCH 27.1 pg (27-33) 02/17/25 16:30 MCHC 32.3 g/dL (30-55) 02/17/25 16:30 RDW 13.6 % (12.1-15.1) 02/17/25 16:30 Plt Count 199 10^3/cmm (157-399) 02/17/25 16:30 MPV 8.6 fL (7.4-10.4) 02/17/25 16:30 Neut % (Auto) 70.5 % 02/17/25 16:30 Lymph % (Auto) 21.9 % 02/17/25 16:30 Barton % (Auto) 5.6 % 02/17/25 16:30 Eos % (Auto) 0.7 % 02/17/25 16:30 Baso % (Auto) 0.6 % 02/17/25 16:30 Neut # (Auto) 7.46 10^3/uL (1.8-7.7) 02/17/25 16:30 Lymph # (Auto) 2.3 10^3/uL (0.8-4.8) 02/17/25 16:30 Barton # (Auto) 0.6 10^3/uL (0.2-0.9) 02/17/25 16:30 Eos # (Auto) 0.1 10^3/uL (0.0-0.8) 02/17/25 16:30 Baso # (Auto) 0.1 10^3/uL (0.0-0.1) 02/17/25 16:30 Nucleated RBC % (auto) 0 % 02/17/25 16:30 Nucleated RBCs # 0.0 /100WBC 02/17/25 16:30 PT 14.10 SECONDS (12.1-14.9) 02/17/25 16:30 INR 1.02 (0.8-1.2) 02/17/25 16:30 Sodium 139 mmol/L (136-145) 02/17/25 16:30 Potassium 4.2 mmol/L (3.5-5.1) 02/17/25 16:30 Chloride 102 mmol/L (98-107) 02/17/25 16:30 Carbon Dioxide 25 mmol/L (22-29) 02/17/25 16:30 Anion Gap 16.2 (5-19) 02/17/25 16:30 BUN 11 mg/dL (6-20) 02/17/25 16:30 Creatinine 0.7 mg/dL (0.7-1.2) 02/17/25 16:30 GFR Calculation 120.9 mL/min (90-130) 02/17/25 16:30 Glucose 71 mg/dL (65-115) 02/17/25 16:30 Calculated Osmolality 286 mOsm/kg (285-295) 02/17/25 16:30 Calcium 9.3 mg/dL (8.5-10.5) 02/17/25 16:30 Total Bilirubin 0.5 mg/dL (0.15-1.2) 02/17/25 16:30 AST 16 U/L (0-40) 02/17/25 16:30 ALT 19 U/L (0-41) 02/17/25 16:30 Alkaline Phosphatase 120 U/L (40-130) 02/17/25 16:30 Troponin T Baseline 9 ng/L (0-15) 02/17/25 16:30 Troponin T 120 Minute 8.16 ng/L (0-15) 02/17/25 18:24 Delta Troponin T -0.84 ABS# (0-10) L 02/17/25 18:24 Total Protein 7.5 g/dL (6.6-8.7) 02/17/25 16:30 Albumin 4.6 g/dL (3.5-5.2) 02/17/25 16:30 Globulin 2.9 g/dL (1.3-4.6) 02/17/25 16:30 Lipase 14 U/L (13-60) 02/17/25 16:30 All radiology interpretation(s) finalized by discharge Discharge Plan Discharge Patient Disposition: Placed in Observation Admit Provider: Breezy Carlos Clinical Impression: Unstable angina pectoris Coding Level of Care Code ED Linux Systems Analyst for Anthony Lara
[2025-02-17 16:42] LABS: Basophils # 0.1 10^3/uL (0.0-0.1); Basophils % 0.6 %; Eosinophils # 0.1 10^3/uL (0.0-0.8); Eosinophils % 0.7 %; Hematocrit 46.8 % (37-53); Lymphocytes # 2.3 10^3/uL (0.8-4.8); Lymphocytes % 21.9 %; Mean Corpuscular HGB Conc 32.3 g/dL (30-55); Mean Corpuscular Hemoglobin 27.1 pg (27-33); Mean Corpuscular Volume 83.9 fl (82-101); Mean Platelet Volume 8.6 fL (7.4-10.4); Monocytes # 0.6 10^3/uL (0.2-0.9); Monocytes % 5.6 %; Neutrophils # 7.46 10^3/uL (1.8-7.7); Neutrophils % 70.5 %; Nucleated Red Blood Cells % 0 %; Platelet Count 199 10^3/cmm (157-399); Red Blood Count 5.58 10^6/uL (3.85-5.65); Red Cell Distribution Width 13.6 % (12.1-15.1); White Blood Count 10.57 10^3/uL (3.29-11.43)
[2025-02-17 16:57] LABS: INR 1.02 (0.8-1.2)
[2025-02-17 17:08] LABS: Alanine Aminotransferase 19 U/L (0-41); Albumin Level 4.6 g/dL (3.5-5.2); Alkaline Phosphatase 120 U/L (40-130); Anion Gap 16.2 (5-19); Aspartate Amino Transferase 16 U/L (0-40); Blood Urea Nitrogen 11 mg/dL (6-20); Calcium 9.3 mg/dL (8.5-10.5); Carbon Dioxide 25 mmol/L (22-29); Chloride 102 mmol/L (98-107); Globulin 2.9 g/dL (1.3-4.6); Glomerular Filtration Rate 120.9 mL/min (90-130); Glucose 71 mg/dL (65-115); Lipase 14 U/L (13-60); Osmolality Calculated 286 mOsm/kg (285-295); Potassium 4.2 mmol/L (3.5-5.1); Sodium 139 mmol/L (136-145); Total Bilirubin 0.5 mg/dL (0.15-1.2); Total Protein 7.5 g/dL (6.6-8.7)
[2025-02-17 17:28] LABS: Troponin(5th) Baseline 9 ng/L (0-15)
--- NOTE | 2025-02-17 18:05 | ECG_ITS ---
[facility] Test Date: 2025-02-17 Pat Name: Rui Jiang Department: Room: Gender: Male Director [employer]: : 1975 Requested By: Ace Becerra Order Number: [id number] Derrek MD: Berhane Hollins M.D. Measurements Intervals [place] Rate: 79 P: 35 NC: 160 QRS: 48 QRSD: 93 T: 24 QT: 378 QTc: 434 Interpretive Statements SINUS RHYTHM Compared to ECG 02/17/2025 16:13:27 No significant changes Electronically Signed On 02-17-2025 19:28:32 CDT by Berhane Hollins M.D. [email or web address]
[2025-02-17 18:45] LABS: Troponin 5 2HR 8.16 ng/L (0-15)
[2025-02-17 18:47] LABS: Troponin 5 2HR Delta -0.84 ABS# (0-10)
--- NOTE | 2025-02-17 20:58 | PC.NURSE ---
Beside report given to Donna CARVALHO in [facility]. All questions and concerns were addressed at time of report.
[2025-02-17] MEDS: enoxaparin 120 mg/0.8 mL Syringe SUBCUT (21:19)
--- NOTE | 2025-02-17 21:45 | PM.HP ---
Providers/Chief Complaint Admitting Physician: Breezy Carlos MD Primary Care Provider: KENTRELL Mart Chief Complaint: cheat pressure History of Present Illness Rui Jiang is a 49 year old male with history of diabetes, coronary artery disease, history of cardiac arrest in [employer], has been compliant with his aspirin and Brilinta including antihyperglycemic agents, vapes on a daily basis, does not smoke cigarettes or use alcohol, was seeing cardiology to get clearance before hernia surgery was referred to our ER for chief complaint of chest pain. Patient is stating that he has been experiencing chest pain for the last couple of weeks mostly occurs at minimal exertion not associated with nausea, vomiting diarrhea or diaphoresis but sometimes with shortness of breath. He has not noticed any fever, productive cough. In the ER workup consistent with no ischemic or infarctive changes on EKG, troponin without significant delta, patient is chest pain-free, hemodynamically stable with hypertension complaining of headache. As per cardiology there is plan to do an angiogram in the morning. He has been given therapeutic Lovenox Review of Systems Const: Denies: fever(s) Eyes: Denies: change in vision ENMT: Denies: throat pain Card: Reports: chest pain Resp: Denies: dyspnea GI: Reports: nausea : Denies: flank pain Medications/Allergies Home Medications ?Medication ?Instructions ?Recorded ?Confirmed ?Last Taken ?Type multivitamin 1 tab PO DAILY 07/09/22 02/17/25 02/17/25 History insulin syringe-needle U-100 1/2 #100 ea 07/11/22 02/17/25 Unknown Rx mL 28 gauge x 1/2 (Comfort EZ Insulin Syringe) albuterol sulfate 90 mcg/actuation 1 inh inhalation QID PRN shortness 06/15/24 02/17/25 Unknown Rx aerosol inhaler of breath or wheezing #8.5 grams insulin pump cartridge,automated #1 ea 09/03/24 02/17/25 Unknown Rx dose,BT with controller subcutaneous (Omnipod 5 G6 Intro Kit (Gen 5) subcutaneous cartridge with controller) insulin aspart U-100 100 unit/mL See Rx Instructions continuous 09/30/24 02/17/25 02/17/25 Rx subcutaneous solution subcutaneous infusion DAILY #150 mL fluticasone propionate 50 1 spray intranasal DAILY PRN 12/09/24 02/17/25 Unknown Rx mcg/actuation nasal allergy symptoms #16 grams spray,suspension insulin glargine 100 unit/mL (3 10 unit (0.1 mL) SUBCUT DAILY #15 01/28/25 02/17/25 02/16/25 Rx mL) subcutaneous pen (Lantus mL Solostar U-100 Insulin) blood-glucose meter,continuous #1 ea 02/02/25 02/17/25 Unknown Rx (Dexcom G7 Workforce Planner) blood-glucose sensor (Dexcom G7 #3 ea 02/02/25 02/17/25 Unknown Rx Sensor device) insulin pump cart,auto,BT,G6/7 #10 ea 02/09/25 02/17/25 Unknown Rx (Omnipod 5 G6-G7 Pods (Gen 5) subcutaneous cartridge) linaclotide 290 mcg capsule 290 mcg PO DAILY 30 days #30 caps 02/16/25 02/17/25 Unknown Rx (Linzess) nitroglycerin 0.4 mg sublingual 0.4 mg sublingual Q5M PRN chest 02/16/25 02/17/25 Unknown Rx tablet pain 90 days #90 tabs aspirin 81 mg tablet,delayed 81 mg PO DAILY 02/17/25 02/17/25 02/17/25 History release atorvastatin 40 mg tablet 40 mg PO DAILY 02/17/25 02/17/25 02/16/25 History cetirizine 10 mg tablet 10 mg PO DAILY 02/17/25 02/17/25 02/17/25 History empagliflozin 10 mg tablet 10 mg PO DAILY 02/17/25 02/17/25 02/17/25 History (Jardiance) magnesium oxide 400 mg PO DAILY 02/17/25 02/17/25 02/17/25 History metformin 500 mg tablet,extended 1,000 mg PO BID 02/17/25 02/17/25 02/17/25 History release 24 hr metoprolol tartrate 50 mg tablet 50 mg PO BID 02/17/25 02/17/25 02/17/25 History omeprazole 40 mg capsule,delayed 40 mg PO BID 02/17/25 02/17/25 02/17/25 History release pregabalin 50 mg capsule 50 mg PO BID 02/17/25 02/17/25 02/17/25 History sertraline 100 mg tablet 150 mg PO DAILY 02/17/25 02/17/25 02/17/25 History spironolactone 25 mg tablet 12.5 mg PO DAILY 02/17/25 02/17/25 02/17/25 History sucralfate 100 mg/mL oral 10 ml PO QID PRN Stomach Upset 02/17/25 02/17/25 Unknown History suspension ticagrelor 90 mg tablet (Brilinta) 90 mg PO BID 02/17/25 02/17/25 02/17/25 History Allergies Allergy/AdvReac Type Severity Reaction Status Date / Time promethazine Allergy Intermediate ALGY-Swell Verified 02/17/25 15:36 Lip/Tongue/Throat nalbuphine (From Nubain) Allergy Unknown Verified 02/17/25 15:36 PFSH Acute PFSH: Medical History Chronic idiopathic constipation Cough Upper respiratory infection Headache Sinusitis Anemia Seizure Shingles Near syncope Incarcerated ventral hernia COVID Dermatitis Environmental and seasonal allergies Acute bronchitis Lower respiratory infection Chest pain Tobacco use disorder Chest pain Atherosclerosis of coronary artery Abnormal stress test Diabetes mellitus Hyperlipidemia associated with type 2 diabetes mellitus Essential hypertension Chest pain CVA (cerebral vascular accident) Herpes zoster Vertigo Obese Restrictive lung disease Left knee pain Bilateral lower extremity edema Hyperlipidemia Shortness of breath COVID-19 virus infection Anxiety DM type 2 (diabetes mellitus, type 2) Hypertension Surgical History History of heart artery stent Family History Grandfather Anesthesia complication CAD (coronary artery disease) Chronic kidney disease (CKD) Dementia Diabetes Grandmother CAD (coronary artery disease) Cancer Chronic kidney disease (CKD) Diabetes Lung disease Stroke Family/Other CAD (coronary artery disease) Cancer Mother Diabetes CAD (coronary artery disease) Grandfather Diabetes Denies family history of Clotting disorder Suicide Bleeding disorder Social History Smoking and tobacco/nicotine status: never used tobacco/nicotine Quit status (tobacco/nicotine): has quit using Year quit tobacco: 01/17 Former quit date comment: quit chewing Second hand smoke exposure: No Alcohol intake: current Alcohol intake frequency: holidays/special occasions only Substance/Drug Use: never Adopted: No Caregiver/support person: No Lives independently: Yes Household members: spouse Housing: House Marital status: Number of children: 4 Highest education level completed: Some College, No Degree service: No Current occupational status: employed Current occupational exposures/hazards: No Pets and animals: Yes Pets & animals: cat(s), dog(s), bird(s) and ferret(s) Leisure activites: other Leisure activities details: family time, small project (welding or wood working...something hands on) Sexually active: Yes Do you think of yourself as: Straight/Heterosexual Current gender identity: Male Claudine/Sabianist: Anglican Special claudine needs: No Agree to transfusion: Yes Vitals/I&O/Wt Last Vital Signs Temp 97.9 F 02/17/25 16:09 Pulse 76 02/17/25 21:08 Resp 20 H 02/17/25 21:00 BP 137/72 02/17/25 21:08 Pulse Ox 94 02/17/25 21:08 O2 Del Method Room Air 02/17/25 21:21 Weight last 48 hrs Weight 131.905 kg Weight 131.23 kg Weight 127.006 kg Physical Exam Narrative: Morbidly obese Pleasant and cooperative No active chest pain Hypertensive GCS 15 Nonfocal neuroexam No active abdominal pain Distended abdomen S1, S2 Currently on room air Hypertensive blood pressure 160s /90s millimeters mercury Lower extremity trace edema Complaining of headache No active sign of meningitis or stroke Appears stated age Anxious appearing Data 02/17/25 16:30 02/17/25 16:30 A&P Assessment and plan (1) Anxiety and depression: (2) Hypertension: Qualifiers: Hypertension type: primary hypertension Qualified Code(s): I10 - Essential (primary) hypertension (3) CAD (coronary artery disease): (4) Unstable angina pectoris: (5) DM type 2 (diabetes mellitus, type 2): Qualifiers: Diabetes mellitus rat exterminator insulin use: with rat exterminator use Diabetes mellitus complication status: with hyperglycemia Qualified Code(s): E11.65 - Type 2 diabetes mellitus with hyperglycemia; Z79.4 - [facility] (current) use of insulin (6) Obesity: (7) Insomnia: (8) Preoperative clearance: Plan Unstable angina Currently chest pain-free EKG without infarctive changes, troponin without significant delta Optimize antihypertensive regimen LAD stent with history of in-stent restenosis status post restenting Considering established coronary disease and history of diabetes, plan has been made to do an angiogram the morning by Dr. Alexis N.p.o. after midnight Continue therapeutic Lovenox with aspirin Brilinta Will request echo as well Headache: Patient endorsing history of occipital neuralgia: Will give 1 dose of opioids, No active sign of stroke or meningitis Type II diabetic: Insulin sliding scale Consistent carb diet and then n.p.o. after midnight DVT prophylaxis: Covered with therapeutic Lovenox N.p.o. after midnight Full code History of anxiety/depression: May resume antidepressants or anxiolytics in next 24 hoursFull GI prophylaxis: Protonix PDMP PDMP Reviewed: Not Reviewed Attestations Medical Necessity Statement*: Anticipating dc in 48hrs, needed angiogram in the morning Diagnoses Anxiety and depression F41.9; F32.A Primary hypertension I10 Hypertension type: primary hypertension CAD (coronary artery disease) I25.10 Unstable angina pectoris I20.0 Type 2 diabetes mellitus with hyperglycemia, with long-term current use of insulin E11.65; Z79.4 Diabetes mellitus group home insulin use: with group home use Diabetes mellitus complication status: with hyperglycemia Obesity E66.9 Insomnia G47.00 Preoperative clearance Z01.818
--- NOTE | 2025-02-17 21:47 | USCV_ITS ---
Rui Jiang Age: 49 Gender: M : 1975 Exam Date: 02/17/2025 22:27 Ordering Phys: Breezy Carlos MD Technologist: CHULA [place] [facility] [place]: UA BP: 146 / 95 HR: 72 Rhythm: Sinus Technical Quality: Adequate MEASUREMENTS (Male / Female) Normal Values 2D ECHO LV Diastolic Diameter PLAX 4.7 cm 4.2 - 5.9 / 3.9 - 5.3 cm IVS Diastolic Thickness 1.5 cm 0.6 - 1.0 / 0.6 - 0.9 cm IVS Systolic Thickness 1.8 cm LVPW Diastolic Thickness 1.7 cm 0.6 - 1.0 / 0.6 - 0.9 cm LVPW Systolic Thickness 1.7 cm LVOT Diameter 1.9 cm LV Ejection Fraction 2D Teich 69.9 % LV Ejection Fraction MOD 4C 56.4 % LV Ejection Fraction MOD 2C 51.1 % LV Ejection Fraction 2C AL 47.9 % LA Diameter 3.2 cm Aorta at Sinotubular Diameter 3.1 cm IVC Diameter 1.5 cm M-MODE LA Ao Ratio MM 1.5 AV Cusp Separation MM 2.1 cm DOPPLER AV Peak Velocity 191.0 cm/s LVOT Peak Velocity 116.0 cm/s AV Area Cont Eq vti 2.0 cm squared AV Area Cont Eq pk 1.7 cm squared MV Peak Velocity 120.0 cm/s MV Area PHT 3.1 cm squared Mitral E to A Ratio 1.3 TV Peak Velocity 291.0 cm/s TR Peak Velocity 304.0 cm/s TR Peak Gradient 37.0 mmHg TV Peak E Velocity 60.0 cm/s PV Peak Velocity 102.0 cm/s FINDINGS Left Ventricle Normal left ventricular size and systolic function, EF of 55%. Mild left ventricular hypertrophy. No regional wall motion abnormalities. Grade I/IV diastolic dysfunction (abnormal relaxation filling pattern), normal to mildly elevated filling pressures. Right Ventricle The right ventricle is normal in size and function. Right Atrium The right atrium is normal in size. Left Atrium The left atrium is normal in size. Mitral Valve Mild mitral valve regurgitation. Aortic Valve Aortic valve velocity was found to be 1.9 m/s. Tricuspid Valve No gross abnormalities noted Pulmonic Valve No gross abnormalities noted Pericardium Normal pericardium without effusion. Aorta Normal ascending aorta dimension. IVC Normal inferior vena cava. CONCLUSIONS Normal left ventricular size and systolic function, EF of 55%. Mild left ventricular hypertrophy. No regional wall motion abnormalities. Grade I/IV diastolic dysfunction (abnormal relaxation filling pattern), normal to mildly elevated filling pressures. Elevated velocity at the aortic valve, possibly related to sclerosis. There is no pericardial effusion. There are no intracardiac masses. Compared to the previous study from 01/29/2025, there may not be significant Dr Berhane Hollins MD FACC (Electronically Signed) Final Date: 17 February 2025 23:15 S
[2025-02-17 22:57] LABS: Troponin 5 6HR 12.72 ng/L (0-15); Troponin 5 6HR Delta 3.72 ng/L (0-12)
[2025-02-17] MEDS: oxyCODONE-APAP 10-325 mg Tablet 1 TAB PO (23:19)
--- NOTE | 2025-02-17 23:23 | ECG_ITS ---
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 Measurements Intervals [place] Rate: 70 P: 257 [place]: 106 QRS: 29 QRSD: 94 T: 30 QT: 380 QTc: 411 Interpretive Statements JUNCTIONAL RHYTHM ABNORMAL RHYTHM ECG Compared to ECG 02/17/2025 18:07:15 Junctional rhythm now present Sinus rhythm no longer present Electronically Signed On 02-18-2025 22:26:24 CDT by Berhane Hollins M.D. [email or web address]
[2025-02-18] VITALS (55 sets, daily range): BP systolic 113–157; BP diastolic 65–95; PULSE 59–83; RESP 12–30; TEMP 35.9–36.6; O2SAT 87–98
[2025-02-18 04:06] LABS: Anion Gap 11.1 (5-19); Blood Urea Nitrogen 11 mg/dL (6-20); C Reactive Protein 7.2 mg/L (0.0-4.9); Calcium 9.2 mg/dL (8.5-10.5); Carbon Dioxide 29 mmol/L (22-29); Chloride 104 mmol/L (98-107); Glomerular Filtration Rate 120.9 mL/min (90-130); Glucose 94 mg/dL (65-115); Magnesium 2.1 mg/dL (1.7-2.3); Osmolality Calculated 289 mOsm/kg (285-295); Phosphorus 3.7 mg/dL (2.5-4.5); Potassium 4.1 mmol/L (3.5-5.1); Sodium 140 mmol/L (136-145)
[2025-02-18 06:34] LABS: Glucose Point of Care 120 mg/dL (70-110)
--- NOTE | 2025-02-18 09:11 | P.CONIM_ITS ---
<Statement entered by Breezy Alexis MD - 02/18/25 22:23> Patient was evaluated and cared for in conjunction with an advanced practice practitioner. I personally examined the patient and reviewed the chart and all pertinent data including imaging, telemetry, and laboratory results. I discussed the patient in detail with the advanced practice practitioner. Please see their note for complete H&P testing result and agreed upon plan of care for the patient. 49-year-old male past medical history significant for prior intervention with history of in-stent restenosis for worsening of shortness of breath chest pain and preop clearance underwent stress test which turns out to be positive, patient was scheduled to undergo left heart cath however his chest pain has increased in frequency and duration therefore came to the ER. It appeared to me that patient may have unstable angina therefore he was admitted. Rule out for acute coronary syndrome. GENERAL: Patient is alert, awake and oriented x3. HEART: Regular S1 and S2. No murmur, rub or gallop. LUNGS: Clear to auscultate bilaterally. CENTRAL NERVOUS SYSTEM: Grossly nonfocal. EXTREMITIES: Lower extremities with out edema bilaterally. Assessment and plan #1 unstable angina #2 coronary artery disease history of prior stent #3 hypertension #4 hyperlipidemia #5 obesity Proceed with left heart cath, continue current management further plan be advised as per progress the patient Providers/Reason For Consult 2 Consulting Physician/Specialty*: Dr Alexis, cardiology Reason for Consult*: chest pain Requesting Physician: Dr Schmid Attending Physician: Marium Zaldivar MD Primary Care Provider: KENTRELL Mart History of Present Illness History of Present Illness Rui Jiang is a 49 year old male with past medical history of CAD, stents to the LAD in 2020, 2021 and 2023. He presented to the emergency room yesterday due to chest pain that had began approximately 1 week prior, located in the left chest, brought on by exertion and relieved with rest, duration a few minutes up to 1 hour. He has noticed worsening shortness of breath lately and some lower extremity edema in the left leg. He denies diaphoresis, nausea, orthopnea. The pain is similar in character to what he had prior to his previous stents but not as intense. Blood pressure has been difficult to control lately with his usual medications of metoprolol 50 twice daily, spironolactone 12.5 mg daily. He has not missed any doses of Brilinta. He had a Lexiscan stress test 01/29/2025 showing basal to distal moderate reversibility in the anterior wall however no prone images were obtained. TID 1.42. No significant abnormalities in lab studies. Troponin series: 9 -> 8 -> 12. EKG not suggestive of ischemia, however the 3rd EKG performed yesterday evening showed P wave inversion in the inferior and lateral leads. Echocardiogram yesterday shows LVEF 55%, mild LVH, no regional wall motion abnormality, grade 1 diastolic dysfunction. Review of Systems 2 Const: Denies: fever(s), chills, change in weight, fatigue or diaphoresis Eyes: Denies: change in vision ENMT: Denies: epistaxis Card: Reports: chest pain, edema and dyspnea on exertion; Denies: palpitations, irregular heart rhythm, syncope, pre-syncope, orthopnea or leg pain with exertion Resp: Denies: dyspnea, productive cough or wheezing GI: Denies: nausea, vomiting, hematemesis, hematochezia or melena : Denies: hematuria Musc: Denies: extremity swelling Jeff/Lymph: Denies: easy bruising or easy bleeding Medications/Allergies Home Medications ?Medication ?Instructions ?Recorded ?Confirmed ?Last Taken ?Type multivitamin 1 tab PO DAILY 07/09/2201/2402/17/25 History insulin syringe-needle U-100 /2 #100 ea 07/11/2201/24 Unknown Rx mL 28 gauge x 1/2 (Comfort EZ Insulin Syringe) albuterol sulfate 90 mcg/actuation 1 inh inhalation QI D PRN shortness 06/15/24 02/17/25 Unknown Rx aerosol inhaler of breath or wheezing #8.5 g marcelo insulin pump cartridge,automated #1 ea 09/03/24 Unknown Rx dose,BT with controller subcutaneous (Omnipod 5 G6 Intro Kit (Gen 5) subcutaneous cartridge with controller) insulin aspart U-100 100 unit/mL See Rx Instructions c ontinuous 09/30/24 02/17/25 02/17/25 Rx subcutaneous solution subcutaneous infusion DAILY #150 mL fluticasone propionate 50 1 spray intranasal DAILY PRN 12/09/24 02/17/25 Unknown Rx mcg/actuation nasal allergy symptoms #16 grams spray,suspension insulin glargine 100 unit/mL (3 10 unit (0.1 mL) SUBCU T DAILY #15 01/28/25 02/17/25 02/16/25 Rx mL) subcutaneous pen (Lantus mL Solostar U-100 Insulin) blood-glucose meter,continuous #1 ea 02/02/25 02/17/25 Unknown Rx (Dexcom G7 Field Checker) blood-glucose sensor (Dexcom G7 #3 ea 02/02/25 5 Unknown Rx Sensor device) insulin pump cart,auto,BT,G6/7 #10 ea 02/09/25 5 Unknown Rx (Omnipod 5 G6-G7 Pods (Gen 5) subcutaneous cartridge) linaclotide 290 mcg capsule 290 mcg PO DAILY 30 days # 30 caps 02/16/25 02/17/25 Unknown Rx (Linzess) nitroglycerin 0.4 mg sublingual 0.4 mg sublingual Q5M PRN chest 02/16/25 02/17/25 Unknown Rx tablet pain 90 days #90 tabs aspirin 81 mg tablet,delayed 81 mg PO DAILY 02/17/25 0 02/17/25 02/17/25 History release atorvastatin 40 mg tablet 40 mg PO DAILY 02/17/25/05/1902/16/25 History cetirizine 10 mg tablet 10 mg PO DAILY 02/17/2501/2402/17/25 History empagliflozin 10 mg tablet 10 mg PO DAILY 02/17/2502/17/25 History (Jardiance) magnesium oxide 400 mg PO DAILY 02/17/2502/17/25 History metformin 500 mg tablet,extended 1,000 mg PO BID 02/1702/17/25 02/17/25 History release 24 hr metoprolol tartrate 50 mg tablet 50 mg PO BID 02/17/25 02/17/25 02/17/25 History omeprazole 40 mg capsule,delayed 40 mg PO BID 02/17/25 02/17/25 02/17/25 History release pregabalin 50 mg capsule 50 mg PO BID 02/17/2502/17/25 History sertraline 100 mg tablet 150 mg PO DAILY 02/17/2502/17/25 History spironolactone 25 mg tablet 12.5 mg PO DAILY 02/17/25 02/17/25 02/17/25 History sucralfate 100 mg/mL oral 10 ml PO QID PRN Stomach Ups et 02/17/25 02/17/25 Unknown History suspension ticagrelor 90 mg tablet (Brilinta) 90 mg PO BID 02/17/25 02/17/25 History Allergies Allergy/AdvReac Type Severity Reaction Status Date / Time promethazine Allergy Intermediate ALGY-Swell Verified 02/17/25 15:36 Lip/Tongue/Throat nalbuphine (From Nubain) Allergy Unknown Verified 02/17/25 15:36 Current Medications Generic Name Dose Route Start Last Admin Trade Name Freq PRN Reason Stop Dose Admin Insulin Human Lispro 0 unit 02/18/25 08:00 02/18/25 08:58 Insulin Lispro 100 Unit/1 Ml SUBCUT Not Given WM&BEDTIME STEPH Protocol PFSH Acute 2 PFSH: Medical History (Updated 02/18/25 @ 09:22 by KENTRELL Braswell) Chronic idiopathic constipation Cough Upper respiratory infection Headache Sinusitis Anemia Seizure Shingles Near syncope Incarcerated ventral hernia COVID Dermatitis Environmental and seasonal allergies Acute bronchitis Lower respiratory infection Chest pain Tobacco use disorder Chest pain Atherosclerosis of coronary artery Abnormal stress test Diabetes mellitus Hyperlipidemia associated with type 2 diabetes mellitus Essential hypertension Chest pain CVA (cerebral vascular accident) Herpes zoster Vertigo Obese Restrictive lung disease Left knee pain Bilateral lower extremity edema Hyperlipidemia Shortness of breath COVID-19 virus infection Anxiety DM type 2 (diabetes mellitus, type 2) Hypertension Surgical History History of heart artery stent Family History Grandfather Anesthesia complication CAD (coronary artery disease) Chronic kidney disease (CKD) Dementia Diabetes Grandmother CAD (coronary artery disease) Cancer Chronic kidney disease (CKD) Diabetes Lung disease Stroke Family/Other CAD (coronary artery disease) Cancer Mother Diabetes CAD (coronary artery disease) Grandfather Diabetes Denies family history of Clotting disorder Suicide Bleeding disorder Social History Smoking and tobacco/nicotine status: never used tobacco/nicotine Quit status (tobacco/nicotine): has quit using Year quit tobacco: 01/17 Former quit date comment: quit chewing Second hand smoke exposure: No Alcohol intake: current Alcohol intake frequency: holidays/special occasions only Substance/Drug Use: never Adopted: No Caregiver/support person: No Lives independently: Yes Household members: spouse Housing: House Marital status: Number of children: 4 Highest education level completed: Some College, No Degree service: No Current occupational status: employed Current occupational exposures/hazards: No Pets and animals: Yes Pets & animals: cat(s), dog(s), bird(s) and ferret(s) Leisure activites: other Leisure activities details: family time, small project (welding or wood working...something hands on) Sexually active: Yes Do you think of yourself as: Straight/Heterosexual Current gender identity: Male Claudine/Moravian: Mu-Ism Special claudine needs: No Agree to transfusion: Yes Vitals/I&O/Wt Last Vital Signs Temp 96.6 F L 02/18/25 07:24 Pulse 65 02/18/25 07:24 Resp 23 H 02/18/25 07:24 BP 145/81 02/18/25 07:24 Pulse Ox 93 02/18/25 07:24 O2 Del Method Room Air 02/18/25 07:24 02/17/25 02/18/25 02/18/25 22:59 06:59 14:59 Intake Total 240 / 240 0 / 240 Output Total 900 / 900 Balance 240 / -660 -900 / -660 Weight last 48 hrs Weight 285 lb Weight 290 lb 12.8 oz Weight 289 lb 5 oz Weight 280 lb Physical Exam 2 Const: COMMON NORMALS: no acute distress and patient oriented x3 GENERAL APPEARANCE: cooperative and comfortable ORIENTATION/CONSCIOUSNESS: Yes awake, Yes oriented to person, Yes oriented to place and Yes oriented to time Chest: COMMONS NORMALS: normal inspection of the chest and normal palpation of entire chest wall CHEST: Yes Symmetrical chest wall rise Resp: COMMON NORMALS: normal respiratory effort, No retractions, No use of accessory muscles and clear to auscultation bilaterally EFFORT & INSPECTION: Yes symmetric chest movement AUSCULTATION: clear to auscultation bilaterally Cardio: COMMON NORMALS: regular rate, regular rhythm, S1 normal heart sound present, S2 normal heart sound present, No gallops present (Cardio), No clicks present (Cardio), No murmurs present (Cardio) and No rub (Cardio) RATE: r egular rate RHYTHM: regular rhythm HEART SOUNDS: S1 normal heart sound present and S2 normal heart sound present PERIPHERAL PULSES: radial pulses present Extremity: COMMON NORMALS: no pedal edema Neuro: COMMON NORMALS: patient oriented x3 and moves all extremities S ENSORIUM/ORIENTATION: Yes oriented to person, Yes oriented to place and Yes oriented to time Data 02/17/25 16:30 02/18/25 03:36 A&P Assessment and plan (1) CAD (coronary artery disease): (2) Hypertension: Qualifiers: Hypertension type: primary hypertension Qualified Code(s): I10 - Essential (primary) hypertension (3) Hypertriglyceridemia: (4) Abnormal stress test: (5) Chest pain: (6) DM type 2 (diabetes mellitus, type 2): Qualifiers: Diabetes mellitus complication status: with hyperglycemia Diabetes mellitus half-way insulin use: with parts counterman use Qualified Code(s): E11.65 - Type 2 diabetes mellitus with hyperglycemia; Z79.4 - terminal operations manager (current) use of insulin Plan Given his history of in-stent restenosis over the last 4 years, history of hypertension and diabetes, the fact that the pain is similar in character to previous, and that he is requiring cardiac clearance for hernia surgery upcoming, he will require a coronary angiogram for further evaluation. The risk and benefits of procedure have been discussed with him including risk of bleeding, , stroke, contrast-induced nephropathy. He is willing to proceed. PDMP PDMP Reviewed: Not Reviewed Coding Level of Care Code Acute Code for [facility] Diagnoses CAD (coronary artery disease) I25.10 Primary hypertension I10 Hypertension type: primary hypertension Hypertriglyceridemia E78.1 Abnormal stress test R94.39 Precordial pain R07.9 Type 2 diabetes mellitus with hyperglycemia, with long-term current use of insulin E11.65; Z79.4 Diabetes mellitus complication status: with hyperglycemia Diabetes mellitus parts counterman insulin use: with half-way use
[2025-02-18] MEDS: pantoprazole 40 mg SDV IVP (09:16)
[2025-02-18] MEDS: atorvastatin 40 mg Tablet PO (09:17)
[2025-02-18] MEDS: ticagrelor 90 mg Tablet PO (09:17)
[2025-02-18] MEDS: metoprolol tartrate 50 mg Tablet PO (09:17)
[2025-02-18] MEDS: aspirin 81 mg EC Tablet PO (09:17)
[2025-02-18] MEDS: sennosides-docusate Tablet 1 TAB PO (09:17)
--- NOTE | 2025-02-18 09:37 | XACV_ITS ---
Exam Room: [employer] Ht: 178 cm Wt: 129 kg BSA: 2.58 m2 Gender: Male : 1975 Any Known Allergies: Other Exam Priority: Routine Procedure(s): Procedure Description: Diagnostic procedure Procedure Description: PCI procedure Procedure Description: PTCA Procedure Description: Miscellaneous Procedure Description: ACT Procedure Description: Coronary Angiography Reuben GARCIA; Diagnostic Cath Status: Elective Diagnostic Findings * Indication: Abnormal stress test, recurrent chest pain suspicious for unstable angina presented to the hospital. Preop clearance for abdominal surgery regarding congenital herniaLeft heart cath results#1 Left main: Normal no significant stenosis#2 LAD has proximal moderate to severe in-stent restenosis. LAD has already to date of stents specially in proximal segment it is a segment which has eccentric 70 to 80% in-stent restenosis, it is a culprit vessel and goes with stress test#3 Diagonal small caliber long vessel with ostial 70 to 80% stenosis not amenable to intervention it is not the culprit vessel#4 left circumflex has luminal irregularity without significant stenosis in mid to distal segment, proximal segment have 30 to 40% stenosis#5 RCA has luminal irregularity without significant stenosis. Interventional Findings * LAD PCI: Balloon angioplasty of proximal LAD stent for in-stent restenosis using noncompliant balloon. Patient already had 2 layers of stent therefore we used balloon angioplasty. Successful PCI to proximal LAD stent for severe in-stent restenosis. Lesion was treated with MDT noncompliant Euphora 4.0 x 15 mm balloon at high pressure 18 brennon inflations which reduced 80% in-stent restenosis to 20%.. Excellent angiographic result with MADHAV-3 flow was achieved. Recommendations * 1-Return to inpatient for close monitoring and routine cath care 2-Risk factor modification for secondary prevention 3-Statin with LDL goal <70 mg/dl, aspirin 81 mg life-long 4- Continue Brillinta 90mg p.o. twice daily for at least one year. We will assess at the end of one year again to continue it further or not 5-Continue optimal medical management 6-Follow up with cardiology n nurse practitioner in 2 weeks and with me in 6-month. Ventriculography Ejection Fraction: 60.0 % Pressures Phase:Rest AO : 107 / 70 ( 87 ) @ 11:16:00 AM 117 / 77 ( 95 ) @ 11:30:00 AM 126 / 79 ( 99 ) @ 11:43:00 AM 128 / 79 ( 100 ) @ 11:43:00 AM LV : 129 / 15 / 30 @ 11:40:00 AM 136 / 13 / 27 @ 11:42:00 AM 143 / 14 / 30 @ 11:43:00 AM Valves Phase:DefaultPhase AV : 16.0 @ 10:50:39 AM AV Mean Gradient: 15.0 @ 10:50:39 AM Clinical Evaluation EBL: 5mL-10mL Procedural Details Procedure Consent Obtained. Admit Source: In Patient. Pre-Procedure Time Out. Identified patient by full name and date of as verbalized by the patient/guarantor. Does the consent match the physician's order: Yes. Accurate & Complete Informed Consent: Yes. Inpatient/Outpatient History & Physical on Chart: Yes. If H&P is completed, is and addenduem needed: No; If yes, is the addendum complete: N/A. Visualize and Verify Site with Patient/Guarantor: N/A. Relevant Radiology Images available: Yes. The risks, benefits, and alternatives of sedation and/or procedure were discussed by physician. The patient agrees to continue. Procedure started. [facility] Clinical Fraility Score: 3: Managing Well. Digital Program Manager Indications: Worsening Angina. Chest Pain Symptom Assessment: Typical Angina Symptoms. Correct patient, site and procedure confirmed by cath team. Current diagnosis: Unstable angina. PERRLA. Strong, equal hand shift supervisor bilaterally. Lungs clear x 5 lobes. IV Site on Arrival: 18 gauge in the right anticubital. IV Fluids: 0.9% NaCl at KVO. 0 mL infused prior to powerhouse laborer. Oxygen started at 2liters/min via nasal canula. Pre Procedural Pulses: bilateral radial was 3+. right radial was prepped with chloroprep then draped in the usual sterile fashion. right groin was prepped with chloroprep then draped in the usual sterile fashion. Baseline sample Acquired. HR: 60 BPM. Physician notified. Physician arrived. Physician scrubbed in. Immediate Pre-Procedure Time Out. Correct Patient: Yes; Correct Procedure: Yes; Correct Site: Yes; Correct Patient Position: Yes; Correct Supplies: Yes; Dried Flammable Prep: Yes; Blood Products Available: No;. Lidocaine 1% infiltrated to the right radial. Arterial access obtained. A 5 faroese Jayme catheter in over wire. Multiple views taken of left coronary artery. Catheter redirected to the RCA. Multiple views taken of right coronary artery. Add inventory: Co-ship harbor pilot, endoflator. Catheter removed over the exchange wire. 6 faroese XB 3.5 guide catheter was inserted over the wire. Runthrough guidewire was advanced through the guide catheter to lesion in the prox LAD. Guidewire advanced across lesion. Balloon inserted to lesion in the prox LAD. Inflation number : 1 A MDT NC EUPHORA RX [id number] BALLOON was prepped and advanced across the Prox LAD , then inflated to 12 BRENNON for 0:22 seconds. Inflation number: 2 The MDT NC EUPHORA RX 4.59Q68PV BALLOON was reinflated across the Prox LAD, to 14 BRENNON for 0:15 seconds. Inflation number: 3 The MDT NC EUPHORA RX 4.37D59XM BALLOON was reinflated across the Prox LAD, to 16 BRENNON for 0:14 seconds. Inflation number: 4 The MDT NC EUPHORA RX 4.05Y19LF BALLOON was reinflated across the Prox LAD, to 20 BRENNON for 0:21 seconds. Inflation number: 5 The MDT NC EUPHORA RX 4.49H30ZE BALLOON was reinflated across the Prox LAD, to 18 BRENNON for 0:18 seconds. Inflation number: 6 The MDT NC EUPHORA RX [id number] BALLOON was reinflated across the Prox LAD, to 14 BRENNON for 0:06 seconds. Balloon out. Results checked. ACT drawn. Results 310 seconds. Therapeutic limits - pre-heparin administration 90-150 seconds and monitoring heparin during a vascular procedure >250 seconds. Results checked. Wire out. Guide catheter out. A 5 faroese Angled Pig catheter in over wire. Wire out. EDP Sample taken: LV 129/15,30; HR: 57 BPM; SpO2: 98%. Hand injection of contrast through catheter for LV gram. EDP Sample taken: LV 136/13,27; HR: 67 BPM; SpO2: 90%. Pullback taken: LV 143/14,30; AO 126/79(99); Mean: 15mmHg, Peak to Peak: 16mmHg, SEP: 18sec/min; HR: 63 BPM; SpO2: 90%. Catheter removed over the exchange wire. Physician scrubbed out. Post Procedure: Pulses reassessed and unchanged. PERRLA. Strong, equal hand shift supervisor bilaterally. No VTE prophylaxis required. Medication's Wasted: Lidocaine 1% = 18 mL. Medication's Wasted: Nitro = 49.8 mg. Medication's Wasted: Other = Fentanyl 100mcg. Total IV fluids: 50 mL. Post-op diagnosis: In stent restenosis of proximal LAD stent. Status post balloon angioplasty with good result. Complications: None. Estimated blood loss: 5mL-10mL. Responsiveness - Normal response to verbal stimuli; alert and oriented, PERRLA. Airway - Unaffected, no intervention required; spontaneous ventilation. Circulation: W/N/L, pulses unchanged. Nausea/Vomiting: No. A TR Band was successful obtaining hemostatsis at the Right Radial artery insertion site. Procedure completed. Patient transferred by wheelchair to 1st floor. Vital chart was stopped. Access Site Site: Right Radial artery Sheath Size: 6 Fr Hemostasis Method: TR Band Hemostasis Success: Successful Procedure Medications Start: 9:51 AM Stop: 9:51 AM Medication: Versed Amount: 1 mg Route: I.V. Start: 9:51 AM Stop: 9:51 AM Medication: Fentanyl Amount: 50 mcg Route: I.V. Start: 9:59 AM Stop: 9:59 AM Medication: Versed Amount: 1 mg Route: I.V. Start: 10:00 AM Stop: 10:00 AM Medication: Nitrogylcerin Amount: 200 mcg Route: I.A. Start: 10:02 AM Stop: 10:02 AM Medication: Heparin Amount: 5000 units Route: I.V. Start: 10:12 AM Stop: 10:12 AM Medication: Fentanyl Amount: 25 mcg Route: I.V. Start: 10:14 AM Stop: 10:14 AM Medication: Heparin Amount: 6000 units Route: I.V. Start: 10:14 AM Stop: 10:14 AM Medication: Fentanyl Amount: 25 mcg Route: I.V. Start: 10:23 AM Stop: 10:23 AM Medication: Versed Amount: 1 mg Route: I.V. Start: 10:32 AM Stop: 10:32 AM Medication: Versed Amount: 1 mg Route: I.V. I, the attending physician, have reviewed and verified all procedure medications. Yes, all medications given per verbal order History/Risk Factors Hypertension: Yes Dyslipidemia: No Peripheral Arterial Disease (PAD): No Myocardial Infarction (PR): No Obesity: Yes Renal Disease: No Tobacco Use: Former Prior Interventions PCI: Yes CABG: No Valve Surgery: No Date of PCI: 06/27/2022 Report Signatures Finalized by Breezy Alexis MD on 02/18/2025 11:19 AM
--- NOTE | 2025-02-18 09:51 | W.PM.OPSUD ---
Surgery/Procedure H&P Update DATE OF PROCEDURE: February 18, 2025 DATE H&P PERFORMED: 02/18/25 H&P UPDATE INFORMATION: I have reviewed H&P completed within last 30 days, I have examined patient prior to procedure and No changes to prior documentation PREOP DIAGNOSIS: Abnormal stress test, chest pain PRIMARY INDICATION FOR PROCEDURE: 49-year-old male past medical history significant for coronary artery disease status post multiple stents underwent stress test for chest pain and preop clearance. It turns out to be positive. Patient was scheduled to undergo left heart cath in mid of February however he started noticing chest pain with increasing frequency and duration came to the ER he was admitted overnight this morning we will proceed with left heart cath. PATIENT REASSESSED PRIOR TO SEDATION, WITH NO CHANGE NOTED: Yes PHYSICAL EXAM: alert, oriented x 3, clear to auscultation bilaterally, regular rate & rhythm and operative site marked AIRWAY EVAL/ANESTHESIA PLAN: ASA II, Risks, benefits & alternatives of sedation and/or procedure discussed and Patient agrees to continue as planned ADDITIONAL INFORMATION: All risk-benefit and alternative for the procedure has been explained in detail. Patient understand 2% risk of stroke major bleed, patient understand 5 to 6% risk of minor bleeding oozing infection hematoma pseudoaneurysm urgent emergent vascular or CT surgery. Patient understand risk for contrast-induced nephropathy leading to temporary or permanent dialysis. Patient would like to proceed with it.
--- NOTE | 2025-02-18 10:55 | PM.PN ---
Subjective Subjective: seen today, s/p cath laying in bed appearing comfortable cath report pending Vitals/I&O/Wt Last Vital Signs Temp 96.6 F L 02/18/25 07:24 Pulse 65 02/18/25 07:24 Resp 23 H 02/18/25 07:24 BP 145/81 02/18/25 07:24 Pulse Ox 93 02/18/25 07:24 O2 Del Method Room Air 02/18/25 07:24 02/17/25 02/18/25 02/18/25 22:59 06:59 14:59 Intake Total 240 / 240 0 / 240 Output Total 900 / 900 Balance 240 / 240 -900 / -660 Weight last 48 hrs Weight 129.274 kg Weight 131.905 kg Weight 131.23 kg Weight 127.006 kg Physical Exam Const: COMMON NORMALS: no acute distress and patient oriented x3 GENERAL APPEARANCE: cooperative and comfortable ORIENTATION/CONSCIOUSNESS: Yes awake, Yes oriented to person, Yes oriented to place and Yes oriented to time Chest: COMMONS NORMALS: normal inspection of the chest and normal palpation of entire chest wall CHEST: Yes Symmetrical chest wall rise Resp: COMMON NORMALS: normal respiratory effort, No retractions, No use of accessory muscles and clear to auscultation bilaterally EFFORT & INSPECTION: Yes symmetric chest movement AUSCULTATION: clear to auscultation bilaterally Cardio: COMMON NORMALS: regular rate, regular rhythm, S1 normal heart sound present, S2 normal heart sound present, No gallops present (Cardio), No clicks present (Cardio), No murmurs present (Cardio) and No rub (Cardio) RATE: regular rate RHYTHM: regular rhythm HEART SOUNDS: S1 normal heart sound present and S2 normal heart sound present PERIPHERAL PULSES: radial pulses present Extremity: COMMON NORMALS: no pedal edema Neuro: COMMON NORMALS: patient oriented x3 and moves all extremities SENSORIUM/ORIENTATION: Yes oriented to person, Yes oriented to place and Yes oriented to time Data 02/17/25 16:30 02/18/25 03:36 A&P Assessment and plan (1) Anxiety and depression: (2) Hypertension: Qualifiers: Hypertension type: primary hypertension Qualified Code(s): I10 - Essential (primary) hypertension (3) CAD (coronary artery disease): (4) Unstable angina pectoris: (5) DM type 2 (diabetes mellitus, type 2): Qualifiers: Diabetes mellitus complication status: with hyperglycemia Diabetes mellitus correction insulin use: with traffic lieutenant use Qualified Code(s): E11.65 - Type 2 diabetes mellitus with hyperglycemia; Z79.4 - long term (current) use of insulin (6) Obesity: (7) Insomnia: (8) Preoperative clearance: Plan Unstable angina Currently chest pain-free EKG without infarctive changes, troponin without significant delta Optimize antihypertensive regimen LAD stent with history of in-stent restenosis status post restenting Considering established coronary disease and history of diabetes, plan has been made to do an angiogram the morning by Dr. Alexis N.p.o. after midnight Continue therapeutic Lovenox with aspirin Brilinta Will request echo as well Headache: Patient endorsing history of occipital neuralgia: Will give 1 dose of opioids, No active sign of stroke or meningitis Type II diabetic: Insulin sliding scale Consistent carb diet and then n.p.o. after midnight DVT prophylaxis: Covered with therapeutic Lovenox N.p.o. after midnight Full code History of anxiety/depression: May resume antidepressants or anxiolytics in next 24 hoursFull GI prophylaxis: Protonix 02/18/2025 Pt underwent cath today cath report pending continue ssi continue to monitor cardiology following PDMP PDMP Reviewed: Not Reviewed Attestations Medical Necessity Statement*: underwent coronary angiogram today, continue to monitor in hospital today Diagnoses Anxiety and depression F41.9; F32.A Primary hypertension I10 Hypertension type: primary hypertension CAD (coronary artery disease) I25.10 Unstable angina pectoris I20.0 Type 2 diabetes mellitus with hyperglycemia, with long-term current use of insulin E11.65; Z79.4 Diabetes mellitus complication status: with hyperglycemia Diabetes mellitus correction insulin use: with correction use Obesity E66.9 Insomnia G47.00 Preoperative clearance Z01.818
[2025-02-18] MEDS: lisinopril 5 mg Tablet PO (13:44)
[2025-02-18] MEDS: FUROsemide 20 mg Tablet PO (13:44)
--- NOTE | 2025-02-18 14:30 | PC.NURSE ---
At 1230 iniated weaning of TR band with 1-3 ml removed every 15 minutes. No oozing or swelling. Patient tolerated process well. Site cleaned with alcohol. 2x2 drsg applied with clear opsite cover. Patient reminded to not lift more than 5 lbs and not to use right hand to push out from chair or bed.
--- NOTE | 2025-02-18 17:10 | PM.DCS ---
Discharge Providers Date of Admission: 02/17/25 19:36 Date of Discharge: February 18, 2025 Attending Provider at Admission: Breezy Carlos MD Attending Provider at Discharge: Marium Zaldivar MD Primary Care Provider: KENTRELL Mart Diagnoses at Discharge Discharge Diagnosis (1) CAD (coronary artery disease): Status: Chronic (2) Hypertension: Status: Chronic Qualifiers: Hypertension type: primary hypertension Qualified Code(s): I10 - Essential (primary) hypertension (3) Hypertriglyceridemia: Status: Chronic (4) Abnormal stress test: Status: Resolved (5) Chest pain: Status: Resolved (6) DM type 2 (diabetes mellitus, type 2): Status: Chronic Qualifiers: Diabetes mellitus complication status: with hyperglycemia Diabetes mellitus [facility] insulin use: with [facility] use Qualified Code(s): E11.65 - Type 2 diabetes mellitus with hyperglycemia; Z79.4 - supervisor intermediates (current) use of insulin Reason for Visit Reason for Visit: cheat pressure Hospital Course Hospital Course Patient presented to the hospital with chest pain and was diagnosed with unstable angina. Patient underwent angiogram and balloon angioplasty of proximal LAD stent for in-stent restenosis was completed. Patient was discharged home in stable condition to follow-up with cardiology and primary care doctor as an outpatient. His Plavix will switch to Brilinta and spironolactone was added. Physical Exam Const: COMMON NORMALS: no acute distress and patient oriented x3 GENERAL APPEARANCE: cooperative and comfortable ORIENTATION/CONSCIOUSNESS: Yes awake, Yes oriented to person, Yes oriented to place and Yes oriented to time Chest: COMMONS NORMALS: normal inspection of the chest and normal palpation of entire chest wall CHEST: Yes Symmetrical chest wall rise Resp: COMMON NORMALS: normal respiratory effort, No retractions, No use of accessory muscles and clear to auscultation bilaterally EFFORT & INSPECTION: Yes symmetric chest movement AUSCULTATION: clear to auscultation bilaterally Cardio: COMMON NORMALS: regular rate, regular rhythm, S1 normal heart sound present, S2 normal heart sound present, No gallops present (Cardio), No clicks present (Cardio), No murmurs present (Cardio) and No rub (Cardio) RATE: regular rate RHYTHM: regular rhythm HEART SOUNDS: S1 normal heart sound present and S2 normal heart sound present PERIPHERAL PULSES: radial pulses present Extremity: COMMON NORMALS: no pedal edema Neuro: COMMON NORMALS: patient oriented x3 and moves all extremities SENSORIUM/ORIENTATION: Yes oriented to person, Yes oriented to place and Yes oriented to time Discharge Data Studies Completed and Pending Completed Studies During Hospitalization Category Date Time Status 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 echo complete* [id number] Routine Ultrasound 02/17/25 21:47 Completed Pending at discharge Category Date Time Status RACING DRIVER request for service Routine Exams 02/18/25 07:18 Stop Req Basic Metabolic Panel AM LABS Lab 02/19/25 04:00 Ordered Complete Blood Count w/Auto AM LABS Lab 02/19/25 04:00 Ordered Magnesium AM LABS Lab 02/19/25 04:00 Ordered Radiology Impressions Chest X-Ray 02/17/25 16:05 IMPRESSION: No acute findings. Laboratory Results WBC 10.57 10^3/uL (3.29-11.43) 02/17/25 16:30 RBC 5.58 10^6/uL (3.85-5.65) 02/17/25 16:30 Hgb 15.10 g/dL (11.27-16.99) 02/17/25 16:30 Hct 46.8 % (37-53) 02/17/25 16:30 MCV 83.9 fl (82-101) 02/17/25 16:30 MCH 27.1 pg (27-33) 02/17/25 16:30 MCHC 32.3 g/dL (30-55) 02/17/25 16:30 RDW 13.6 % (12.1-15.1) 02/17/25 16:30 Plt Count 199 10^3/cmm (157-399) 02/17/25 16:30 MPV 8.6 fL (7.4-10.4) 02/17/25 16:30 Neut % (Auto) 70.5 % 02/17/25 16:30 Lymph % (Auto) 21.9 % 02/17/25 16:30 [place] % (Auto) 5.6 % 02/17/25 16:30 Eos % (Auto) 0.7 % 02/17/25 16:30 Baso % (Auto) 0.6 % 02/17/25 16:30 Neut # (Auto) 7.46 10^3/uL (1.8-7.7) 02/17/25 16:30 Lymph # (Auto) 2.3 10^3/uL (0.8-4.8) 02/17/25 16:30 [place] # (Auto) 0.6 10^3/uL (0.2-0.9) 02/17/25 16:30 Eos # (Auto) 0.1 10^3/uL (0.0-0.8) 02/17/25 16:30 Baso # (Auto) 0.1 10^3/uL (0.0-0.1) 02/17/25 16:30 Nucleated RBC % (auto) 0 % 02/17/25 16:30 Nucleated RBCs # 0.0 /100WBC 02/17/25 16:30 PT 14.10 SECONDS (12.1-14.9) 02/17/25 16:30 INR 1.02 (0.8-1.2) 02/17/25 16:30 Sodium 140 mmol/L (136-145) 02/18/25 03:36 Potassium 4.1 mmol/L (3.5-5.1) 02/18/25 03:36 Chloride 104 mmol/L (98-107) 02/18/25 03:36 Carbon Dioxide 29 mmol/L (22-29) 02/18/25 03:36 Anion Gap 11.1 (5-19) 02/18/25 03:36 BUN 11 mg/dL (6-20) 02/18/25 03:36 Creatinine 0.7 mg/dL (0.7-1.2) 02/18/25 03:36 GFR Calculation 120.9 mL/min (90-130) 02/18/25 03:36 Glucose 94 mg/dL (65-115) 02/18/25 03:36 POC Glucose 120 mg/dL (70-110) H 02/18/25 06:29 Calculated Osmolality 289 mOsm/kg (285-295) 02/18/25 03:36 Calcium 9.2 mg/dL (8.5-10.5) 02/18/25 03:36 Phosphorus 3.7 mg/dL (2.5-4.5) 02/18/25 03:36 Magnesium 2.1 mg/dL (1.7-2.3) 02/18/25 03:36 Total Bilirubin 0.5 mg/dL (0.15-1.2) 02/17/25 16:30 AST 16 U/L (0-40) 02/17/25 16:30 ALT 19 U/L (0-41) 02/17/25 16:30 Alkaline Phosphatase 120 U/L (40-130) 02/17/25 16:30 Troponin T Baseline 9 ng/L (0-15) 02/17/25 16:30 Troponin T 120 Minute 8.16 ng/L (0-15) 02/17/25 18:24 Delta Troponin T -0.84 ABS# (0-10) L 02/17/25 18:24 Troponin T Hi Sens 6Hr 12.72 ng/L (0-15) 02/17/25 22:29 Troponin T Hi Sens 6Hr Delta 3.72 ng/L (0-12) 02/17/25 22:29 C-Reactive Protein 7.2 mg/L (0.0-4.9) H 02/18/25 03:36 Total Protein 7.5 g/dL (6.6-8.7) 02/17/25 16:30 Albumin 4.6 g/dL (3.5-5.2) 02/17/25 16:30 Globulin 2.9 g/dL (1.3-4.6) 02/17/25 16:30 Lipase 14 U/L (13-60) 02/17/25 16:30 Vitals Last Vital Signs Temp 97.9 F 02/18/25 10:51 Pulse 65 02/18/25 13:19 Resp 18 02/18/25 13:19 BP 132/89 02/18/25 13:15 Pulse Ox 95 02/18/25 13:19 O2 Del Method Room Air 02/18/25 13:19 Discharge Plan Discharge Patient Disposition: Home Condition: Stable Prescriptions: New lisinopril 5 mg Tablet 5 mg PO DAILY Qty: 30 0RF furosemide 20 mg Tablet 20 mg PO DAILY@0800 Qty: 30 0RF Continued (DME) insulin syringe-needle U-100 [Comfort EZ Insulin Syringe] 1/2 mL 28 gauge x 1/2 syringe See Rx Instructions .Route Qty: 100 5RF Rx Instructions: As directed up to 4 times a day wiht insulin (DME) Omnipod 5 G6 Intro Kit (Gen 5) Cartridge See Rx Instructions .Route Qty: 1 0RF Rx Instructions: As directed fluticasone propionate 50 mcg/actuation spray,suspension 1 spray intranasal DAILY PRN (Reason: allergy symptoms) Qty: 16 0RF Rx Instructions: administer into each nostril Linzess 290 mcg capsule 290 mcg PO DAILY 30 Days Qty: 30 2RF nitroglycerin 0.4 mg tablet, sublingual 0.4 mg sublingual Q5M PRN (Reason: chest pain) 90 Days Qty: 90 0RF Rx Instructions: do not exceed 3 doses per episode albuterol sulfate 90 mcg/actuation HFA aerosol inhaler 1 inh inhalation QID PRN (Reason: shortness of breath or wheezing) Qty: 8.5 0RF insulin aspart U-100 100 unit/mL solution See Rx Instructions continuous subcutaneous infusion DAILY Qty: 150 0RF Rx Instructions: continuous subcutaneous infusion daily; 80mg via insulin pump daily (DME) Dexcom G7 Sensor Device See Rx Instructions .Route Qty: 3 0RF Rx Instructions: change every 10 days (DME) Dexcom G7 Landscape [employer]or Misc See Rx Instructions .Route Qty: 1 0RF Rx Instructions: As directed (DME) Omnipod 5 G6-G7 Pods (Gen 5) Cartridge See Rx Instructions .ROUTE .COMPLEX Qty: 10 1RF Dose Instruction: USE DIRECTED Rx Instructions: USE DIRECTED sucralfate 100 mg/mL suspension 10 ml PO QID PRN (Reason: Stomach Upset) sertraline 100 mg tablet 150 mg PO DAILY pregabalin 50 mg capsule 50 mg PO BID atorvastatin 40 mg tablet 40 mg PO DAILY cetirizine 10 mg tablet 10 mg PO DAILY omeprazole 40 mg capsule,delayed release(DR/EC) 40 mg PO BID aspirin 81 mg tablet,delayed release (DR/EC) 81 mg PO DAILY metoprolol tartrate 50 mg tablet 50 mg PO BID Jardiance 10 mg tablet 10 mg PO DAILY magnesium oxide 400 mg magnesium tablet 400 mg PO DAILY multivitamin Tablet 1 tab PO DAILY Changed spironolactone 25 mg tablet 25 mg PO DAILY Qty: 30 0RF Brilinta 90 mg tablet 90 mg PO BID Qty: 60 0RF Held metformin 500 mg tablet extended release 24 hr 1,000 mg PO BID Hold Instructions: resume after 48 hours Discontinued insulin glargine [Lantus Solostar U-100 Insulin] 100 unit/mL (3 mL) insulin pen 10 unit SUBCUT DAILY Qty: 15 3RF No Action polyethylene glycol 3350 17 gram/dose powder PO polyethylene glycol 3350 [Miralax] 17 gram powder in packet 17 g PO DAILY 30 Days Qty: 30 0RF docusate sodium 100 mg capsule 100 mg PO BID Qty: 30 5RF Discharge Orders: Discharge Order (Routine); Ordered 02/18/25 Ordered By: Marium Zaldivar Referrals: CIARA Kendall FNP [Primary Care Provider] - 02/23/25 1:40 pm (Follow up with KENTRELL Kendall on at 1:40pm) Breezy Alexis MD [Physician] - 1 month Fabiola Velázquez FNP [Nurse Practitioner] - 7-10 days (You will need an appointment with Fabiola Velázquez NP with [facility]. They should call you tomorrow with that appointment. If they do not call, please call Saturday and remind them you need an appointment. ) Discharge Diet: Cardiac and Diabetic Discharge Activity: Limit activity as instructed Patient Instructions: Lisinopril (By mouth), Furosemide (By mouth), Coronary Angioplasty (DC) Discharge Attestations Time Spent in Discharge Care*: less than 30 min Status at Discharge: Cognitive status at discharge: cognitively intact, Behavioral status at discharge: cooperative, Quality Metrics Clinical Quality Measures [ No reported AMI, CVA or VTE this stay] Coding Level of Care Code Acute Code for [facility] Fwd Diagnoses CAD (coronary artery disease) I25.10 Primary hypertension I10 Hypertension type: primary hypertension Hypertriglyceridemia E78.1 Abnormal stress test R94.39 Precordial pain R07.9 Type 2 diabetes mellitus with hyperglycemia, with long-term current use of insulin E11.65; Z79.4 Diabetes mellitus complication status: with hyperglycemia Diabetes mellitus supervisor intermediates insulin use: with [facility] use
== END 2025-02-18 17:30 | disposition home or self-care (01) ==
LOC: ER 19:36 → CSU 19:59
PROVIDERS: Emergency Medicine; Internal Medicine Cardiovascular Disease; Admitting Provider Internal Medicine; Emergency Provider Family Medicine; PCP Nurse Practitioner Family; Visit Provider Internal Medicine
DX: T82.855A Stenosis of coronary artery stent, initial encounter (principal); I25.10 Atherosclerotic heart disease of native coronary artery without angina pectoris; I10 Essential (primary) hypertension; E78.1 Pure hyperglyceridemia; E11.65 Type 2 diabetes mellitus with hyperglycemia; Z79.4 Long term (current) use of insulin; K21.9 Gastro-esophageal reflux disease without esophagitis; Z79.82 Long term (current) use of aspirin; E66.9 Obesity, unspecified; Z68.41 Body mass index [BMI] 40.0-44.9, adult; F17.290 Nicotine dependence, other tobacco product, uncomplicated; Z86.74 Personal history of sudden cardiac arrest; Z86.73 Personal history of transient ischemic attack (TIA), and cerebral infarction without residual deficits; Z95.5 Presence of coronary angioplasty implant and graft
CPT/HCPCS: 36415; 36416; 71045; 80048; 80053; 82962; 83690; 83735; 84100; 84484; 85025; 85347; 85610; 86140; 92920; 93005; 93306; 93458; 96372; 96374; 99152; 99153; 99285; C1725; C1769; C1887; C1894; G0378; J1644; J1650; J2250; J2470; J3010; J3490; J7030; J9999; Q9967

== ENCOUNTER → 2025-03-10 12:01 | Outpatient (BNVA) | payer MEDICAID, SELFPAY ==
[2024-07-14 15:01] VITALS: BP 120/72; BMI 40.1
== END ==
PROVIDERS: PCP Nurse Practitioner Family; Visit Provider Nurse Practitioner Family
DX: I25.118 Atherosclerotic heart disease of native coronary artery with other forms of angina pectoris (principal)
CPT/HCPCS: 36415; 80048

== ENCOUNTER 2025-04-05 14:47 | Emergency (ER) | payer MEDICAID, SELFPAY ==
[2024-07-14 15:01] VITALS: BP 120/72; BMI 40.1
[2025-04-05 15:04] VITALS: BP 123/78; PULSE 85; TEMP 36.7; O2SAT 94
--- NOTE | 2025-04-05 15:08 | ECG_ITS ---
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 Measurements Intervals [place]aman Rate: 73 P: 2 VA: 140 QRS: 10 QRSD: 83 T: 33 QT: 357 QTc: 395 Interpretive Statements SINUS RHYTHM Compared to ECG 02/17/2025 23:23:12 Junctional rhythm no longer present Electronically Signed On 04-05-2025 15:13:01 CDT by Berhane Hollins M.D. [email or web address]
[2025-04-05 15:12] LABS: Basophils # 0.1 10^3/uL (0.0-0.1); Eosinophils # 0.1 10^3/uL (0.0-0.8); Eosinophils % 1.2 %; Hematocrit 47.8 % (37-53); Lymphocytes # 2.4 10^3/uL (0.8-4.8); Lymphocytes % 20.4 %; Mean Corpuscular Hemoglobin 26.6 pg (27-33); Mean Corpuscular Volume 83.1 fl (82-101); Monocytes # 0.8 10^3/uL (0.2-0.9); Monocytes % 6.6 %; Neutrophils # 8.11 10^3/uL (1.8-7.7); Neutrophils % 70.1 %; Nucleated Red Blood Cells % 0 %; Platelet Count 206 10^3/cmm (157-399); Red Blood Count 5.75 10^6/uL (3.85-5.65); Red Cell Distribution Width 13.8 % (12.1-15.1); White Blood Count 11.58 10^3/uL (3.29-11.43)
--- NOTE | 2025-04-05 15:16 | ED_ITS ---
Documented by User: Caden Schmid DO 04/06/25 06:28 HPI - Headache 2 General: Chief Complaint: Headache Stated Complaint: dizzy, lightheaded, SOMERS Time Seen by Provider: 04/05/25 15:02 History of Present Illness: 49-year-old male complaining generally f eeling unwell and having a headache. His chronic back pain problems and is seen at the pain clinic. Reviewing office notes he has had occipital neuralgia in the past. Patient has had dizziness and difficulty with balance and gait. Has not had any change in vision. This been going on progressively worsening for the last week. He came in because his essentially forced him to. He has a known history of heart disease he is on Brilinta as well as aspirin. He has a history of diabetes mellitus he is not particular at problems with his blood sugars recently. No known history of stroke. Associated symptoms: Deny chest pain, fever(s) or rash Related Data Home Medications ?Medication ?Instructions ?Recorded ?Confirmed aspirin 81 mg tablet,delayed 81 mg PO DAILY 02/17/25 0 04/05/25 release atorvastatin 40 mg tablet 40 mg PO DAILY 02/17/2503/25 cetirizine 10 mg tablet 10 mg PO DAILY 02/17/2503/25 metformin 500 mg tablet,extended 1,000 mg PO BID 02/1704/05/25 release 24 hr Held on 02/18/25. Instructions: resume after 48 hours metoprolol tartrate 50 mg tablet 50 mg PO BID 02/17/25 04/05/25 omeprazole 40 mg capsule,delayed 40 mg PO BID 02/17/25 04/05/25 release pregabalin 50 mg capsule 50 mg PO BID 02/17/25 sucralfate 100 mg/mL oral 10 ml PO QID PRN Stomach Ups et 02/17/25 04/05/25 suspension empagliflozin 10 mg tablet 10 mg PO DAILY 04/05/2511/18 (Jardiance) Previous Rx's ?Medication ?Instructions ?Recorded insulin aspart U-100 100 unit/mL See Rx Instructions c ontinuous 09/30/24 subcutaneous solution subcutaneous infusion DAILY #150 mL fluticasone propionate 50 1 spray intranasal DAILY PRN 12/09/24 mcg/actuation nasal allergy symptoms #16 grams spray,suspension linaclotide 290 mcg capsule 290 mcg PO DAILY 30 days # 30 caps 02/16/25 (Linzess) docusate sodium 100 mg capsule 100 mg PO BID #30 caps 03/02/25 furosemide 20 mg tablet 20 mg PO DAILY@0800 #90 tabs 03/10/25 lisinopril 5 mg tablet 5 mg PO DAILY #90 tabs 03/10 spironolactone 25 mg tablet 25 mg PO DAILY #90 tabs ticagrelor 90 mg tablet (Brilinta) 90 mg PO BID #180 t abs 03/10/25 sertraline 100 mg tablet 150 mg (1.5 x 100 mg) PO JACQUELINE LY #45 03/30/25 tabs oxycodone-acetaminophen 5 mg-325 1 tab PO BID PRN pain #10 tabs 04/05/25 mg tablet Allergies Allergy/AdvReac Type Severity Reaction Status Date / Time promethazine Allergy Intermediate ALGY-Swell Verified 04/05/25 15:15 Lip/Tongue/Throat nalbuphine (From Nubain) Allergy Unknown Verified 04/05/25 15:15 Review of Systems 2 Const: Denies: fever(s) or chills Card: Denies: chest pain Resp: Denies: dyspnea GI: Denies: abdominal pain : Denies: dysuria, urinary frequency or urinary urgency Musc: Denies: neck pain or back pain Skin/Breast: Denies: rash PFSH ED 2 PFSH: Medical History Occipital neuralgia Hospital discharge follow-up Chronic idiopathic constipation Cough Upper respiratory infection Headache Sinusitis Anemia Seizure Shingles Near syncope Incarcerated ventral hernia COVID Dermatitis Environmental and seasonal allergies Acute bronchitis Lower respiratory infection Chest pain Tobacco use disorder Chest pain Atherosclerosis of coronary artery Abnormal stress test Diabetes mellitus Hyperlipidemia associated with type 2 diabetes mellitus Essential hypertension Chest pain CVA (cerebral vascular accident) Herpes zoster Vertigo Obese Restrictive lung disease Left knee pain Bilateral lower extremity edema Hyperlipidemia Shortness of breath COVID-19 virus infection Anxiety DM type 2 (diabetes mellitus, type 2) Hypertension Surgical History History of heart artery stent Family History Grandfather Anesthesia complication CAD (coronary artery disease) Chronic kidney disease (CKD) Dementia Diabetes Grandmother CAD (coronary artery disease) Cancer Chronic kidney disease (CKD) Diabetes Lung disease Stroke Family/Other CAD (coronary artery disease) Cancer Mother Diabetes CAD (coronary artery disease) Grandfather Diabetes Denies family history of Clotting disorder Suicide Bleeding disorder Social History Smoking and tobacco/nicotine status: former use of tobacco/nicotine Quit status (tobacco/nicotine): has quit using Year quit tobacco: 01/17 Former quit date comment: quit chewing Second hand smoke exposure: No Alcohol intake: current Alcohol intake frequency: holidays/special occasions only Substance/Drug Use: never Adopted: No Caregiver/support person: No Lives independently: Yes Household members: spouse Housing: House Marital status: Number of children: 4 Highest education level completed: Some College, No Degree service: No Current occupational status: employed Current occupational exposures/hazards: No Pets and animals: Yes Pets & animals: cat(s), dog(s), bird(s) and ferret(s) Leisure activites: other Leisure activities details: family time, small project (welding or wood working...something hands on) Sexually active: Yes Do you think of yourself as: Straight/Heterosexual Current gender identity: Male Claudine/Taoist: Congregational Special claudine needs: No Agree to transfusion: Yes Physical Exam 2 Const: GENERAL APPEARANCE: cooperative ORIENTATION/CONSCIOUSNESS: Yes awake, Yes oriented to person, Yes oriented to place and Yes oriented to time HENMT: COMMON NORMALS: normocephalic, atraumatic and hearing grossly normal bilaterally HEAD & SCALP: normocephalic and atraumatic Resp: COMMON NORMALS: normal respiratory effort, No retractions, No use of accessory muscles and clear to auscultation bilaterally AUSCULTATION: clear to auscultation bilaterally Cardio: COMMON NORMALS: regular rate, regular rhythm and No murmurs present (Cardio) RATE: regular rate RHYTHM: regular rhythm GI: COMMON NORMALS: Soft to palpation and No hepatosplenomegaly present A USCULTATION: Yes normoactive bowel sounds PALPATION: Yes Soft to palpation, No Tenderness to palpation present (GI), No Guarding due to palpation present (GI) and Yes No hepatosplenomegaly present Extremity: COMMON NORMALS: normal to inspection, capillary refill normal, no clubbing, cyanosis or edema, no calf tenderness and no pedal edema Neuro: SENSORIUM/ORIENTATION: Yes oriented to person, Yes oriented to place and Yes oriented to time Skin: COMMON NORMALS: no rashes or lesions noted GENERAL SKIN EXAM: no rashes or lesions noted Course 2 Vital Signs: Vital signs: Vital Signs Temperature 98.0 F 04/05/25 15:04 Pulse Rate 69 04/05/25 20:52 Respiratory Rate 16 04/05/25 18:27 Blood Pressure 125/74 04/05/25 20:52 Pulse Oximetry 91 04/05/25 20:52 Oxygen Delivery Me thod Room Air 04/05/25 18:27 MDM - Headache Medical Decision Making Care signed out to Dr. Fernández at change of shift. See final notes for diagnosis and disposition. In summary, patient was signed out to me at shift change after shortly receiving headache medication. He describes 13 days of significant left-sided headache sometimes associated with lightheadedness and dizziness. At receiving fluids and IV medication, he feels much better and is able to walk around without any dizziness or lightheadedness. Headache is 80% better. Initial CT scan showed a possible area of abnormality in the left frontal region and initial plan was to repeat CT of the brain to see if change persists. I discussed this plan with the patient and he prefers to go home and I think this is reasonable as I do not suspect infarct, mass, or other abnormality which would cause his symptoms today. I do think he has an undiagnosed headache which could be served either by seeing pain management which he is scheduled to do on the of this month or neurology. I will give him a very short course of pain medication should the pain get out of control before then. He shows good understanding and agrees to the plan Lab Data 04/05/25 15:02 04/05/25 15:[address] 04/05/25 15: IMPRESSION: No acute intracranial findings. ADDENDUM: 04/05/25 5072 There is a small focal area of ill-defined hyperattenuation along the anterior aspect of the left frontal lobe immediately adjacent to the calvarium (for example series 5, image 26). This has a streaky appearance on the sagittal images (series 10, image 27). Findings may be secondary to artifact. However, a small focus of hemorrhage is not entirely excluded. This could be further assessed with MRI brain without contrast or follow-up CT head in 2-4 hours. THIS REPORT CONTAINS FINDINGS THAT MAY BE CRITICAL TO PATIENT CARE. The findings were verbally communicated via telephone conference with CADEN SCHMID at 4:32 PM CDT on 04/05/2025. The findings were acknowledged and understood. Laboratory Results WBC 11.58 10^3/uL (3.29-11.43) H 04/05/25 15:02 RBC 5.75 10^6/uL (3.85-5.65) H 04/05/25 15:02 Hgb 15.30 g/dL (11.27-16.99) 04/05/25 15:02 Hct 47.8 % (37-53) 04/05/25 15:02 MCV 83.1 fl (82-101) 04/05/25 15:02 MCH 26.6 pg (27-33) L 04/05/25 15:02 MCHC 32.0 g/dL (30-55) 04/05/25 15:02 RDW 13.8 % (12.1-15.1) 04/05/25 15:02 Plt Count 206 10^3/cmm (157-399) 04/05/25 15:02 MPV 9.0 fL (7.4-10.4) 04/05/25 15:02 Neut % (Auto) 70.1 % 04/05/25 15:02 Lymph % (Auto) 20.4 % 04/05/25 15:02 [place] % (Auto) 6.6 % 04/05/25 15:02 Eos % (Auto) 1.2 % 04/05/25 15:02 Baso % (Auto) 1.0 % 04/05/25 15:02 Neut # (Auto) 8.11 10^3/uL (1.8-7.7) H 04/05/25 15:02 Lymph # (Auto) 2.4 10^3/uL (0.8-4.8) 04/05/25 15:02 [place] # (Auto) 0.8 10^3/uL (0.2-0.9) 04/05/25 15:02 Eos # (Auto) 0.1 10^3/uL (0.0-0.8) 04/05/25 15:02 Baso # (Auto) 0.1 10^3/uL (0.0-0.1) 04/05/25 15:02 Nucleated RBC % (auto) 0 % 04/05/25 15:02 Nucleated RBCs # 0.0 /100WBC 04/05/25 15:02 Sodium 139 mmol/L (136-145) 04/05/25 15:02 Potassium 4.5 mmol/L (3.5-5.1) 04/05/25 15:02 Chloride 102 mmol/L (98-107) 04/05/25 15:02 Carbon Dioxide 22 mmol/L (22-29) 04/05/25 15:02 Anion Gap 19.5 (5-19) H 04/05/25 15:02 BUN 24 mg/dL (6-20) H 04/05/25 15:02 Creatinine 0.8 mg/dL (0.7-1.2) 04/05/25 15:02 GFR Calculation 103.6 mL/min (90-130) 04/05/25 15:02 Glucose 119 mg/dL (65-115) H 04/05/25 15:02 Calculated Osmolality 293 mOsm/kg (285-295) 04/05/25 15:02 Calcium 9.6 mg/dL (8.5-10.5) 04/05/25 15:02 Total Bilirubin 0.3 mg/dL (0.15-1.2) 04/05/25 15:02 AST 13 U/L (0-40) 04/05/25 15:02 ALT 22 U/L (0-41) 04/05/25 15:02 Alkaline Phosphatase 118 U/L (40-130) 04/05/25 15:02 Total Protein 7.9 g/dL (6.6-8.7) 04/05/25 15:02 Albumin 4.4 g/dL (3.5-5.2) 04/05/25 15:02 Globulin 3.5 g/dL (1.3-4.6) 04/05/25 15:02 Urine Color Yellow (Yellow) 04/05/25 15:33 Urine Appearance Clear (CLEAR) 04/05/25 15:33 Urine pH 5.0 (5-7) 04/05/25 15:33 Ur Specific [place] 1.017 (1.005-1.030) 04/05/25 15:33 Urine Protein Negative (Negative) 04/05/25 15:33 Urine Glucose (UA) 2+ (Normal) H 04/05/25 15:33 Urine Ketones Negative (Negative) 04/05/25 15:33 Urine Blood Negative (Negative) 04/05/25 15:33 Urine Nitrate Negative (Negative) 04/05/25 15:33 Urine Bilirubin Negative (Negative) 04/05/25 15:33 Urine Urobilinogen 0.2 mg/dL (Negative) 04/05/25 15:33 Ur Leukocyte Esterase Negative (Negative) 04/05/25 15:33 Urine RBC 0-2 /hpf (0-2) 04/05/25 15:33 Urine WBC 0-5 /hpf (0-5) 04/05/25 15:33 Ur Squamous Epith Cells 0-5 /hpf (0-5) 04/05/25 15:33 Amorphous Sediment Not Reportable 04/05/25 15:33 Urine Bacteria None seen /hpf (NONE) 04/05/25 15:33 Hyaline Casts 0-4 /lpf H 04/05/25 15:33 Discharge Plan Discharge Patient Disposition: Home Clinical Impression: Headache, Light-headedness Condition: Stable Prescriptions: New oxycodone-acetaminophen 5-325 mg tablet 1 tab PO BID PRN (Reason: pain) Qty: 10 0RF No Action fluticasone propionate 50 mcg/actuation spray,suspension 1 spray intranasal DAILY PRN (Reason: allergy symptoms) Qty: 16 0RF Rx Instructions: administer into each nostril spironolactone 25 mg tablet 25 mg PO DAILY Qty: 90 3RF Brilinta 90 mg tablet 90 mg PO BID Qty: 180 3RF lisinopril 5 mg tablet 5 mg PO DAILY Qty: 90 3RF furosemide 20 mg tablet 20 mg PO DAILY@0800 Qty: 90 1RF Linzess 290 mcg capsule 290 mcg PO DAILY 30 Days Qty: 30 2RF insulin aspart U-100 100 unit/mL solution See Rx Instructions continuous subcutaneous infusion DAILY Qty: 150 0RF Rx Instructions: continuous subcutaneous infusion daily; 80mg via insulin pump daily docusate sodium 100 mg capsule 100 mg PO BID Qty: 30 5RF sertraline 100 mg tablet 150 mg PO DAILY Qty: 45 3RF sucralfate 100 mg/mL suspension 10 ml PO QID PRN (Reason: Stomach Upset) pregabalin 50 mg capsule 50 mg PO BID atorvastatin 40 mg tablet 40 mg PO DAILY cetirizine 10 mg tablet 10 mg PO DAILY omeprazole 40 mg capsule,delayed release(DR/EC) 40 mg PO BID aspirin 81 mg tablet,delayed release (DR/EC) 81 mg PO DAILY metoprolol tartrate 50 mg tablet 50 mg PO BID metformin 500 mg tablet extended release 24 hr 1,000 mg PO BID Jardiance 10 mg tablet 10 mg PO DAILY Rx Instructions: TAKE 1 TABLET BY MOUTH EVERY DAY FOR 30 DAYS Discharge Orders: Discharge ED (Routine); Ordered 04/05/25 Ordered By: Bi Fernández Referrals: CIARA Kendall, [employer] OPERATOR [Primary Care Provider, [facility]] Discharge Diet: Advance as tolerated Discharge Activity: Increase activity as tolerated Patient Instructions: Headache Activity Restrictions/Additional Instructions: As we discussed, your brain CT showed one spot which was questionable for abnormality but nothing specific. I do not suspect stroke, cancer, or other emergency requiring further workup or repeat scanning. Your headache is somewhat better with treatment. Please take the prescribed medication if the pain gets out of control and follow-up closely with your pain management doctor. Print Language: Israeli Sign Out Sign Out Data: Patient Sign Out occurred on 04/05/25 at 18:45. Patient's care was discussed, and care was transferred from Caden Schmid DO to Bi Fernández MD. Coding Level of Care Code ED Certified Lactation Counselor for Chg Fwd Documented by User: Bi Fernández MD 04/05/25 19:34 HPI - Headache 2 General: Chief Complaint: Headache Stated Complaint: dizzy, lightheaded, SOMERS Time Seen by Provider: 04/05/25 15:02 Related Data Home Medications ?Medication ?Instructions ?Recorded ?Confirmed aspirin 81 mg tablet,delayed 81 mg PO DAILY 02/17/25 0 04/05/25 release atorvastatin 40 mg tablet 40 mg PO DAILY 02/17/2503/25 cetirizine 10 mg tablet 10 mg PO DAILY 02/17/2503/25 metformin 500 mg tablet,extended 1,000 mg PO BID 02/1704/05/25 release 24 hr Held on 02/18/25. Instructions: resume after 48 hours metoprolol tartrate 50 mg tablet 50 mg PO BID 02/17/25 04/05/25 omeprazole 40 mg capsule,delayed 40 mg PO BID 02/17/25 04/05/25 release pregabalin 50 mg capsule 50 mg PO BID 02/17/25 sucralfate 100 mg/mL oral 10 ml PO QID PRN Stomach Ups et 02/17/25 04/05/25 suspension empagliflozin 10 mg tablet 10 mg PO DAILY 04/05/2511/18 (Jardiance) Previous Rx's ?Medication ?Instructions ?Recorded insulin aspart U-100 100 unit/mL See Rx Instructions c ontinuous 09/30/24 subcutaneous solution subcutaneous infusion DAILY #150 mL fluticasone propionate 50 1 spray intranasal DAILY PRN 12/09/24 mcg/actuation nasal allergy symptoms #16 grams spray,suspension linaclotide 290 mcg capsule 290 mcg PO DAILY 30 days # 30 caps 02/16/25 (Linzess) docusate sodium 100 mg capsule 100 mg PO BID #30 caps 03/02/25 furosemide 20 mg tablet 20 mg PO DAILY@0800 #90 tabs 03/10/25 lisinopril 5 mg tablet 5 mg PO DAILY #90 tabs 03/10 spironolactone 25 mg tablet 25 mg PO DAILY #90 tabs ticagrelor 90 mg tablet (Brilinta) 90 mg PO BID #180 t abs 03/10/25 sertraline 100 mg tablet 150 mg (1.5 x 100 mg) PO JACQUELINE LY #45 03/30/25 tabs oxycodone-acetaminophen 5 mg-325 1 tab PO BID PRN pain #10 tabs 04/05/25 mg tablet Allergies Allergy/AdvReac Type Severity Reaction Status Date / Time promethazine Allergy Intermediate ALGY-Swell Verified 04/05/25 15:15 Lip/Tongue/Throat nalbuphine (From Nubain) Allergy Unknown Verified 04/05/25 15:15 PFSH ED 2 PFS: Medical History Occipital neuralgia Hospital discharge follow-up Chronic idiopathic constipation Cough Upper respiratory infection Headache Sinusitis Anemia Seizure Shingles Near syncope Incarcerated ventral hernia COVID Dermatitis Environmental and seasonal allergies Acute bronchitis Lower respiratory infection Chest pain Tobacco use disorder Chest pain Atherosclerosis of coronary artery Abnormal stress test Diabetes mellitus Hyperlipidemia associated with type 2 diabetes mellitus Essential hypertension Chest pain CVA (cerebral vascular accident) Herpes zoster Vertigo Obese Restrictive lung disease Left knee pain Bilateral lower extremity edema Hyperlipidemia Shortness of breath COVID-19 virus infection Anxiety DM type 2 (diabetes mellitus, type 2) Hypertension Surgical History History of heart artery stent Family History Grandfather Anesthesia complication CAD (coronary artery disease) Chronic kidney disease (CKD) Dementia Diabetes Grandmother CAD (coronary artery disease) Cancer Chronic kidney disease (CKD) Diabetes Lung disease Stroke Family/Other CAD (coronary artery disease) Cancer Mother Diabetes CAD (coronary artery disease) Grandfather Diabetes Denies family history of Clotting disorder Suicide Bleeding disorder Social History Smoking and tobacco/nicotine status: former use of tobacco/nicotine Quit status (tobacco/nicotine): has quit using Year quit tobacco: 01/17 Former quit date comment: quit chewing Second hand smoke exposure: No Alcohol intake: current Alcohol intake frequency: holidays/special occasions only Substance/Drug Use: never Adopted: No Caregiver/support person: No Lives independently: Yes Household members: spouse Housing: House Marital status: Number of children: 4 Highest education level completed: Some College, No Degree service: No Current occupational status: employed Current occupational exposures/hazards: No Pets and animals: Yes Pets & animals: cat(s), dog(s), bird(s) and ferret(s) Leisure activites: other Leisure activities details: family time, small project (welding or wood working...something hands on) Sexually active: Yes Do you think of yourself as: Straight/Heterosexual Current gender identity: Male Claudine/Taoist: Congregational Special claudine needs: No Agree to transfusion: Yes Course 2 Vital Signs: Vital signs: Vital Signs Temperature 98.0 F 04/05/25 15:04 Pulse Rate 69 04/05/25 20:52 Respiratory Rate 16 04/05/25 18:27 Blood Pressure 125/74 04/05/25 20:52 Pulse Oximetry 91 04/05/25 20:52 Oxygen Delivery Me thod Room Air 04/05/25 18:27 MDM - Headache Medical Decision Making In summary, patient was signed out to me at shift change after shortly receiving headache medication. He describes 13 days of significant left-sided headache sometimes associated with lightheadedness and dizziness. At receiving fluids and IV medication, he feels much better and is able to walk around without any dizziness or lightheadedness. Headache is 80% better. Initial CT scan showed a possible area of abnormality in the left frontal region and initial plan was to repeat CT of the brain to see if change persists. I discussed this plan with the patient and he prefers to go home and I think this is reasonable as I do not suspect infarct, mass, or other abnormality which would cause his symptoms today. I do think he has an undiagnosed headache which could be served either by seeing pain management which he is scheduled to do on the of this month or neurology. I will give him a very short course of pain medication should the pain get out of control before then. He shows good understanding and agrees to the plan Lab Data 04/05/25 15:02 04/05/25 15:[address] 04/05/25 15:25 IMPRESSION: No acute intracranial findings. ADDENDUM: 04/05/25 4238 There is a small focal area of ill-defined hyperattenuation along the anterior aspect of the left frontal lobe immediately adjacent to the calvarium (for example series 5, image 26). This has a streaky appearance on the sagittal images (series 10, image 27). Findings may be secondary to artifact. However, a small focus of hemorrhage is not entirely excluded. This could be further assessed with MRI brain without contrast or follow-up CT head in 2-4 hours. THIS REPORT CONTAINS FINDINGS THAT MAY BE CRITICAL TO PATIENT CARE. The findings were verbally communicated via telephone conference with CADEN SCHMID at 4:32 PM CDT on 04/05/2025. The findings were acknowledged and understood. Laboratory Results WBC 11.58 10^3/uL (3.29-11.43) H 04/05/25 15:02 RBC 5.75 10^6/uL (3.85-5.65) H 04/05/25 15:02 Hgb 15.30 g/dL (11.27-16.99) 04/05/25 15:02 Hct 47.8 % (37-53) 04/05/25 15:02 MCV 83.1 fl (82-101) 04/05/25 15:02 MCH 26.6 pg (27-33) L 04/05/25 15:02 MCHC 32.0 g/dL (30-55) 04/05/25 15:02 RDW 13.8 % (12.1-15.1) 04/05/25 15:02 Plt Count 206 10^3/cmm (157-399) 04/05/25 15:02 MPV 9.0 fL (7.4-10.4) 04/05/25 15:02 Neut % (Auto) 70.1 % 04/05/25 15:02 Lymph % (Auto) 20.4 % 04/05/25 15:02 [place] % (Auto) 6.6 % 04/05/25 15:02 Eos % (Auto) 1.2 % 04/05/25 15:02 Baso % (Auto) 1.0 % 04/05/25 15:02 Neut # (Auto) 8.11 10^3/uL (1.8-7.7) H 04/05/25 15:02 Lymph # (Auto) 2.4 10^3/uL (0.8-4.8) 04/05/25 15:02 [place] # (Auto) 0.8 10^3/uL (0.2-0.9) 04/05/25 15:02 Eos # (Auto) 0.1 10^3/uL (0.0-0.8) 04/05/25 15:02 Baso # (Auto) 0.1 10^3/uL (0.0-0.1) 04/05/25 15:02 Nucleated RBC % (auto) 0 % 04/05/25 15:02 Nucleated RBCs # 0.0 /100WBC 04/05/25 15:02 Sodium 139 mmol/L (136-145) 04/05/25 15:02 Potassium 4.5 mmol/L (3.5-5.1) 04/05/25 15:02 Chloride 102 mmol/L (98-107) 04/05/25 15:02 Carbon Dioxide 22 mmol/L (22-29) 04/05/25 15:02 Anion Gap 19.5 (5-19) H 04/05/25 15:02 BUN 24 mg/dL (6-20) H 04/05/25 15:02 Creatinine 0.8 mg/dL (0.7-1.2) 04/05/25 15:02 GFR Calculation 103.6 mL/min (90-130) 04/05/25 15:02 Glucose 119 mg/dL (65-115) H 04/05/25 15:02 Calculated Osmolality 293 mOsm/kg (285-295) 04/05/25 15:02 Calcium 9.6 mg/dL (8.5-10.5) 04/05/25 15:02 Total Bilirubin 0.3 mg/dL (0.15-1.2) 04/05/25 15:02 AST 13 U/L (0-40) 04/05/25 15:02 ALT 22 U/L (0-41) 04/05/25 15:02 Alkaline Phosphatase 118 U/L (40-130) 04/05/25 15:02 Total Protein 7.9 g/dL (6.6-8.7) 04/05/25 15:02 Albumin 4.4 g/dL (3.5-5.2) 04/05/25 15:02 Globulin 3.5 g/dL (1.3-4.6) 04/05/25 15:02 Urine Color Yellow (Yellow) 04/05/25: Urine Appearance Clear (CLEAR) 04/05/25: Urine pH 5.0 (5-7) 04/05/25: Ur Specific [place] 1.017 (1.005-1.030) 04/05/25 15:33 Urine Protein Negative (Negative) 04/05/25: Urine Glucose (UA) 2+ (Normal) H 04/05/25 15:33 Urine Ketones Negative (Negative) 04/05/25 15:33 Urine Blood Negative (Negative) 04/05/25 15:33 Urine Nitrate Negative (Negative) 04/05/25 15:33 Urine Bilirubin Negative (Negative) 04/05/25 15:33 Urine Urobilinogen 0.2 mg/dL (Negative) 04/05/25 15:33 Ur Leukocyte Esterase Negative (Negative) 04/05/25 15:33 Urine RBC 0-2 /hpf (0-2) 04/05/25 15:33 Urine WBC 0-5 /hpf (0-5) 04/05/25 15:33 Ur Squamous Epith Cells 0-5 /hpf (0-5) 04/05/25 15:33 Amorphous Sediment Not Reportable 04/05/25 15:33 Urine Bacteria None seen /hpf (NONE) 04/05/25 15:33 Hyaline Casts 0-4 /lpf H 04/05/25 15:33 All radiology interpretation(s) finalized by discharge Discharge Plan Discharge Patient Disposition: Home Clinical Impression: Headache, Light-headedness Condition: Stable Prescriptions: New oxycodone-acetaminophen 5-325 mg tablet 1 tab PO BID PRN (Reason: pain) Qty: 10 0RF No Action fluticasone propionate 50 mcg/actuation spray,suspension 1 spray intranasal DAILY PRN (Reason: allergy symptoms) Qty: 16 0RF Rx Instructions: administer into each nostril spironolactone 25 mg tablet 25 mg PO DAILY Qty: 90 3RF Brilinta 90 mg tablet 90 mg PO BID Qty: 180 3RF lisinopril 5 mg tablet 5 mg PO DAILY Qty: 90 3RF furosemide 20 mg tablet 20 mg PO DAILY@0800 Qty: 90 1RF Linzess 290 mcg capsule 290 mcg PO DAILY 30 Days Qty: 30 2RF insulin aspart U-100 100 unit/mL solution See Rx Instructions continuous subcutaneous infusion DAILY Qty: 150 0RF Rx Instructions: continuous subcutaneous infusion daily; 80mg via insulin pump daily docusate sodium 100 mg capsule 100 mg PO BID Qty: 30 5RF sertraline 100 mg tablet 150 mg PO DAILY Qty: 45 3RF sucralfate 100 mg/mL suspension 10 ml PO QID PRN (Reason: Stomach Upset) pregabalin 50 mg capsule 50 mg PO BID atorvastatin 40 mg tablet 40 mg PO DAILY cetirizine 10 mg tablet 10 mg PO DAILY omeprazole 40 mg capsule,delayed release(DR/EC) 40 mg PO BID aspirin 81 mg tablet,delayed release (DR/EC) 81 mg PO DAILY metoprolol tartrate 50 mg tablet 50 mg PO BID metformin 500 mg tablet extended release 24 hr 1,000 mg PO BID Jardiance 10 mg tablet 10 mg PO DAILY Rx Instructions: TAKE 1 TABLET BY MOUTH EVERY DAY FOR 30 DAYS Discharge Orders: Discharge ED (Routine); Ordered 04/05/25 Ordered By: Bi Fernández Referrals: CIARA Kendall, HOT BILLET SHEAR OPERATOR [Primary Care Provider, [facility]] Discharge Diet: Advance as tolerated Discharge Activity: Increase activity as tolerated Patient Instructions: Headache Activity Restrictions/Additional Instructions: As we discussed, your brain CT showed one spot which was questionable for abnormality but nothing specific. I do not suspect stroke, cancer, or other emergency requiring further workup or repeat scanning. Your headache is somewhat better with treatment. Please take the prescribed medication if the pain gets out of control and follow-up closely with your pain management doctor. Print Language: Israeli Sign Out Sign Out Data: Patient Sign Out occurred on 04/05/25 at 18:45. Patient's care was discussed, and care was transferred from Caden Schmid DO to Bi Fernández MD. Coding Level of Care Code ED Certified Lactation Counselor for Anthony Lara
--- NOTE | 2025-04-05 15:25 | CTR_ITS ---
PROCEDURE INFORMATION: Exam: CT Head Without Contrast Exam date and time: 04/05/2025 3:33 PM Age: 49 years old Clinical indication: Dizziness; Additional info: Slurred speech dizziness 1 week TECHNIQUE: Imaging protocol: Computed tomography of the head without contrast. Radiation optimization: All CT scans at this facility use at least one of these dose optimization techniques: automated exposure control; mA and/or kV adjustment per patient size (includes targeted exams where dose is matched to clinical indication); or iterative reconstruction. COMPARISON: 1. CT head wo con* [id number] 09/19/2021 9:51 AM 2. MR head wo con* [id number] 07/22/2021 2:20 PM RADIATION DOSE METRICS: Total DLP (mGy-cm): 1096.38 FINDINGS: Brain: No hemorrhage. Unremarkable white matter. No mass effect. Stable tiny calcifications along the basal ganglia bilaterally. Cerebral ventricles: No ventriculomegaly. Paranasal sinuses: Minimal mucosal thickening in the left maxillary sinus. No air-fluid levels. Mastoid air cells: Visualized mastoid air cells are well aerated. Bones: Unremarkable. No acute fracture. Soft tissues: Unremarkable. CT/CT head wo con* [id number] IMPRESSION: No acute intracranial findings.
[2025-04-05 15:44] LABS: Alanine Aminotransferase 22 U/L (0-41); Albumin Level 4.4 g/dL (3.5-5.2); Alkaline Phosphatase 118 U/L (40-130); Anion Gap 19.5 (5-19); Aspartate Amino Transferase 13 U/L (0-40); Blood Urea Nitrogen 24 mg/dL (6-20); Calcium 9.6 mg/dL (8.5-10.5); Carbon Dioxide 22 mmol/L (22-29); Chloride 102 mmol/L (98-107); Creatinine Clr Calc Pharmacy 151.2787; Globulin 3.5 g/dL (1.3-4.6); Glomerular Filtration Rate 103.6 mL/min (90-130); Glucose 119 mg/dL (65-115); Osmolality Calculated 293 mOsm/kg (285-295); Potassium 4.5 mmol/L (3.5-5.1); Sodium 139 mmol/L (136-145); Total Bilirubin 0.3 mg/dL (0.15-1.2); Total Protein 7.9 g/dL (6.6-8.7)
[2025-04-05 15:47] LABS: Bilirubin Urine Negative (Negative); Blood Urine Negative (Negative); Glucose Urine UA 2+ (Normal); Ketones Urine Negative (Negative); Leukocyte Esterase Urine Negative (Negative); Nitrate Urine Negative (Negative); Protein Urine Negative (Negative); Specific Gravity, Urine 1.017 (1.005-1.030); Urine Appearance Clear (CLEAR); Urine Color Yellow (Yellow); Urobilinogen Urine 0.2 mg/dL (Negative)
[2025-04-05 15:50] LABS: Add Urine Microscopic? YES; Bacteria Urine None Seen /hpf; Hyaline Casts Urine 0-4 /lpf; RBC Urine 0-2 /hpf (0-2); Squamous Epithelial Cell Urine 0-5 /hpf (0-5); WBC Urine 0-5 /hpf (0-5)
[2025-04-05 16:40] VITALS: BP 114/70; BP 126/77; BP 138/77; PULSE 76; PULSE 78; PULSE 82
[2025-04-05 16:44] VITALS: BP 114/70; PULSE 76; RESP 16; O2SAT 94
[2025-04-05 16:49] LABS: Add Urine Culture? No
[2025-04-05 17:40] VITALS: BP 139/78; PULSE 77; O2SAT 94
[2025-04-05] MEDS: sodium chloride 0.9% 1,000 ML 999 ML IV (17:40)
[2025-04-05] MEDS: ketorolac 30 mg/mL INJ IVP (18:25)
[2025-04-05] MEDS: diphenhydrAMINE 50 mg/mL SDV 1mL IVP (18:25)
[2025-04-05 18:27] VITALS: BP 127/79; PULSE 72; RESP 16; O2SAT 96
[2025-04-05 20:52] VITALS: BP 125/74; PULSE 69; O2SAT 91
== END 2025-04-05 20:00 | disposition home or self-care (01) ==
PROVIDERS: Family Medicine; Emergency Provider Student in an Organized Health Care Education/Training Program; PCP Nurse Practitioner Family
DX: R51.9 Headache, unspecified (principal); R42 Dizziness and giddiness; Z79.4 Long term (current) use of insulin; Z79.82 Long term (current) use of aspirin; Z79.84 Long term (current) use of oral hypoglycemic drugs; Z87.891 Personal history of nicotine dependence; Z86.73 Personal history of transient ischemic attack (TIA), and cerebral infarction without residual deficits; E11.9 Type 2 diabetes mellitus without complications; I10 Essential (primary) hypertension; E78.5 Hyperlipidemia, unspecified; I25.10 Atherosclerotic heart disease of native coronary artery without angina pectoris
CPT/HCPCS: 36415; 70450; 80053; 81001; 85025; 93005; 96374; 96375; 99285; J1200; J1885; J7030

== ENCOUNTER → 2025-04-14 10:40 | Outpatient (BNVA) | payer MEDICAID, SELFPAY ==
[2024-07-14 15:01] VITALS: BP 120/72; BMI 40.1
== END ==
PROVIDERS: PCP Nurse Practitioner Family; Visit Provider Anesthesiology Pain Medicine
DX: M54.12 Radiculopathy, cervical region (principal); M54.2 Cervicalgia
CPT/HCPCS: 72040

== ENCOUNTER → 2025-06-03 12:10 | Outpatient (BNVA) | payer MEDICAID, SELFPAY ==
[2024-07-14 15:01] VITALS: BP 120/72; BMI 40.1
== END ==
PROVIDERS: PCP Nurse Practitioner Family; Visit Provider Internal Medicine Cardiovascular Disease
DX: I10 Essential (primary) hypertension (principal); E78.2 Mixed hyperlipidemia; I25.118 Atherosclerotic heart disease of native coronary artery with other forms of angina pectoris
CPT/HCPCS: 80053; 80061; 85025

== ENCOUNTER 2025-06-15 10:09 | Outpatient (CLI) | payer MEDICAID, SELFPAY ==
[2024-07-14 15:01] VITALS: BP 120/72; BMI 40.1
--- NOTE | 2025-06-15 11:00 | MR_ITS ---
WS: [id number] MRI HEAD WITH CONTRAST TECHNIQUE: Sagittal T1, T2 axial, T2 axial FLAIR, axial susceptibility weighted imaging, axial diffusion weighted images, and coronal T2 images were obtained. Pre and post-T1 axial and post T1 coronal images. ADC and FSPGR images. CLINICAL INFORMATION: R93.0 - Abnormal findings on diagnostic imaging of skull ... COMPARISON: CT 04/05/2025 and MRI 07/22/2021 FINDINGS: No suspicious abnormalities in the area of concern seen on the prior CT. No evidence of restricted diffusion to suggest acute ischemia. Ventricular system and basilar cisterns are patent. Normal posterior fossa. Normal vascular flow voids at the skull base. No extra-axial fluid collections. Paranasal sinuses and mastoid air cells are well aerated. No hemosiderin on susceptibly weighted images. No abnormal gadolinium enhancement. Small amount of periventricular T2 hyperintensity unchanged from 2020 mainly due to prominent perivenular spaces. MR/MR head wo/w con [id number] IMPRESSION: 1. No suspicious abnormalities in the area of concern seen on the prior CT. 2. No significant changes since MRI 2020
[2025-06-15] MEDS: gadobenate dimeglumine 20 mL vial IV (11:20)
== END 2025-06-15 10:10 | disposition home or self-care (01) ==
LOC: RAD 10:10
PROVIDERS: PCP Nurse Practitioner Family; Visit Provider Nurse Practitioner Family
DX: R93.0 Abnormal findings on diagnostic imaging of skull and head, not elsewhere classified (principal); R51.9 Headache, unspecified
CPT/HCPCS: 70553; A9577

== ENCOUNTER → 2025-07-19 16:51 | Outpatient (BNVA) | payer MEDICAID, SELFPAY ==
[2024-07-14 15:01] VITALS: BP 120/72; BMI 40.1
== END ==
PROVIDERS: PCP Nurse Practitioner Family; Visit Provider Nurse Practitioner Family
DX: R68.89 Other general symptoms and signs (principal)
CPT/HCPCS: 87400; 87426

== ENCOUNTER 2025-08-18 17:46 | Emergency (ER) | payer MEDICAID, SELFPAY ==
[2024-07-14 15:01] VITALS: BP 120/72; BMI 40.1
--- NOTE | 2025-08-18 17:48 | ECG_ITS ---
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 Measurements Intervals [place] Rate: 102 P: 15 TX: 148 QRS: 12 QRSD: 81 T: 62 QT: 309 QTc: 403 Interpretive Statements SINUS TACHYCARDIA POSSIBLE ANTERIOR MYOCARDIAL INFARCTION , OF INDETERMINATE AGE [30 ms Q WAVE IN V3/V4, OR R < 0.2 mV IN V4] Compared to ECG 04/05/2025 15:08:25 Myocardial infarct finding now present Electronically Signed On 08-18-2025 21:17:12 CDT by Matthew Winters M.D. [email or web address]
--- NOTE | 2025-08-18 17:48 | CTR_ITS ---
PROCEDURE INFORMATION: Exam: CT Head Without Contrast Exam date and time: 08/18/2025 6:35 PM Age: 49 years old Clinical indication: Other: HTN; Additional info: HTN, balance issues TECHNIQUE: Imaging protocol: Computed tomography of the head without contrast. Radiation optimization: All CT scans at this facility use at least one of these dose optimization techniques: automated exposure control; mA and/or kV adjustment per patient size (includes targeted exams where dose is matched to clinical indication); or iterative reconstruction. COMPARISON: MR head wo/w con [id number] 06/15/2025 10:50 AM RADIATION DOSE METRICS: Total DLP (mGy-cm): 1339.28 FINDINGS: Brain: Normal. No hemorrhage. Unremarkable white matter. No mass effect. Cerebral ventricles: No ventriculomegaly. Paranasal sinuses: Visualized sinuses are unremarkable. No fluid levels. Mastoid air cells: Visualized mastoid air cells are well aerated. Bones: Unremarkable. No acute fracture. Soft tissues: Unremarkable. CT/CT head wo con* [id number] IMPRESSION: No acute intracranial abnormality.
--- OUTSIDE RECORDS SUMMARY | 2025-08-18 17:50 | XMS_ITS | Encounter Summary ---
Author Organization [facility] Address [address] [place] [address] Care Team Providers Care Mason Tender Restoration Labor Name Role Phone Faiza Osmel CLANCY Primary Care Provider [phone] Reason for Visit * Reason Comments Med Refill Encounter Details Date Type Department Care Team ([facility] st Contact Info) Description 06/22/2025 Refill [facility] [address] [place] [address] Luis Fernando Romero MD [address] [place] [address] Occipital neuralgia of left side Social History Tobacco Use Types Packs/Day Years Used Date Smoking Tobacco: Former Cigarettes Passive Smoke Exposure: Past Smokeless Tobacco: Never Alcohol Use Standard Drinks/Week Comments Not Currently 0 (1 standard drink = 0.6 oz pur e alcohol) [facility] Utilities Answer Date Recorded In the past 12 months has e [employer], gas, oil, or water [employer] threatened to shut off services in your home? No 12/14/2024 PHQ-2 Answer Date Recorded PHQ-2 Score 0 12/14/2024 Hunger Vital Sign Answer Date Recorded Within the past 12 months, y ou worried that your food would run out before you got the money to buy more. Never true 12/14/19 25 Within the past 12 months, t he food you bought just didn't last and you didn't have money to get more. Never true 12/14/2024 PRAPARE - Transportation Answer Date Re corded In the past 12 months, has l ack of transportation kept you from medical appointments or from getting medications? No 11/26 In the past 12 months, has l ack of transportation kept you from meetings, work, or from getting things needed for daily living? No 12/14/2024 Housing Stability Vital Sign Answer Zaire e Recorded In the last 12 months, was t here a time when you were not able to pay the mortgage or rent on time? No 12/14/2024 Number of Times Moved in the Last Year Not on fi le 12/14/2024 At any time in the past 12 m [facility], were you homeless or living in a halfway (including now)? No 12/14/2024 Sex and Gender Information Value Date Recorded Sex Assigned at Not on file Legal Sex Male 9:10 AM CDT Gender Identity Not on file Sexual Orientation Not on file documented as of this encounter Miscellaneous Notes * Telephone Encounter - Blossom Villanueva CMA - 06/22/2025 9:48 AM CDT NO FOLLOW UP documented in this encounter Plan of Treatment Not on file documented as of this encounter Visit Diagnoses Diagnosis Occipital neuralgia of left side documented in this encounter Additional Health Concerns Health Status Noted Date Alive and well 06/10/2024 Assessment Noted Time PHQ-9 Depression Total Score: 0 12/14/19 10:31 AM SURGICAL DENTAL ASSISTANT A fall risk assessment has been complete d for the patient 12/14/2024 10:31 AM SURGICAL DENTAL ASSISTANT documented as of this encounter Care Teams Mason Tender Restoration Labor Relationship Specialty Start Date End Date Osmel Kendall, [address] [place] [address] PCP - General Family Medicine 12/14/24 documented as of this encounter
--- OUTSIDE RECORDS SUMMARY | 2025-08-18 17:50 | XMS_ITS | Clinical Summary ---
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
--- OUTSIDE RECORDS SUMMARY | 2025-08-18 17:50 | XMS_ITS | Clinical Summary ---
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 Gender Identity Not on file Sexual Orientation Not on file Plan of Treatment Health Maintenance Due Date Last Done Comments DIABETES ANNUAL FOOT EXAM 1995 DIABETES ANNUAL RETINAL EXAM 1995 DIABETES HBA1C Q 6 MONTHS 1995 DIABETES MICROALBUMIN ANNUAL SCREEN 1995 LDL CHOLESTEROL ANNUAL 1995 DTAP/TDAP/TD VACCINES (1 - Tdap) 1996 HEPATITIS B VACCINES (1 of 3 - 19+ 3-dose series) 12/1996 FIT-DNA Q 3 years 2022 FIT/FOBT Q 1 year 2022 Flex Sig/CT Colonography Q 5 years 2022 INFLUENZA VACCINE (#1) 2025 10/03/2022 COLORECTAL SCREENING 04/21/2034 04/21/2024 Colorectal Cancer Screening 04/21/2034 Insurance [employer] MEDICAID
--- OUTSIDE RECORDS SUMMARY | 2025-08-18 17:50 | XMS_ITS | Clinical Summary ---
Author Organization [facility] Address [address] [place] [address] Care Team Providers Care Motorcycle Builder Name Role Phone Osmel Kendall APRN Primary Care Provider [phone] Allergies Active Allergy Reactions Criticality Noted Date Comments Hydromorphone Vomiting High 12/14/2024 Nalbuphine Unknown 11/20/2023 Medications metoprolol tartrate (LOPRESSOR) 25 MG tablet Take 50 mg by mouth in the morning and 50 mg in the evening. 11/04/20 23 Active omeprazole (PriLOSEC) 40 MG capsule TAKE 1 CAPSULE BY MOUTH TWICE DAILY FOR 30 DAYS 10/31/20 23 Active docusate sodium (COLACE) 100 MG capsule Take 100 mg by mouth in the morning and 100 mg in the evening. 08/23/20 23 Active Lantus Solostar U-100 Insulin 100 unit/mL (3 mL) subcutaneous pen inject 45 UNITS subcutaneously EVERY 12 HOURS 10/31/20 23 Active chlorthalidone (HYGROTON) 25 MG tablet Take 25 mg by mouth every morning. 11/04/20 23 Active metFORMIN (GLUCOPHAGE XR) 500 MG ER tablet Take 1,000 mg by mouth in the morning and 1,000 mg in the evening. 11/11/20 23 Active levocetirizine (XYZAL) 5 MG tablet TAKE 1 TABLET BY MOUTH ONCE EVERY NIGHT AT BEDTIME 11/11/20 23 Active buPROPion (WELLBUTRIN XL) 150 MG 24 hr tablet Take 150 mg by mouth every morning. 11/11/20 23 Active Brilinta 90 mg tablet Take 90 mg by mouth in the morning and 90 mg in the evening. 11/05/20 23 Active Dexcom G6 Sensor device USE TO monitor blood sugar. CHANGE EVERY 10 DAYS 09/02/20 Active aspirin 81 MG EC tablet Take 81 mg by mouth in the morning. 10/10/20 Active Jardiance 10 mg tablet TAKE 1 TABLET BY MOUTH EVERY DAY FOR 30 DAYS 11/11/20 Active NovoLOG Flexpen U-100 Insulin 100 unit/mL (3 mL) subcutaneous pen inject 5 UNITS subcutaneously 3 TIMES DAILY WITH meals, plus sliding scale 10/31/20 Active sertraline (ZOLOFT) 25 MG tablet Take 100 mg by mouth in the morning. 09/23/20 Active spironolactone (ALDACTONE) 25 MG tablet TAKE 1/2 TABLET BY MOUTH EVERY DAY FOR 30 DAYS Active atorvastatin (LIPITOR) 40 MG tablet Take 1 tablet by mouth in the morning. Active pantoprazole (PROTONIX) 40 MG EC tablet Take 1 tablet by mouth in the morning and 1 tablet in the evening. Active magnesium oxide (MAGOX) 400 mg tablet Take 400 mg by mouth in the morning. Active pregabalin (LYRICA) 50 mg capsuleIndicatio ns:Occipital neuralgia of left side Take 1 capsule (50 mg total) by mouth in the morning and 1 capsule (50 mg total) in the evening. 180 capsule 1 12/21/19 25 026 Active Active Problems Problem Noted Date Diagnosed Date Bilateral leg numbness 02/04/2025 Occipital neuralgia of left side 09/07/2024 Ventral hernia without obstruction or gangrene 0 06/10/2024 Assessment & Plan (06/10/2024 1:46 PM CDT): Refer to hernia specialist per Dr. Modi. Generalized-onset seizures 03/16/2024 Intractable headache 03/16/2024 Complex partial seizures 11/20/2023 Syncopal episodes 11/20/2023 Ataxia 11/20/2023 Diabetic peripheral neuropathy 11/20/2023 Encounters Date Type Department Care Team Description 06/29/2025 Telephone [facility] [address] [place] [address] [address] [place] [address] Blossom Villanueva CMA 06/22/2025 Refill [facility] [address] [place] [address] [address] [place] [address] Luis Fernando Romero MD Occipital neuralgia of left side from Last 3 Months Family History Medical History Relation Name Comments Coronary artery disease Maternal Grandfather Dementia Maternal Grandfather Diabetes Maternal Grandfather Coronary artery disease Maternal Grandmother Diabetes Maternal Grandmother Coronary artery disease Mother Stroke Mother Relation Name Status Comments Maternal Grandfather Maternal Grandmother Mother Social History Tobacco Use Types Packs/Day Years Used Date Smoking Tobacco: Former Cigarettes Passive Smoke Exposure: Past Smokeless Tobacco: Never Tobacco Cessation:Counseling Given: Yes Alcohol Use Standard Drinks/Week Comments Not Currently 0 (1 standard drink = 0.6 oz pur e alcohol) [facility] Utilities Answer Date Recorded In the past 12 months has th e electric, gas, oil, or water company threatened to shut off services in your [...] any time in the past 12 m [facility], were you homeless or living in a jail (including now)? No 12/14/2024 Sex and Gender Information Value Date Recorded Sex Assigned at Not on file Legal Sex Male 9:10 AM CDT Gender Identity Not on file Sexual Orientation Not on file Last Filed Vital Signs Vital Sign Reading Time Taken Comments Blood Pressure 176/90 12/14/2024 10:29 AM DECORATIVE ENGRAVER Pulse 62 12/14/2024 10:29 AM DECORATIVE ENGRAVER Temperature - - Respiratory Rate 18 12/14/2024 10:29 AM DECORATIVE ENGRAVER Oxygen Saturation - - Inhaled Oxygen Concentration - - Weight 136 kg (299 lb) 12/14/2024 10:29 AM DECORATIVE ENGRAVER Height 172.7 cm (5' 8 ) 12/14/2024 10:29 AM DECORATIVE ENGRAVER Body Mass Index 45.46 12/14/2024 10:29 AM DECORATIVE ENGRAVER Plan of Treatment Health Maintenance Due Date Last Done Comments Annual Wellness 1977 Foot Exam 1977 Ophthalmology Exam 1987 Urine Microalbumin 1987 Hepatitis B Vaccines (1 of 3 - 19+ 3-dose series) 1996 Pneumococcal Vaccine: Pediat rics (0 to 5 Years) and At-Risk Patients (6 to 49 Years) (1 of 2 - PCV) 1996 Td, Tdap Vaccines Adult 1996 Hemoglobin A1C 03/21/2025 12/18/2024 Influenza Vaccination (#1) 2025 Colonoscopy 04/21/2034 04/21/2024 HIB Vaccines Aged Out No longer eligi ble based on patient's age to complete this topic HPV Vaccines Aged Out No longer eligi ble based on patient's age to complete this topic Hepatitis A Vaccines Aged Out No long er eligible based on patient's age to complete this topic IPV Vaccines Aged Out No longer eligi ble based on patient's age to complete this topic Meningococcal Vaccines Aged Out No lo nger eligible based on patient's age to complete this topic RSV Mab Nirsevimab (Beyfortu s) <20 months Aged Out No longer eligible b ased on patient's age to complete this topic Rotavirus Vaccines Aged Out No longer eligible based on patient's age to complete this topic Insurance [facility] Care Teams Motorcycle Builder Relationship Specialty Start Date End Date Osmel Kendall APRN [address] [address] [place] [address] PCP - General Family Medicine 12/14/24
[2025-08-18 17:54] VITALS: BP 137/89; PULSE 106; TEMP 36.5; O2SAT 94; BMI 39.9
--- NOTE | 2025-08-18 18:07 | XRR_ITS ---
PROCEDURE INFORMATION: Exam: XR Chest Exam date and time: 08/18/2025 6:14 PM Age: 49 years old Clinical indication: Other: Hypertension TECHNIQUE: Imaging protocol: Radiologic exam of the chest. Views: 1 view. COMPARISON: CR XR chest 1V portable [id number] 02/17/2025 4:44 PM FINDINGS: Lungs: Scarring versus atelectasis in the right lung base laterally with no focal consolidation. Pleural spaces: Unremarkable. No pleural effusion. No pneumothorax. Heart/Mediastinum: Unremarkable. No cardiomegaly. Bones/joints: Unremarkable. XR/XR chest 1V portable [id number] IMPRESSION: Scarring versus atelectasis in the right lung base laterally with no focal consolidation.
--- NOTE | 2025-08-18 18:09 | W.ED.GENADLT ---
HPI - General Adult General: Chief complaint: General Medical Stated complaint: BP high dizzy falling Time Seen by Provider: 08/18/25 18:05 History of Present Illness: 49-year-old male with a history of hypertension, diabetes, occipital neuralgia, obesity, coronary artery disease, and hyperlipidemia who presents to the emergency room with hypertension, dizziness and falls. He was taken off his lisinopril recently because of a chronic cough. He was told to watch his blood pressure and it came up they would start him on losartan. However today they were unable to get a hold of clinic.. No focal deficits. No altered mental status. He just been dizzy at times and has fallen over. No head injuries. No fevers. No vomiting. Related Data Home Medications ?Medication ?Instructions ?Recorded ?Confirmed metformin 500 mg tablet,extended 1,000 mg PO BID 02/17/25 08/03/25 release 24 hr Held on 02/18/25. Instructions: resume after 48 hours metoprolol tartrate 50 mg tablet 50 mg PO BID 02/17/25 08/03/25 omeprazole 40 mg capsule,delayed 40 mg PO BID 02/17/25 08/03/25 release sucralfate 100 mg/mL oral 10 ml PO QID PRN Stomach Upset 02/17/25 08/03/25 suspension aspirin 81 mg tablet,delayed 81 mg PO DAILY 08/03/25 08/03/25 release (Adult Aspirin Regimen) Previous Rx's ?Medication ?Instructions ?Recorded fluticasone propionate 50 1 spray intranasal DAILY PRN 12/09/24 mcg/actuation nasal allergy symptoms #16 grams spray,suspension furosemide 20 mg tablet 20 mg PO DAILY@0800 #90 tabs 03/10/25 spironolactone 25 mg tablet 25 mg PO DAILY #90 tabs 03/10/25 ticagrelor 90 mg tablet (Brilinta) 90 mg PO BID #180 tabs 03/10/25 blood-glucose sensor (Educeruscom G7 #9 ea 05/31/25 Sensor device) docusate sodium 100 mg capsule See Rx Instructions .Route 05/31/25 .COMPLEX #30 caps atorvastatin 40 mg tablet See Rx Instructions .Route 06/22/25 .COMPLEX #90 tabs insulin aspart U-100 100 unit/mL See Rx Instructions .Route 07/05/25 subcutaneous solution .COMPLEX #130 mL insulin pump cart,auto,BT,G6/7 #10 ea 07/05/25 (Omnipod 5 G6-G7 Pods (Gen 5) subcutaneous cartridge) empagliflozin 10 mg tablet 10 mg PO DAILY #90 tabs 07/12/25 (Jardiance) sertraline 100 mg tablet See Rx Instructions .Route 07/19/25 .COMPLEX #45 tabs nitroglycerin 0.4 mg sublingual 0.4 mg sublingual Q5M PRN chest 07/20/25 tablet pain 90 days #90 tabs baclofen 10 mg tablet 10 mg PO TID #60 tabs 08/13/25 cetirizine 10 mg tablet 10 mg PO DAILY #90 tabs 08/13/25 losartan 50 mg tablet 50 mg PO DAILY #30 tabs 08/18/25 Allergies Allergy/AdvReac Type Severity Reaction Status Date / Time promethazine Allergy Intermediate ALGY-Swell Verified 08/18/25 18:03 Lip/Tongue/Throat nalbuphine (From Nubain) Allergy Unknown Verified 08/18/25 18:03 Review of Systems Narrative: Constitutional symptoms: Negative except as documented in HPI. Skin symptoms: Negative except as documented in HPI. Eye symptoms: Negative except as documented in HPI. ENMT symptoms: Negative except as documented in HPI. Respiratory symptoms: Negative except as documented in HPI. Cardiovascular symptoms: Negative except as documented in HPI. Gastrointestinal symptoms: Negative except as documented in HPI. Genitourinary symptoms: Negative except as documented in HPI. Musculoskeletal symptoms: Negative except as documented in HPI. Neurologic symptoms: Negative except as documented in HPI. Psychiatric symptoms: Negative except as documented in HPI. Endocrine symptoms: Negative except as documented in HPI. [facility] ED PFSH: Medical History (Updated 08/18/25 @ 19:40 by Sherry Roger MD) Lower respiratory infection Flu-like symptoms Imaging finding reviewed Cervicogenic headache Abnormal MRI of head Occipital neuralgia, unspecified laterality Hospital discharge follow-up Chronic idiopathic constipation Cough Upper respiratory infection Headache Sinusitis Anemia Seizure Shingles Near syncope Incarcerated ventral hernia COVID Dermatitis Environmental and seasonal allergies Acute bronchitis Chest pain Tobacco use disorder Chest pain Atherosclerosis of coronary artery Abnormal stress test Diabetes mellitus Hyperlipidemia associated with type 2 diabetes mellitus Essential hypertension Chest pain CVA (cerebral vascular accident) Herpes zoster Vertigo Obese Restrictive lung disease Left knee pain Bilateral lower extremity edema Hyperlipidemia Shortness of breath COVID-19 virus infection Anxiety DM type 2 (diabetes mellitus, type 2) Hypertension Surgical History History of heart artery stent Family History Grandfather Anesthesia complication CAD (coronary artery disease) Chronic kidney disease (CKD) Dementia Diabetes Grandmother CAD (coronary artery disease) Cancer Chronic kidney disease (CKD) Diabetes Lung disease Stroke Family/Other CAD (coronary artery disease) Cancer Mother Diabetes CAD (coronary artery disease) Grandfather Diabetes Denies family history of Clotting disorder Suicide Bleeding disorder Social History Smoking and tobacco/nicotine status: former use of tobacco/nicotine Quit status (tobacco/nicotine): has quit using Year quit tobacco: 01/17 Former quit date comment: quit chewing Second hand smoke exposure: No Alcohol intake: current Alcohol intake frequency: holidays/special occasions only Substance/Drug Use: never Adopted: No Caregiver/support person: No Lives independently: Yes Household members: spouse Housing: House Marital status: Number of children: 4 Highest education level completed: Some College, No Degree service: No Current occupational status: employed Current occupational exposures/hazards: No Pets and animals: Yes Pets & animals: cat(s), dog(s), bird(s) and ferret(s) Leisure activites: other Leisure activities details: family time, small project (welding or wood working...something hands on) Sexually active: Yes Do you think of yourself as: Straight/Heterosexual Current gender identity: Male Claudine/Temple: Jain Special claudine needs: No Agree to transfusion: Yes Physical Exam Narrative: EXAM NARRATIVE: General: Alert, no acute distress. Skin: Warm, dry. Head: Normocephalic, atraumatic. Neck: Supple, trachea midline. Eye: Extraocular movements are intact. Ears, nose, mouth and throat: mucosa moist. Cardiovascular: Regular, Normal peripheral perfusion. Respiratory: Lungs are clear to auscultation, respirations are non-labored, breath sounds are equal, Symmetrical chest wall expansion. Gastrointestinal: Soft, Nontender, Non distended Musculoskeletal: Normal ROM, no deformity. Neurological: Alert and oriented, No focal neurological deficit observed. Psychiatric: Cooperative, appropriate mood & affect. Course Vital Signs: Vital signs: Vital Signs Temperature 97.7 F 08/18/25 17:54 Pulse Rate 85 08/18/25 19:20 Respiratory Rate 26 H 08/18/25 19:20 Blood Pressure 147/87 08/18/25 19:20 Pulse Oximetry 93 08/18/25 19:20 Oxygen Delivery Me thod Room Air 08/18/25 17:54 MDM - General Adult Medical Decision Making Medical decision making: Differential diagnosis including but not limited to and based on the above HPI, review of systems and physical exam: Patient presents with hypertension: Essential hypertension. Stroke. acute coronary syndrome. kidney failure. congestive heart failure. anxiety. Orders placed to evaluate differential diagnosis based on the above differential, HPI and physical exam EKG: Time 1757. Rate 102. Sinus tachycardia, specific ST changes, no ectopy, normal MI & QRS intervals, This was reviewed and interpreted by myself the ER physician at 1802 CT head: No acute intracranial process. no intracranial hemorrhage, no evidence of infarct. no evidence of acute fracture.This was reviewed and interpreted by myself the ER physician. Chest x-ray: No acute process. No infiltrate. No pneumothorax. This was reviewed and interpreted by myself the emergency room physician. I also reviewed the radiology report. Lab Review: Laboratory results were reviewed and interpreted by myself the emergency room physician. Mild leukocytosis. No anemia. I reviewed the patient's medical record. 49-year-old male with a history of hypertension, diabetes, occipital neuralgia, obesity, coronary artery disease, and hyperlipidemia Reexamination: Patient remained stable. No increased work of breathing. No altered mental status. No focal motor deficits. Blood pressure much improved. 140s over 80s. Assessment and plan: Hypertension ? Clonidine and losartan here in the emergency room. Starting him on losartan at home as this is what his incident response consultant was going to do. - Discharged home - Discussed plan with patient. Answered any questions. - Evaluation and treatment of this problem were appropriate in the emergency setting. Lab Data 08/18/25 18:12 08/18/25 18:[address] 08/18/25 17:48 IMPRESSION: No acute intracranial abnormality. Chest X-Ray 08/18/25 18:07 IMPRESSION: Scarring versus atelectasis in the right lung base laterally with no focal consolidation. Laboratory Results WBC 13.68 10^3/uL (3.29-11.43) H 08/18/25 18:12 RBC 5.51 10^6/uL (3.85-5.65) 08/18/25 18:12 Hgb 15.40 g/dL (11.27-16.99) 08/18/25 18:12 Hct 46.0 % (37-53) 08/18/25 18:12 MCV 83.5 fl (82-101) 08/18/25 18:12 MCH 27.9 pg (27-33) 08/18/25 18:12 MCHC 33.5 g/dL (30-55) 08/18/25 18:12 RDW 13.0 % (12.1-15.1) 08/18/25 18:12 Plt Count 231 10^3/cmm (157-399) 08/18/25 18:12 MPV 8.6 fL (7.4-10.4) 08/18/25 18:12 Neut % (Auto) 71.2 % 08/18/25 18:12 Lymph % (Auto) 19.7 % 08/18/25 18:12 [place] % (Auto) 5.6 % 08/18/25 18:12 Eos % (Auto) 1.3 % 08/18/25 18:12 Baso % (Auto) 0.8 % 08/18/25 18:12 Neut # (Auto) 9.75 10^3/uL (1.8-7.7) H 08/18/25 18:12 Lymph # (Auto) 2.7 10^3/uL (0.8-4.8) 08/18/25 18:12 [place] # (Auto) 0.8 10^3/uL (0.2-0.9) 08/18/25 18:12 Eos # (Auto) 0.2 10^3/uL (0.0-0.8) 08/18/25 18:12 Baso # (Auto) 0.1 10^3/uL (0.0-0.1) 08/18/25 18:12 Nucleated RBC % (auto) 0 % 08/18/25 18:12 Nucleated RBCs # 0.0 /100WBC 08/18/25 18:12 Sodium 136 mmol/L (136-145) 08/18/25 18:12 Potassium 4.1 mmol/L (3.5-5.1) 08/18/25 18:12 Chloride 99 mmol/L (98-107) 08/18/25 18:12 Carbon Dioxide 24 mmol/L (22-29) 08/18/25 18:12 Anion Gap 17.1 (5-19) 08/18/25 18:12 BUN 16 mg/dL (6-20) 08/18/25 18:12 Creatinine 0.9 mg/dL (0.7-1.2) 08/18/25 18:12 GFR Calculation 90.4 mL/min (90-130) 08/18/25 18:12 Glucose 162 mg/dL (65-115) H 08/18/25 18:12 Calculated Osmolality 287 mOsm/kg (285-295) 08/18/25 18:12 Lactic Acid 1.9 mmol/L (0.5-2.2) 08/18/25 18:12 Calcium 9.6 mg/dL (8.5-10.5) 08/18/25 18:12 Total Bilirubin 0.3 mg/dL (0.15-1.2) 08/18/25 18:12 AST 12 U/L (0-40) 08/18/25 18:12 ALT 21 U/L (0-41) 08/18/25 18:12 Alkaline Phosphatase 124 U/L (40-130) 08/18/25 18:12 Troponin T Baseline 13 ng/L (0-15) 08/18/25 18:12 NT-Pro-B Natriuret Pep 196 pg/mL (0-125) H 08/18/25 18:12 Total Protein 7.9 g/dL (6.6-8.7) 08/18/25 18:12 Albumin 4.5 g/dL (3.5-5.2) 08/18/25 18:12 Globulin 3.4 g/dL (1.3-4.6) 08/18/25 18:12 Influenza A (PCR) Negative (Negative) 08/18/25 18:10 Influenza Type B (PCR) Negative (Negative) 08/18/25 18:10 RSV (PCR) Negative (Negative) 08/18/25 18:10 SARS-CoV-2 (PCR) Negative (Negative) 08/18/25 18:10 All radiology interpretation(s) finalized by discharge Discharge Plan Discharge Patient Disposition: Home Clinical Impression: Hypertension Condition: Stable Prescriptions: New losartan 50 mg tablet 50 mg PO DAILY Qty: 30 1RF No Action fluticasone propionate 50 mcg/actuation spray,suspension 1 spray intranasal DAILY PRN (Reason: allergy symptoms) Qty: 16 0RF Rx Instructions: administer into each nostril spironolactone 25 mg tablet 25 mg PO DAILY Qty: 90 3RF Brilinta 90 mg tablet 90 mg PO BID Qty: 180 3RF furosemide 20 mg tablet 20 mg PO DAILY@0800 Qty: 90 1RF aspirin [Adult Aspirin Regimen] 81 mg tablet,delayed release (DR/EC) 81 mg PO DAILY (DME) Dexcom G7 Sensor Device See Rx Instructions .ROUTE .COMPLEX Qty: 9 2RF Dose Instruction: USE TO CHECK BLOOD SUGAR (CHANGE every 10 DAYS) Rx Instructions: USE TO CHECK BLOOD SUGAR (CHANGE every 10 DAYS) docusate sodium 100 mg capsule See Rx Instructions .ROUTE .COMPLEX Qty: 30 5RF Dose Instruction: TAKE 1 CAPSULE BY MOUTH TWICE DAILY Rx Instructions: TAKE 1 CAPSULE BY MOUTH TWICE DAILY atorvastatin 40 mg tablet See Rx Instructions .ROUTE .COMPLEX Qty: 90 1RF Dose Instruction: TAKE 1 TABLET BY MOUTH DAILY Rx Instructions: TAKE 1 TABLET BY MOUTH DAILY insulin aspart U-100 100 unit/mL solution See Rx Instructions .ROUTE .COMPLEX Qty: 130 0RF Dose Instruction: FOR INSULIN PUMP subcutaneously 3 TIMES DAILY; MAX DAILY DOSE 80 UNITS Rx Instructions: FOR INSULIN PUMP subcutaneously 3 TIMES DAILY; MAX DAILY DOSE 80 UNITS (DME) Omnipod 5 G6-G7 Pods (Gen 5) Cartridge See Rx Instructions .ROUTE .COMPLEX Qty: 10 2RF Dose Instruction: USE DIRECTED Rx Instructions: USE DIRECTED Jardiance 10 mg tablet 10 mg PO DAILY Qty: 90 1RF Rx Instructions: TAKE 1 TABLET BY MOUTH EVERY DAY FOR 30 DAYS sertraline 100 mg tablet See Rx Instructions .ROUTE .COMPLEX Qty: 45 3RF Dose Instruction: TAKE 1 & 1/2 TABLETS BY MOUTH DAILY Rx Instructions: TAKE 1 & 1/2 TABLETS BY MOUTH DAILY nitroglycerin 0.4 mg tablet, sublingual 0.4 mg sublingual Q5M PRN (Reason: chest pain) 90 Days Qty: 90 0RF Rx Instructions: do not exceed 3 doses per episode cetirizine 10 mg tablet 10 mg PO DAILY Qty: 90 0RF baclofen 10 mg tablet 10 mg PO TID Qty: 60 0RF sucralfate 100 mg/mL suspension 10 ml PO QID PRN (Reason: Stomach Upset) omeprazole 40 mg capsule,delayed release(DR/EC) 40 mg PO BID metoprolol tartrate 50 mg tablet 50 mg PO BID metformin 500 mg tablet extended release 24 hr 1,000 mg PO BID Discharge Orders: Discharge ED (Routine); Ordered 08/18/25 Ordered By: Sherry Roger Referrals: Faiza,CIARA, FLANGING MACHINE OPERATOR [Primary Care Provider, Family Practice] Discharge Diet: Usual diet Discharge Activity: Increase activity as tolerated Patient Instructions: Hypertension (ED), Opioid Safety, Pain Management, Patient Portal & Alcira Instructions Activity Restrictions/Additional Instructions: Thank you for choosing [facility] for your healthcare needs today. You have been screened and evaluated and felt safe for discharge. Health conditions do change or evolve sometimes and as such it is important that you follow up with your Primary Doctor to be re checked, 3-5 days is a general good time frame for follow up. You are always welcome to return to the ED for re assessment if your symptoms are worsening or you have new concerns Print Language: Chinese Coding Level of Care Code ED Chief Safety Officer for Anthony Lara
[2025-08-18 18:18] VITALS: BP 160/101; PULSE 104; RESP 18; O2SAT 98
[2025-08-18 18:20] VITALS: BP 160/101
[2025-08-18 18:21] LABS: Hematocrit 46.0 % (37-53); Hemoglobin 15.40 g/dL (11.27-16.99); Mean Corpuscular HGB Conc 33.5 g/dL (30-55); Mean Corpuscular Hemoglobin 27.9 pg (27-33); Mean Corpuscular Volume 83.5 fl (82-101); Nucleated Red Blood Cells % 0 %; Platelet Count 231 10^3/cmm (157-399); Red Blood Count 5.51 10^6/uL (3.85-5.65); White Blood Count 13.68 10^3/uL (3.29-11.43)
[2025-08-18 18:51] LABS: Lactic Sepsis W/Reflex 1.9 mmol/L (0.5-2.2)
[2025-08-18 18:53] LABS: Troponin(5th) Baseline 13 ng/L (0-15)
[2025-08-18 18:58] LABS: Respiratory Syncytial Virus Ce NEGATIVE (Negative); SARS-CoV-2 PCR NEGATIVE (Negative)
[2025-08-18 19:02] LABS: Alanine Aminotransferase 21 U/L (0-41); Albumin Level 4.5 g/dL (3.5-5.2); Alkaline Phosphatase 124 U/L (40-130); Anion Gap 17.1 (5-19); Aspartate Amino Transferase 12 U/L (0-40); Blood Urea Nitrogen 16 mg/dL (6-20); Calcium 9.6 mg/dL (8.5-10.5); Carbon Dioxide 24 mmol/L (22-29); Chloride 99 mmol/L (98-107); Creatinine Clr Calc Pharmacy 135.2513; Globulin 3.4 g/dL (1.3-4.6); Glucose 162 mg/dL (65-115); NT Pro B Type Natriuretic Pept 196 pg/mL (0-125); Osmolality Calculated 287 mOsm/kg (285-295); Potassium 4.1 mmol/L (3.5-5.1); Sodium 136 mmol/L (136-145); Total Protein 7.9 g/dL (6.6-8.7)
[2025-08-18 19:20] VITALS: BP 147/87; PULSE 85; RESP 26; O2SAT 93
[2025-08-18 19:45] LABS: Glucose Urine UA 3+ (Normal); Nitrate Urine Negative (Negative); Specific Gravity, Urine 1.022 (1.005-1.030)
[2025-08-18 19:47] VITALS: BP 141/87; PULSE 81; O2SAT 94
== END 2025-08-18 19:50 | disposition home or self-care (01) ==
PROVIDERS: Emergency Provider Emergency Medicine; PCP Nurse Practitioner Family
DX: I10 Essential (primary) hypertension (principal); Z11.52 Encounter for screening for COVID-19; Z79.82 Long term (current) use of aspirin; Z79.4 Long term (current) use of insulin; Z79.84 Long term (current) use of oral hypoglycemic drugs; Z87.891 Personal history of nicotine dependence; I25.10 Atherosclerotic heart disease of native coronary artery without angina pectoris; E11.69 Type 2 diabetes mellitus with other specified complication; E78.5 Hyperlipidemia, unspecified; Z86.73 Personal history of transient ischemic attack (TIA), and cerebral infarction without residual deficits
CPT/HCPCS: 36415; 70450; 71045; 80053; 81001; 83605; 83880; 84484; 85025; 87637; 93005; 99285; J9999

== ENCOUNTER → 2025-08-20 10:26 | Outpatient (BNVA) | payer MEDICAID, SELFPAY ==
[2024-07-14 15:01] VITALS: BP 120/72; BMI 40.1
== END ==
PROVIDERS: PCP Nurse Practitioner Family; Visit Provider Internal Medicine
DX: E11.65 Type 2 diabetes mellitus with hyperglycemia (principal); Z79.4 Long term (current) use of insulin
CPT/HCPCS: 80053; 80061; 82043; 83036

== ENCOUNTER → 2025-08-31 10:46 | Outpatient (BNVA) | payer MEDICAID, SELFPAY ==
[2024-07-14 15:01] VITALS: BP 120/72; BMI 40.1
== END ==
PROVIDERS: PCP Nurse Practitioner Family; Visit Provider Internal Medicine
DX: E11.65 Type 2 diabetes mellitus with hyperglycemia (principal); Z79.4 Long term (current) use of insulin
CPT/HCPCS: 82043

== ENCOUNTER → 2025-10-06 14:26 | Outpatient (BNVA) | payer MEDICAID, SELFPAY ==
[2024-07-14 15:01] VITALS: BP 120/72; BMI 40.1
== END ==
PROVIDERS: PCP Nurse Practitioner Family; Visit Provider Nurse Practitioner Family
DX: R19.8 Other specified symptoms and signs involving the digestive system and abdomen (principal); M41.86 Other forms of scoliosis, lumbar region; Z97.8 Presence of other specified devices
CPT/HCPCS: 74018

== ENCOUNTER 2025-10-16 13:48 | Emergency (ER) | payer MEDICAID, SELFPAY ==
[2024-07-14 15:01] VITALS: BP 120/72; BMI 40.1
[2025-10-16 13:51] VITALS: BP 130/85; PULSE 100; RESP 14; TEMP 36.4; O2SAT 96; BMI 37.3
--- OUTSIDE RECORDS SUMMARY | 2025-10-16 13:53 | XMS_ITS | Clinical Summary ---
Author Organization [facility] Address [address] [facility] Attn: Epic Prelude ADT JUAN [place] [address] Care Team Providers Care Pipe Maker Name Role Phone Unavailable Primary Care Provider Unavailabl e Social History Tobacco Use Types Packs/Day Years Used Date Smoking Tobacco: Never Assessed Sex and Gender Information Value Date Recorded Sex Assigned at Not on file Legal Sex Male 10:31 PM APPLICATION SECURITY ARCHITECT Gender Identity Not on file Sexual Orientation [...] 04/21/2034 04/21/2024 Colorectal Cancer Screening 04/21/2034 Insurance [facility] MEDICAID
--- OUTSIDE RECORDS SUMMARY | 2025-10-16 13:53 | XMS_ITS | Clinical Summary ---
Author Organization [facility] Address [address] [facility] [address] [place] [address] Phone Care Team Providers Care Sand Conditioner Name Role Phone Unavailable Primary Care Provider Unavailabl e Social History Tobacco Use Types Packs/Day Years Used Date Smoking Tobacco: Never Assessed Sex and Gender Information Value Date Recorded Sex Assigned at Not on file Legal Sex Male 3:39 PM TAX SERVICES MANAGER Gender Identity Not on file Sexual Orientation [...]
--- OUTSIDE RECORDS SUMMARY | 2025-10-16 13:53 | XMS_ITS | Encounter Summary ---
Author Organization [facility] Address [address] [place] [address] Phone Care Team Providers Care Tin Stacker Name Role Phone Osmel Kendall NP Primary Care Provider [phone] Encounter Details Date Type Department Care Team (Late st Contact Info) Description 10/12/2025 Telephone [facility] Medicine Surgery [address] [facility] Advanced Medicine 12th [place] [address] [place] [address] Gris Persaud Social History Tobacco Use Types Packs/Day Years Used Date Smoking Tobacco: Former Cigars 2 000 - 2003 Vaping 2023 - 12/2024 Passive Smoke Exposure: Past Smokeless Tobacco: Former Chew Quit: 2022 Comments:Hx of 8 cigars a da y Alcohol Use Standard Drinks/Week Comments Yes 0 (1 standard drink = 0.6 oz pur e alcohol) Hunger Vital Sign Answer Date Recorded Within the past 12 months, y ou worried that your food would run out before you got the money to buy more. Never true 09/24/20 24 Within the past 12 months, t he food you bought just didn't last and you didn't have money to get more. Never true 09/24/2024 AUDIT-C Answer Date Recorded Q1: How often do you have a drink containing alc ohol? Monthly or less 09/23/2025 Q2: How many drinks containi ng alcohol do you have on a typical day when you are drinking? 1 or 2 09/23/2025 Q3: How often do you have si x or more drinks on one occasion? Never 09/23/2025 Personal Safety Answer Date Recorded Have you ever been in or are you currently in a harmful physical or emotional relationship or is someone making you feel afraid or unsafe? Denies 09/23/2025 Sex and Gender Information Value Date Recorded Sex Assigned at Not on file Legal Sex Male 6:06 PM CDT Gender Identity Male 09/21/2024 8:44 AM CDT Sexual Orientation Straight 09/21/2024 8: 45 AM CDT documented as of this encounter Miscellaneous Notes * Telephone Encounter - Gris Persaud - 10/12/2025 3:56 PM CST Mother in law needs a work note that she was caring for her son in law after surgery with Dr. Royal. Vera Marin - [phone] Please call patient to discuss. RY DEMONSTRATOR documented in this encounter Plan of Treatment Not on file documented as of this encounter Visit Diagnoses Not on filedocumented in this encounter Care Teams Tin Stacker Relationship Specialty Start Date End Date Osmel Kendall, PORFIRIO [address] [address] PCP - General Nurse Practitioner 09/16/25 documented as of this encounter
--- OUTSIDE RECORDS SUMMARY | 2025-10-16 13:53 | XMS_ITS | Encounter Summary ---
Author Organization [facility] Address [address] [place] [address] Care Team Providers Care Fitness And Wellness Coordinator Name Role Phone Faiza Osmel CLANCY Primary Care Provider [phone] Reason for Visit * Reason Comments Med Refill Encounter Details Date Type Department Care Team ([facility] st Contact Info) Description 06/22/2025 Refill [facility] [address] [place] [address] Luis Fernando Romero MD [address] [place] [address] Occipital neuralgia of left side Social History Tobacco Use Types Packs/Day Years Used Date Smoking Tobacco: Former Cigarettes Passive Smoke Exposure: Past Smokeless Tobacco: Never Alcohol Use Standard Drinks/Week Comments Not Currently 0 (1 standard drink = 0.6 oz pur e alcohol) [facility] Utilities Answer Date Recorded In the past 12 months has e [employer], gas, oil, or water [employer] threatened to shut off services in your [...] any time in the past 12 m [facility], were you homeless or living in a residential (including now)? No 12/14/2024 Sex and Gender [...] Depression Total Score: 0 12/14/19 10:31 AM RESIDENTIAL CONSTRUCTION INSTRUCTOR A fall risk assessment has been complete d for the patient 12/14/2024 10:31 AM RESIDENTIAL CONSTRUCTION INSTRUCTOR documented as of this encounter Care Teams Fitness And Wellness Coordinator Relationship Specialty Start Date End Date Osmel Kendall, ASTON [address] [place] [address] PCP - General Family Medicine 12/14/24 documented as of this encounter
--- OUTSIDE RECORDS SUMMARY | 2025-10-16 13:53 | XMS_ITS | Encounter Summary ---
Author Organization [facility] Address [address] [place] [address] Phone Care Team Providers Care Electric Blasting Cap Assembler Name Role Phone Osmel Kendall NP Primary Care Provider [phone] Reason for Visit * Reason Onset Date Comments MEDICAL ADVICE 10/11/2025 Encounter Details Date Type Department Care Team (Late st Contact Info) Description 10/11/2025 Telephone [facility] Medicine Surgery [address] [facility] [place] Medicine 12th [place] [address] [place] [address] Olive Junior RMA MEDICAL ADVICE Social History Tobacco Use Types Packs/Day Years [...] encounter Miscellaneous Notes * Telephone Encounter - Olive Junior RMA - 10/11/2025 11:01 AM HELPER DRIVER DRAIN OUTPUT 50-75 CC MESSAGE SENT TO SUPPORTING TEAM ER DRIVER documented in this encounter Plan of Treatment Not on file documented as of this encounter Visit Diagnoses Not on filedocumented in this encounter Care Teams Electric Blasting Cap Assembler Relationship Specialty Start Date End Date Osmel Kendall NP [address] [address] PCP - General Nurse Practitioner 09/16/25 documented as of this encounter
--- OUTSIDE RECORDS SUMMARY | 2025-10-16 13:53 | XMS_ITS | Clinical Summary ---
Author Organization [facility] Address [address] [place] [address] Care Team Providers Care Armored Machine Operator Name Role Phone Osmel Kendall APRN Primary Care Provider [phone] Allergies Active Allergy Reactions Criticality Noted Date [...] 11/20/2023 Ataxia 11/20/2023 Diabetic peripheral neuropathy 11/20/2023 Family History Medical History Relation Name Comments [...] drink = 0.6 oz pur e alcohol) [facility] Utilities Answer Date Recorded In the [...] money to buy more. Never true 12/14/19 Within the past 12 months, t he [...] any time in the past 12 m [facility], were you homeless or living in a alf (including now)? No 12/14/2024 Sex and Gender Information Value Date Recorded Sex Assigned at Not on file Legal Sex Male 9:10 AM CDT Gender Identity Not on file Sexual Orientation Not on file Last Filed Vital Signs Vital Sign Reading Time Taken Comments Blood Pressure 176/90 12/14/2024 10:29 AM COMPOUND MACHINE OPERATOR Pulse 62 12/14/2024 10:29 AM COMPOUND MACHINE OPERATOR Temperature - - Respiratory Rate 18 12/14/2024 10:29 AM COMPOUND MACHINE OPERATOR Oxygen Saturation - - Inhaled Oxygen Concentration - - Weight 136 kg (299 lb) 12/14/2024 10:29 AM COMPOUND MACHINE OPERATOR Height 172.7 cm (5' 8 ) 12/14/2024 10:29 AM COMPOUND MACHINE OPERATOR Body Mass Index 45.46 12/14/2024 10:29 AM COMPOUND MACHINE OPERATOR Plan of Treatment Health Maintenance Due Date Last Done Comments Annual Wellness 1977 Foot Exam 1977 Ophthalmology Exam 1987 Urine Microalbumin 1987 Hepatitis B Vaccines (1 of 3 - 19+ 3-dose series) 1996 Pneumococcal Vaccine: Pediat rics (0 to 5 Years) and At-Risk Patients (6 to 49 Years) (1 of 2 - PCV) 1996 Td, Tdap Vaccines Adult 1996 Hemoglobin A1C 03/18/2025 12/18/2024 Influenza Vaccination (#1) 2025 Colonoscopy 04/21/2034 [...] age to complete this topic Insurance [facility] Care Teams Armored Machine Operator Relationship Specialty Start Date End Date Osmel Kendall APRN [address] [id number] PCP - General Family Medicine 12/14/24
--- OUTSIDE RECORDS SUMMARY | 2025-10-16 13:53 | XMS_ITS | Clinical Summary ---
Author Organization [facility] Healthcare Address [address] [place] [address] Care Team Providers Care Associate Professor Of Geography Name Role Phone Osmel Kendall OV[employer] TENDER BAGELS Primary Care Provider [phone] Allergies Active Allergy Reactions Criticality Noted Date Comments Nalbuphine Other (See comments) 11/20/2023 Cardiac problems Promethazine Swollen tongue High 09/24/2024 Medications aspirin 81 mg enteric coated tabletIndicati ons:prevention of thrombosis Take 1 tablet (81 mg total) by mouth every morning 10/10/20 23 Active atorvastatin (LIPITOR) 40 mg tabletIndicati ons:hyperlipid emia Take 1 tablet (40 mg total) by mouth nightly Active cetirizine (ZyrTEC) 10 mg tabletIndicati ons:Allergic Rhinitis Take 1 tablet (10 mg total) by mouth every morning 08/26/20 24 Active chlorthalidone (HYGROTON) 25 mg tabletIndicati ons:hypertensi on Take 1 tablet (25 mg total) by mouth every morning 11/04/20 23 Active Jardiance 10 mg tabletIndicati ons:type 2 diabetes mellitus Take 1 tablet (10 mg total) by mouth every morning Active fluticasone propionate (FLONASE) 50 mcg/actuation nasal sprayIndicatio ns:Allergic Rhinitis Administer 1 spray into each nostril every morning 08/26/20 24 Active metFORMIN XR (GLUCOPHAGE XR) 500 mg 24 hr tabletIndicati ons:type 2 diabetes mellitus Take 2 tablets (1,000 mg total) by mouth 2 (two) times a day 2 tablets Active metoprolol tartrate (LOPRESSOR) 25 mg immediate release tabletIndicati ons:heart Take 2 tablets (50 mg total) by mouth 2 (two) times a day 2 tablets 11/04/20 23 Active omeprazole (PriLOSEC) 40 mg capsuleIndicat ions:acid reflux Take 1 capsule (40 mg total) by mouth 2 (two) times a day Active Comfort EZ Pen [place] 31 gauge x 3/16 needle USE WITH VICTOZA 08/31/20 24 Active polyethylene glycol (MIRALAX) 17 gram/dose bulk powderIndicati ons:constipati on Take 17 g by mouth as needed 08/24/20 24 Active sertraline (ZOLOFT) 100 mg tabletIndicati ons:Anxiety with Depression Take 1.5 tablets (150 mg total) by mouth nightly 1.5 tablets 09/22/20 24 Active spironolactone (ALDACTONE) 25 mg tabletIndicati ons:hypertensi on Take 1 tablet (25 mg total) by mouth every morning Active sucralfate (CARAFATE) suspension 1 gram/10 mLIndications: indigestion Take 10 mL (1 g total) by mouth as needed 09/14/20 24 Active Brilinta 90 mg tabletIndicati ons:Thrombosis Prevention after PCI Take 1 tablet (90 mg total) by mouth 2 (two) times a day Active baclofen (LIORESAL) 10 mg tabletIndicati ons:occipital nerve neuralgia Take 1 tablet (10 mg total) by mouth 2 (two) times a day 08/13/20 25 Active docusate sodium (COLACE) 100 mg capsuleIndicat ions:constipat ion Take 1 capsule (100 mg total) by mouth 2 (two) times a day 08/25/20 25 Active furosemide (LASIX) 20 mg tabletIndicati ons:to keep fluid away from heart Take 1 tablet (20 mg total) by mouth every morning 08/16/20 25 Active Omnipod 5 G6-G7 Pods, Gen 5, cartridge as directed 08/06/20 25 Active nitroglycerin (NITROSTAT) 0.[address] 1 tablet (0.4 mg total) under the tongue every 5 (five) minutes as needed for chest pain Active ondansetron (ZOFRAN) 4 mg tablet Take 1 tablet (4 mg total) by mouth as needed for nausea or vomiting 10/20/20 24 Active insulin aspart (NovoLOG) 100 unit/mL vial for injectionIndic ations:type 2 diabetes mellitus Inject under the skin continuously INSULIN PUMP 08/25/20 25 Active losartan (COZAAR) 25 mg tabletIndicati ons:hypertensi on Take 1 tablet (25 mg total) by mouth nightly Active blood-glucose sensor (Dexcom G7 Sensor) device Active blood-glucose, nipple maker,cont (Dexcom G7 Glass Lined Tank Repairer) misc Activ e bisacodyl EC (DULCOLAX EC) 5 mg EC tabletIndicati ons:Bowel Evacuation Take two tablets (total of 10mg) of Dulcolax at 10am and 12pm day before surgery 4 tablet 09/20/20 25 Active ondansetron (ZOFRAN) 8 mg tabletIndicati ons:prevention of pre-operative bowel preparation 11am- take one tablet (8mg) of Zofran for nausea. Take one additional tablet (8mg) every 6 hours as needed for nausea. 3 tablet 09/20/20 25 Active acetaminophen 500 mg capsule Take 2 capsules (1,000 mg total) by mouth every 6 (six) hours as needed for pain 30 capsule 09/30/20 25 Active cyclobenzaprin e (FLEXERIL) 5 mg tabletIndicati ons:Muscle Spasm Take 1 tablet (5 mg total) by mouth 3 (three) times a day as needed for muscle spasms 20 tablet 09/30/20 25 Active oxyCODONE (ROXICODONE) 5 mg immediate release tabletIndicati ons:Pain Take 1 tablet (5 mg total) by mouth every 4 (four) hours as needed for pain 30 tablet 10/01/20 25 Active metroNIDAZOLE (FLAGYL) 500 mg tablet Take two tablets (1000 mg) by mouth at 1:00pm, 2:00pm and at 10:00pm the day prior to surgery 6 tablet 09/20/20 25 2024 Discontinued(T herapy completed) neomycin (MYCIFRADIN) 500 mg tablet Take two tablets (1000 mg) by mouth at 1:00pm, 2:00pm and at 10:00pm the day prior to surgery 6 tablet 09/20/20 25 2024 Discontinued(T herapy completed) polyethylene glycol (MIRALAX) 17 gram packetIndicati ons:Bowel Evacuation,[place] el Prep Begin drinking Miralax (17g) with 8oz of clear liquid at 11am. Continue drinking Miralax (17g) with 8oz of clear liquid every 15 minutes until finished for a total of 238 grams or 14 packets. 14 packet 09/20/20 25 2024 Discontinued(S top Taking at Discharge) cyclobenzaprin e (FLEXERIL) 5 mg tabletIndicati ons:Muscle Spasm Take 1 tablet (5 mg total) by mouth 3 (three) times a day as needed for muscle spasms 20 tablet 09/30/20 25 2024 Discontinued oxyCODONE (ROXICODONE) 5 mg immediate release tabletIndicati ons:Pain Take 1 tablet (5 mg total) by mouth every 4 (four) hours as needed for pain 30 tablet 09/30/20 25 2024 Discontinued oxyCODONE (ROXICODONE) 5 mg immediate release tabletIndicati ons:Pain Take 1 tablet (5 mg total) by mouth every 4 (four) hours as needed for pain 30 tablet 09/30/20 25 2024 Discontinued Active Problems Problem Noted Date Diagnosed Date Acute postoperative abdominal pain 09/27/2025 Respiratory insufficiency 09/25/2025 Assessment & Plan (09/30/2025 9:52 AM ASSET PROTECTION ASSISTANT): 09/25 5L NC, no documented desat episodes, wean as able, 1L per IS, CPT/PEP ordered, wean O2 for SpO2 >92% 09/26 stable on RA, continue CPT 09/27 required supplemental oxygen overnight, continue weaning Resolved Acute post-operative pain 09/24/2025 Assessment & Plan (10/01/2025 9:34 AM ASSET PROTECTION ASSISTANT): PAIN following Epidural, dPCA 09/25-09/28 pain controlled 09/29 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 Discharge planning issues 09/24/2025 Assessment & Plan (10/01/2025 9:35 AM ASSET PROTECTION ASSISTANT): 09/24 POD1 barrier to discharge bowel function and diet tolerance, ADD next week 09/25 POD2 barrier to discharge: po intake/tolerance; ADD next week 09/26 POD3 barrier to discharge: po intake/tolerance; ADD next week, PT cleared for home 09/27 POD4 barrier to discharge: po intake/tolerance; ADD next week, PT cleared for home 09/28 POD5 barrier to discharge: po intake, tolerance. NGT output high. 09/29 POD6 barrier to discharnge: po advancement. ADD or Saturday. 09/30 Patient is medically stable for discharge, SW/CM updated. Discharge pending. Discharged cancelled for hypertensive episode this afternoon 10/01 Patient is medically stable for discharge, SW/CM updated. Discharge pending ready to go History of heart artery stent 09/24/2025 Assessment & Plan (09/25/2025 2:12 PM CDT): #CAD s/p stent placement 2022 (Asa, brilinta) holding Occipital neuralgia of left side 09/07/2024 Ventral hernia without obstruction or gangrene 0 06/10/2024 Assessment & Plan (10/01/2025 9:31 AM ASSET PROTECTION ASSISTANT): 09/23 OR ([facility]) ventral hernia repair with intraperitoneal mesh, colon serosal repair, gastric wedge resection - NGT, NPO - abd binder 09/24 minimal NG tube output, NOAM 64ml/24h, midline derma ball intact 09/25 POD2 AFVSS, labs reviewed, NGT 850cc/24h, no flatus, pain controlled, midline dermabond intact, NOAM 195cc/24h serosang, ARBF 09/26 POD3 AFVSS, labs reviewed, NGT 1L/24h, no flatus, pain controlled, midline dermabond intact, NOAM 200cc/24h serosagn, ARBF 09/27 POD4 WBC 12 from 14, NG 1.3L/24h, no flatus, midline remains intact, NOAM 140ml/24h, ARBF, KUB pending for tube placement 09/28 POD5 WBC 11.6 AFVSS, NGT 2500ml/24h. + flatus, no bm. NOAM serosang. Abdomen soft. Midline incision with subcut sutures, no eloy. ARBF. Gave 1L bolus for NGT output. 09/29 POD6 WBC 12.1, AFVSS, NGT 1450ml/24h. NOAM 120ml/24h. BM x3, pt hungry. Abdomen soft, midline incision c/d/I with subcuticular sutures. Pulled ngt, clears, adat. 09/30 POD7, AFVSS except SBP elevated overnight, labetolol given x3 overnight. Restarted another of home BP meds. Pain controlled. Amanda regular diet well. + flatus, 2 bm's. NOAM 170ml/24h., serosang output. UOP 2625ml/24h. 10/01 POD8 BP better controlled this am. NOAM 135ml/24 hr, serosang drainage. + BF. Abdomen soft. Cultures none Pathology Diagnosis: A. Stomach, wedge resection - Small bowel with no histopathologic abnormality Gastroesophageal reflux disease without esophagi tis 03/18/2024 Assessment & Plan (09/29/2025 12:21 PM ASSET PROTECTION ASSISTANT): Home regimen sucralfate holding and protonix Hospital surrogate IV Protonix 09/29 changed to po meds Morbid obesity 03/18/2024 Assessment & Plan (09/24/2025 4:12 PM CDT): Body mass index is 41.12 kg/m . Generalized-onset seizures 03/16/2024 Assessment & Plan (09/24/2025 4:14 PM CDT): Last seen 02/2024 He is not on Keppra anymore. He had workup that included MRI of the brain on 12/19/2023 which did not show any significant abnormality to cause seizure EEG was also performed on 12/19/2023 which did not show seizure-like activity. Intractable headache 03/16/2024 Ataxia 11/20/2023 Complex partial seizures 11/20/2023 Diabetic peripheral neuropathy 11/20/2023 Assessment & Plan (09/28/2025 3:10 PM ASSET PROTECTION ASSISTANT): 09/24 per patient bilateral neuropathy bilateral lower extremities 09/25 home meds reviewed, no neuropathic agents recently prescribed Syncopal episodes 11/20/2023 DM (diabetes mellitus) Assessment & Plan (10/01/2025 9:29 AM ASSET PROTECTION ASSISTANT): 09/24 endocrine consulted, home insulin pump last A1C 7.2 (9 months ago) Q4 hours glucose check 09/25-10/01 BG controlled, patient remains NPO, endo following HTN (hypertension) Assessment & Plan (10/01/2025 9:29 AM ASSET PROTECTION ASSISTANT): Holding home lasix, losartan, metoprolol, chlorthalidone Hospital surrogate IV metoprolol, IV lasix 09/26 stop IV lasix until tolerating regular diet 09/27 SBP 107-159, continue holding Lasix 09/28 SBP 170's over 88, started enalapril IV. 09/30 SBP 191/103 and 170's, labetolol given x 3 overnight. Restarted 4th home bp med. 10/01 SBP 150-160's. Pt will follow up with his PCP this week. HLD (hyperlipidemia) Assessment & Plan (09/30/2025 9:57 AM ASSET PROTECTION ASSISTANT): Holding home atorvastatin 09/29 restarted statin Anxiety Stroke (cerebrum) Encounters Date Type Department Care Team Description 10/12/2025 Telephone [facility] Medicine Surgery [address] [facility] Advanced Medicine 12th [place] [address] [place] [address] Gris Persaud 10/11/2025 Telephone [facility] Medicine Surgery [address] [facility] Advanced Medicine 12th [place] [address] [place] [address] Olive Junior RMA MEDICAL ADVICE 09/23/2025 11:11 AM CDT Anesthesia Event [facility] Operating Room [address] [place] [address] Dawood Ruggiero MD Wilkinson, Christina A., OVEN TENDER BAGELS 09/23/2025 10:05 AM CDT - 09/23/2025 2:22 PM CDT Surgery [facility] Operating Room [address] [place] [address] Navdeep Royal MD ####REPAIR VENTRAL HERNIA- OPEN, GASTRIC RESECTION 09/23/2025 9:11 AM CDT - 10/01/2025 3:45 PM ASSET PROTECTION ASSISTANT Hospital Encounter [facility] [address] [place] [address] Navdeep Royal MD Acute postoperative abdominal pain (Primary Dx); Ventral hernia without obstruction or gangrene; Anxiety [F41.9]; Requires daily management of epidural infusion [Z78.9] Discharge Disposition: Discharge to home or self care 09/22/2025 Telephone [facility] Medicine Surgery [address] [facility] [address] [place] [phone] Tamara Otoole Nory Surgery Confirmation 09/20/2025 Orders Only [facility] [address] [place] [address] Advanced Medicine [facility] [place] [address] [place] [address] Navdeep Royal MD 09/08/2025 3:50 PM CDT Lab [facility] Advanced Medicine (CAM) [address] [place] [phone] Research study patient 09/08/2025 1:00 PM CDT Office Visit [facility] [address] [place] [address] 12th [place] [address] [place] [address] Navdeep Royal MD Ventral hernia without obstruction or gangrene (Primary Dx); Morbid obesity with BMI of 40.0-44.9, adult (HCC); Type 2 diabetes mellitus without complications, unspecified whether oil heaterman insulin use; Research study patient 08/11/2025 1:30 PM CDT Office Visit [facility] [address] [place] [address] 12th [place] [address] [place] [address] Navdeep Royal MD Ventral hernia without obstruction or gangrene (Primary Dx); Type 2 diabetes mellitus without complication, unspecified whether oil heaterman insulin use (HCC); Coronary artery disease involving [place] coronary artery, unspecified whether angina present, unspecified whether [place] or transplanted heart; Severe obesity due to excess calories with serious comorbidity and body mass index (BMI) 120% of 95th percentile to less than 140% of 95th percentile for age in pediatric patient 07/19/2025 Telephone [facility] Medicine Surgery [address] [facility] 12th [place] [address] [place] [phone] Wilda Ramirez CMA from Last 3 Months Immunizations Immunization Administration Dates Next Due Hep B, Unspecified 07/14/1998,03/14/1998, 998 Influenza, Quadrivalent, Spl it, Preservative Free, Intramuscular 10/03/2022,10/05/2021 Pneumococcal Polysaccharide PPV23 10/05/2021 Surgical History Surgery Date Site/Laterality Comments CARDIAC STENT PLACEMENT x3 times, last one was 2022 x5 stents total COLONOSCOPY 11/25/2023 - 11/24/2024 GASTROSCHISIS CLOSURE x4 surgeries as an , intestines were on the outside of body when born Medical History Medical History Date Comments DM (diabetes mellitus) HTN (hypertension) HLD (hyperlipidemia) Anxiety Uses self-applied continuous glucose monitoring device Dexcom G7 Insulin pump in place omnipod 5 Rojas's palsy Occipital neuralgia Family History Medical History Relation Name Comments Anesthesia problems Neg Hx Social History Tobacco Use Types Packs/Day Years [...] Orientation Straight 09/21/2024 8: 45 AM CDT Last Filed Vital Signs Vital Sign Reading Time Taken Comments Blood Pressure 150/85 10/01/2025 12:59 PM ASSET PROTECTION ASSISTANT Pulse 78 10/01/2025 12:59 PM ASSET PROTECTION ASSISTANT Temperature 36.6 C (97.9 F) 10/01/2025 12:59 PM ASSET PROTECTION ASSISTANT Respiratory Rate 18 10/01/2025 4:30 AM ASSET PROTECTION ASSISTANT Oxygen Saturation 99% 10/01/2025 12:59 PM ASSET PROTECTION ASSISTANT Inhaled Oxygen Concentration - - Weight 130 kg (286 lb 9.6 oz) 09/23/2025 10:08 P M CDT Height 177.8 cm (5' 10 ) 09/24/2025 12:00 AM CDT Body Mass Index 41.12 09/23/2025 10:08 PM CDT Plan of Treatment Health Maintenance Due Date Last Done Comments Albumin Creatinine Ratio, Urine 1977 Colon Cancer Screening-Colonoscopy 1977 Depression Screening 1977 Dilated Eye Exam 1977 Foot Exam 1977 DTaP/Tdap/Td Vaccine (1 - Tdap) 1988 Regular Well Visit/Exam 18-64 1995 Pneumococcal vaccine <65 (2 of 2 - PCV) 10/05/2022 10/05/2021 Hemoglobin A1C 06/17/2025 12/18/2024 Influenza Vaccine (#1) 2025 10/03/2022, 2020 Lipid Panel 09/24/2026 09/24/2025 eGFR 09/30/2026 09/30/2025, 1103/2025, 09/28/2025, Additional history exists Hepatitis B Screening Completed 07/14/1998 , 03/14/1998, 01/07/1998 Hepatitis C Screening Completed 09/08/2025 Medical Devices Implanted Type Area Extract Operator Device Identifier Shelf Expiration Date Model / Serial / Lot [employer]/C R Bard Ventralight St Sepra L14 In X W12 In Uncoated Monofilament Lightweight Absorbable Low Profile Rectangle Mesh Surgical Polypropylene Hydrogel Sterile Latex Free Ventral Hernia Repair Implanted:Qty: 1 on 09/23/2025 by Navdeep Royal MD at [facility] Mesh N/A: Abdomen [employer] [id number] 05/22/2026 [id number] / / [id number] Cardiac Stent X5 N/A: Heart Procedures Procedure Name Priority Date/Time Associated Diagnosis Comments POCT GLUCOSE DEVICE Routine 10/01/2025 1 2:54 PM ASSET PROTECTION ASSISTANT POCT GLUCOSE DEVICE Routine 10/01/2025 7 :33 AM ASSET PROTECTION ASSISTANT POCT GLUCOSE DEVICE Routine 09/30/2025 8 :12 PM ASSET PROTECTION ASSISTANT EGFR Routine 09/30/2025 5:07 PM ASSET PROTECTION ASSISTANT DIFFERENTIAL AUTO Routine 09/30/2025 5:0 7 PM ASSET PROTECTION ASSISTANT PHOSPHORUS STAT 09/30/2025 5:07 PM ASSET PROTECTION ASSISTANT MAGNESIUM STAT 09/30/2025 5:07 PM ASSET PROTECTION ASSISTANT CBC WITH AUTO DIFFERENTIAL Routine 09/30/2025 5:07 PM ASSET PROTECTION ASSISTANT PHOSPHORUS Routine 09/30/2025 5:07 PM ASSET PROTECTION ASSISTANT COMPREHENSIVE METABOLIC PANEL Routine 09/30/2025 5:07 PM ASSET PROTECTION ASSISTANT POCT GLUCOSE DEVICE Routine 09/30/2025 5 :01 PM ASSET PROTECTION ASSISTANT ECG 12-LEAD STAT 09/30/2025 4:48 PM ASSET PROTECTION ASSISTANT DIFFERENTIAL AUTO STAT 09/30/2025 4:3 9 PM ASSET PROTECTION ASSISTANT CBC WITH AUTO DIFFERENTIAL STAT 09/30/2025 4:39 PM ASSET PROTECTION ASSISTANT PEP THERAPY Routine 09/30/2025 6:01 AM ASSET PROTECTION ASSISTANT POCT GLUCOSE DEVICE Routine 09/30/2025 4 :47 AM ASSET PROTECTION ASSISTANT PEP THERAPY Routine 09/30/2025 12:00 AM ASSET PROTECTION ASSISTANT POTASSIUM, WHOLE BLOOD Routine 09/29/2025 10:32 PM ASSET PROTECTION ASSISTANT MAGNESIUM Routine 09/29/2025 8:49 PM ASSET PROTECTION ASSISTANT EGFR Routine 09/29/2025 8:49 PM ASSET PROTECTION ASSISTANT DIFFERENTIAL AUTO Routine 09/29/2025 8:4 9 PM ASSET PROTECTION ASSISTANT CBC WITH AUTO DIFFERENTIAL Routine 09/29/2025 8:49 PM ASSET PROTECTION ASSISTANT PHOSPHORUS Routine 09/29/2025 8:49 PM ASSET PROTECTION ASSISTANT COMPREHENSIVE METABOLIC PANEL Routine 09/29/2025 8:49 PM ASSET PROTECTION ASSISTANT POCT GLUCOSE DEVICE Routine 09/29/2025 8 :17 PM ASSET PROTECTION ASSISTANT PEP THERAPY Routine 09/29/2025 6:00 PM ASSET PROTECTION ASSISTANT POCT GLUCOSE DEVICE Routine 09/29/2025 5 :38 PM ASSET PROTECTION ASSISTANT POCT GLUCOSE DEVICE Routine 09/29/2025 1 2:23 PM ASSET PROTECTION ASSISTANT PEP THERAPY Routine 09/29/2025 12:01 PM ASSET PROTECTION ASSISTANT POCT GLUCOSE DEVICE Routine 09/29/2025 8 :05 AM ASSET PROTECTION ASSISTANT PEP THERAPY Routine 09/29/2025 6:01 AM ASSET PROTECTION ASSISTANT PEP THERAPY Routine 09/29/2025 12:00 AM ASSET PROTECTION ASSISTANT MAGNESIUM Routine 09/28/2025 9:30 PM ASSET PROTECTION ASSISTANT EGFR Routine 09/28/2025 9:30 PM ASSET PROTECTION ASSISTANT DIFFERENTIAL AUTO Routine 09/28/2025 9:3 0 PM ASSET PROTECTION ASSISTANT CBC WITH AUTO DIFFERENTIAL Routine 09/28/2025 9:30 PM ASSET PROTECTION ASSISTANT PHOSPHORUS Routine 09/28/2025 9:30 PM ASSET PROTECTION ASSISTANT COMPREHENSIVE METABOLIC PANEL Routine 09/28/2025 9:30 PM ASSET PROTECTION ASSISTANT POCT GLUCOSE DEVICE Routine 09/28/2025 9 :29 PM ASSET PROTECTION ASSISTANT POCT GLUCOSE DEVICE Routine 09/28/2025 8 :21 PM ASSET PROTECTION ASSISTANT PEP THERAPY Routine 09/28/2025 6:00 PM ASSET PROTECTION ASSISTANT POCT GLUCOSE DEVICE Routine 09/28/2025 5 :24 PM ASSET PROTECTION ASSISTANT XR ABDOMEN AP 1 VIEW ED Urgent/IP Urgent 09/28/2025 2:32 PM ASSET PROTECTION ASSISTANT POCT GLUCOSE DEVICE Routine 09/28/2025 1 2:37 PM ASSET PROTECTION ASSISTANT PEP THERAPY Routine 09/28/2025 12:01 PM ASSET PROTECTION ASSISTANT POCT GLUCOSE DEVICE Routine 09/28/2025 7 :54 AM ASSET PROTECTION ASSISTANT PEP THERAPY Routine 09/28/2025 6:01 AM ASSET PROTECTION ASSISTANT PEP THERAPY Routine 09/28/2025 12:00 AM ASSET PROTECTION ASSISTANT POCT GLUCOSE DEVICE Routine 09/27/2025 8 :36 PM ASSET PROTECTION ASSISTANT EGFR Routine 09/27/2025 8:36 PM ASSET PROTECTION ASSISTANT DIFFERENTIAL AUTO Routine 09/27/2025 8:3 6 PM ASSET PROTECTION ASSISTANT CBC WITH AUTO DIFFERENTIAL Routine 09/27/2025 8:36 PM ASSET PROTECTION ASSISTANT PHOSPHORUS Routine 09/27/2025 8:36 PM ASSET PROTECTION ASSISTANT MAGNESIUM Routine 09/27/2025 8:36 PM ASSET PROTECTION ASSISTANT COMPREHENSIVE METABOLIC PANEL Routine 09/27/2025 8:36 PM ASSET PROTECTION ASSISTANT PEP THERAPY Routine 09/27/2025 6:00 PM ASSET PROTECTION ASSISTANT POCT GLUCOSE DEVICE Routine 09/27/2025 6 :00 PM ASSET PROTECTION ASSISTANT POCT GLUCOSE DEVICE Routine 09/27/2025 1 2:28 PM ASSET PROTECTION ASSISTANT PEP THERAPY Routine 09/27/2025 12:00 PM ASSET PROTECTION ASSISTANT XR ABDOMEN AP 1 VIEW ED Urgent/IP Urgent 09/27/2025 10:09 AM ASSET PROTECTION ASSISTANT POCT GLUCOSE DEVICE Routine 09/27/2025 7 :52 AM ASSET PROTECTION ASSISTANT PEP THERAPY Routine 09/27/2025 6:01 AM ASSET PROTECTION ASSISTANT PEP THERAPY Routine 09/27/2025 12:00 AM ASSET PROTECTION ASSISTANT EGFR Routine 09/26/2025 9:50 PM ASSET PROTECTION ASSISTANT DIFFERENTIAL AUTO Routine 09/26/2025 9:5 0 PM ASSET PROTECTION ASSISTANT CBC WITH AUTO DIFFERENTIAL Routine 09/26/2025 9:50 PM ASSET PROTECTION ASSISTANT PHOSPHORUS Routine 09/26/2025 9:50 PM ASSET PROTECTION ASSISTANT MAGNESIUM Routine 09/26/2025 9:50 PM ASSET PROTECTION ASSISTANT COMPREHENSIVE METABOLIC PANEL Routine 09/26/2025 9:50 PM ASSET PROTECTION ASSISTANT POCT GLUCOSE DEVICE Routine 09/26/2025 9 :49 PM ASSET PROTECTION ASSISTANT PEP THERAPY Routine 09/26/2025 6:00 PM ASSET PROTECTION ASSISTANT POCT GLUCOSE DEVICE Routine 09/26/2025 5 :04 PM ASSET PROTECTION ASSISTANT POCT GLUCOSE DEVICE Routine 09/26/2025 1 1:58 AM ASSET PROTECTION ASSISTANT POCT GLUCOSE DEVICE Routine 09/26/2025 7 :37 AM ASSET PROTECTION ASSISTANT PEP THERAPY Routine 09/26/2025 6:00 AM ASSET PROTECTION ASSISTANT PEP THERAPY Routine 09/26/2025 12:00 AM CDT POCT GLUCOSE DEVICE Routine 09/25/2025 1 0:05 PM CDT EGFR Routine 09/25/2025 8:41 PM CDT DIFFERENTIAL AUTO Routine 09/25/2025 8:4 1 PM CDT CBC WITH AUTO DIFFERENTIAL Routine 09/25/2025 8:41 PM CDT PHOSPHORUS Routine 09/25/2025 8:41 PM CDT MAGNESIUM Routine 09/25/2025 8:41 PM CDT COMPREHENSIVE METABOLIC PANEL Routine 09/25/2025 8:41 PM CDT PEP THERAPY Routine 09/25/2025 6:11 PM CDT PEP THERAPY Routine 09/25/2025 6:11 PM CDT PEP THERAPY Routine 09/25/2025 6:11 PM CDT PEP THERAPY Routine 09/25/2025 6:11 PM CDT POCT GLUCOSE DEVICE Routine 09/25/2025 3 :37 PM CDT POCT GLUCOSE DEVICE Routine 09/25/2025 1 2:22 PM CDT POCT GLUCOSE DEVICE Routine 09/25/2025 8 :14 AM CDT POCT GLUCOSE DEVICE Routine 09/25/2025 5 :33 AM CDT DIFFERENTIAL AUTO Routine 09/25/2025 3: 53 AM CDT CBC WITH AUTO DIFFERENTIAL Routine 09/25/2025 3:53 AM CDT POCT GLUCOSE DEVICE Routine 09/25/2025 3 :38 AM CDT POCT GLUCOSE DEVICE Routine 09/25/2025 1 2:13 AM CDT EGFR Routine 09/24/2025 8:33 PM CDT PHOSPHORUS Routine 09/24/2025 8:33 PM CDT MAGNESIUM Routine 09/24/2025 8:33 PM CDT COMPREHENSIVE METABOLIC PANEL Routine 09/24/2025 8:33 PM CDT POCT GLUCOSE DEVICE Routine 09/24/2025 8 :31 PM CDT POCT GLUCOSE DEVICE Routine 09/24/2025 5 :02 PM CDT POCT GLUCOSE DEVICE Routine 09/24/2025 1 2:15 PM CDT POCT GLUCOSE DEVICE Routine 09/24/2025 7 :59 AM CDT POTASSIUM, WHOLE BLOOD STAT 09/24/2025 7:19 AM CDT LIPID PANEL Routine 09/24/2025 5:17 AM CDT EGFR Routine 09/24/2025 5:17 AM CDT PHOSPHORUS Routine 09/24/2025 5:17 AM CDT MAGNESIUM Routine 09/24/2025 5:17 AM CDT COMPREHENSIVE METABOLIC PANEL Routine 09/24/2025 5:17 AM CDT CBC WITHOUT DIFFERENTIAL Routine 09/24/2025 5:17 AM CDT POCT GLUCOSE DEVICE Routine 09/23/2025 1 1:25 PM CDT XR ABDOMEN AP 1 VIEW ED Urgent/IP Urgent 09/23/2025 10:33 PM CDT XR ABDOMEN AP 1 VIEW ED Urgent/IP Urgent 09/23/2025 9:21 PM CDT EGFR Routine 09/23/2025 7:54 PM CDT CBC WITHOUT DIFFERENTIAL Routine 09/23/2025 7:54 PM CDT BASIC METABOLIC PANEL Routine 09/23/2025 7:54 PM CDT MAGNESIUM Routine 09/23/2025 7:54 PM CDT PHOSPHORUS Routine 09/23/2025 7:54 PM CDT XR ABDOMEN AP 1 VIEW Timed 09/23/2025 7:03 PM CDT POCT GLUCOSE DEVICE Routine 09/23/2025 6 :53 PM CDT DIFFERENTIAL AUTO Routine 09/23/2025 5:4 8 PM CDT CBC WITH AUTO DIFFERENTIAL Routine 09/23/2025 5:48 PM CDT POCT GLUCOSE DEVICE Routine 09/23/2025 4 :08 PM CDT POCT GLUCOSE DEVICE Routine 09/23/2025 2 :18 PM CDT SURGICAL PATHOLOGY Routine 09/23/2025 1: 41 PM CDT Ventral hernia without obstruction or gangrene POCT GLUCOSE DEVICE Routine 09/23/2025 1 :05 PM CDT POCT GLUCOSE DEVICE Routine 09/23/2025 1 2:25 PM CDT LA AN PROCEDURE PLACEHOLDER Routine 09/23/2025 11:49 AM CDT LA AN ELECTIVE ENDOTRACHEAL AIRWAY Routine 09/23/2025 11:49 AM CDT REPAIR VENTRAL HERNIA 09/23/2025 11:14 AM CDT Ventral hernia without obstruction or gangrene POCT GLUCOSE DEVICE Routine 09/23/2025 1 0:11 AM CDT EGFR Routine 09/08/2025 1:40 PM CDT Research study patient DIFFERENTIAL AUTO Routine 09/08/2025 1:4 0 PM CDT Research study patient COMPREHENSIVE METABOLIC PANEL Routine 09/08/2025 1:40 PM CDT Research study patient CBC WITH AUTO DIFFERENTIAL Routine 09/08/2025 1:40 PM CDT Research study patient PROTIME-INR Routine 09/08/2025 1:40 PM CDT Research study patient APTT Routine 09/08/2025 1:40 PM CDT Research study patient HEPATITIS B SURFACE ANTIGEN Routine 09/08/2025 1:40 PM CDT Research study patient HEPATITIS A ANTIBODY, IGM Routine 09/08/2025 1:40 PM CDT Research study patient HEPATITIS C ANTIBODY Routine 09/08/2025 1:40 PM CDT Research study patient HIV 1/2 ANTIBODY PLUS P24 ANTIGEN Routine 09/08/2025 1:40 PM CDT Research study patient HEMOGLOBIN A1C Routine 12/18/2024 10:05 AM ASSET PROTECTION ASSISTANT Type 2 diabetes mellitus without complication, unspecified whether oil heaterman insulin use (HCC) from Last 3 Months or Most Recently Relevant to Health Maintenance Results * POCT glucose (10/01/2025 12:54 PM ASSET PROTECTION ASSISTANT) Glucose, POC 143 70 - 199 mg/dL Blood 10/01/2025 12:5 4 PM ASSET PROTECTION ASSISTANT 10/01/2025 12:54 PM ASSET PROTECTION ASSISTANT Navdeep Dayron Royal MD LAB POCT ORDERABLES - DEVICE Final Result [facility] [place] [address] * POCT glucose (10/01/2025 7:33 AM ASSET PROTECTION ASSISTANT) Glucose, POC 124 70 - 199 mg/dL Blood 10/01/2025 7:33 AM ASSET PROTECTION ASSISTANT 10/01/2025 7:33 AM ASSET PROTECTION ASSISTANT [facility] Dayron Royal MD LAB POCT ORDERABLES - DEVICE Final Result Performing Organization Address City/[facility] Co [place] [address] * POCT glucose (09/30/2025 8:12 PM ASSET PROTECTION ASSISTANT) Glucose, POC 155 70 - 199 mg/dL Blood 09/30/2025 8:12 PM ASSET PROTECTION ASSISTANT 09/30/2025 8:12 PM ASSET PROTECTION ASSISTANT [facility] Dayron Royal MD LAB POCT ORDERABLES - DEVICE Final Result Performing Organization Address [facility] [place] [address] * eGFR (09/30/2025 5:07 PM ASSET PROTECTION ASSISTANT) eGFR >90 >=60 mL/min/1. 73 m2 Comment: Interpretive Data Reference Interval Normal >/= 90 mL/min/1.73m2 Mildly decreased* 60 - 89 mL/min/1.73m2 Mildly to moderately decreased 45 - 59 mL/min/1.73m2 Moderately to severely decreased 30 - 44 mL/min/1.73m2 Severely decreased 15 - 29 mL/min/1.73m2 Kidney Failure < 15 mL/min/1.73m2 *Relative to young adult level Estimated glomerular filtration rate is determined by the 2020 CKD-EPI equation recommended by the National Kidney Foundation (A Unifying Approach to GFR Estimation: Recommendations of the NKF-ASK Task Force on Reassessing the Inclusion of Race in Diagnosing Kidney Disease, JASN 2020). The CKD-EPI equation should not be used for patients with unstable renal function and has not been validated in children and those over 70. Current interpretive data was last reviewed 2021. Blood 09/30/2025 5:07 PM ASSET PROTECTION ASSISTANT 09/30/2025 5:39 PM ASSET PROTECTION ASSISTANT [facility] Dayron Royal MD LAB BLOOD ORDERABLES Final Result [facility] [place] [address] * (ABNORMAL) Differential, auto (09/30/2025 5:07 PM ASSET PROTECTION ASSISTANT) Neutrophil abs 8.62(H) 1.50 - 6.50 K/cumm Imm gran abs 0.30(H) 0.00 - 0.10 K/cumm [facility] Lymphocyte abs 2.43 0.80 - 3.30 K/cumm [facility] Monocyte abs 0.62 0.20 - 0.80 K/cumm [facility] Eosinophil abs 0.21 0.00 - 0.50 K/cumm [facility] Basophil abs 0.12(H) 0.00 - 0.10 K/cumm [facility] Neutrophil pct 70.1 % [facility] Comment: Interpretive Data Percent cell count reference ranges are not reported, since discordance with absolute values may lead to misinterpretation of CBC data. Current Interpretive Data was last revised on 2018. Imm gran pct 2.4 % [facility] Comment: Interpretive Data Percent cell count reference ranges are not reported, since discordance with absolute values may lead to misinterpretation of CBC data. Current Interpretive Data was last revised on 2018. Lymphocyte pct 19.8 % [facility] Comment: Interpretive Data Percent cell count reference ranges are not reported, since discordance with absolute values may lead to misinterpretation of CBC data. Current Interpretive Data was last revised on 2018. Monocyte pct 5.0 % [facility] Comment: Interpretive Data Percent cell count reference ranges are not reported, since discordance with absolute values may lead to misinterpretation of CBC data. Current Interpretive Data was last revised on 2018. Eosinophil pct 1.7 % [facility] Comment: Interpretive Data Percent cell count reference ranges are not reported, since discordance with absolute values may lead to misinterpretation of CBC data. Current Interpretive Data was last revised on 2018. Basophil pct 1.0 % [facility] Comment: Interpretive Data Percent cell count reference ranges are not reported, since discordance with absolute values may lead to misinterpretation of CBC data. Current Interpretive Data was last revised on 2018. Blood 09/30/2025 5:07 PM ASSET PROTECTION ASSISTANT 09/30/2025 5:39 PM ASSET PROTECTION ASSISTANT [facility] Dayron Royal MD LAB BLOOD ORDERABLES Final Result [facility] [place] [address] * (ABNORMAL) CBC with auto differential (09/30/2025 5:07 PM ASSET PROTECTION ASSISTANT) WBC 12.30(H) 3.80 - 9.90 K/cumm Hgb 11.8(L) 13.0 - 17.5 g/dL [facility] Hct 35.4(L) 38.9 - 50.3 % [facility] Plt 285 150 - 400 K/cumm [facility] MPV 9.3 9.1 - 12.3 fL [facility] RBC 4.25(L) 4.30 - 5.80 M/cumm [facility] MCV 83.3 81.3 - 96.4 fL [facility] MCH 27.8 27.1 - 33.3 pg [facility] MCHC 33.3 32.3 - 35.7 g/dL [facility] RDW CV 12.7 11.1 - 14.9 % [facility] RDW SD 38.4 35.7 - 48.1 fL [facility] NRBC abs 0.00 0.00 - 0.01 K/cumm [facility] Blood 09/30/2025 5:07 PM ASSET PROTECTION ASSISTANT 09/30/2025 5:39 PM ASSET PROTECTION ASSISTANT Narrative [facility] - 09/30/2025 5:48 PM ASSET PROTECTION ASSISTANT Please do not delete per Dr. Royal Navdeep Royal MD LAB BLOOD ORDERABLES Final Result Performing Organization Address [facility] Co de Phone Number [facility] [address] [place] [address] * Phosphorus (09/30/2025 5:07 PM ASSET PROTECTION ASSISTANT) Phosphorus, pl 2.9 2.3 - 4.5 mg/dL Blood 09/30/2025 5:07 PM ASSET PROTECTION ASSISTANT 09/30/2025 5:39 PM ASSET PROTECTION ASSISTANT us Lila PEARL LAB BLOOD ORDERABLES Final Result Performing Organization Address [facility] de Phone Number [facility] [address] [place] [address] * Phosphorus (09/30/2025 5:07 PM ASSET PROTECTION ASSISTANT) Phosphorus, pl 3.0 2.3 - 4.5 mg/dL Blood 09/30/2025 5:07 PM ASSET PROTECTION ASSISTANT 09/30/2025 5:39 PM ASSET PROTECTION ASSISTANT us Navdeep Royal MD LAB BLOOD ORDERABLES Final Result Performing Organization Address [facility] [place] [address] * Magnesium (09/30/2025 5:07 PM ASSET PROTECTION ASSISTANT) Magnesium 1.9 1.4 - 2.5 mg/dL Blood 09/30/2025 5:07 PM ASSET PROTECTION ASSISTANT 09/30/2025 5:39 PM ASSET PROTECTION ASSISTANT us Lila PEARL LAB BLOOD ORDERABLES Final Result Performing Organization Address City/[facility] Co de Phone Number [facility] Department [place] [address] * Comprehensive metabolic panel (09/30/2025 5:07 PM ASSET PROTECTION ASSISTANT) Sodium 140 135 - 145 mmol/L Potassium, pl 3.7 3.3 - 4.9 mmol/L [facility] Chloride 102 97 - 110 mmol/L [facility] CO2 25 22 - 32 mmol/L [facility] Anion gap 13 2 - 15 mmol/L [facility] BUN 8 6 - 25 mg/dL [facility] Creatinine 0.89 0.80 - 1.30 mg/dL [facility] Glucose 127 70 - 199 mg/dL [facility] Comment: Interpretive Data Fasting glucose >/= 126 mg/dl is diagnostic for diabetes. Fasting is defined as no caloric intake for at least 8 hours. Fasting glucose between 100 mg/dl to 125 mg/dl is diagnostic of prediabetes. In a patient with classic symptoms of hyperglycemia or hyperglycemic crisis, a random glucose >/= 200 mg/dl is diagnostic for diabetes. In the absence of unequivocal hyperglycemia, results should be confirmed by repeat testing. The classification and Diagnosis of Diabetes Diabetes Care 2021; 46: S19-S40. Current interpretive data was last revised 2022. Calcium 9.0 8.5 - 10.3 mg/dL [facility] Bilirubin, total 0.3 0.1 - 1.2 mg/dL [facility] Protein, pl 6.9 6.5 - 8.5 g/dL [facility] Albumin 3.6 3.5 - 5.0 g/dL [facility] Alk phos 98 40 - 130 Units/L [facility] ALT 14 7 - 55 Units/L [facility] AST 16 10 - 50 Units/L [facility] Blood 09/30/2025 5:07 PM ASSET PROTECTION ASSISTANT 09/30/2025 5:39 PM ASSET PROTECTION ASSISTANT Navdeep Dayron Royal MD LAB BLOOD ORDERABLES Final Result [facility] Department [place] [address] * POCT glucose (09/30/2025 5:01 PM ASSET PROTECTION ASSISTANT) Glucose, POC 122 70 - 199 mg/dL Blood 09/30/2025 5:01 PM ASSET PROTECTION ASSISTANT 09/30/2025 5:01 PM ASSET PROTECTION ASSISTANT Navdeep Royal MD LAB POCT ORDERABLES - DEVICE Final Result Performing Organization Address [facility] Co de Phone Number [facility] [place] [address] * ECG 12 lead (09/30/2025 4:48 PM ASSET PROTECTION ASSISTANT) [facility] Ventricular Rate EKG/Min 74 BPM [facility] Atrial Rate 74 BPM [facility] LA-Interval (MSEC) 138 ms [facility] QRS-Interval (MSEC) 72 ms [facility] QT-Interval (MSEC) 394 ms [facility] QTc 437 ms [facility] R Valentines -8 degrees [facility] T Valentines -1 degrees [facility] Diagnosis Normal sinus rhythm Anterior infarct , age undetermined Abnormal ECG No previous ECGs available Confirmed by ERASMO MOSQUERA M.D ([id number]) on 10/01/2025 2:39:34 PM [facility] 09/30/2025 4:48 PM ASSET PROTECTION ASSISTANT 10/01/2025 2:39 PM ASSET PROTECTION ASSISTANT us Lila PEARL ECG ORDERABLES Naya l Result Performing Organization Address [facility]/ZIP Co de Phone Number [facility] * (ABNORMAL) Differential, auto (09/30/2025 4:39 PM ASSET PROTECTION ASSISTANT) Neutrophil abs 8.68(H) 1.50 - 6.50 K/cumm Imm gran abs 0.29(H) 0.00 - 0.10 K/cumm [facility] Lymphocyte abs 2.37 0.80 - 3.30 K/cumm [facility] Monocyte abs 0.65 0.20 - 0.80 K/cumm [facility] Eosinophil abs 0.24 0.00 - 0.50 K/cumm [facility] Basophil abs 0.10 0.00 - 0.10 K/cumm [facility] Neutrophil pct 70.4 % [facility] Comment: Interpretive Data Percent cell count reference ranges are not reported, since discordance with absolute values may lead to misinterpretation of CBC data. Current Interpretive Data was last revised on 2018. Imm gran pct 2.4 % [facility] Comment: Interpretive Data Percent cell count reference ranges are not reported, since discordance with absolute values may lead to misinterpretation of CBC data. Current Interpretive Data was last revised on 2018. Lymphocyte pct 19.2 % [facility] Comment: Interpretive Data Percent cell count reference ranges are not reported, since discordance with absolute values may lead to misinterpretation of CBC data. Current Interpretive Data was last revised on 2018. Monocyte pct 5.3 % [facility] Comment: Interpretive Data Percent cell count reference ranges are not reported, since discordance with absolute values may lead to misinterpretation of CBC data. Current Interpretive Data was last revised on 2018. Eosinophil pct 1.9 % [facility] Comment: Interpretive Data Percent cell count reference ranges are not reported, since discordance with absolute values may lead to misinterpretation of CBC data. Current Interpretive Data was last revised on 2018. Basophil pct 0.8 % [facility] Comment: Interpretive Data Percent cell count reference ranges are not reported, since discordance with absolute values may lead to misinterpretation of CBC data. Current Interpretive Data was last revised on 2018. Blood 09/30/2025 4:39 PM ASSET PROTECTION ASSISTANT 09/30/2025 5:39 PM ASSET PROTECTION ASSISTANT us Lila PEARL LAB BLOOD ORDERABLES Final Result [facility] Department [place] [address] * (ABNORMAL) CBC with auto differential (09/30/2025 4:39 PM ASSET PROTECTION ASSISTANT) [facility] WBC 12.33(H) 3.80 - 9.90 K/cumm Hgb 11.7(L) 13.0 - 17.5 g/dL [facility] Hct 35.5(L) 38.9 - 50.3 % [facility] Plt 290 150 - 400 K/cumm [facility] MPV 9.2 9.1 - 12.3 fL [facility] RBC 4.27(L) 4.30 - 5.80 M/cumm [facility] MCV 83.1 81.3 - 96.4 fL [facility] MCH 27.4 27.1 - 33.3 pg [facility] MCHC 33.0 32.3 - 35.7 g/dL [facility] RDW CV 12.6 11.1 - 14.9 % [facility] RDW SD 38.3 35.7 - 48.1 fL [facility] NRBC abs 0.00 0.00 - 0.01 K/cumm [facility] Blood 09/30/2025 4:39 PM ASSET PROTECTION ASSISTANT 09/30/2025 5:39 PM ASSET PROTECTION ASSISTANT us Lila PEARL LAB BLOOD ORDERABLES Final Result Performing Organization Address City/[facility]/ZIP Co de Phone Number [facility] [place] [address] * POCT glucose (09/30/2025 4:47 AM ASSET PROTECTION ASSISTANT) [facility] Glucose, POC 145 70 - 199 mg/dL Blood 09/30/2025 4:47 AM ASSET PROTECTION ASSISTANT 09/30/2025 4:47 AM ASSET PROTECTION ASSISTANT us Navdeep Royal MD LAB POCT ORDERABLES - DEVICE Final Result Performing Organization Address City/[facility]/ZIP Co de Phone Number [facility] [place] [address] * Potassium, whole blood (09/29/2025 10:32 PM ASSET PROTECTION ASSISTANT) [facility] Potassium, bld 3.3 3.3 - 4.9 mmol/L Blood 09/29/2025 10:3 2 PM ASSET PROTECTION ASSISTANT 09/30/2025 12:46 AM ASSET PROTECTION ASSISTANT Navdeep Dayron Royal MD LAB BLOOD ORDERABLES Final Result [facility] [place] [address] [place] [address] * eGFR (09/29/2025 8:49 PM ASSET PROTECTION ASSISTANT) [facility] eGFR >90 >=60 mL/min/1. 73 m2 Comment: Interpretive Data Reference Interval Normal >/= 90 mL/min/1.73m2 Mildly decreased* 60 - 89 mL/min/1.73m2 Mildly to moderately decreased 45 - 59 mL/min/1.73m2 Moderately to severely decreased 30 - 44 mL/min/1.73m2 Severely decreased 15 - 29 mL/min/1.73m2 Kidney Failure < 15 mL/min/1.73m2 *Relative to young adult level Estimated glomerular filtration rate is determined by the 2020 CKD-EPI equation recommended by the National Kidney Foundation (A Unifying Approach to GFR Estimation: Recommendations of the NKF-ASK Task Force on Reassessing the Inclusion of Race in Diagnosing Kidney Disease, JASN 2020). The CKD-EPI equation should not be used for patients with unstable renal function and has not been validated in children and those over 70. Current interpretive data was last reviewed 2021. Blood 09/29/2025 8:49 PM ASSET PROTECTION ASSISTANT 09/29/2025 9:34 PM ASSET PROTECTION ASSISTANT Navdeep Dayron Royal MD LAB BLOOD ORDERABLES Final Result Performing Organization Address City/[facility]/ZIP Co de Phone Number [facility] [place] [address] [place] [address] * (ABNORMAL) Differential, auto (09/29/2025 8:49 PM ASSET PROTECTION ASSISTANT) Pathologist [facility] Neutrophil abs 9.34(H) 1.50 - 6.50 K/cumm Imm gran abs 0.31(H) 0.00 - 0.10 K/cumm [facility] Lymphocyte abs 2.10 0.80 - 3.30 K/cumm [facility] Monocyte abs 0.79 0.20 - 0.80 K/cumm [facility] Eosinophil abs 0.18 0.00 - 0.50 K/cumm [facility] Basophil abs 0.09 0.00 - 0.10 K/cumm [facility] Neutrophil pct 72.9 % [facility] Comment: Interpretive Data Percent cell count reference ranges are not reported, since discordance with absolute values may lead to misinterpretation of CBC data. Current Interpretive Data was last revised on 2018. Imm gran pct 2.4 % [facility] Comment: Interpretive Data Percent cell count reference ranges are not reported, since discordance with absolute values may lead to misinterpretation of CBC data. Current Interpretive Data was last revised on 2018. Lymphocyte pct 16.4 % [facility] Comment: Interpretive Data Percent cell count reference ranges are not reported, since discordance with absolute values may lead to misinterpretation of CBC data. Current Interpretive Data was last revised on 2018. Monocyte pct 6.2 % [facility] Comment: Interpretive Data Percent cell count reference ranges are not reported, since discordance with absolute values may lead to misinterpretation of CBC data. Current Interpretive Data was last revised on 2018. Eosinophil pct 1.4 % [facility] Comment: Interpretive Data Percent cell count reference ranges are not reported, since discordance with absolute values may lead to misinterpretation of CBC data. Current Interpretive Data was last revised on 2018. Basophil pct 0.7 % [facility] Comment: Interpretive Data Percent cell count reference ranges are not reported, since discordance with absolute values may lead to misinterpretation of CBC data. Current Interpretive Data was last revised on 2018. Blood 09/29/2025 8:49 PM ASSET PROTECTION ASSISTANT 09/29/2025 9:39 PM ASSET PROTECTION ASSISTANT Navdeep Dayron Royal MD LAB BLOOD ORDERABLES Final Result [facility] Department [place] [address] * (ABNORMAL) CBC with auto differential (09/29/2025 8:49 PM ASSET PROTECTION ASSISTANT) Pathologist [facility] WBC 12.81(H) 3.80 - 9.90 K/cumm Hgb 12.0(L) 13.0 - 17.5 g/dL [facility] Hct 37.6(L) 38.9 - 50.3 % [facility] Plt 268 150 - 400 K/cumm [facility] MPV 9.1 9.1 - 12.3 fL [facility] RBC 4.33 4.30 - 5.80 M/cumm [facility] MCV 86.8 81.3 - 96.4 fL [facility] MCH 27.7 27.1 - 33.3 pg [facility] MCHC 31.9(L) 32.3 - 35.7 g/dL [facility] RDW CV 12.8 11.1 - 14.9 % [facility] RDW SD 40.1 35.7 - 48.1 fL [facility] NRBC abs 0.00 0.00 - 0.01 K/cumm [facility] Blood 09/29/2025 8:49 PM ASSET PROTECTION ASSISTANT 09/29/2025 9:39 PM ASSET PROTECTION ASSISTANT Narrative [facility] - 09/29/2025 9:45 PM ASSET PROTECTION ASSISTANT Please do not delete per Dr. Royal Navdeep Royal MD LAB BLOOD ORDERABLES Final Result [facility] [place] [address] * Phosphorus (09/29/2025 8:49 PM ASSET PROTECTION ASSISTANT) Pathologist [facility] Phosphorus, pl 3.9 2.3 - 4.5 mg/dL Blood 09/29/2025 8:49 PM ASSET PROTECTION ASSISTANT 09/29/2025 9:34 PM ASSET PROTECTION ASSISTANT Navdeep Dayron Royal MD LAB BLOOD ORDERABLES Final Result [facility] [place] [address] * Magnesium (09/29/2025 8:49 PM ASSET PROTECTION ASSISTANT) [facility] Magnesium 2.1 1.4 - 2.5 mg/dL Blood 09/29/2025 8:49 PM ASSET PROTECTION ASSISTANT 09/29/2025 9:34 PM ASSET PROTECTION ASSISTANT Navdeep Dayron Royal MD LAB BLOOD ORDERABLES Final Result Performing Organization Address [facility] Co de Phone Number [facility] [place] [address] * (ABNORMAL) Comprehensive metabolic panel (09/29/2025 8:49 PM ASSET PROTECTION ASSISTANT) [facility] Sodium 141 135 - 145 mmol/L Potassium, pl 3.0(L) 3.3 - 4.9 mmol/L [facility] Chloride 104 97 - 110 mmol/L [facility] CO2 27 22 - 32 mmol/L [facility] Anion gap 10 2 - 15 mmol/L [facility] BUN 11 6 - 25 mg/dL [facility] Creatinine 0.92 0.80 - 1.30 mg/dL [facility] Glucose 148 70 - 199 mg/dL [facility] Comment: Interpretive Data Fasting glucose >/= 126 mg/dl is diagnostic for diabetes. Fasting is defined as no caloric intake for at least 8 hours. Fasting glucose between 100 mg/dl to 125 mg/dl is diagnostic of prediabetes. In a patient with classic symptoms of hyperglycemia or hyperglycemic crisis, a random glucose >/= 200 mg/dl is diagnostic for diabetes. In the absence of unequivocal hyperglycemia, results should be confirmed by repeat testing. The classification and Diagnosis of Diabetes Diabetes Care 202; 46: S19-S40. Current interpretive data was last revised 2022. Calcium 8.8 8.5 - 10.3 mg/dL [facility] Bilirubin, total 0.4 0.1 - 1.2 mg/dL [facility] Protein, pl 7.0 6.5 - 8.5 g/dL [facility] Albumin 3.4(L) 3.5 - 5.0 g/dL [facility] Alk phos 97 40 - 130 Units/L [facility] ALT 11 7 - 55 Units/L [facility] AST 14 10 - 50 Units/L [facility] Blood 09/29/2025 8:49 PM ASSET PROTECTION ASSISTANT 09/29/2025 9:34 PM ASSET PROTECTION ASSISTANT Navdeep Dayron Royal MD LAB BLOOD ORDERABLES Final Result Performing Organization Address [facility] Co de Phone Number [facility] [place] [address] [place] [address] * POCT glucose (09/29/2025 8:17 PM ASSET PROTECTION ASSISTANT) Glucose, POC 118 70 - 199 mg/dL Blood 09/29/2025 8:17 PM ASSET PROTECTION ASSISTANT 09/29/2025 8:17 PM ASSET PROTECTION ASSISTANT Navdeep Dayron Royal MD LAB POCT ORDERABLES - DEVICE Final Result Performing Organization Address [facility] Co de Phone Number [facility] [place] [address] [place] [address] * POCT glucose (09/29/2025 5:38 PM ASSET PROTECTION ASSISTANT) Glucose, POC 101 70 - 199 mg/dL Blood 09/29/2025 5:38 PM ASSET PROTECTION ASSISTANT 09/29/2025 5:38 PM ASSET PROTECTION ASSISTANT Navdeep Dayron Royal MD LAB POCT ORDERABLES - DEVICE Final Result Performing Organization Address [facility] Co de Phone Number [facility] [place] [address] * POCT glucose (09/29/2025 12:23 PM ASSET PROTECTION ASSISTANT) Glucose, POC 115 70 - 199 mg/dL Blood 09/29/2025 12:2 3 PM ASSET PROTECTION ASSISTANT 09/29/2025 12:23 PM ASSET PROTECTION ASSISTANT Navdeep Royal MD LAB POCT ORDERABLES - DEVICE Final Result Performing Organization Address City/[facility] Co de Phone Number [facility] [place] [address] [place] [address] * POCT glucose (09/29/2025 8:05 AM ASSET PROTECTION ASSISTANT) Glucose, POC 94 70 - 199 mg/dL Blood 09/29/2025 8:05 AM ASSET PROTECTION ASSISTANT 09/29/2025 8:05 AM ASSET PROTECTION ASSISTANT Result [facility] Dayron Royal MD LAB POCT ORDERABLES - DEVICE Final Result Performing Organization Address City/[facility] de Phone Number [facility] [place] [address] [place] [address] * eGFR (09/28/2025 9:30 PM ASSET PROTECTION ASSISTANT) eGFR >90 >=60 mL/min/1. 73 m2 Comment: Interpretive Data Reference Interval Normal >/= 90 mL/min/1.73m2 Mildly decreased* 60 - 89 mL/min/1.73m2 Mildly to moderately decreased 45 - 59 mL/min/1.73m2 Moderately to severely decreased 30 - 44 mL/min/1.73m2 Severely decreased 15 - 29 mL/min/1.73m2 Kidney Failure < 15 mL/min/1.73m2 *Relative to young adult level Estimated glomerular filtration rate is determined by the 2020 CKD-EPI equation recommended by the National Kidney Foundation (A Unifying Approach to GFR Estimation: Recommendations of the NKF-ASK Task Force on Reassessing the Inclusion of Race in Diagnosing Kidney Disease, JASN 2020). The CKD-EPI equation should not be used for patients with unstable renal function and has not been validated in children and those over 70. Current interpretive data was last reviewed 2021. Blood 09/28/2025 9:30 PM ASSET PROTECTION ASSISTANT 09/28/2025 10:22 PM ASSET PROTECTION ASSISTANT Navdeep Dayron Royal MD LAB BLOOD ORDERABLES Final Result [facility] [place] [address] * (ABNORMAL) Differential, auto (09/28/2025 9:30 PM ASSET PROTECTION ASSISTANT) Neutrophil abs 9.27(H) 1.50 - 6.50 K/cumm Imm gran abs 0.15(H) 0.00 - 0.10 K/cumm [facility] Lymphocyte abs 1.66 0.80 - 3.30 K/cumm [facility] Monocyte abs 0.91(H) 0.20 - 0.80 K/cumm [facility] Eosinophil abs 0.09 0.00 - 0.50 K/cumm [facility] Basophil abs 0.05 0.00 - 0.10 K/cumm [facility] Neutrophil pct 76.5 % [facility] Comment: Interpretive Data Percent cell count reference ranges are not reported, since discordance with absolute values may lead to misinterpretation of CBC data. Current Interpretive Data was last revised on 2018. Imm gran pct 1.2 % [facility] Comment: Interpretive Data Percent cell count reference ranges are not reported, since discordance with absolute values may lead to misinterpretation of CBC data. Current Interpretive Data was last revised on 2018. Lymphocyte pct 13.7 % [facility] Comment: Interpretive Data Percent cell count reference ranges are not reported, since discordance with absolute values may lead to misinterpretation of CBC data. Current Interpretive Data was last revised on 2018. Monocyte pct 7.5 % [facility] Comment: Interpretive Data Percent cell count reference ranges are not reported, since discordance with absolute values may lead to misinterpretation of CBC data. Current Interpretive Data was last revised on 2018. Eosinophil pct 0.7 % [facility] Comment: Interpretive Data Percent cell count reference ranges are not reported, since discordance with absolute values may lead to misinterpretation of CBC data. Current Interpretive Data was last revised on 2018. Basophil pct 0.4 % [facility] Comment: Interpretive Data Percent cell count reference ranges are not reported, since discordance with absolute values may lead to misinterpretation of CBC data. Current Interpretive Data was last revised on 2018. Blood 09/28/2025 9:30 PM ASSET PROTECTION ASSISTANT 09/28/2025 10:22 PM ASSET PROTECTION ASSISTANT Navdeep Dayron Royal MD LAB BLOOD ORDERABLES Final Result [facility] [place] [address] * (ABNORMAL) CBC with auto differential (09/28/2025 9:30 PM ASSET PROTECTION ASSISTANT) WBC 12.13(H) 3.80 - 9.90 K/cumm Hgb 11.0(L) 13.0 - 17.5 g/dL [facility] Hct 33.5(L) 38.9 - 50.3 % [facility] Plt 278 150 - 400 K/cumm [facility] MPV 9.2 9.1 - 12.3 fL [facility] RBC 3.91(L) 4.30 - 5.80 M/cumm [facility] MCV 85.7 81.3 - 96.4 fL [facility] MCH 28.1 27.1 - 33.3 pg [facility] MCHC 32.8 32.3 - 35.7 g/dL [facility] RDW CV 12.7 11.1 - 14.9 % [facility] RDW SD 39.4 35.7 - 48.1 fL [facility] NRBC abs 0.00 0.00 - 0.01 K/cumm [facility] Blood 09/28/2025 9:30 PM ASSET PROTECTION ASSISTANT 09/28/2025 10:22 PM ASSET PROTECTION ASSISTANT Narrative [facility] - 09/28/2025 10:30 PM ASSET PROTECTION ASSISTANT Please do not delete per Dr. Royal us Navdeep Dayron Royal MD LAB BLOOD ORDERABLES Final Result [facility] [place] [address] * Phosphorus (09/28/2025 9:30 PM ASSET PROTECTION ASSISTANT) Phosphorus, pl 2.7 2.3 - 4.5 mg/dL Blood 09/28/2025 9:30 PM ASSET PROTECTION ASSISTANT 09/28/2025 10:22 PM ASSET PROTECTION ASSISTANT us Navdeep Dayron Royal MD LAB BLOOD ORDERABLES Final Result Performing Organization Address [facility] [place] [address] * Magnesium (09/28/2025 9:30 PM ASSET PROTECTION ASSISTANT) Pathologist [facility] Magnesium 2.3 1.4 - 2.5 mg/dL Blood 09/28/2025 9:30 PM ASSET PROTECTION ASSISTANT 09/28/2025 10:22 PM ASSET PROTECTION ASSISTANT us Navdeep Dayron Royal MD LAB BLOOD ORDERABLES Final Result Performing Organization Address City/[facility] [place] [address] * (ABNORMAL) Comprehensive metabolic panel (09/28/2025 9:30 PM ASSET PROTECTION ASSISTANT) Sodium 144 135 - 145 mmol/L Potassium, pl 3.4 3.3 - 4.9 mmol/L [facility] Chloride 105 97 - 110 mmol/L [facility] CO2 27 22 - 32 mmol/L [facility] Anion gap 12 2 - 15 mmol/L [facility] BUN 13 6 - 25 mg/dL [facility] Creatinine 0.83 0.80 - 1.30 mg/dL [facility] Glucose 124 70 - 199 mg/dL [facility] Comment: Interpretive Data Fasting glucose >/= 126 mg/dl is diagnostic for diabetes. Fasting is defined as no caloric intake for at least 8 hours. Fasting glucose between 100 mg/dl to 125 mg/dl is diagnostic of prediabetes. In a patient with classic symptoms of hyperglycemia or hyperglycemic crisis, a random glucose >/= 200 mg/dl is diagnostic for diabetes. In the absence of unequivocal hyperglycemia, results should be confirmed by repeat testing. The classification and Diagnosis of Diabetes Diabetes Care 2021; 46: S19-S40. Current interpretive data was last revised 2022. Calcium 8.4(L) 8.5 - 10.3 mg/dL [facility] Bilirubin, total 0.4 0.1 - 1.2 mg/dL [facility] Protein, pl 6.6 6.5 - 8.5 g/dL [facility] Albumin 3.4(L) 3.5 - 5.0 g/dL [facility] Alk phos 82 40 - 130 Units/L [facility] ALT 12 7 - 55 Units/L [facility] AST 11 10 - 50 Units/L [facility] Blood 09/28/2025 9:30 PM ASSET PROTECTION ASSISTANT 09/28/2025 10:22 PM ASSET PROTECTION ASSISTANT [facility] Dayron Royal MD LAB BLOOD ORDERABLES Final Result Performing Organization Address [facility]/ZIP Co de Phone Number [facility] Department [place] [address] [place] [address] * POCT glucose (09/28/2025 9:29 PM ASSET PROTECTION ASSISTANT) [facility] Glucose, POC 122 70 - 199 mg/dL Blood 09/28/2025 9:29 PM ASSET PROTECTION ASSISTANT 09/28/2025 9:29 PM ASSET PROTECTION ASSISTANT [facility] Dayron Royal MD LAB POCT ORDERABLES - DEVICE Final Result [facility] Department [place] [address] [place] [address] * POCT glucose (09/28/2025 8:21 PM ASSET PROTECTION ASSISTANT) Glucose, POC 126 70 - 199 mg/dL Blood 09/28/2025 8:21 PM ASSET PROTECTION ASSISTANT 09/28/2025 8:21 PM ASSET PROTECTION ASSISTANT Result [facility] Dayron Royal MD LAB POCT ORDERABLES - DEVICE Final Result Performing Organization Address [facility] de Phone Number [facility] Department [place] [address] * POCT glucose (09/28/2025 5:24 PM ASSET PROTECTION ASSISTANT) Glucose, POC 116 70 - 199 mg/dL Blood 09/28/2025 5:24 PM ASSET PROTECTION ASSISTANT 09/28/2025 5:24 PM ASSET PROTECTION ASSISTANT [facility] Dayron Royal MD LAB POCT ORDERABLES - DEVICE Final Result Performing Organization Address [facility] [place] [address] * XR Abdomen Ap 1 Vw (09/28/2025 2:32 PM ASSET PROTECTION ASSISTANT) Anatomical Region Laterality Modality Body, Abdomen N/A Digital Radiogra phy 09/28/2025 3:14 PM ASSET PROTECTION ASSISTANT Impressions 09/29/2025 8:10 PM ASSET PROTECTION ASSISTANT Gastric tube is present, side port overlying the gastric body, the tip projecting over the fundus. Abdominal surgical drain not well imaged. Vague area of lucency overlying the right flank which is incompletely evaluated, but likely represents artifact. Dictated by: Jorgito Hernandez M.D. The radiology attending physician has personally reviewed this study, and had reviewed and/or edited this written report and agrees with it. Electronically signed by: Joseph Bustamante M.D. Narrative 09/29/2025 8:10 PM ASSET PROTECTION ASSISTANT EXAMINATION: Abdomen, one view. HISTORY: Check tube placement. COMPARISON: 09/27/2025 Procedure Note Joseph Bustamante MD - 09/29/2025 EXAMINATION: Abdomen, one view. HISTORY: Check tube placement. COMPARISON: 09/27/2025 IMPRESSION: Gastric tube is present, side port overlying the gastric body, the tip projecting over the fundus. Abdominal surgical drain not well imaged. Vague area of lucency overlying the right flank which is incompletely evaluated, but likely represents artifact. Dictated by: Jorgito Hernandez M.D. The radiology attending physician has personally reviewed this study, and had reviewed and/or edited this written report and agrees with it. Electronically signed by: Joseph Bustamante M.D. us Lila PEARL IMG XR PROCEDURES Fi nal Result * (ABNORMAL) POCT glucose (09/28/2025 12:37 PM ASSET PROTECTION ASSISTANT) Glucose, POC 268(H) 70 - 199 mg/dL Blood 09/28/2025 12:3 7 PM ASSET PROTECTION ASSISTANT 09/28/2025 12:37 PM ASSET PROTECTION ASSISTANT Navdeep Royal MD LAB POCT ORDERABLES - DEVICE Final Result Performing Organization Address [facility] de Phone Number [facility] Department [place] [address] [place] [address] * POCT glucose (09/28/2025 7:54 AM ASSET PROTECTION ASSISTANT) Glucose, POC 145 70 - 199 mg/dL Blood 09/28/2025 7:54 AM ASSET PROTECTION ASSISTANT 09/28/2025 7:54 AM ASSET PROTECTION ASSISTANT Navdeep Royal MD LAB POCT ORDERABLES - DEVICE Final Result Performing Organization Address [facility] Co de Phone Number [facility] Department [place] [address] * eGFR (09/27/2025 8:36 PM ASSET PROTECTION ASSISTANT) Pathologist [facility] eGFR >90 >=60 mL/min/1. 73 m2 Comment: Interpretive Data Reference Interval Normal >/= 90 mL/min/1.73m2 Mildly decreased* 60 - 89 mL/min/1.73m2 Mildly to moderately decreased 45 - 59 mL/min/1.73m2 Moderately to severely decreased 30 - 44 mL/min/1.73m2 Severely decreased 15 - 29 mL/min/1.73m2 Kidney Failure < 15 mL/min/1.73m2 *Relative to young adult level Estimated glomerular filtration rate is determined by the 2020 CKD-EPI equation recommended by the National Kidney Foundation (A Unifying Approach to GFR Estimation: Recommendations of the NKF-ASK Task Force on Reassessing the Inclusion of Race in Diagnosing Kidney Disease, JASN 2020). The CKD-EPI equation should not be used for patients with unstable renal function and has not been validated in children and those over 70. Current interpretive data was last reviewed 2021. Blood 09/27/2025 8:36 PM ASSET PROTECTION ASSISTANT 09/27/2025 9:51 PM ASSET PROTECTION ASSISTANT Navdeep Dayron Royal MD LAB BLOOD ORDERABLES Final Result [facility] [place] [address] * (ABNORMAL) Differential, auto (09/27/2025 8:36 PM ASSET PROTECTION ASSISTANT) Pathologist [facility] Neutrophil abs 9.23(H) 1.50 - 6.50 K/cumm Imm gran abs 0.15(H) 0.00 - 0.10 K/cumm [facility] Lymphocyte abs 1.35 0.80 - 3.30 K/cumm [facility] Monocyte abs 0.89(H) 0.20 - 0.80 K/cumm [facility] Eosinophil abs 0.02 0.00 - 0.50 K/cumm [facility] Basophil abs 0.04 0.00 - 0.10 K/cumm [facility] Neutrophil pct 79.0 % [facility] Comment: Interpretive Data Percent cell count reference ranges are not reported, since discordance with absolute values may lead to misinterpretation of CBC data. Current Interpretive Data was last revised on 2018. Imm gran pct 1.3 % [facility] Comment: Interpretive Data Percent cell count reference ranges are not reported, since discordance with absolute values may lead to misinterpretation of CBC data. Current Interpretive Data was last revised on 2018. Lymphocyte pct 11.6 % [facility] Comment: Interpretive Data Percent cell count reference ranges are not reported, since discordance with absolute values may lead to misinterpretation of CBC data. Current Interpretive Data was last revised on 2018. Monocyte pct 7.6 % [facility] Comment: Interpretive Data Percent cell count reference ranges are not reported, since discordance with absolute values may lead to misinterpretation of CBC data. Current Interpretive Data was last revised on 2018. Eosinophil pct 0.2 % [facility] Comment: Interpretive Data Percent cell count reference ranges are not reported, since discordance with absolute values may lead to misinterpretation of CBC data. Current Interpretive Data was last revised on 2018. Basophil pct 0.3 % [facility] Comment: Interpretive Data Percent cell count reference ranges are not reported, since discordance with absolute values may lead to misinterpretation of CBC data. Current Interpretive Data was last revised on 2018. Blood 09/27/2025 8:36 PM ASSET PROTECTION ASSISTANT 09/27/2025 9:51 PM ASSET PROTECTION ASSISTANT Navdeep Dayron Royal MD LAB BLOOD ORDERABLES Final Result [facility] [place] [address] * POCT glucose (09/27/2025 8:36 PM ASSET PROTECTION ASSISTANT) Glucose, POC 107 70 - 199 mg/dL Blood 09/27/2025 8:36 PM ASSET PROTECTION ASSISTANT 09/27/2025 8:36 PM ASSET PROTECTION ASSISTANT Navdeep Dayron Royal MD LAB POCT ORDERABLES - DEVICE Final Result [facility] [place] [address] * (ABNORMAL) CBC with auto differential (09/27/2025 8:36 PM ASSET PROTECTION ASSISTANT) WBC 11.68(H) 3.80 - 9.90 K/cumm Hgb 11.3(L) 13.0 - 17.5 g/dL [facility] Hct 34.3(L) 38.9 - 50.3 % [facility] Plt 263 150 - 400 K/cumm [facility] MPV 9.1 9.1 - 12.3 fL [facility] RBC 3.99(L) 4.30 - 5.80 M/cumm [facility] MCV 86.0 81.3 - 96.4 fL [facility] MCH 28.3 27.1 - 33.3 pg [facility] MCHC 32.9 32.3 - 35.7 g/dL [facility] RDW CV 12.6 11.1 - 14.9 % [facility] RDW SD 39.5 35.7 - 48.1 fL [facility] NRBC abs 0.00 0.00 - 0.01 K/cumm [facility] Blood 09/27/2025 8:36 PM ASSET PROTECTION ASSISTANT 09/27/2025 9:51 PM ASSET PROTECTION ASSISTANT Narrative [facility] - 09/27/2025 10:05 PM ASSET PROTECTION ASSISTANT Please do not delete per Dr. Royal us Navdeep Dayron Royal MD LAB BLOOD ORDERABLES Final Result [facility] [place] [address] * Phosphorus (09/27/2025 8:36 PM ASSET PROTECTION ASSISTANT) Phosphorus, pl 2.4 2.3 - 4.5 mg/dL Blood 09/27/2025 8:36 PM ASSET PROTECTION ASSISTANT 09/27/2025 9:51 PM ASSET PROTECTION ASSISTANT Navdeep Dayron Royal MD LAB BLOOD ORDERABLES Final Result Performing Organization Address City/[facility]/ZIP Co de Phone Number [facility] [place] [address] * Magnesium (09/27/2025 8:36 PM ASSET PROTECTION ASSISTANT) Pathologist [facility] Magnesium 2.3 1.4 - 2.5 mg/dL Blood 09/27/2025 8:36 PM ASSET PROTECTION ASSISTANT 09/27/2025 9:51 PM ASSET PROTECTION ASSISTANT Navdeep Dayron Royal MD LAB BLOOD ORDERABLES Final Result Performing Organization Address [facility] de Phone Number [facility] [place] [address] * (ABNORMAL) Comprehensive metabolic panel (09/27/2025 8:36 PM ASSET PROTECTION ASSISTANT) Pathologist [facility] Sodium 147(H) 135 - 145 mmol/L Potassium, pl 3.7 3.3 - 4.9 mmol/L [facility] Chloride 107 97 - 110 mmol/L [facility] CO2 27 22 - 32 mmol/L [facility] Anion gap 13 2 - 15 mmol/L [facility] BUN 14 6 - 25 mg/dL [facility] Creatinine 0.90 0.80 - 1.30 mg/dL [facility] Glucose 103 70 - 199 mg/dL [facility] Comment: Interpretive Data Fasting glucose >/= 126 mg/dl is diagnostic for diabetes. Fasting is defined as no caloric intake for at least 8 hours. Fasting glucose between 100 mg/dl to 125 mg/dl is diagnostic of prediabetes. In a patient with classic symptoms of hyperglycemia or hyperglycemic crisis, a random glucose >/= 200 mg/dl is diagnostic for diabetes. In the absence of unequivocal hyperglycemia, results should be confirmed by repeat testing. The classification and Diagnosis of Diabetes Diabetes Care 2021; 46: S19-S40. Current interpretive data was last revised 2022. Calcium 8.8 8.5 - 10.3 mg/dL [facility] Bilirubin, total 0.4 0.1 - 1.2 mg/dL [facility] Protein, pl 6.7 6.5 - 8.5 g/dL [facility] Albumin 3.2(L) 3.5 - 5.0 g/dL [facility] Alk phos 91 40 - 130 Units/L [facility] ALT 11 7 - 55 Units/L [facility] AST 15 10 - 50 Units/L [facility] Blood 09/27/2025 8:36 PM ASSET PROTECTION ASSISTANT 09/27/2025 9:51 PM ASSET PROTECTION ASSISTANT Navdeep Dayron Royal MD LAB BLOOD ORDERABLES Final Result Performing Organization Address [facility] Co de Phone Number [facility] [place] [address] [place] [address] * POCT glucose (09/27/2025 6:00 PM ASSET PROTECTION ASSISTANT) Glucose, POC 101 70 - 199 mg/dL Blood 09/27/2025 6:00 PM ASSET PROTECTION ASSISTANT 09/27/2025 6:00 PM ASSET PROTECTION ASSISTANT Navdeep Dayron Royal MD LAB POCT ORDERABLES - DEVICE Final Result Performing Organization Address [facility] Co de Phone Number [facility] [place] [address] [place] [address] * POCT glucose (09/27/2025 12:28 PM ASSET PROTECTION ASSISTANT) Glucose, POC 124 70 - 199 mg/dL Blood 09/27/2025 12:2 8 PM ASSET PROTECTION ASSISTANT 09/27/2025 12:28 PM ASSET PROTECTION ASSISTANT [facility] Dayron Royal MD LAB POCT ORDERABLES - DEVICE Final Result Performing Organization Address City/[facility] Co de Phone Number [facility] [place] [address] * XR Abdomen 1 View AP (09/27/2025 10:09 AM ASSET PROTECTION ASSISTANT) Anatomical Region Laterality Modality Body, Abdomen N/A Computed Radiogr aphy 09/27/2025 10:4 6 AM ASSET PROTECTION ASSISTANT Impressions 09/27/2025 10:49 AM ASSET PROTECTION ASSISTANT Gastric tube is present, with side-port projecting over the gastric cardia and tip overlying the gastric body. Surgical drain is not well imaged. Dictated by: Jorgito Hernandez M.D. The radiology attending physician has personally reviewed this study, and had reviewed and/or edited this written report and agrees with it. Electronically signed by: Dayron Martinez M.D. Narrative 09/27/2025 10:49 AM ASSET PROTECTION ASSISTANT EXAMINATION: Abdomen, one view. HISTORY: Check tube placement. COMPARISON: 09/23/2025 Procedure Note Dayron Martinez MD - 09/27/2025 EXAMINATION: Abdomen, one view. HISTORY: Check tube placement. COMPARISON: 09/23/2025 IMPRESSION: Gastric tube is present, with side-port projecting over the gastric cardia and tip overlying the gastric body. Surgical drain is not well imaged. Dictated by: Jorgito Hernandez M.D. The radiology attending physician has personally reviewed this study, and had reviewed and/or edited this written report and agrees with it. Electronically signed by: Dayron Martinez M.D. us Jennifer Guerrero [employer] IMG XR PROCEDURES Naya l Result * POCT glucose (09/27/2025 7:52 AM ASSET PROTECTION ASSISTANT) Glucose, POC 117 70 - 199 mg/dL Blood 09/27/2025 7:52 AM ASSET PROTECTION ASSISTANT 09/27/2025 7:52 AM ASSET PROTECTION ASSISTANT us Navdeep Royal MD LAB POCT ORDERABLES - DEVICE Final Result [facility] [place] [address] * eGFR (09/26/2025 9:50 PM ASSET PROTECTION ASSISTANT) Pathologist [facility] eGFR >90 >=60 mL/min/1. 73 m2 Comment: Interpretive Data Reference Interval Normal >/= 90 mL/min/1.73m2 Mildly decreased* 60 - 89 mL/min/1.73m2 Mildly to moderately decreased 45 - 59 mL/min/1.73m2 Moderately to severely decreased 30 - 44 mL/min/1.73m2 Severely decreased 15 - 29 mL/min/1.73m2 Kidney Failure < 15 mL/min/1.73m2 *Relative to young adult level Estimated glomerular filtration rate is determined by the 2020 CKD-EPI equation recommended by the National Kidney Foundation (A Unifying Approach to GFR Estimation: Recommendations of the NKF-ASK Task Force on Reassessing the Inclusion of Race in Diagnosing Kidney Disease, JASN 2020). The CKD-EPI equation should not be used for patients with unstable renal function and has not been validated in children and those over 70. Current interpretive data was last reviewed 2021. Blood 09/26/2025 9:50 PM ASSET PROTECTION ASSISTANT 09/26/2025 10:38 PM ASSET PROTECTION ASSISTANT [facility] Dayron Royal MD LAB BLOOD ORDERABLES Final Result [facility] [place] [address] * (ABNORMAL) Differential, auto (09/26/2025 9:50 PM ASSET PROTECTION ASSISTANT) Pathologist [facility] Neutrophil abs 9.50(H) 1.50 - 6.50 K/cumm Imm gran abs 0.13(H) 0.00 - 0.10 K/cumm [facility] Lymphocyte abs 1.43 0.80 - 3.30 K/cumm [facility] Monocyte abs 0.76 0.20 - 0.80 K/cumm [facility] Eosinophil abs 0.02 0.00 - 0.50 K/cumm [facility] Basophil abs 0.05 0.00 - 0.10 K/cumm [facility] Neutrophil pct 79.9 % [facility] Comment: Interpretive Data Percent cell count reference ranges are not reported, since discordance with absolute values may lead to misinterpretation of CBC data. Current Interpretive Data was last revised on 2018. Imm gran pct 1.1 % [facility] Comment: Interpretive Data Percent cell count reference ranges are not reported, since discordance with absolute values may lead to misinterpretation of CBC data. Current Interpretive Data was last revised on 2018. Lymphocyte pct 12.0 % [facility] Comment: Interpretive Data Percent cell count reference ranges are not reported, since discordance with absolute values may lead to misinterpretation of CBC data. Current Interpretive Data was last revised on 2018. Monocyte pct 6.4 % [facility] Comment: Interpretive Data Percent cell count reference ranges are not reported, since discordance with absolute values may lead to misinterpretation of CBC data. Current Interpretive Data was last revised on 2018. Eosinophil pct 0.2 % [facility] Comment: Interpretive Data Percent cell count reference ranges are not reported, since discordance with absolute values may lead to misinterpretation of CBC data. Current Interpretive Data was last revised on 2018. Basophil pct 0.4 % [facility] Comment: Interpretive Data Percent cell count reference ranges are not reported, since discordance with absolute values may lead to misinterpretation of CBC data. Current Interpretive Data was last revised on 2018. Blood 09/26/2025 9:50 PM ASSET PROTECTION ASSISTANT 09/26/2025 10:39 PM ASSET PROTECTION ASSISTANT Navdeep Dayron Royal MD LAB BLOOD ORDERABLES Final Result [facility] [place] [address] * (ABNORMAL) CBC with auto differential (09/26/2025 9:50 PM ASSET PROTECTION ASSISTANT) WBC 11.89(H) 3.80 - 9.90 K/cumm Hgb 10.8(L) 13.0 - 17.5 g/dL [facility] Hct 34.2(L) 38.9 - 50.3 % [facility] Plt 236 150 - 400 K/cumm [facility] MPV 9.1 9.1 - 12.3 fL [facility] RBC 3.86(L) 4.30 - 5.80 M/cumm [facility] MCV 88.6 81.3 - 96.4 fL [facility] MCH 28.0 27.1 - 33.3 pg [facility] MCHC 31.6(L) 32.3 - 35.7 g/dL [facility] RDW CV 12.8 11.1 - 14.9 % [facility] RDW SD 41.7 35.7 - 48.1 fL [facility] NRBC abs 0.00 0.00 - 0.01 K/cumm [facility] Blood 09/26/2025 9:50 PM ASSET PROTECTION ASSISTANT 09/26/2025 10:39 PM ASSET PROTECTION ASSISTANT Narrative [facility] - 09/26/2025 10:49 PM ASSET PROTECTION ASSISTANT Please do not delete per Dr. Royal Navdeep Dayron Royal MD LAB BLOOD ORDERABLES Final Result [facility] Department [place] [address] [place] [address] * Phosphorus (09/26/2025 9:50 PM ASSET PROTECTION ASSISTANT) Pathologist [facility] Phosphorus, pl 2.3 2.3 - 4.5 mg/dL Blood 09/26/2025 9:50 PM ASSET PROTECTION ASSISTANT 09/26/2025 10:38 PM ASSET PROTECTION ASSISTANT Navdeep Dayron Royal MD LAB BLOOD ORDERABLES Final Result [facility] [place] [address] * Magnesium (09/26/2025 9:50 PM ASSET PROTECTION ASSISTANT) [facility] Magnesium 2.3 1.4 - 2.5 mg/dL Blood 09/26/2025 9:50 PM ASSET PROTECTION ASSISTANT 09/26/2025 10:38 PM ASSET PROTECTION ASSISTANT [facility] Dayron Royal MD LAB BLOOD ORDERABLES Final Result [facility] [place] [address] * (ABNORMAL) Comprehensive metabolic panel (09/26/2025 9:50 PM ASSET PROTECTION ASSISTANT) Sodium 146(H) 135 - 145 mmol/L Potassium, pl 4.0 3.3 - 4.9 mmol/L [facility] Chloride 110 97 - 110 mmol/L [facility] CO2 29 22 - 32 mmol/L [facility] Anion gap 7 2 - 15 mmol/L [facility] BUN 16 6 - 25 mg/dL [facility] Creatinine 0.89 0.80 - 1.30 mg/dL [facility] Glucose 114 70 - 199 mg/dL [facility] Comment: Interpretive Data Fasting glucose >/= 126 mg/dl is diagnostic for diabetes. Fasting is defined as no caloric intake for at least 8 hours. Fasting glucose between 100 mg/dl to 125 mg/dl is diagnostic of prediabetes. In a patient with classic symptoms of hyperglycemia or hyperglycemic crisis, a random glucose >/= 200 mg/dl is diagnostic for diabetes. In the absence of unequivocal hyperglycemia, results should be confirmed by repeat testing. The classification and Diagnosis of Diabetes Diabetes Care 202; 46: S19-S40. Current interpretive data was last revised 2022. Calcium 8.5 8.5 - 10.3 mg/dL [facility] Bilirubin, total 0.4 0.1 - 1.2 mg/dL [facility] Protein, pl 6.5 6.5 - 8.5 g/dL [facility] Albumin 3.2(L) 3.5 - 5.0 g/dL [facility] Alk phos 86 40 - 130 Units/L [facility] ALT 12 7 - 55 Units/L [facility] AST 14 10 - 50 Units/L [facility] Blood 09/26/2025 9:50 PM ASSET PROTECTION ASSISTANT 09/26/2025 10:38 PM ASSET PROTECTION ASSISTANT Navdeep Royal MD LAB BLOOD ORDERABLES Final Result Performing Organization Address [facility] Co de Phone Number [facility] [place] [address] * POCT glucose (09/26/2025 9:49 PM ASSET PROTECTION ASSISTANT) Glucose, POC 107 70 - 199 mg/dL Blood 09/26/2025 9:49 PM ASSET PROTECTION ASSISTANT 09/26/2025 9:49 PM ASSET PROTECTION ASSISTANT Navdeep Royal MD LAB POCT ORDERABLES - DEVICE Final Result Performing Organization Address [facility] Phone Number [facility] [address] [place] [address] * POCT glucose (09/26/2025 5:04 PM ASSET PROTECTION ASSISTANT) Glucose, POC 112 70 - 199 mg/dL Blood 09/26/2025 5:0 4 PM ASSET PROTECTION ASSISTANT 09/26/2025 5:04 PM ASSET PROTECTION ASSISTANT Navdeep Royal MD LAB POCT ORDERABLES - DEVICE Final Result Performing Organization Address [facility] de Phone Number [facility] [address] [place] [address] * POCT glucose (09/26/2025 11:58 AM ASSET PROTECTION ASSISTANT) Glucose, POC 143 70 - 199 mg/dL Blood 09/26/2025 11:5 8 AM ASSET PROTECTION ASSISTANT 09/26/2025 11:58 AM ASSET PROTECTION ASSISTANT Navdeep Royal MD LAB POCT ORDERABLES - DEVICE Final Result Performing Organization Address [facility] Co de Phone Number [facility] [place] [address] [place] [address] * POCT glucose (09/26/2025 7:37 AM ASSET PROTECTION ASSISTANT) Glucose, POC 112 70 - 199 mg/dL Blood 09/26/2025 7:37 AM ASSET PROTECTION ASSISTANT 09/26/2025 7:37 AM ASSET PROTECTION ASSISTANT Navdeep Dayron Royal MD LAB POCT ORDERABLES - DEVICE Final Result Performing Organization Address City/[facility] Co de Phone Number [facility] [address] [place] [address] * POCT glucose (09/25/2025 10:05 PM CDT) Glucose, POC 122 70 - 199 mg/dL Blood 09/25/2025 10:0 5 PM CDT 09/25/2025 10:05 PM CDT Navdeep Dayron Royal MD LAB POCT ORDERABLES - DEVICE Final Result Performing Organization Address City/[facility] Co de Phone Number [facility] Department [place] [address] [place] [address] * eGFR (09/25/2025 8:41 PM CDT) eGFR 88 >=60 mL/min/1. 73 m2 Comment: Interpretive Data Reference Interval Normal >/= 90 mL/min/1.73m2 Mildly decreased* 60 - 89 mL/min/1.73m2 Mildly to moderately decreased 45 - 59 mL/min/1.73m2 Moderately to severely decreased 30 - 44 mL/min/1.73m2 Severely decreased 15 - 29 mL/min/1.73m2 Kidney Failure < 15 mL/min/1.73m2 *Relative to young adult level Estimated glomerular filtration rate is determined by the 2020 CKD-EPI equation recommended by the National Kidney Foundation (A Unifying Approach to GFR Estimation: Recommendations of the NKF-ASK Task Force on Reassessing the Inclusion of Race in Diagnosing Kidney Disease, WONSDilma 2020). The CKD-EPI equation should not be used for patients with unstable renal function and has not been validated in children and those over 70. Current interpretive data was last reviewed 2021. Blood 09/25/2025 8:41 PM CDT 09/25/2025 9:31 PM CDT [facility] Dayron Royal MD LAB BLOOD ORDERABLES Final Result [facility] [place] [address] * (ABNORMAL) Differential, auto (09/25/2025 8:41 PM CDT) Neutrophil abs 12.09(H) 1.50 - 6.50 K/cumm Imm gran abs 0.12(H) 0.00 - 0.10 K/cumm [facility] Lymphocyte abs 1.18 0.80 - 3.30 K/cumm [facility] Monocyte abs 1.00(H) 0.20 - 0.80 K/cumm [facility] Eosinophil abs 0.00 0.00 - 0.50 K/cumm [facility] Basophil abs 0.05 0.00 - 0.10 K/cumm [facility] Neutrophil pct 83.8 % [facility] Comment: Interpretive Data Percent cell count reference ranges are not reported, since discordance with absolute values may lead to misinterpretation of CBC data. Current Interpretive Data was last revised on 2018. Imm gran pct 0.8 % [facility] Comment: Interpretive Data Percent cell count reference ranges are not reported, since discordance with absolute values may lead to misinterpretation of CBC data. Current Interpretive Data was last revised on 2018. Lymphocyte pct 8.2 % [facility] Comment: Interpretive Data Percent cell count reference ranges are not reported, since discordance with absolute values may lead to misinterpretation of CBC data. Current Interpretive Data was last revised on 2018. Monocyte pct 6.9 % [facility] Comment: Interpretive Data Percent cell count reference ranges are not reported, since discordance with absolute values may lead to misinterpretation of CBC data. Current Interpretive Data was last revised on 2018. Eosinophil pct 0.0 % [facility] Comment: Interpretive Data Percent cell count reference ranges are not reported, since discordance with absolute values may lead to misinterpretation of CBC data. Current Interpretive Data was last revised on 2018. Basophil pct 0.3 % [facility] Comment: Interpretive Data Percent cell count reference ranges are not reported, since discordance with absolute values may lead to misinterpretation of CBC data. Current Interpretive Data was last revised on 2018. Blood 09/25/2025 8:41 PM CDT 09/25/2025 9:31 PM CDT [facility] Dayron Royal MD LAB BLOOD ORDERABLES Final Result [facility] Department [place] [address] * (ABNORMAL) CBC with auto differential (09/25/2025 8:41 PM CDT) WBC 14.44(H) 3.80 - 9.90 K/cumm Hgb 12.5(L) 13.0 - 17.5 g/dL [facility] Hct 38.4(L) 38.9 - 50.3 % [facility] Plt 231 150 - 400 K/cumm [facility] MPV 9.0(L) 9.1 - 12.3 fL [facility] RBC 4.42 4.30 - 5.80 M/cumm [facility] MCV 86.9 81.3 - 96.4 fL [facility] MCH 28.3 27.1 - 33.3 pg [facility] MCHC 32.6 32.3 - 35.7 g/dL [facility] RDW CV 13.0 11.1 - 14.9 % [facility] RDW SD 40.9 35.7 - 48.1 fL [facility] NRBC abs 0.00 0.00 - 0.01 K/cumm [facility] Blood 09/25/2025 8:41 PM CDT 09/25/2025 9:31 PM CDT Narrative [facility] - 09/25/2025 9:38 PM CDT Please do not delete per Dr. Royal [facility] Dayron Royal MD LAB BLOOD ORDERABLES Final Result [facility] [place] [address] [place] [address] * (ABNORMAL) Phosphorus (09/25/2025 8:41 PM CDT) Phosphorus, pl 1.5(L) 2.3 - 4.5 mg/dL Blood 09/25/2025 8:41 PM CDT 09/25/2025 9:31 PM CDT Navdeep Dayron Royal MD LAB BLOOD ORDERABLES Final Result Performing Organization Address City/[facility]/ZIP Co de Phone Number [facility] [address] [place] [address] * Magnesium (09/25/2025 8:41 PM CDT) Magnesium 2.2 1.4 - 2.5 mg/dL Blood 09/25/2025 8:41 PM CDT 09/25/2025 9:31 PM CDT Navdeep Dayron Royal MD LAB BLOOD ORDERABLES Final Result Performing Organization Address City/[facility]/[place] [address] * Comprehensive metabolic panel (09/25/2025 8:41 PM CDT) Sodium 143 135 - 145 mmol/L Potassium, pl 4.1 3.3 - 4.9 mmol/L [facility] Chloride 106 97 - 110 mmol/L [facility] CO2 28 22 - 32 mmol/L [facility] Anion gap 9 2 - 15 mmol/L [facility] BUN 18 6 - 25 mg/dL [facility] Creatinine 1.05 0.80 - 1.30 mg/dL [facility] Glucose 141 70 - 199 mg/dL [facility] Comment: Interpretive Data Fasting glucose >/= 126 mg/dl is diagnostic for diabetes. Fasting is defined as no caloric intake for at least 8 hours. Fasting glucose between 100 mg/dl to 125 mg/dl is diagnostic of prediabetes. In a patient with classic symptoms of hyperglycemia or hyperglycemic crisis, a random glucose >/= 200 mg/dl is diagnostic for diabetes. In the absence of unequivocal hyperglycemia, results should be confirmed by repeat testing. The classification and Diagnosis of Diabetes Diabetes Care 202; 46: S19-S40. Current interpretive data was last revised 2022. Calcium 8.8 8.5 - 10.3 mg/dL [facility] Bilirubin, total 0.6 0.1 - 1.2 mg/dL [facility] Protein, pl 7.0 6.5 - 8.5 g/dL [facility] Albumin 3.6 3.5 - 5.0 g/dL [facility] Alk phos 94 40 - 130 Units/L [facility] ALT 18 7 - 55 Units/L [facility] AST 19 10 - 50 Units/L [facility] Blood 09/25/2025 8:41 PM CDT 09/25/2025 9:31 PM CDT Navdeep Dayron Royal MD LAB BLOOD ORDERABLES Final Result [facility] [place] [address] * POCT glucose (09/25/2025 3:37 PM CDT) [facility] Glucose, POC 124 70 - 199 mg/dL Blood 09/25/2025 3:37 PM CDT 09/25/2025 3:37 PM CDT Navdeep Royal MD LAB POCT ORDERABLES - DEVICE Final Result Performing Organization Address City/[facility] Co de Phone Number [facility] [address] [place] [address] * POCT glucose (09/25/2025 12:22 PM CDT) Glucose, POC 123 70 - 199 mg/dL Blood 09/25/2025 12:2 2 PM CDT 09/25/2025 12:22 PM CDT Navdeep Dayron Royal MD LAB POCT ORDERABLES - DEVICE Final Result Performing Organization Address [facility] Co de Phone Number [facility] [address] [place] [address] * POCT glucose (09/25/2025 8:14 AM CDT) Glucose, POC 126 70 - 199 mg/dL Blood 09/25/2025 8:14 AM CDT 09/25/2025 8:14 AM CDT Navdeep Dayron Royal MD LAB POCT ORDERABLES - DEVICE Final Result Performing Organization Address [facility] Co de Phone Number [facility] Department [place] [address] [place] [address] * POCT glucose (09/25/2025 5:33 AM CDT) Glucose, POC 105 70 - 199 mg/dL Blood 09/25/2025 5:33 AM CDT 09/25/2025 5:33 AM CDT Navdeep Royal MD LAB POCT ORDERABLES - DEVICE Final Result Performing Organization Address City/[facility] Co de Phone Number [facility] Department [place] [address] * (ABNORMAL) Differential, auto (09/25/2025 3:53 AM CDT) Neutrophil abs 12.49(H) 1.50 - 6.50 K/cumm Imm gran abs 0.12(H) 0.00 - 0.10 K/cumm [facility] Lymphocyte abs 1.20 0.80 - 3.30 K/cumm [facility] Monocyte abs 1.28(H) 0.20 - 0.80 K/cumm [facility] Eosinophil abs 0.00 0.00 - 0.50 K/cumm [facility] Basophil abs 0.04 0.00 - 0.10 K/cumm [facility] Neutrophil pct 82.5 % [facility] Comment: Interpretive Data Percent cell count reference ranges are not reported, since discordance with absolute values may lead to misinterpretation of CBC data. Current Interpretive Data was last revised on 2018. Imm gran pct 0.8 % [facility] Comment: Interpretive Data Percent cell count reference ranges are not reported, since discordance with absolute values may lead to misinterpretation of CBC data. Current Interpretive Data was last revised on 2018. Lymphocyte pct 7.9 % [facility] Comment: Interpretive Data Percent cell count reference ranges are not reported, since discordance with absolute values may lead to misinterpretation of CBC data. Current Interpretive Data was last revised on 2018. Monocyte pct 8.5 % [facility] Comment: Interpretive Data Percent cell count reference ranges are not reported, since discordance with absolute values may lead to misinterpretation of CBC data. Current Interpretive Data was last revised on 2018. Eosinophil pct 0.0 % [facility] Comment: Interpretive Data Percent cell count reference ranges are not reported, since discordance with absolute values may lead to misinterpretation of CBC data. Current Interpretive Data was last revised on 2018. Basophil pct 0.3 % [facility] Comment: Interpretive Data Percent cell count reference ranges are not reported, since discordance with absolute values may lead to misinterpretation of CBC data. Current Interpretive Data was last revised on 2018. Blood 09/25/2025 3:53 AM CDT 09/25/2025 4:44 AM CDT Navdeep Dayron Royal MD LAB BLOOD ORDERABLES Final Result [facility] [place] [address] * (ABNORMAL) CBC with auto differential (09/25/2025 3:53 AM CDT) [facility] WBC 15.13(H) 3.80 - 9.90 K/cumm Hgb 12.9(L) 13.0 - 17.5 g/dL [facility] Hct 39.3 38.9 - 50.3 % [facility] Plt 217 150 - 400 K/cumm [facility] MPV 8.9(L) 9.1 - 12.3 fL [facility] RBC 4.56 4.30 - 5.80 M/cumm [facility] MCV 86.2 81.3 - 96.4 fL [facility] MCH 28.3 27.1 - 33.3 pg [facility] MCHC 32.8 32.3 - 35.7 g/dL [facility] RDW CV 13.1 11.1 - 14.9 % [facility] RDW SD 40.6 35.7 - 48.1 fL [facility] NRBC abs 0.00 0.00 - 0.01 K/cumm [facility] Blood 09/25/2025 3:53 AM CDT 09/25/2025 4:44 AM CDT Narrative [facility] - 09/25/2025 4:54 AM CDT Please do not delete per Dr. Royal Navdeep Dayron Royal MD LAB BLOOD ORDERABLES Final Result [facility] [place] [address] * POCT glucose (09/25/2025 3:38 AM CDT) Glucose, POC 117 70 - 199 mg/dL Blood 09/25/2025 3:38 AM CDT 09/25/2025 3:38 AM CDT Navdeep Dayron Royal MD LAB POCT ORDERABLES - DEVICE Final Result Performing Organization Address City/[facility]/ZIP Co de Phone Number [facility] Department [place] [address] * POCT glucose (09/25/2025 12:13 AM CDT) Glucose, POC 130 70 - 199 mg/dL Blood 09/25/2025 12:1 3 AM CDT 09/25/2025 12:13 AM CDT Navdeep Dayron Royal MD LAB POCT ORDERABLES - DEVICE Final Result Performing Organization Address City/[facility] de Phone Number [facility] Department [place] [address] * eGFR (09/24/2025 8:33 PM CDT) eGFR 81 >=60 mL/min/1. 73 m2 Comment: Interpretive Data Reference Interval Normal >/= 90 mL/min/1.73m2 Mildly decreased* 60 - 89 mL/min/1.73m2 Mildly to moderately decreased 45 - 59 mL/min/1.73m2 Moderately to severely decreased 30 - 44 mL/min/1.73m2 Severely decreased 15 - 29 mL/min/1.73m2 Kidney Failure < 15 mL/min/1.73m2 *Relative to young adult level Estimated glomerular filtration rate is determined by the 2020 CKD-EPI equation recommended by the National Kidney Foundation (A Unifying Approach to GFR Estimation: Recommendations of the NKF-ASK Task Force on Reassessing the Inclusion of Race in Diagnosing Kidney Disease, JASN 2020). The CKD-EPI equation should not be used for patients with unstable renal function and has not been validated in children and those over 70. Current interpretive data was last reviewed 2021. Blood 09/24/2025 8:33 PM CDT 09/24/2025 9:03 PM CDT Navdeep Dayron Royal MD LAB BLOOD ORDERABLES Final Result Performing Organization Address City/[facility]/ZIP Co de Phone Number [facility] [address] [place] [address] * Phosphorus (09/24/2025 8:33 PM CDT) Pathologist [facility] Phosphorus, pl 2.4 2.3 - 4.5 mg/dL Blood 09/24/2025 8:33 PM CDT 09/24/2025 9:03 PM CDT Navdeep Dayron Royal MD LAB BLOOD ORDERABLES Final Result Performing Organization Address City/[facility] Co de Phone Number [facility] [address] [place] [address] * Magnesium (09/24/2025 8:33 PM CDT) [facility] Magnesium 2.1 1.4 - 2.5 mg/dL Blood 09/24/2025 8:33 PM CDT 09/24/2025 9:03 PM CDT Navdeep Dayron Royal MD LAB BLOOD ORDERABLES Final Result Performing Organization Address City/[facility] [place] [address] * Comprehensive metabolic panel (09/24/2025 8:33 PM CDT) Pathologist [facility] Sodium 141 135 - 145 mmol/L Potassium, pl 4.5 3.3 - 4.9 mmol/L [facility] Chloride 105 97 - 110 mmol/L [facility] CO2 27 22 - 32 mmol/L [facility] Anion gap 9 2 - 15 mmol/L [facility] BUN 16 6 - 25 mg/dL [facility] Creatinine 1.13 0.80 - 1.30 mg/dL [facility] Glucose 138 70 - 199 mg/dL [facility] Comment: Interpretive Data Fasting glucose >/= 126 mg/dl is diagnostic for diabetes. Fasting is defined as no caloric intake for at least 8 hours. Fasting glucose between 100 mg/dl to 125 mg/dl is diagnostic of prediabetes. In a patient with classic symptoms of hyperglycemia or hyperglycemic crisis, a random glucose >/= 200 mg/dl is diagnostic for diabetes. In the absence of unequivocal hyperglycemia, results should be confirmed by repeat testing. The classification and Diagnosis of Diabetes Diabetes Care 202; 46: S19-S40. Current interpretive data was last revised 2022. Calcium 8.7 8.5 - 10.3 mg/dL [facility] Bilirubin, total 0.4 0.1 - 1.2 mg/dL [facility] Protein, pl 6.9 6.5 - 8.5 g/dL [facility] Albumin 3.8 3.5 - 5.0 g/dL [facility] Alk phos 88 40 - 130 Units/L [facility] ALT 24 7 - 55 Units/L [facility] AST 29 10 - 50 Units/L [facility] Blood 09/24/2025 8:33 PM CDT 09/24/2025 9:03 PM CDT us Navdeep Dayron Royal MD LAB BLOOD ORDERABLES Final Result [facility] [place] [address] * POCT glucose (09/24/2025 8:31 PM CDT) [facility] Glucose, POC 121 70 - 199 mg/dL Blood 09/24/2025 8:31 PM CDT 09/24/2025 8:31 PM CDT us Navdeep Dayron Royal MD LAB POCT ORDERABLES - DEVICE Final Result Performing Organization Address City/[facility]/ZIP Co de Phone Number [facility] [address] [place] [address] * POCT glucose (09/24/2025 5:02 PM CDT) Glucose, POC 125 70 - 199 mg/dL Blood 09/24/2025 5:02 PM CDT 09/24/2025 5:02 PM CDT Navdeep Royal MD LAB POCT ORDERABLES - DEVICE Final Result Performing Organization Address [facility] Co de Phone Number [facility] [address] [place] [address] * POCT glucose (09/24/2025 12:15 PM CDT) Glucose, POC 125 70 - 199 mg/dL Blood 09/24/2025 12:1 5 PM CDT 09/24/2025 12:15 PM CDT us Navdeep Royal MD LAB POCT ORDERABLES - DEVICE Final Result Performing Organization Address [facility] Co de Phone Number [facility] [address] [place] [address] * POCT glucose (09/24/2025 7:59 AM CDT) Glucose, POC 115 70 - 199 mg/dL Blood 09/24/2025 7:59 AM CDT 09/24/2025 7:59 AM CDT Navdeep Royal MD LAB POCT ORDERABLES - DEVICE Final Result Performing Organization Address City/[facility]/ZIP Co de Phone Number [facility] [place] [address] * Potassium, whole blood (09/24/2025 7:19 AM CDT) Potassium, bld 4.4 3.3 - 4.9 mmol/L Blood 09/24/2025 7:19 AM CDT 09/24/2025 7:50 AM CDT us Jennifer Guerrero NP LAB BLOOD ORDERABLES F inal Result Performing Organization Address City/[facility]/ZIP Co de Phone Number [facility] [place] [address] * eGFR (09/24/2025 5:17 AM CDT) eGFR >90 >=60 mL/min/1. 73 m2 Comment: Interpretive Data Reference Interval Normal >/= 90 mL/min/1.73m2 Mildly decreased* 60 - 89 mL/min/1.73m2 Mildly to moderately decreased 45 - 59 mL/min/1.73m2 Moderately to severely decreased 30 - 44 mL/min/1.73m2 Severely decreased 15 - 29 mL/min/1.73m2 Kidney Failure < 15 mL/min/1.73m2 *Relative to young adult level Estimated glomerular filtration rate is determined by the 2020 CKD-EPI equation recommended by the National Kidney Foundation (A Unifying Approach to GFR Estimation: Recommendations of the NKF-ASK Task Force on Reassessing the Inclusion of Race in Diagnosing Kidney Disease, JASN 2020). The CKD-EPI equation should not be used for patients with unstable renal function and has not been validated in children and those over 70. Current interpretive data was last reviewed 2021. Blood 09/24/2025 5:17 AM CDT 09/24/2025 5:53 AM CDT us Navdeep Royal MD LAB BLOOD ORDERABLES Final Result Performing Organization Address City/[facility]/ZIP Co de Phone Number [facility] [place] [address] * (ABNORMAL) CBC without differential (09/24/2025 5:17 AM CDT) [facility] WBC 13.59(H) 3.80 - 9.90 K/cumm Hgb 14.6 13.0 - 17.5 g/dL [facility] Hct 43.4 38.9 - 50.3 % [facility] Plt 271 150 - 400 K/cumm [facility] MPV 9.1 9.1 - 12.3 fL [facility] RBC 5.13 4.30 - 5.80 M/cumm [facility] MCV 84.6 81.3 - 96.4 fL [facility] MCH 28.5 27.1 - 33.3 pg [facility] MCHC 33.6 32.3 - 35.7 g/dL [facility] RDW CV 13.2 11.1 - 14.9 % [facility] RDW SD 40.2 35.7 - 48.1 fL [facility] NRBC abs 0.00 0.00 - 0.01 K/cumm [facility] Blood 09/24/2025 5:17 AM CDT 09/24/2025 5:54 AM CDT Navdeep Royal MD LAB BLOOD ORDERABLES Final Result Performing Organization Address City/[facility] Co de Phone Number [facility] [place] [address] [place] [address] * Phosphorus (09/24/2025 5:17 AM CDT) [facility] Phosphorus, pl 3.9 2.3 - 4.5 mg/dL Blood 09/24/2025 5:17 AM CDT 09/24/2025 5:53 AM CDT Navdeep Dayron Royal MD LAB BLOOD ORDERABLES Final Result Performing Organization Address City/[facility]/ZIP Co de Phone Number [facility] [place] [address] [place] [address] * Magnesium (09/24/2025 5:17 AM CDT) Magnesium 2.1 1.4 - 2.5 mg/dL Blood 09/24/2025 5:17 AM CDT 09/24/2025 5:53 AM CDT Navdeep Dayron Royal MD LAB BLOOD ORDERABLES Final Result [facility] [place] [address] * (ABNORMAL) Lipid panel (09/24/2025 5:17 AM CDT) Cholesterol 115 30 - 199 mg/dL Comment: Interpretive Data Ages < or = 19 years Acceptable: <170 mg/dL Borderline high: 170-199 mg/dL High: >or= 200 mg/dL Ages > or = 20 years Desirable: <200 mg/dL Borderline high: 200-239 mg/dL High: >or= 240 mg/dL Literature References: 1. Expert Panel on Integrated Guidelines for Cardiovascular Health and Risk Reduction in Children and Adolescents. Pediatrics 2011;128:S213 2. NCEP Expert Panel. Circulation 2004;110:227 Current Interpretive Data was last revised on 2018. Triglycerides 150(H) <=149 mg/dL [facility] Comment: Interpretive Data Ages < or = 9 years Acceptable: <75 mg/dL Borderline high: 75-99 mg/dL High: >or= 100 mg/dL Ages 10 to 20 years Acceptable: <90 mg/dL Borderline high: 90-129 mg/dL High: >or= 130 mg/dL Ages > or = 20 years Desirable: <150 mg/dL Borderline high: 150-199 mg/dL High: 200-499 mg/dL Very high: >or= 499 mg/dL Literature References: 1. Expert Panel on Integrated Guidelines for Cardiovascular Health and Risk Reduction in Children and Adolescents. Pediatrics 2011;128:S213 2. NCEP Expert Panel. Circulation 2004;110:227 Current Interpretive Data was last revised on 2018. HDL 32(L) >=40 mg/dL [facility] Comment: Interpretive Data Ages < or = 19 years Acceptable: >45 mg/dL Borderline low: 40-45 mg/dL Low: <40 mg/dL Ages > or = 20 years Desirable: >or= 60 mg/dL Low: <40 mg/dL Literature References: 1. Expert Panel on Integrated Guidelines for Cardiovascular Health and Risk Reduction in Children and Adolescents. Pediatrics 2011;128:S213 2. NCEP Expert Panel. Circulation 2004;110:227 Current Interpretive Data was last revised on 2018. LDL, calculated 57 <=129 mg/dL [facility] Comment: Interpretive Data Ages < or = 19 years Acceptable: <110 mg/dL Borderline high: 110-129 mg/dL High: >or= 130 mg/dL Ages > or = 20 years Optimal: <100 mg/dL Near optimal: 100-129 mg/dL Borderline high: 130-159 mg/dL High: >160 mg/dL Calculated using the Sha LDL-C estimating equation. This equation was implemented on 2024. Prior to this date LDL-C was estimated using the Friedewald equation. Literature References: 1. Expert Panel on Integrated Guidelines for Cardiovascular Health and Risk Reduction in Children and Adolescents. Pediatrics 2011;128:S213 2. NCEP Expert Panel. Circulation 2004;110:227 3. Sha M et al. TITI Cardiol. 2019March 25;5(5):540-548. doi: 10.1001/[email or web address].2020.0013 Current Interpretive Data was last revised on 2024. Non-HDL Cholesterol 83 mg/dL [facility] Comment: Interpretive Data Ages < or = 19 years Acceptable: <120 mg/dL Borderline high: 120-144 mg/dL High: >145 mg/dL Ages > or = 20 years When triglycerides are >200 mg/dL, Non-HDL cholesterol is a secondary target of therapy with treatment goals that are 30 mg/dL greater than the LDL cholesterol target. Literature References: 1. Expert Panel on Integrated Guidelines for Cardiovascular Health and Risk Reduction in Children and Adolescents. Pediatrics 2011;128:S213 2. NCEP Expert Panel. Circulation 2004;110:227 Current Interpretive Data was last revised on 2018. Chol/HDL ratio 4 [facility] Blood 09/24/2025 5:17 AM CDT 09/24/2025 5:53 AM CDT Narrative [facility] - 09/24/2025 4:30 PM CDT reflex Navdeep Royal MD LAB BLOOD ORDERABLES Final Result [facility] [place] [address] * (ABNORMAL) Comprehensive metabolic panel (09/24/2025 5:17 AM CDT) Sodium 140 135 - 145 mmol/L Potassium, pl 5.5(H) 3.3 - 4.9 mmol/L [facility] Comment:Hemolyzed; Potassium value may be falsely elevated by as much as 1.1-1.6 mmol/L. Suggest redraw and reanalysis. Chloride 104 97 - 110 mmol/L [facility] CO2 26 22 - 32 mmol/L [facility] Anion gap 10 2 - 15 mmol/L [facility] BUN 14 6 - 25 mg/dL [facility] Creatinine 1.00 0.80 - 1.30 mg/dL [facility] Glucose 137 70 - 199 mg/dL [facility] Comment: Interpretive Data Fasting glucose >/= 126 mg/dl is diagnostic for diabetes. Fasting is defined as no caloric intake for at least 8 hours. Fasting glucose between 100 mg/dl to 125 mg/dl is diagnostic of prediabetes. In a patient with classic symptoms of hyperglycemia or hyperglycemic crisis, a random glucose >/= 200 mg/dl is diagnostic for diabetes. In the absence of unequivocal hyperglycemia, results should be confirmed by repeat testing. The classification and Diagnosis of Diabetes Diabetes Care 202; 46: S19-S40. Current interpretive data was last revised 2022. Calcium 8.7 8.5 - 10.3 mg/dL [facility] Bilirubin, total 0.4 0.1 - 1.2 mg/dL [facility] Protein, pl 7.3 6.5 - 8.5 g/dL [facility] Albumin 3.9 3.5 - 5.0 g/dL [facility] Alk phos 91 40 - 130 Units/L [facility] Comment:Hemolyzed; result ma y be falsely decreased ALT 33 7 - 55 Units/L [facility] AST 60(H) 10 - 50 Units/L [facility] Comment:Hemolyzed; result ma y be falsely elevated Blood 09/24/2025 5:17 AM CDT 09/24/2025 5:53 AM CDT [facility] Dayron Royal MD LAB BLOOD ORDERABLES Final Result Performing Organization Address City/[facility] Co de Phone Number [facility] Department [place] [address] * POCT glucose (09/23/2025 11:25 PM CDT) [facility] Signature Glucose, POC 171 70 - 199 mg/dL Blood 09/23/2025 11:2 5 PM CDT 09/23/2025 11:25 PM CDT [facility] Dayron Royal MD LAB POCT ORDERABLES - DEVICE Final Result Performing Organization Address [facility] de Phone Number [facility] Department [place] [address] * XR Abdomen 1 View AP (09/23/2025 10:33 PM CDT) Anatomical Region Laterality Modality Body, Abdomen N/A Digital Radiogra phy 09/24/2025 11:5 4 AM CDT Impressions 09/24/2025 2:30 PM CDT First exam 09/23/2025 at 6:49 PM: Gastric tube tip projects over the gastric cardia and side port projects over the distal esophagus. Second exam 09/23/2025 at 9:15 PM: There is interval advancement of the nasogastric tube with tip projecting over the gastric body and side port projecting over the gastric cardia. There is a tube projecting over the patient's abdomen that is favored to be external to the patient. Paucity of bowel gas. Third exam 09/23/2025 at 10:22 PM: Temperature Herron catheter is present. Remainder of examination is unchanged. Dictated by: Marcin Bruce M.D. The radiology attending physician has personally reviewed this study, and had reviewed and/or edited this written report and agrees with it. Electronically signed by: Gabe Calle M.D. Narrative 09/24/2025 2:30 PM CDT Examination: Three one view portables One view portable One view portable One view portable Procedure Note Gabe Calle MD - 09/24/2025 Examination: Three one view portables One view portable One view portable One view portable IMPRESSION: First exam 09/23/2025 at 6:49 PM: Gastric tube tip projects over the gastric cardia and side port projects over the distal esophagus. Second exam 09/23/2025 at 9:15 PM: There is interval advancement of the nasogastric tube with tip projecting over the gastric body and side port projecting over the gastric cardia. There is a tube projecting over the patient's abdomen that is favored to be external to the patient. Paucity of bowel gas. Third exam 09/23/2025 at 10:22 PM: Temperature Herron catheter is present. Remainder of examination is unchanged. Dictated by: Marcin Bruce M.D. The radiology attending physician has personally reviewed this study, and had reviewed and/or edited this written report and agrees with it. Electronically signed by: Gabe Calle M.D. Navdeep Dayron Royal MD IMG XR PROCEDURES Fi nal Result * XR Abdomen 1 View AP (09/23/2025 9:21 PM CDT) Anatomical Region Laterality Modality Body, Abdomen N/A Computed Radiogr aphy 09/24/2025 11:5 4 AM CDT Impressions 09/24/2025 2:30 PM CDT First exam 09/23/2025 at 6:49 PM: Gastric tube tip projects over the gastric cardia and side port projects over the distal esophagus. Second exam 09/23/2025 at 9:15 PM: There is interval advancement of the nasogastric tube with tip projecting over the gastric body and side port projecting over the gastric cardia. There is a tube projecting over the patient's abdomen that is favored to be external to the patient. Paucity of bowel gas. Third exam 09/23/2025 at 10:22 PM: Temperature Herron catheter is present. Remainder of examination is unchanged. Dictated by: Marcin Bruce M.D. The radiology attending physician has personally reviewed this study, and had reviewed and/or edited this written report and agrees with it. Electronically signed by: Gabe Calle M.D. Narrative 09/24/2025 2:30 PM CDT Examination: Three one view portables One view portable One view portable One view portable Procedure Note Gabe Calle MD - 09/24/2025 Examination: Three one view portables One view portable One view portable One view portable IMPRESSION: First exam 09/23/2025 at 6:49 PM: Gastric tube tip projects over the gastric cardia and side port projects over the distal esophagus. Second exam 09/23/2025 at 9:15 PM: There is interval advancement of the nasogastric tube with tip projecting over the gastric body and side port projecting over the gastric cardia. There is a tube projecting over the patient's abdomen that is favored to be external to the patient. Paucity of bowel gas. Third exam 09/23/2025 at 10:22 PM: Temperature Herron catheter is present. Remainder of examination is unchanged. Dictated by: Marcin Bruce M.D. The radiology attending physician has personally reviewed this study, and had reviewed and/or edited this written report and agrees with it. Electronically signed by: Gabe Calle M.D. us Navdeep Dayron Royal MD IMG XR PROCEDURES Fi nal Result * eGFR (09/23/2025 7:54 PM CDT) eGFR 83 >=60 mL/min/1. 73 m2 Comment: Interpretive Data Reference Interval Normal >/= 90 mL/min/1.73m2 Mildly decreased* 60 - 89 mL/min/1.73m2 Mildly to moderately decreased 45 - 59 mL/min/1.73m2 Moderately to severely decreased 30 - 44 mL/min/1.73m2 Severely decreased 15 - 29 mL/min/1.73m2 Kidney Failure < 15 mL/min/1.73m2 *Relative to young adult level Estimated glomerular filtration rate is determined by the 2020 CKD-EPI equation recommended by the National Kidney Foundation (A Unifying Approach to GFR Estimation: Recommendations of the NKF-ASK Task Force on Reassessing the Inclusion of Race in Diagnosing Kidney Disease, JASN 202). The CKD-EPI equation should not be used for patients with unstable renal function and has not been validated in children and those over 70. Current interpretive data was last reviewed 2021. Blood 09/23/2025 7:54 PM CDT 09/23/2025 8:08 PM CDT [facility] Dayron Royal MD LAB BLOOD ORDERABLES Final Result [facility] Department [place] [address] * (ABNORMAL) CBC without differential (09/23/2025 7:54 PM CDT) WBC 17.95(H) 3.80 - 9.90 K/cumm Hgb 15.0 13.0 - 17.5 g/dL [facility] Hct 45.3 38.9 - 50.3 % [facility] Plt 295 150 - 400 K/cumm [facility] MPV 8.5(L) 9.1 - 12.3 fL [facility] RBC 5.37 4.30 - 5.80 M/cumm [facility] MCV 84.4 81.3 - 96.4 fL [facility] MCH 27.9 27.1 - 33.3 pg [facility] MCHC 33.1 32.3 - 35.7 g/dL [facility] RDW CV 12.8 11.1 - 14.9 % [facility] RDW SD 39.3 35.7 - 48.1 fL [facility] NRBC abs 0.00 0.00 - 0.01 K/cumm [facility] Blood 09/23/2025 7:54 PM CDT 09/23/2025 8:08 PM CDT Navdeep Dayron Royal MD LAB BLOOD ORDERABLES Final Result Performing Organization Address [facility] Co de Phone Number [facility] [place] [address] * (ABNORMAL) Phosphorus (09/23/2025 7:54 PM CDT) Pathologist [facility] Phosphorus, pl 5.3(H) 2.3 - 4.5 mg/dL Blood 09/23/2025 7:54 PM CDT 09/23/2025 8:08 PM CDT Navdeep Dayron Royal MD LAB BLOOD ORDERABLES Final Result Performing Organization Address [facility] Co de Phone Number [facility] [place] [address] * Magnesium (09/23/2025 7:54 PM CDT) [facility] Magnesium 1.8 1.4 - 2.5 mg/dL Blood 09/23/2025 7:54 PM CDT 09/23/2025 8:08 PM CDT Navdeep Dayron Royal MD LAB BLOOD ORDERABLES Final Result Performing Organization Address [facility] [place] [address] * (ABNORMAL) Basic metabolic panel (09/23/2025 7:54 PM CDT) [facility] Sodium 141 135 - 145 mmol/L Potassium, pl 4.8 3.3 - 4.9 mmol/L [facility] Chloride 100 97 - 110 mmol/L [facility] CO2 23 22 - 32 mmol/L [facility] Anion gap 18(H) 2 - 15 mmol/L [facility] BUN 14 6 - 25 mg/dL [facility] Creatinine 1.10 0.80 - 1.30 mg/dL [facility] Glucose 192 70 - 199 mg/dL [facility] Comment: Interpretive Data Fasting glucose >/= 126 mg/dl is diagnostic for diabetes. Fasting is defined as no caloric intake for at least 8 hours. Fasting glucose between 100 mg/dl to 125 mg/dl is diagnostic of prediabetes. In a patient with classic symptoms of hyperglycemia or hyperglycemic crisis, a random glucose >/= 200 mg/dl is diagnostic for diabetes. In the absence of unequivocal hyperglycemia, results should be confirmed by repeat testing. The classification and Diagnosis of Diabetes Diabetes Care 2021; 46: S19-S40. Current interpretive data was last revised 2022. Calcium 8.8 8.5 - 10.3 mg/dL [facility] Blood 09/23/2025 7:54 PM CDT 09/23/2025 8:08 PM CDT [facility] Dayron Royal MD LAB BLOOD ORDERABLES Final Result [facility] Department [place] [address] * XR Abdomen 1 View AP (09/23/2025 7:03 PM CDT) Anatomical Region Laterality Modality Body, Abdomen N/A Computed Radiogr aphy 09/24/2025 11:5 4 AM CDT Impressions 09/24/2025 2:30 PM CDT First exam 09/23/2025 at 6:49 PM: Gastric tube tip projects over the gastric cardia and side port projects over the distal esophagus. Second exam 09/23/2025 at 9:15 PM: There is interval advancement of the nasogastric tube with tip projecting over the gastric body and side port projecting over the gastric cardia. There is a tube projecting over the patient's abdomen that is favored to be external to the patient. Paucity of bowel gas. Third exam 09/23/2025 at 10:22 PM: Temperature Herron catheter is present. Remainder of examination is unchanged. Dictated by: Marcin Henlon, M.D. The radiology attending physician has personally reviewed this study, and had reviewed and/or edited this written report and agrees with it. Electronically signed by: Gabe Calle M.D. Narrative 09/24/2025 2:30 PM CDT Examination: Three one view portables One view portable One view portable One view portable Procedure Note Gabe Calle MD - 09/24/2025 Examination: Three one view portables One view portable One view portable One view portable IMPRESSION: First exam 09/23/2025 at 6:49 PM: Gastric tube tip projects over the gastric cardia and side port projects over the distal esophagus. Second exam 09/23/2025 at 9:15 PM: There is interval advancement of the nasogastric tube with tip projecting over the gastric body and side port projecting over the gastric cardia. There is a tube projecting over the patient's abdomen that is favored to be external to the patient. Paucity of bowel gas. Third exam 09/23/2025 at 10:22 PM: Temperature Herron catheter is present. Remainder of examination is unchanged. Dictated by: Marcin Bruce M.D. The radiology attending physician has personally reviewed this study, and had reviewed and/or edited this written report and agrees with it. Electronically signed by: Gabe Calle M.D. us Navdeep Royal MD IMG XR PROCEDURES Fi nal Result * POCT glucose (09/23/2025 6:53 PM CDT) [facility] Signature Glucose, POC 173 70 - 199 mg/dL Blood 09/23/2025 6:53 PM CDT 09/23/2025 6:53 PM CDT us Navdeep Royal MD LAB POCT ORDERABLES - DEVICE Final Result [facility] [place] [address] * (ABNORMAL) Differential, auto (09/23/2025 5:48 PM CDT) Pathologist [facility] Neutrophil abs 15.04(H) 1.50 - 6.50 K/cumm Imm gran abs 0.13(H) 0.00 - 0.10 K/cumm [facility] Lymphocyte abs 0.90 0.80 - 3.30 K/cumm [facility] Monocyte abs 1.22(H) 0.20 - 0.80 K/cumm [facility] Eosinophil abs 0.01 0.00 - 0.50 K/cumm [facility] Basophil abs 0.07 0.00 - 0.10 K/cumm [facility] Neutrophil pct 86.6 % [facility] Comment: Interpretive Data Percent cell count reference ranges are not reported, since discordance with absolute values may lead to misinterpretation of CBC data. Current Interpretive Data was last revised on 2018. Imm gran pct 0.7 % [facility] Comment: Interpretive Data Percent cell count reference ranges are not reported, since discordance with absolute values may lead to misinterpretation of CBC data. Current Interpretive Data was last revised on 2018. Lymphocyte pct 5.2 % [facility] Comment: Interpretive Data Percent cell count reference ranges are not reported, since discordance with absolute values may lead to misinterpretation of CBC data. Current Interpretive Data was last revised on 2018. Monocyte pct 7.0 % [facility] Comment: Interpretive Data Percent cell count reference ranges are not reported, since discordance with absolute values may lead to misinterpretation of CBC data. Current Interpretive Data was last revised on 2018. Eosinophil pct 0.1 % [facility] Comment: Interpretive Data Percent cell count reference ranges are not reported, since discordance with absolute values may lead to misinterpretation of CBC data. Current Interpretive Data was last revised on 2018. Basophil pct 0.4 % [facility] Comment: Interpretive Data Percent cell count reference ranges are not reported, since discordance with absolute values may lead to misinterpretation of CBC data. Current Interpretive Data was last revised on 2018. Blood 09/23/2025 5:48 PM CDT 09/23/2025 6:48 PM CDT [facility] Dayron Royal MD LAB BLOOD ORDERABLES Final Result Performing Organization Address [facility]/ZIP Co de Phone Number [facility] [place] [address] * (ABNORMAL) CBC with auto differential (09/23/2025 5:48 PM CDT) WBC 17.37(H) 3.80 - 9.90 K/cumm Hgb 13.5 13.0 - 17.5 g/dL [facility] Hct 44.5 38.9 - 50.3 % [facility] Plt 273 150 - 400 K/cumm [facility] MPV 8.7(L) 9.1 - 12.3 fL [facility] RBC 5.19 4.30 - 5.80 M/cumm [facility] MCV 85.7 81.3 - 96.4 fL [facility] MCH 26.0(L) 27.1 - 33.3 pg [facility] MCHC 30.3(L) 32.3 - 35.7 g/dL [facility] RDW CV 13.6 11.1 - 14.9 % [facility] RDW SD 42.0 35.7 - 48.1 fL [facility] NRBC abs 0.00 0.00 - 0.01 K/cumm [facility] Blood 09/23/2025 5:48 PM CDT 09/23/2025 6:48 PM CDT [facility] Dayron Royal MD LAB BLOOD ORDERABLES Final Result [facility] [place] [address] * POCT glucose (09/23/2025 4:08 PM CDT) Glucose, POC 156 70 - 199 mg/dL Blood 09/23/2025 4:08 PM CDT 09/23/2025 4:08 PM CDT Navdeep Dayron Royal MD LAB POCT ORDERABLES - DEVICE Final Result Performing Organization Address City/[facility]/ZIP Co de Phone Number [facility] [place] [address] * POCT glucose (09/23/2025 2:18 PM CDT) Glucose, POC 148 70 - 199 mg/dL Blood 09/23/2025 2:18 PM CDT 09/23/2025 2:18 PM CDT [facility] Dayron Royal MD LAB POCT ORDERABLES - DEVICE Final Result Performing Organization Address [facility] Co de Phone Number [facility] [place] [address] * Surgical pathology (09/23/2025 1:41 PM CDT) Tissue (Stomach - Subtotal / Total Resection, non-Tumor) 09/23/2025 1:41 PM CDT Narrative PATHOLOGY [facility] - 09/27/2025 12:59 PM [employer]ET [employer]OTECTION ASSISTANT EPIC results best viewed via link to PDF [facility] [place] [address] Note to Patients: This report may contain a detailed description of human tissue sent by a health care provider to the laboratory for pathologic evaluation. The content of this report is essential for diagnosis and may provide important critical findings. This information may be unfamiliar to patients to review without a medical professional present. It is advised that the patient review this report in the presence of a health care provider who can answer questions and explain the details. SURGICAL PATHOLOGY REPORT FINAL Patient Name: BERTHA JIANG Gender: M : 1975 (Age: 49) Address: [address] [place] [id number] [place] Hospital #: [id number] Taken:09/23/2025 Received:09/23/2025 Reported: 09/27/2025 Patient Type: [facility] Inpatient Service: Surgery Location: [facility] 0105 Physician(s): Verito Decker APRN Diagnosis: A. Stomach, wedge resection - Small bowel with no histopathologic abnormality erica/09/27/2025 11:32 By this signature, I attest that the above diagnosis is based upon my personal examination of the slides(and/or other material indicated in the diagnosis). Raffi Garcia M.D. Report Electronically Reviewed and Signed Out By Raffi Garcia M.D. 09/27/2025 12:59:37 Maria Alejandra Pace M.D. History: The patient is a 49-year-old man with a ventral hernia without obstruction or gangrene. Operative procedure: ventral hernia repair. Specimen(s) Received: A: Stomach Gross Description: Received in formalin, labeled stomach , is an intact wedge of stomach (3.5 x 2.0 x 2.0 cm) with a staple margin. The serosa is red-pink and congested with surface roughening. The wedge is opened and has red-borden, glistening mucosa with no gross abnormalities. The wall thickness is uniform in size. A patient support representative section is submitted in cassette A1. Jar 1. behu/09/23/2025 17:25 PA(s): Soledad Rocha MS, DAE([facility])CM By this signature, I attest that the above diagnosis is based upon my personal examination of the slides(and/or other material). Addenda/Procedures The performance characteristics of some immunohistochemical stains, fluorescence in-situ hybridization tests and immunophenotyping by flow cytometry cited in this report (if any) were determined by the Surgical Pathology and Flow Cytometry Departments at [facility] as part of an ongoing quality assurance monitor chassis program and in compliance with federally mandated regulations drawn from the Clinical Laboratory Improvement Act of 1988 (CLIA '88). Some of these tests rely on the use of analyte specific reagents and are subject to specific labeling requirements by the US Food and Drug Administration. Such diagnostic tests may only be performed in a facility that is certified by the Department of Health and Human Services as a high complexity laboratory under CLIA '88. The FDA has determined that such clearance or approval is not necessary. This test is used for clinical purposes. It should not be regarded as investigational or for research. Nevertheless, federal rules concerning the medical use of analyte specific reagents require that the following disclaimer be attached to the report: This test was developed and its performance characteristics determined by the Surgical Pathology and Flow Cytometry Departments of [facility]. It has not been cleared or approved by the U. S. Food and Drug Administration. IMAGES AND SCANNED DOCUMENTS, IF INCLUDED, ONLY VIEWABLE IN PDF VERSION OF REPORT [facility] Dayron Royal MD LAB PATHOLOGY ORDERA BLES Final Result Performing Organization Address City/[facility] Co de Phone Number PATHOLOGY [facility] [address]rd Floor [place], [place] [phone] * POCT glucose (09/23/2025 1:05 PM CDT) Glucose, POC 136 70 - 199 mg/dL Blood 09/23/2025 1:05 PM CDT 09/23/2025 1:05 PM CDT [facility] Dayron Royal MD LAB POCT ORDERABLES - DEVICE Final Result Performing Organization Address [facility] Co de Phone Number [facility] Department [place] [address] * POCT glucose (09/23/2025 12:25 PM CDT) Glucose, POC 118 70 - 199 mg/dL Blood 09/23/2025 12:2 5 PM CDT 09/23/2025 12:25 PM CDT Result [facility] Dayron Royal MD LAB POCT ORDERABLES - DEVICE Final Result Performing Organization Address [facility] Co de Phone Number [facility] Department [place] [address] * LA AN ELECTIVE ENDOTRACHEAL AIRWAY, LA AN PROCEDURE PLACEHOLDER (09/23/2025 11:49 AM CDT) Narrative Agustin Fernandez CRNA - 09/23/2025 11:49 AM CDT Agustin Fernandez CRNA 09/23/2025 11:49 AM Airway Patient location: OR Urgency: elective Indications for airway management: anesthesia Difficult airway: no Staff: Placed by: Anesthesiologist: Dawood Ruggiero MD Airway prep: Preoxygenated: yes Patient position: sniffing Mask difficulty assessment: 0 - not attempted Spontaneous ventilation during airway: absent Sedation level during airway: GA Final airway details: Final airway type: endotracheal airway Tube type: ETT ETT size: 8.0 mm Cuffed: yes Technique used for successful ETT placement: direct laryngoscopy Insertion site: oral Blade type: Joce Blade size: 4 Cormack-Lehane (direct): grade I - full view of glottis Cuff volume: 5 mL Cuff inflated with: air Placement verified by: auscultation and CO2 detection Airway secured with: silk tape Number of attempts: 1 Planned trial extubation: yes Dawood Ruggiero MD ANESTHESIA ORDERABLES Final Result * POCT glucose (09/23/2025 10:11 AM CDT) Glucose, POC 118 70 - 199 mg/dL Blood 09/23/2025 10:1 1 AM CDT 09/23/2025 10:11 AM CDT Navdeep Royal MD LAB POCT ORDERABLES - DEVICE Final Result Performing Organization Address City/State/[facility] Co de Phone Number [facility] Department [place] [address] * eGFR (09/08/2025 1:40 PM CDT) eGFR >90 >=60 mL/min/1. 73 m2 Comment: Interpretive Data Reference Interval Normal >/= 90 mL/min/1.73m2 Mildly decreased* 60 - 89 mL/min/1.73m2 Mildly to moderately decreased 45 - 59 mL/min/1.73m2 Moderately to severely decreased 30 - 44 mL/min/1.73m2 Severely decreased 15 - 29 mL/min/1.73m2 Kidney Failure < 15 mL/min/1.73m2 *Relative to young adult level Estimated glomerular filtration rate is determined by the 2020 CKD-EPI equation recommended by the National Kidney Foundation (A Unifying Approach to GFR Estimation: Recommendations of the NKF-ASK Task Force on Reassessing the Inclusion of Race in Diagnosing Kidney Disease, JASN 202). The CKD-EPI equation should not be used for patients with unstable renal function and has not been validated in children and those over 70. Current interpretive data was last reviewed 2021. Blood 09/08/2025 1:40 PM CDT 09/08/2025 2:29 PM CDT [facility] Dayron Royal MD LAB BLOOD ORDERABLES Final Result [facility] [place] [address] * (ABNORMAL) Differential, auto (09/08/2025 1:40 PM CDT) Neutrophil abs 8.42(H) 1.50 - 6.50 K/cumm Imm gran abs 0.10 0.00 - 0.10 K/cumm [facility] Lymphocyte abs 2.57 0.80 - 3.30 K/cumm [facility] Monocyte abs 0.66 0.20 - 0.80 K/cumm [facility] Eosinophil abs 0.18 0.00 - 0.50 K/cumm [facility] Basophil abs 0.10 0.00 - 0.10 K/cumm [facility] Neutrophil pct 70.0 % [facility] Comment: Interpretive Data Percent cell count reference ranges are not reported, since discordance with absolute values may lead to misinterpretation of CBC data. Current Interpretive Data was last revised on 2018. Imm gran pct 0.8 % [facility] Comment: Interpretive Data Percent cell count reference ranges are not reported, since discordance with absolute values may lead to misinterpretation of CBC data. Current Interpretive Data was last revised on 2018. Lymphocyte pct 21.4 % [facility] Comment: Interpretive Data Percent cell count reference ranges are not reported, since discordance with absolute values may lead to misinterpretation of CBC data. Current Interpretive Data was last revised on 2018. Monocyte pct 5.5 % [facility] Comment: Interpretive Data Percent cell count reference ranges are not reported, since discordance with absolute values may lead to misinterpretation of CBC data. Current Interpretive Data was last revised on 2018. Eosinophil pct 1.5 % [facility] Comment: Interpretive Data Percent cell count reference ranges are not reported, since discordance with absolute values may lead to misinterpretation of CBC data. Current Interpretive Data was last revised on 2018. Basophil pct 0.8 % [facility] Comment: Interpretive Data Percent cell count reference ranges are not reported, since discordance with absolute values may lead to misinterpretation of CBC data. Current Interpretive Data was last revised on 2018. Blood 09/08/2025 1:40 PM CDT 09/08/2025 2:18 PM CDT us Navdeep Dayron Royal MD LAB BLOOD ORDERABLES Final Result [facility] [place] [address] * HIV 1/2 Antibody plus p24 Antigen Blood (09/08/2025 1:40 PM CDT) HIV 1/2 ab + p24 ag Nonreactive Nonreactive Comment:Nonreactive for HIV- 1 antigen and HIV-1/HIV-2 antibodies. No laboratory evidence of HIV infection. If acute HIV infection is suspected, consider testing for HIV-1 RNA. Current interpretive data was last revised on 22. Blood 09/08/2025 1:40 PM CDT 09/08/2025 2:18 PM CDT us Navdeep Dayron Royal MD LAB MICROBIOLOGY - G ENERAL ORDERABLES Final Result [facility] [place] [address] * (ABNORMAL) CBC with auto differential (09/08/2025 1:40 PM CDT) [facility] WBC 12.03(H) 3.80 - 9.90 K/cumm Hgb 14.2 13.0 - 17.5 g/dL [facility] Hct 43.4 38.9 - 50.3 % [facility] Plt 221 150 - 400 K/cumm [facility] MPV 9.1 9.1 - 12.3 fL [facility] RBC 5.04 4.30 - 5.80 M/cumm [facility] MCV 86.1 81.3 - 96.4 fL [facility] MCH 28.2 27.1 - 33.3 pg [facility] MCHC 32.7 32.3 - 35.7 g/dL [facility] RDW CV 13.3 11.1 - 14.9 % [facility] RDW SD 41.6 35.7 - 48.1 fL [facility] NRBC abs 0.00 0.00 - 0.01 K/cumm [facility] Blood 09/08/2025 1:40 PM CDT 09/08/2025 2:18 PM CDT us Navdeep Dayron Royal MD LAB BLOOD ORDERABLES Final Result [facility] Department [place] [address] * Hepatitis C antibody Blood (09/08/2025 1:40 PM CDT) [facility] Hep C Ab Nonreactive Nonreactive Comment:Antibodies to HCV no t detected. Does NOT exclude the possibility of recent exposure to HCV. Current interpretive data was last revised on 22 Blood 09/08/2025 1:40 PM CDT 09/08/2025 2:18 PM CDT us Navdeep Dayron Royal MD LAB MICROBIOLOGY - G ENERAL ORDERABLES Final Result Performing Organization Address [facility] Co de Phone Number [facility] Department [place] [address] * Hepatitis A antibody, IgM Blood (09/08/2025 1:40 PM CDT) Pathologist [facility] Hep A IgM Nonreactive Nonreactive Blood 09/08/2025 1:40 PM CDT 09/08/2025 2:18 PM CDT Navdeep Dayron Royal MD LAB MICROBIOLOGY - G ENERAL ORDERABLES Final Result Performing Organization Address [facility] Co de Phone Number [facility] Department [place] [address] * Hepatitis B Surface Antigen Blood (09/08/2025 1:40 PM CDT) Pathologist [facility] HepBsAg Nonreactive Nonreactive Blood 09/08/2025 1:40 PM CDT 09/08/2025 2:18 PM CDT Navdeep Dayron Royal MD LAB MICROBIOLOGY - G ENERAL ORDERABLES Final Result Performing Organization Address [facility] Co de Phone Number [facility] [place] [address] [place] [address] * aPTT (09/08/2025 1:40 PM CDT) Pathologist [facility] aPTT 30 26 - 38 sec Comment: Interpretive Data Heparin therapeutic range: 66.0 - 100.0 seconds. Range based on correlation with therapeutic heparin activity range of 0.3 - 0.7 Units/mL. Current interpretive data was last revised on 2023. Blood 09/08/2025 1:40 PM CDT 09/08/2025 2:18 PM CDT Navdeep Dayron Royal MD LAB BLOOD ORDERABLES Final Result Performing Organization Address City/[facility] de Phone Number [facility] [place] [address] * Protime-INR (09/08/2025 1:40 PM CDT) PT 10.4 10.2 - 13.5 sec INR 0.92 0.90 - 1.20 [facility] Comment: Interpretive data Oral anticoagulant therapeutic ranges: Venous thromboembolism prophylaxis or treatment: 2.0-3.0 CARDIOLOGY Standard range: 2.0-3.0 High-intensity range: 2.5-3.5 Refer to indication-specific guidelines for appropriate target ranges for prosthetic heart valve replacement. Current interpretive data was last revised on 2019. Blood 09/08/2025 1:40 PM CDT 09/08/2025 2:18 PM CDT Result [facility] Dayron Royal MD LAB BLOOD ORDERABLES Final Result Performing Organization Address [facility] de Phone Number [facility] [place] [address] * Comprehensive metabolic panel (09/08/2025 1:40 PM CDT) Pathologist [facility] Sodium 143 135 - 145 mmol/L Potassium, pl 4.1 3.3 - 4.9 mmol/L [facility] Chloride 108 97 - 110 mmol/L [facility] CO2 24 22 - 32 mmol/L [facility] Anion gap 11 2 - 15 mmol/L [facility] BUN 18 6 - 25 mg/dL [facility] Creatinine 0.95 0.80 - 1.30 mg/dL [facility] Glucose 111 70 - 199 mg/dL [facility] Comment: Interpretive Data Fasting glucose >/= 126 mg/dl is diagnostic for diabetes. Fasting is defined as no caloric intake for at least 8 hours. Fasting glucose between 100 mg/dl to 125 mg/dl is diagnostic of prediabetes. In a patient with classic symptoms of hyperglycemia or hyperglycemic crisis, a random glucose >/= 200 mg/dl is diagnostic for diabetes. In the absence of unequivocal hyperglycemia, results should be confirmed by repeat testing. The classification and Diagnosis of Diabetes Diabetes Care 202; 46: S19-S40. Current interpretive data was last revised 2022. Calcium 9.5 8.5 - 10.3 mg/dL [facility] Bilirubin, total 0.2 0.1 - 1.2 mg/dL [facility] Protein, pl 7.9 6.5 - 8.5 g/dL [facility] Albumin 4.5 3.5 - 5.0 g/dL [facility] Alk phos 110 40 - 130 Units/L [facility] ALT 22 7 - 55 Units/L [facility] AST 15 10 - 50 Units/L [facility] Blood 09/08/2025 1:40 PM CDT 09/08/2025 2:18 PM CDT Navdeep Dayron Royal MD LAB BLOOD ORDERABLES Final Result Performing Organization Address [facility] de Phone Number [facility] [place] [address] * (ABNORMAL) Hemoglobin A1c (12/18/2024 10:05 AM ASSET PROTECTION ASSISTANT) Hgb A1C 7.2(H) 4.0 - 5.6 % Estimated Average Glucose 160 mg/dL [facility] Comment: The ADA recommends reporting an estimated Average Glucose (eAG) with all Hemoglobin A1c results using the equation derived from a study of 507 normal and diabetic adults. Minority populations were underrepresented and children were not included. (Diabetes Care 2020; 43(S1): S66-S76). The eAG is not equivalent to a fasting glucose. Blood 12/18/2024 10:0 5 AM ASSET PROTECTION ASSISTANT 12/18/2024 10:38 AM ASSET PROTECTION ASSISTANT Navdeep Dayron Royal MD LAB BLOOD ORDERABLES Final Result Performing Organization Address City/[facility]/ZIP Co de Phone Number [facility] [place] [address] from Last 3 Months or Most Recently Relevant to Health Maintenance Insurance [facility] [employer] [facility] [employer] [facility] Advance Directives For more information, please contact: [phone] * Full Code (Latest Code Status on File) Date Activated Date Inactivated Comments 09/23/2025 9:50 PM 10/01/2025 8:02 PM Care Teams Associate Professor Of Geography Relationship Specialty Start Date End Date Osmel Kendall NP [address] [address] PCP - General Nurse Practitioner 09/16/25
--- OUTSIDE RECORDS SUMMARY | 2025-10-16 13:54 | XMS_ITS | Data Portability ---
Author Organization [place] - [facility] [place], ADMIN Address [address] [place] [id number] Care Team Providers Care Staff Nurse Midwife Name Role Phone ROB CIARA Primary Care Provider Assessment Encounter Date Assessment Date Assessment LastModified by Organization Details LastModified Time 05/13/2024 05/13/2024 48-year-old male presents to clinic to for follow up to discuss EGD and colonoscopy results. He was originally seen for consultation regarding dysphagia GERD and abdominal bloating. Patient reports less choking episodes since esophageal dilation. He reports sour stomach since starting Protonix 40mg BID. He states he did not have these symptoms when he was taking omeprazole 40mg BID. Patient is taking metamucil capsules daily and occasional stool softeners. He states his bowel movements range from once daily to one BM every few days. He states he does not always eat healthy foods. Patient has had an esophagram and modified barium swallow done per ENT. Patient was noted to have a delayed swallowing response, I explained to him that it was unlikely that a esophageal dilation would help manage this issue and he verbalizes understanding. He states that over the past 2 months that his swallowing has gotten much worse and he feels like things are getting stuck in his esophagus. The esophagram that was done in November 16 did not note a stricture however this was performed 4 months ago. Patient had an EGD done in the and was found to have a bleeding ulcer he also had a colonoscopy done at that time and he states that it was normal. Patient has chronic diarrhea versus constipation patient has a history of gastroschisis repaired as an . Patient has 5 cardiac stents the last 3 were placed 10/10/2023, permission from cardiology will have to be obtained to hold Brilinta. I discussed procedural and anesthesia risk given patient's comorbidities, patient verbalized understanding. Patient is currently taking omeprazole 40 mg p.o. twice daily he is not having any acid reflux on this medication he is agreeable to trialing pantoprazole 40 mg p.o. twice daily due to his anticoagulation usage he has no known family history of colon or stomach cancer. He states that his great uncle had esophageal cancer. Patient had COVID-19 in 2019 and he states that he has had multiple health issues since then that he has long-term COVID EGD 04/22/2024: Resistance found at the upper esophageal sphincter. Distal esophageal acid peptic stricture. 20 mm TTS balloon dilation. Mild nonerosive gastritis. Normal exam to the duodenum. Pathology: GE junction biopsy negative for intestinal metaplasia. Stomach biopsy negative for H. pylori. Duodenal biopsy revealed focal reactive changes, mildly increased intraepithelial lymphocytes. Colonoscopy 04/22/2024: Small internal hemorrhoids. 5 mm sessile transverse colon polyp removed completely. 5 mm sessile right colon polyp removed completely. Unfortunately the polyp was lost during the extraction process. Due to excessive resistance, exam of the cecum could not be performed. Otherwise normal exam to the right colon. Pathology: Transverse polypectomy revealed tubular adenoma. Random colon biopsy unremarkable. CT abdomen pelvis 05/01/2024: Hepatic steatosis. No bowel obstruction. Normal appendix. No free fluid or free air. There is an abdominal wall hernia to the left of midline containing loops of colon and small bowel. No findings to indicate incarceration/infl ammatory process. Impression: 1. Periumbilical abdominal pain 2. Dysphagia --s/p esophageal dilation 04/22/24 3. GERD --Protonix 40mg BID 4. Abdominal bloating 5. Chronic diarrhea vs constipation 6. History of Gastroschisis 7. History of peptic ulcers 8. Family history of Esophageal cancer in great uncle 9. Cardiac stents x 5, the last 3 were placed 09/2023 --Pt takes brilinta 10. Previous EGD and colonoscopy in the 11. 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 General surgery referral for abdominal wall hernia 2. Continue Protonix 40mg BID, consider switching back to omeprazole 40mg BID 3. Continue Metamucil capsules 4. Low FODMAP diet 5. Vitamin B6 and morgan for nausea 6. Anti-reflux precautions 7. Repeat colonoscopy in 2 years due to loss of polyp during extraction and incomplete exam of the cecum (March 2026) 8. Follow up in 1 month ross Jordan available 05/15/2024 14:52:18 07/01/2024 07/01/2024 48-year-old male presents to clinic to for follow up. He was originally seen for consultation regarding dysphagia GERD and abdominal bloating. He reports sour stomach since starting Protonix 40mg BID, he began omeprazole 40mg PO BID again, I did advice that this could affect Brilinta, absorption however pt has been on these 2 medications together for several years. Patient is taking metamucil capsules daily and occasional stool softeners, he is still experiencing constipation and I advised him to begin taking metamucil 1-2 times daily. He states his bowel movements range from once daily to one BM every few days. He states he does not always eat healthy foods. Patient has had an esophagram and modified barium swallow done per ENT. Patient was noted to have a delayed swallowing response, I explained to him that it was unlikely that a esophageal dilation would help manage this issue and he verbalizes understanding. He states that over the past 2 months that his swallowing has gotten much worse and he feels like things are getting stuck in his esophagus. The esophagram that was done in November 16 did not note a stricture however this was performed 4 months ago. Patient had an EGD done in the and was found to have a bleeding ulcer he also had a colonoscopy done at that time and he states that it was normal. Patient has chronic diarrhea versus constipation patient has a history of gastroschisis repaired as an infant. Patient has 5 cardiac stents the last 3 were placed 10/10/2023, permission from cardiology will have to be obtained to hold Brilinta. I discussed procedural and anesthesia risk given patient's comorbidities, patient verbalized understanding. Patient is currently taking omeprazole 40 mg p.o. twice daily he is not having any acid reflux on this medication he is agreeable to trialing pantoprazole 40 mg p.o. twice daily due to his anticoagulation usage he has no known family history of colon or stomach cancer. He states that his great uncle had esophageal cancer. Patient had COVID-19 in 2019 and he states that he has had multiple health issues since then that he has long-term COVID EGD 04/22/2024: Resistance found at the upper esophageal sphincter. Distal esophageal acid peptic stricture. 20 mm TTS balloon dilation. Mild nonerosive gastritis. Normal exam to the duodenum. Pathology: GE junction biopsy negative for intestinal metaplasia. Stomach biopsy negative for H. pylori. Duodenal biopsy revealed focal reactive changes, mildly increased intraepithelial lymphocytes. Colonoscopy 04/22/2024: Small internal hemorrhoids. 5 mm sessile transverse colon polyp removed completely. 5 mm sessile right colon polyp removed completely. Unfortunately the polyp was lost during the extraction process. Due to excessive resistance, exam of the cecum could not be performed. Otherwise normal exam to the right colon. Pathology: Transverse polypectomy revealed tubular adenoma. Random colon biopsy unremarkable. CT abdomen pelvis 05/01/2024: Hepatic steatosis. No bowel obstruction. Normal appendix. No free fluid or free air. There is an abdominal wall hernia to the left of midline containing loops of colon and small bowel. No findings to indicate incarceration/infl ammatory process. Impression: 1. Periumbilical abdominal pain 2. Dysphagia --s/p esophageal dilation 04/22/24 3. GERD --Protonix 40mg BID 4. Abdominal bloating 5. Chronic diarrhea vs constipation 6. History of Gastroschisis 7. History of peptic ulcers 8. Family history of Esophageal cancer in great uncle 9. Cardiac stents x 5, the last 3 were placed 09/2023 --Pt takes brilinta 10. Previous EGD and colonoscopy in the 11. 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 Follow up General surgery referral for abdominal wall hernia, pt being sent to [facility] he states 2. Continue omeprazole 40mg BID 3. Continue Metamucil capsules and Add Miralax 1-2 cap fulls PO BID 4. Low FODMAP diet 5. Vitamin B6 and morgan for nausea 6. Anti-reflux precautions 7. Repeat colonoscopy in 2 years due to loss of polyp during extraction and incomplete exam of the cecum (March 2026) 8. Follow up in 3 weeks [email or web address] Not available 07/01/2024 12:14:28 07/22/2024 07/22/2024 48-year-old male presents to clinic to for follow up. He was originally seen for consultation regarding dysphagia GERD and abdominal bloating. He reports sour stomach, on occasional which dairy items. he is taking Omeprazole 40mg PO BID. Patient is taking metamucil capsules daily and occasional stool softeners, he is still experiencing constipation and I advised him to begin taking metamucil 1-2 times and Miralax 1 cap full daily. He states his bowel movements range from once daily to one BM every few days. He states he does not always eat healthy foods. Patient has had an esophagram and modified barium swallow done per ENT. Patient was noted to have a delayed swallowing response, I explained to him that it was unlikely that a esophageal dilation would help manage this issue and he verbalizes understanding. He states that over the past 2 months that his swallowing has gotten much worse and he feels like things are getting stuck in his esophagus. The esophagram that was done in November 16 did not note a stricture however this was performed 4 months ago. Patient had an EGD done in the and was found to have a bleeding ulcer he also had a colonoscopy done at that time and he states that it was normal. Patient has chronic diarrhea versus constipation patient has a history of gastroschisis repaired as an . Patient has 5 cardiac stents the last 3 were placed 10/10/2023, permission from cardiology will have to be obtained to hold Brilinta. I discussed procedural and anesthesia risk given patient's comorbidities, patient verbalized understanding. Patient is currently taking omeprazole 40 mg p.o. twice daily he is not having any acid reflux on this medication he is agreeable to trialing pantoprazole 40 mg p.o. twice daily due to his anticoagulation usage he has no known family history of colon or stomach cancer. He states that his great uncle had esophageal cancer. Patient had COVID-19 in 2019 and he states that he has had multiple health issues since then that he has long-term COVID EGD 04/22/2024: Resistance found at the upper esophageal sphincter. Distal esophageal acid peptic stricture. 20 mm TTS balloon dilation. Mild nonerosive gastritis. Normal exam to the duodenum. Pathology: GE junction biopsy negative for intestinal metaplasia. Stomach biopsy negative for H. pylori. Duodenal biopsy revealed focal reactive changes, mildly increased intraepithelial lymphocytes. Colonoscopy 04/22/2024: Small internal hemorrhoids. 5 mm sessile transverse colon polyp removed completely. 5 mm sessile right colon polyp removed completely. Unfortunately the polyp was lost during the extraction process. Due to excessive resistance, exam of the cecum could not be performed. Otherwise normal exam to the right colon. Pathology: Transverse polypectomy revealed tubular adenoma. Random colon biopsy unremarkable. CT abdomen pelvis 05/01/2024: Hepatic steatosis. No bowel obstruction. Normal appendix. No free fluid or free air. There is an abdominal wall hernia to the left of midline containing loops of colon and small bowel. No findings to indicate incarceration/infl ammatory process. Impression: 1. Periumbilical abdominal pain 2. Dysphagia --s/p esophageal dilation 04/22/24 3. GERD --Protonix 40mg BID 4. Abdominal bloating 5. Chronic diarrhea vs constipation 6. History of Gastroschisis 7. History of peptic ulcers 8. Family history of Esophageal cancer in great uncle 9. Cardiac stents x 5, the last 3 were placed 09/2023 --Pt takes brilinta 10. 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 Follow up General surgery referral for abdominal wall hernia, pt being sent to [facility] he states 2. Continue omeprazole 40mg BID 3. Continue Metamucil capsules and Add Miralax 1-2 cap fulls PO BID 4. Low FODMAP diet 5. Vitamin B6 and morgan for nausea 6. Anti-reflux precautions 7. Repeat colonoscopy in 2 years due to loss of polyp during extraction and incomplete exam of the cecum (March 2026) 8. Carafate 10mls PO QID prn for LUQ pain 9. Follow up in 3 months [email or web address] Not available 07/22/2024 13:09:27 08/18/2024 08/18/2024 48-year-old gentleman, history of coronary disease status post PCI in the past continue aggressive medical therapy, stable medical therapy [email or web address] Not available 08/24/2024 22:09:25 10/20/2024 10/20/2024 48-year-old male presents to clinic to for follow up. He was originally seen for consultation regarding dysphagia GERD and abdominal bloating. He is rarely experiencing constipation and I advised him to begin taking metamucil, along with and Miralax 1 cap full daily. He states his bowel movements range from once daily to one BM every few days. He states he does not always eat healthy foods. He is nauseated today, but this has been infrequent. He believes that it is due to recent stress. Patient has had an esophagram and modified barium swallow done per ENT. Patient was noted to have a delayed swallowing response, I explained to him that it was unlikely that a esophageal dilation would help manage this issue and he verbalizes understanding. He states that over the past 2 months that his swallowing has gotten much worse and he feels like things are getting stuck in his esophagus. The esophagram that was done in November 16 did not note a stricture however this was performed 4 months ago. Patient had an EGD done in the and was found to have a bleeding ulcer he also had a colonoscopy done at that time and he states that it was normal. Patient has chronic diarrhea versus constipation patient has a history of gastroschisis repaired as an . Patient has 5 cardiac stents the last 3 were placed 10/10/2023, permission from cardiology will have to be obtained to hold Brilinta. I discussed procedural and anesthesia risk given patient's comorbidities, patient verbalized understanding. Patient is currently taking omeprazole 40 mg p.o. twice daily he is not having any acid reflux on this medication he is agreeable to trialing pantoprazole 40 mg p.o. twice daily due to his anticoagulation usage he has no known family history of colon or stomach cancer. He states that his great uncle had esophageal cancer. Patient had COVID-19 in 2019 and he states that he has had multiple health issues since then that he has long-term COVID EGD 04/22/2024: Resistance found at the upper esophageal sphincter. Distal esophageal acid peptic stricture. 20 mm TTS balloon dilation. Mild nonerosive gastritis. Normal exam to the duodenum. Pathology: GE junction biopsy negative for intestinal metaplasia. Stomach biopsy negative for H. pylori. Duodenal biopsy revealed focal reactive changes, mildly increased intraepithelial lymphocytes. Colonoscopy 04/22/2024: Small internal hemorrhoids. 5 mm sessile transverse colon polyp removed completely. 5 mm sessile right colon polyp removed completely. Unfortunately the polyp was lost during the extraction process. Due to excessive resistance, exam of the cecum could not be performed. Otherwise normal exam to the right colon. Pathology: Transverse polypectomy revealed tubular adenoma. Random colon biopsy unremarkable. CT abdomen pelvis 05/01/2024: Hepatic steatosis. No bowel obstruction. Normal appendix. No free fluid or free air. There is an abdominal wall hernia to the left of midline containing loops of colon and small bowel. No findings to indicate incarceration/infl ammatory process. Impression: 1. Periumbilical abdominal pain 2. Dysphagia --s/p esophageal dilation 04/22/24 3. GERD --Protonix 40mg BID 4. Abdominal bloating 5. Chronic diarrhea vs constipation 6. History of Gastroschisis 7. History of peptic ulcers 8. Family history of Esophageal cancer in great uncle 9. Cardiac stents x 5, the last 3 were placed 09/2023 --Pt takes brilinta 10. 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 Follow up General surgery referral for abdominal wall hernia, pt being sent to [facility] states 2. Continue omeprazole 40mg BID 3. Continue Metamucil capsules and Add Miralax 1-2 cap fulls PO BID 4. Low FODMAP diet 5. Vitamin B6 and morgan, Zofran 4mg PO BID prn for nausea 6. Anti-reflux precautions 7. Repeat colonoscopy in 2 years due to loss of polyp during extraction and incomplete exam of the cecum (March 2026) 8. Carafate 10mls PO QID prn for LUQ pain 9. Follow up in 3 months [email or web address] Not available 10/20/2024 12:48:15 Plan of Treatment Reminders Order Date Submit Date Provider Last Modified By Organization Details Last Modified Time Details Appointments None recorded. Lab None recorded. Referral general surgeon referral - Pt is unavailable until June 03, best on Saturday or 2023 024 [place] [id number] David Modi MD, [address], [address], [place], [address], 09:35:51 Procedures None recorded. Surgeries None recorded. Imaging None recorded. Medication Orders ondansetron HCl 4 mg tablet 2023 024 [facility] [place], [place], [address], [place], [address], 10:16:30 sucralfate 100 mg/mL oral suspension 2023 [facility] [place], [place], [address] [place], [address], 4 10:32:37 Miralax 17 gram/dose oral powder 2023 024 [facility] [place], [place], [address], [place], [address], 10:38:12 Patient TargetsNo targets recorded. Patient Instructions Encounter Date Encounter Id Patient Instructions Last Modified By Organization Details Last Modified Time 07/22/2024 [id number] abdominal pain: care instructions [email or web address] Not available 07/22/2024 10:47:28 08/18/2024 [id number] Shadi Pace, acting as scribe, for Dr. Salvador Espinal, to document his verbalization of the History of Present Illness and Assessment and Plan. Shadi Hall 08/18/2024 11:51 a.m. I, Dr. Salvador Espinal, hereby attest that I personally reviewed the documentation in the History of Present Illness, Physical Exam, and Assessment and Plan and agree the documentation accurately represents these services and the decisions I made. I also reviewed the documented the Past, Family, and Social History and made changes and/or additions as needed. Dr. Salvador Espinal MD. [email or web address] Not available 08/18/2024 12:51:22 10/20/2024 [id number] irritable bowel syndrome: care instructions [email or web address] Not available 10/20/2024 12:06:03 nausea and vomiting: care instructions [email or web address] Not available 10/20/2024 11:29:33 Reason for Referral General Surgeon Referral for Hernia of anterior abdominal wall Pt is unavailable until June 03, best on Saturday or Referring Physician: Celina Spring, Gastroenterology, Encounter Date: 05/13/2024 Results Created Date Observation Date Name Description Value Unit Range Abnormal Flag Note LastModifiedBy Organization Detail LastModifiedTime 05/13/20 24 05/01/2024 CT, abdom en + pelvi s, w/ contr ast [place] [facility] [place] t: WAYNE JALLOH 8 : [birth year] 80 Sex: Male Locati on: [facility] CT Orderi ng Physic mikie: 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 Multip lanar reform ats were perfor med. HISTOR Y: Struct ure of colon. COMPAR RAMA: 2019 FINDIN GS: Imaged lower thorax : 4.6 mm subple ural nodule on the left. Two point millim eter subple ural micron odule on the right. Appear to be presen t on older CT of 2019. Scatte red ground -glass densit y change s within both lungs. Liver: Hepati c steato sis Gallbl adder/ Bile Ducts: No biliar y dilati on. Gallbl adder is decomp ressed . No inflam matory change eviden t. Spleen : Unrema rkable . Pancre as: Normal . Adrena ls: No discre te lesion s. Kidney s/Uret ers: Small cortic al lesion on the right is statis ticall y likely a cyst. Too small to active ly charac terize . No stones or obstru ction in either kidney . Bowel/ mesent candido/pe ritone um: No bowel obstru ction. Normal append ix. No free fluid or free air. There is an abdomi nal wall hernia to the left of midlin e contai lenard loops of colon and small bowel. No findin gs to indica te incarc eratio n / inflam matory proces s. Oral contra st materi al jean ses the loops of bowel within the hernia .. Retrop eriton eum/ve ssels: No aortic aneury sm. No adenop athy. Pelvis : Normal bladde r wall contou r.Mild ly promin ent vessel s in the left pelvis indete rminat e signif icance .. 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 . Degene rative change s sacroi liac joints .No acute fractu re. Comput ed Tomogr aphy Report IMPRES CLAU: 1. Abdomi nal wall hernia near the level of the umbili cus contai lenard loops of bowel. No defini tive eviden ce of incarc eratio n and no eviden ce of obstru ction. 2. Pulmon evaristo nodule s. Probab ly presen t on prior exam althou gh infilt rates on previo us study partia lly obscur e the area in questi on. Sugges t 1-year screen ing follow up examin ation. 3. Hepati c steato sis. All CT scans are perfor med using dose optimi zation techni ques as approp riate to the perfor med exam and includ es at least one of the follow ing: Automa louis exposu re contro l, adjust ment of the mA and/or kV accord ing to size, and the use of iterat alex recons tructi on techni que. All CT scans are perfor med using dose optimi zation techni ques as approp riate to the perfor med exam and includ e at least one of the follow ing: Automa louis exposu re contro l, adjust ment of the mA and/or kV accord ing to size, and the use of iterat alex recons tructi on techni que. Final Signed by: GHASSAN RUIZ MD Signed (Elect luma Josseline godinez): 2023 08:12 am CDT [facility] (Radiology) [address], [place], [address], 06/01/2024 09:01:44 05/13/20 24 05/01/2024 CT, abdom en + pelvi s, w/ contr ast No observ ation record ed. [facility] [address], [place], [address], 05/18/2024 09:14:56 Result Notes Documentation Provider Name and Address Organization Details Recorded Time Ct, Abdomen + Pelvis, W/ Contrast : [facility] Patient: BERTHA JIANG : 1975 Sex: Male Location: [facility] CT Ordering Physician: GAGE ARCE NP Computed Tomography Accession Exam Date/Time [id number] 05/01/2024 15:10 CDT Reason for Exam Stricture of colon Report EXAM: CT OF THE ABDOMEN AND PELVIS WITH CONTRAST TECHNIQUE: CT of the abdomen and pelvis was performed with contrast. Multiplanar reformats were performed. HISTORY: Structure of colon. COMPARISON: 08/29/2020 FINDINGS: Imaged lower thorax: 4.6 mm subpleural nodule on the left. Two point millimeter subpleural micronodule on the right. Appear to be present on older CT of 2019. Scattered ground-glass density changes within both lungs. Liver: Hepatic steatosis Gallbladder/Bile Ducts: No biliary dilation. Gallbladder is decompressed. No inflammatory change evident. Spleen: Unremarkable. Pancreas: Normal. Adrenals: No discrete lesions. Kidneys/Ureters: Small cortical lesion on the right is statistically likely a cyst. Too small to actively characterize. No stones or obstruction in either kidney. Bowel/mesentery/peritoneum : No bowel obstruction. Normal appendix. No free fluid or free air. There is an abdominal wall hernia to the left of midline containing loops of colon and small bowel. No findings to indicate incarceration / inflammatory process. Oral contrast material traverses the loops of bowel within the hernia.. Retroperitoneum/vessels: No aortic aneurysm. No adenopathy. Pelvis: Normal bladder wall contour.Mildly prominent vessels in the left pelvis indeterminate significance.. Bones: Degenerative disc disease thoracic spine.. Degenerative changes sacroiliac joints.No acute fracture. Computed Tomography Report IMPRESSION: 1. Abdominal wall hernia near the level of the umbilicus containing loops of bowel. No definitive evidence of incarceration and no evidence of obstruction. 2. Pulmonary nodules. Probably present on prior exam although infiltrates on previous study partially obscure the area in question. Suggest 1-year screening follow up examination. 3. Hepatic steatosis. All CT scans are performed using dose optimization techniques as appropriate to the performed exam and includes at least one of the following: Automated exposure control, adjustment of the mA and/or kV according to size, and the use of iterative reconstruction technique. All CT scans are performed using dose optimization techniques as appropriate to the performed exam and include at least one of the following: Automated exposure control, adjustment of the mA and/or kV according to size, and the use of iterative reconstruction technique. Final Signed by: GHASSAN RUIZ MD Signed (Electronic Signature): 05/13/2024 08:12 am CDT SANDRITA Cuellar, [place] - [facility] [place] 06/01/2024 09:01:44 Problems Name Problem SNOMED Code Status Onset Date Resolution Date Notes Provider Name and Address Organization Details Recorded Time Coronary arterioscleros is 97838191 Active Agatha Badillo SANDRITA null, [place] - [facility] [place] 4 12:41:53 Long-term current use of insulin 377206998 Active Sierra Nathan RN null, [address] 4 14:00:57 Diabetes mellitus 21161856 Active Sierra Nathan RN null, [address] 4 14:00:57 Ex-smoker 2457018 Active Sierra Nathan RN null, [address] 4 14:00:57 Gastroesophage al reflux disease without esophagitis 790038146 Active 2023 GAGE ARCE NP [address], [place], [address], [facility] - [facility] [place] 4 12:19:10 Morbid obesity 676197010 Active 2023 GAGE ARCE NP [address], [place], [address], [facility] - [facility] [place] 4 13:03:40 Chronic idiopathic constipation 35805668 Active 2023 GAGE ARCE NP [address], [place], [address], [facility] - [facility] [place] 4 10:57:45 Abdominal pain 25222357 Active 2023 GAGE ARCE NP [address], [place], [address], [place] [facility] [place] 4 10:46:56 Nausea and vomiting 22124504 Active 2023 GAGE ARCE NP [address], [place], [address], [place] [facility] [place] 4 11:28:44 Problem Notes None recorded. Procedures Surgical History Date Name Laterality Status Provider Name and Address Organization Details Recorded Time 05/28 /2024 esophagogastroduodenoscopy completed Felic ia Lambert, RN [address] 4 14:00:28 04/21 colonoscopy completed Sierra Nathan RN [address] 4 14:00:37 10/31 Flexible Fiberoptic Nasopharyngolaryngoscopy completed Barbara Cadena [address] 3 14:28:47 10/10 CARDIAC CATHETERIZATION (SURG) completed Agatha Badillo LPN [address] 3 15:12:32 10/26 Nasal Endoscopy completed Li White [address] 2 11:07:13 Imaging Results None recorded. Procedure Notes None recorded. Medical Equipment None Reported. Allergies Allergen ID Allergen Name Allergen Category Reaction Reaction Severity Criticality Documentation Date Start Date Code Code System Note Provider Name and Address Organization Details Recorded Time [id number] Dilaudid medicatio n vomiting severe Not available 10/26/2022 39371 3 RxNorm Joanna Bradley LPN [facility] [address] 2 10:37:36 [id number] Nubain medicatio n anaphylax is severe Not available 10/26/2022 7550 RxNorm SANDRITA Navas[address] 2 10:37:58 Medications Name Sig Start Date Stop Date Status Note LastModified by Organization Details LastModified Time atorvasta tin 40 mg tablet TAKE 1 TABLET BY MOUTH DAILY active Not Available Not Available No t Available bupropion HCl SR 150 mg tablet,12 hr sustained -release TAKE 1 TABLET BY MOUTH ONCE DAILY FOR 30 DAYS 10/26 completed Not Available Not Available Not Available promethaz ine-DM 6.25 mg-15 mg/5 mL oral syrup TAKE 5 TO 10 ML BY MOUTH EVERY 6 HOURS 08/18 completed Not Available Not Available Not Available clonidine HCl 0.1 mg tablet TAKE 1 TABLET BY MOUTH TWICE DAILY NEEDED FOR ANXIETY 09/26 completed Not Available Not Available Not Available gabapenti n 600 mg tablet TAKE 1 TABLET BY MOUTH TWICE DAILY 08/18 completed Not Available Not Available Not Available doxycycli ne hyclate 100 mg capsule TAKE 1 CAPSULE BY MOUTH TWICE DAILY FOR 7 DAYS 10/26 completed Not Available Not Available Not Available albuterol sulfate 2.5 mg/3 mL (0.083 %) solution for nebulizat ion USE ONE VIAL IN NEBULIZE R 4 TIMES DAILY NEEDED FOR SHORTNES S OF BREATH OR WHEEZING 09/26 completed Not Available Not Available Not Available cetirizin e 10 mg tablet TAKE 1 TABLET BY MOUTH daily FOR 90 DAYS active Not Available Not Available No t Available azithromy seth 250 mg tablet TAKE 2 TABLETS BY MOUTH TODAY, THEN TAKE 1 TABLET BY MOUTH DAILY FOR 4 MORE DAYS active Not Available Not Available No t Available Novolin N NPH U-100 Insulin isophane 100 unit/mL subcutane ous susp INJECT 40 UNITS SUB-Q ONCE A NIGHT AT BEDTIME 10/26 completed Not Available Not Available Not Available benzonata te 200 mg capsule TAKE 1 CAPSULE BY MOUTH 3 TIMES DAILY NEEDED FOR COUGH FOR 7 DAYS 09/26 completed Not Available Not Available Not Available levetirac etam 500 mg tablet TAKE 1 TABLET BY MOUTH TWICE DAILY FOR 30 DAYS 09/26 completed Not Available Not Available Not Available promethaz ine 6.25 mg/5 mL oral syrup TAKE 5 TO 10 ML BY MOUTH every 6 HOURS Needed FOR ALLERGY symptoms FOR 10 DAYS] 02/17 completed Not Available Not Available Not Available sucralfat e 100 mg/mL oral suspensio n TAKE 10 ML BY MOUTH 4 TIMES A DAY needed FOR 30 DAYS. 2024 active Not Available Not Available Not Avai lable lisinopri l 20 mg tablet TAKE 1 TABLET BY MOUTH EVERY DAY 03/18 completed Not Available Not Available Not Available ondansetr on HCl 4 mg tablet Take 1 tablet 3 times a day by oral route as needed. 2023 active Not Available Not Available Not Avai lable prednison e 20 mg tablet TAKE 2 TABLETS BY MOUTH EVERY MORNING FOR 5 DAYS 07/01 completed Not Available Not Available Not Available clonazepa m 0.5 mg tablet TAKE 1/2 (ONE-KATIE F) TABLET BY MOUTH TWICE DAILY FOR 30 DAYS 09/26 completed Not Available Not Available Not Available sertralin e 100 mg tablet TABLET 1 & 1/2 TABLETS BY MOUTH DAILY active Not Available Not Available No t Available potassium chloride ER 10 mEq tablet,ex tended release TAKE 1 TABLET BY MOUTH EVERY DAY 05/13 completed Not Available Not Available Not Available chlorthal idone 25 mg tablet 30 EA, TAKE 1 TABLET BY MOUTH EVERY DAY, Refill(s ) 0 08/18 completed Not Available Not Available Not Available ciproflox acin 250 mg tablet TAKE 1 TABLET BY MOUTH TWICE DAILY FOR 7 DAYS active Not Available Not Available No t Available omeprazol e 40 mg capsule,d elayed release TAKE 1 CAPSULE BY MOUTH TWICE DAILY active Not Available Not Available No t Available aspirin 81 mg tablet,de layed release TAKE 1 TABLET BY MOUTH DAILY active Not Available Not Available No t Available spironola ctone 25 mg tablet TAKE 1/2 TABLET BY MOUTH EVERY DAY FOR 30 DAYS active Not Available Not Available No t Available simvastat in 40 mg tablet TAKE 1 TABLET BY MOUTH ONCE EVERY NIGHT AT BEDTIME 02/17 completed Not Available Not Available Not Available acyclovir 800 mg tablet TAKE 1 TABLET BY MOUTH 5 TIMES DAILY FOR 7 DAYS 09/26 completed Not Available Not Available Not Available clonidine HCl 0.2 mg tablet TAKE 1 TABLET BY MOUTH TWICE DAILY NEEDED FOR hyperten clau SBP > 170 active Not Available Not Available No t Available amoxicill in 875 mg tablet TAKE 1 TABLET BY MOUTH TWICE DAILY FOR 10 DAYS 10/20 completed Not Available Not Available Not Available Novolin R Regular U-100 Insulin 100 unit/mL injection solution INJECT sub-q PER SLIDING SCALE WITH MEALS. MAX DOSE IS 45 UNITS DAILY 10/31 completed Not Available Not Available Not Available amitripty line 10 mg tablet TAKE 1 TABLET BY MOUTH ONCE EVERY NIGHT AT BEDTIME 10/20 completed Not Available Not Available Not Available benzonata te 100 mg capsule TAKE 1 CAPSULE BY MOUTH every 6 HOURS Needed FOR cough FOR 15 DAYS active Not Available Not Available No t Available insulin aspart U-100 100 unit/mL subcutane ous solution FOR INSULIN PUMP subcutan eously 3 TIMES DAILY; MAX DAILY DOSE 80 UNITS active Not Available Not Available No t Available pantopraz ole 40 mg tablet,de layed release TAKE 1 TABLET BY MOUTH TWICE DAILY 08/18 completed Not Available Not Available Not Available oseltamiv ir 75 mg capsule TAKE 1 CAPSULE BY MOUTH TWICE DAILY FOR 5 DAYS 02/17 completed Not Available Not Available Not Available dexametha sone 4 mg tablet TAKE 1 TABLET BY MOUTH EVERY DAY FOR 7 DAYS 10/26 completed Not Available Not Available Not Available clotrimaz ole-betam ethasone 1 %-0.05 % topical cream APPLY TO THE AFFECTED AREA TWICE DAILY FOR 2 WEEKS 08/18 completed Not Available Not Available Not Available lisinopri l 10 mg tablet TAKE 1 TABLET BY MOUTH ONCE DAILY 10/26 completed Not Available Not Available Not Available metoprolo l tartrate 50 mg tablet TAKE 1 TABLET BY MOUTH TWICE DAILY active Not Available Not Available No t Available nitroglyc miguel 0.4 mg sublingua l tablet DISSOLVE 1 TABLET UNDER TONGUE EVERY 5 MINUTES NEEDED FOR CHEST PAIN. MAY TAKE UP TO 3 DOSES PER EPISODE; IF NO RELIEF AFTER 3RD DOSE, CALL 911 OR SEEK EMERGENC Y CARE active Not Available Not Available No t Available docusate sodium 100 mg capsule 60 EA, TAKE 1 CAPSULE BY MOUTH TWICE DAILY, Refill(s ) 0 08/18 completed per pt 1 in morning, 2 bedtime Not Available Not Available Not Available gabapenti n 300 mg capsule TAKE 2 CAPSULES BY MOUTH TWICE DAILY 10/26 completed Not Available Not Available Not Available sertralin e 25 mg tablet TAKE 1 TABLET BY MOUTH DAILY FOR 30 DAYS 08/18 completed Not Available Not Available Not Available mupirocin 2 % topical ointment APPLY TO THE AFFECTED AREA TOPICALL Y 3 TIMES DAILY 02/17 completed Not Available Not Available Not Available zolpidem 5 mg tablet TAKE 1 TABLET BY MOUTH ONCE EVERY NIGHT AT BEDTIME FOR 30 DAYS 09/26 completed Not Available Not Available Not Available furosemid e 20 mg tablet TAKE 2 TABLETS BY MOUTH EVERY DAY 09/26 completed Not Available Not Available Not Available Wellbutri n 100 mg tablet Take 1 tablet every day by oral route. 04/16 completed Not Available Not Available Not Available polyethyl lizbeth glycol 3350 17 gram/dose oral powder MIX 17 GRAMS (1 CAPFUL) WITH 8 OUNCES OF LIQUID AND DRINK CONTENTS DAILY NEEDED 2023 active Not Available Not Available Not Avai lable levofloxa seth 750 mg tablet TAKE 1 TABLET BY MOUTH EVERY DAY FOR 5 DAYS 09/26 completed Not Available Not Available Not Available paroxetin e 40 mg tablet TAKE 1/2 (ONE-KATIE F) TABLET BY MOUTH ONCE DAILY FOR 7 DAYS THEN 1/2 (ONE-KATIE F) EVERY OTHER DAY FOR 1 WEEK THEN STOP. 10/26 completed Not Available Not Available Not Available lisinopri l 40 mg tablet TAKE 1 TABLET BY MOUTH EVERY DAY 09/26 completed Not Available Not Available Not Available fluticaso ne propionat e 50 mcg/actua tion nasal spray,abigail pension USE 1 SPRAY intranas ally daily Needed FOR ALLERGY symptoms ; administ er into EACH nostril active Not Available Not Available No t Available metformin ER 500 mg tablet,ex tended release 24 hr TAKE 2 TABLETS BY MOUTH TWICE DAILY active Not Available Not Available No t Available sertralin e 50 mg tablet TAKE 1 TABLET BY MOUTH DAILY 08/18 completed Not Available Not Available Not Available doxycycli ne hyclate 100 mg tablet TAKE 1 TABLET BY MOUTH TWICE DAILY FOR 10 DAYS 02/17 completed Not Available Not Available Not Available Ventolin HFA 90 mcg/actua tion aerosol inhaler USE 1 INHALATI ON BY MOUTH four TIMES daily Needed FOR shortnes s OF breath OR wheezing 08/18 completed Not Available Not Available Not Available insulin aspart (U-100) 100 unit/mL (3 mL) subcutane ous pen inject 20 UNITS subcutan eously 3 TIMES DAILY WITH meals PER sliding scale; MAX DAILY DOSE 80 UNITS 10/20 completed Not Available Not Available Not Available potassium chloride ER 10 mEq tablet,ex tended release(p art/cryst ) TAKE 1 TABLET BY MOUTH EVERY DAY 02/17 completed Not Available Not Available Not Available bupropion HCl XL 300 mg 24 hr tablet, extended release TAKE 1 TABLET BY MOUTH ONCE DAILY IN THE MORNING FOR 30 DAYS 10/26 completed Not Available Not Available Not Available bupropion HCl XL 150 mg 24 hr tablet, extended release TAKE 1 TABLET BY MOUTH EVERY MORNING 08/18 completed Not Available Not Available Not Available metoprolo l tartrate 25 mg tablet Take 1 tablet twice a day by oral route. 10/20 completed Not Available Not Available Not Available duloxetin e 20 mg capsule,d elayed release TAKE 2 CAPSULES BY MOUTH ONCE DAILY FOR 90 DAYS START ONCE PAROXETI NE TAPER HAS COMPLETE D 09/26 completed Not Available Not Available Not Available duloxetin e 30 mg capsule,d elayed release TAKE 1 CAPSULE BY MOUTH EVERY DAY FOR 15 DAYS, THEN TAKE 1 CAPSULE BY MOUTH EVERY OTHER DAY; THEN STOP 02/17 completed Not Available Not Available Not Available duloxetin e 60 mg capsule,d elayed release TAKE 1 CAPSULE BY MOUTH EVERY DAY 09/26 completed Not Available Not Available Not Available pregabali n 50 mg capsule TAKE 1 CAPSULE BY MOUTH EVERY MORNING AND TAKE 1 CAPSULE BY MOUTH EVERY EVENING active Not Available Not Available No t Available aspirin 81mg PO daily 05/13 completed Not Available Not Available Not Available fenofibra te nanocryst allized 145 mg tablet TAKE 1 TABLET BY MOUTH EVERY DAY FOR 30 DAYS 09/26 completed Not Available Not Available Not Available cholecalc iferol (vitamin D3) 1,250 mcg (50,000 unit) capsule TAKE 1 CAPSULE BY MOUTH ONCE A WEEK FOR ONE MONTH, THEN STOP, GO BACK TO LOW DOSE 09/26 completed Not Available Not Available Not Available Lantus Solostar U-100 Insulin 100 unit/mL (3 mL) subcutane ous pen inject 10 UNITS subcutan eously ONCE daily active Not Available Not Available No t Available levocetir izine 5 mg tablet 30 EA, TAKE ONE TABLET BY MOUTH DAILY NEEDED FOR ALLERGY SYMPTOMS FOR 30 DAYS, Refill(s ) 0 05/13 completed Not Available Not Available Not Available butalbita l-acetami nophen-ca ffeine 50 mg-300 mg-40 mg capsule TAKE 1 CAPSULE BY MOUTH EVERY 4 HOURS NEEDED FOR HEADACHE 10/20 completed Not Available Not Available Not Available sodium,po tassium,m ag sulfates 17.5 gram-3.13 gram-1.6 gram oral soln MIX PER DIRECTIO NS ON PACKAGE AND DRINK 177 ML TWICE A DAY by oral route directed FOR 1 DAY 05/13 completed Not Available Not Available Not Available Brilinta 90 mg tablet TAKE 1 TABLET BY MOUTH TWICE DAILY active Not Available Not Available No t Available Comfort EZ Pen [place] 31 gauge x 3/16 USE WITH VICTOZA 10/20 completed Not Available Not Available Not Available Comfort EZ Insulin Syringe 0.5 mL 31 gauge x 5/16 USE DIRECTED UP TO 4 TIMES DAILY WITH INSULIN 10/20 completed Not Available Not Available Not Available Comfort EZ Pen [place] 32 gauge x USE WITH VICTOZA 10/20 completed Not Available Not Available Not Available multivit 37-iron 27 mg-Lmfola te 1.13 mg-algalo il,soy 581.92 mg capsule Take by oral route. active Not Available Not Available No t Available Victoza 3-Garrett 0.6 mg/0.1 mL (18 mg/3 mL) subcutane ous pen injector INJECT 1.8 MG SUB-Q DAILY 03/18 completed Not Available Not Available Not Available Jardiance 10 mg tablet TAKE 1 TABLET BY MOUTH EVERY DAY FOR 30 DAYS active Not Available Not Available No t Available Dexcom G6 Transmitt er device USE TO monitor blood sugar. CHANGE EVERY 90 DAYS active Not Available Not Available No t Available Dexcom G7 Analytical Clerk USE DIRECTED TO CHECK BLOOD SUGAR active Not Available Not Available No t Available Dexcom G7 Sensor device USE TO CHECK BLOOD SUGAR (CHANGE every 10 DAYS) active Not Available Not Available No t Available Omnipod 5 G6-G7 Intro Kit(Gen 5) subcutane ous cartridge and controlle r DIRECTED active Not Available Not Available No t Available Omnipod 5 G6-G7 Pods (Gen 5) subcutane ous cartridge USE DIRECTED active Not Available Not Available No t Available Vitals Date Recorded Body height Body mass index (BMI) Body weight Oxygen saturation Heart rate Systolic And Diastolic Provider Name and Address Organization Details Last Updated DateTime 4 177.8 cm 42.1 kg/m2 079217. 08 g 98 % 78 /min 150/98 mm[Hg] Sierra Nathan RN [place] - [facility] [place] 4 14:05:04 Date Recorded Body height Body mass index (BMI) Body weight Oxygen saturation Heart rate Respiratory rate Pain severity - 0-10 verbal numeric rating [Score] - Reported Systolic And Diastolic Provider Name and Address Organization Details Last Updated DateTime 4 177.8 cm 42.6 kg/m2 998825. 65 g 96 % 69 /min 18 /min 0 134/80 mm[Hg] Malvin Tom LPN [address] 4 10:46:45 Date Recorded Body height Body mass index (BMI) Body weight Oxygen saturation Heart rate Respiratory rate Pain severity - 0-10 verbal numeric rating [Score] - Reported Systolic And Diastolic Provider Name and Address Organization Details Last Updated DateTime 4 177.8 cm 42.7 kg/m2 278058. 37 g 96 % 80 /min 17 /min 0 155/96 mm[Hg] Malvin Tom LPN [address] 4 10:31:14 Date Recorded Body height Oxygen saturation Heart rate Body mass index (BMI) Body weight Systolic And Diastolic Provider Name and Address Organization Details Last Updated DateTime 4 177.8 cm 95 % 79 /min 43 kg/m2 682292. 71 g 144/82 mm[Hg] Hannah Orellana RN [address] 4 12:23:51 Date Recorded Body height Body mass index (BMI) Body weight Oxygen saturation Heart rate Respiratory rate Pain severity - 0-10 verbal numeric rating [Score] - Reported Systolic And Diastolic Provider Name and Address Organization Details Last Updated DateTime 4 177.8 cm 42.2 kg/m2 259192. 59 g 97 % 74 /min 18 /min 3 134/84 mm[Hg] Malvin Tom LPN [address] 4 11:22:14 Social History Question Answer Notes LastModified by [employer] Details LastModified Time Tobacco Smoking Status Former Smoker Thea Lund LPN [address] 10/31/2023 15:56:46 When Did You Quit Smoking? 16+yearssinc elastcigaret te Information not available 10/20/2024 What Was The Date Of Your Most Recent Tobacco Screening? 10/20/2024 Information not available 10/20/2024 Has Tobacco Cessation Counseling Been Provided? Yes Information not available 04/16/2024 On What Date Was Tobacco Cessation Counseling Provided? 10/20/2024 Information not available 10/20/2024 Sex: Unknown Functional Status Question Answer Note LastModified by [employer] Details LastModified Time How many times per week do you consume alcohol? Less than 1 time per week Information not available 04/16/2024 Do you use any illicit or recreational drugs? No Information not available 10/31/2023 Do you or have you ever used any other forms of tobacco or nicotine? Yes Information not available 07/01/2024 What is your level of alcohol consumption? Occasional Information not available 04/16/2024 Do you or have you ever used smokeless tobacco? Former smokeless tobacco user Information not available 10/31/2023 Are you able to care for yourself independently? Yes Information not available 10/31/2023 Mental Status None recorded. Family History Relationship Description Onset Age of this Age Resolved Age Notes LastModified by Organization Details LastModified Time Maternal Grandfather History of malignant neoplasm of esophagus [email or web address] Not available 2023 12:08:46 Paternal Grandmother Metastatic malignant neoplasm to pancreas [email or web address] Not available 2023 12:09:34 Medical History No medical history recorded. Immunizations Vaccine Type Date Status Note Provider Nam e and Address Organization Details Recorded Time Influenza, split virus, quadrivalent, PF 10/03/2022 completed Sierra Nathan RN [address] 05/13/2024 14:00:57 Past Encounters Encounter ID Performer Location Encounter Start Date Encounter Closed Date Diagnosis/Indication Diagnosis SNOMED-CT Code Diagnosis ICD10 Code Diagnosis IMO Codes Diagnosis Note [id number] BISHOP PATHAK MD [facility] [address] [place] [address] 10/26/2022 10:04:35 10/26/2022 11:05:20 Bleeding from nose 832553870 R04.0 [id number] SALVADOR ESPINAL MD [facility] [address] [place] [address] 09/26/2023 15:09:31 09/26/2023 16:31:35 Chest pain 59563864 R07.9 Dyspnea 738623487 R06.00 Unstable a ngina co-occurrent and due to coronary arteriosclerosis 1887936606 7848915 I25.110 s/p PCI. [id number] BISHOP PATHAK MD [facility] [address] [place] [address] 10/31/2023 13:57:32 10/31/2023 15:21:55 Bleeding from nose 987676415 R04.0 Dysphagia 26376684 R13.1 0 Chronic cough 85838459 R 05.3 Gastroesop hageal reflux disease without esophagitis 525195767 K21.9 Allergic rhinitis 924089 04 J30.9 [id number] SALVADOR ESPINAL MD [facility] [address] [place] [address] 10/31/2023 14:54:50 10/31/2023 16:48:06 Dyspnea 451302119 R06.00 stable Unstable a ngina co-occurrent and due to coronary arteriosclerosis 3135349199 2102288 I25.110 s/p PCI. Bleeding from nose [address]307 6005 R04.0 [id number] BISHOP PATHAK MD [facility] [address] [place] [address] 02/14/2024 09:25:01 02/14/2024 10:02:53 Bleeding from nose 624019505 R04.0 Dysphagia 96209905 R13.1 0 Chronic cough 44639556 R 05.3 Gastroesop hageal reflux disease without esophagitis 753335120 K21.9 Allergic rhinitis 801767 04 J30.9 [id number] SALVADOR ESPINAL MD [facility] [address] [place] [address] 02/18/2024 11:16:01 02/18/2024 12:37:34 Unstable angina co-occurrent and due to coronary arteriosclerosis 7139549906 7031277 I25.110 s/p PCI.Contin ue aspirin 81mg daily.Cont inue atorvastat in 40mg at bedtime.Co ntinue brilinta 90mg twice daily. Essential hypertension 82513709 I10 Continue lisinopril 20mg daily.Cont inue metoprolol tartrate 25mg twice daily.Cont inue spironolac tone 12.5mg daily. [id number] Neftali Montalvo MD [facility] [address] [place] [address] 03/18/2024 11:46:40 03/18/2024 14:14:54 Gastroesophageal reflux disease without esophagitis 997858984 K21.9 Dysphagia 50313360 R13.1 0 Screening colonoscopy 44 8855713 Z12.11 Morbid obesity 119995238 E66.01 [id number] Neftali Montalvo MD [facility] [address] [place] [address] 04/16/2024 11:01:46 04/16/2024 11:29:10 Screening colonoscopy 283723851 Z12.11 Dysphagia 81225170 R13.1 0 Gastroesop hageal reflux disease without esophagitis 259253446 K21.9 Altered rene wel function 36493873 R19.4 [id number] Neftali Montalvo MD [facility] [address] [place] [address] 05/13/2024 13:42:32 05/13/2024 15:05:56 Hernia of anterior abdominal wall 449161909 K43.9 [id number] Neftali Montalvo MD [facility] [address] [place] [address] 07/01/2024 10:41:43 07/01/2024 11:01:38 Chronic idiopathic constipation 02824187 K59.04 [id number] Neftali Montalvo MD [facility] [address] [place] [address] 07/22/2024 10:09:49 07/22/2024 10:57:26 Abdominal pain 50150376 R10.9 [id number] SALVADOR ESPINAL MD [facility] [address] [place] [address] 08/18/2024 11:08:24 08/18/2024 16:07:18 Unstable angina co-occurrent and due to coronary arteriosclerosis 6732330478 1166996 I25.110 s/p PCI.Contin ue atorvastat in 40mg at bedtime.Co ntinue brilinta 90mg twice daily. Essential hypertension 45570826 I10 Continue metoprolol tartrate 25mg twice daily.Cont inue spironolac tone 12.5mg daily. [id number] Neftali Montalvo MD [facility] [address] [facility] [address] 10/20/2024 11:12:56 10/20/2024 11:39:31 Nausea and vomiting [id number] R11.2 Gastroesop hageal reflux disease without esophagitis [id number] K21.9 Irritable bowel syndrome [id number] K58.9 Health Concerns Section Related Observation LastModified by Organization Detai ls LastModified Time None Recorded Concern Status LastModified by Organization Details LastModified Time None Recorded Advance Directives Directive None Recorded Payers Insurance Date Sequence Insurance Name Policy Number Policy Andrade Covered Member ID Andrade Member ID Guarantor Name 10/31/2023 SLIDING FEE SCHEDULE - DISCOUNT Bertha Jiang 02/16/2025 1 [facility] (MEDICAID HMO) Bertha Jiang [id number] Bertha Jiang Notes Date Note Type Note Provider Name and Address Organization Details Recorded Time 05/13/2024 text/html 48-year-old male presents to clinic to for follow up to discuss EGD and colonoscopy results. He was originally seen for consultation regarding dysphagia GERD and abdominal bloating. Patient reports less choking episodes since esophageal dilation. He reports sour stomach since starting Protonix 40mg BID. He states he did not have these symptoms when he was taking omeprazole 40mg BID. Patient is taking metamucil capsules daily and occasional stool softeners. He states his bowel movements range from once daily to one BM every few days. He states he does not always eat healthy foods. Patient has had an esophagram and modified barium swallow done per ENT. Patient was noted to have a delayed swallowing response, I explained to him that it was unlikely that a esophageal dilation would help manage this issue and he verbalizes understanding. He states that over the past 2 months that his swallowing has gotten much worse and he feels like things are getting stuck in his esophagus. The esophagram that was done in November 16 did not note a stricture however this was performed 4 months ago. Patient had an EGD done in the and was found to have a bleeding ulcer he also had a colonoscopy done at that time and he states that it was normal. Patient has chronic diarrhea versus constipation patient has a history of gastroschisis repaired as an . Patient has 5 cardiac stents the last 3 were placed 10/10/2023, permission from cardiology will have to be obtained to hold Brilinta. I discussed procedural and anesthesia risk given patient's comorbidities, patient verbalized understanding. Patient is currently taking omeprazole 40 mg p.o. twice daily he is not having any acid reflux on this medication he is agreeable to trialing pantoprazole 40 mg p.o. twice daily due to his anticoagulation usage he has no known family history of colon or stomach cancer. He states that his great uncle had esophageal cancer. Patient had COVID-19 in 2019 and he states that he has had multiple health issues since then that he has long-term COVID EGD 04/22/2024: Resistance found at the upper esophageal sphincter. Distal esophageal acid peptic stricture. 20 mm TTS balloon dilation. Mild nonerosive gastritis. Normal exam to the duodenum.Pathology: GE junction biopsy negative for intestinal metaplasia. Stomach biopsy negative for H. pylori. Duodenal biopsy revealed focal reactive changes, mildly increased intraepithelial lymphocytes.Colonosco py 04/22/2024: Small internal hemorrhoids. 5 mm sessile transverse colon polyp removed completely. 5 mm sessile right colon polyp removed completely. Unfortunately the polyp was lost during the extraction process. Due to excessive resistance, exam of the cecum could not be performed. Otherwise normal exam to the right colon.Pathology: Transverse polypectomy revealed tubular adenoma. Random colon biopsy unremarkable. CT abdomen pelvis 05/01/2024: Hepatic steatosis. No bowel obstruction. Normal appendix. No free fluid or free air. There is an abdominal wall hernia to the left of midline containing loops of colon and small bowel. No findings to indicate incarceration/inflamm atory process. Impression:1. Periumbilical abdominal pain2. Dysphagia--s/p esophageal dilation . GERD--Protonix 40mg BID4. Abdominal bloating5. Chronic diarrhea vs constipation6. History of Gastroschisis7. History of peptic ulcers8. Family history of Esophageal cancer in great uncle9. Cardiac stents x 5, the last 3 were placed 09/2023--Pt takes . Previous EGD and colonoscopy in the [id number]. 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 General surgery referral for abdominal wall hernia2. Continue Protonix 40mg BID, consider switching back to omeprazole 40mg BID3. Continue Metamucil capsules4. Low FODMAP diet5. Vitamin B6 and morgan for nausea6. Anti-reflux precautions7. Repeat colonoscopy in 2 years due to loss of polyp during extraction and incomplete exam of the cecum (March 2026)8. Follow up in 1 month DAE KURTZ [facility], [place], [address], [facility] [place] 05/15/2024 14:52:23 07/01/2024 text/html 48-year-old male presents to clinic to for follow up. He was originally seen for consultation regarding dysphagia GERD and abdominal bloating. He reports sour stomach since starting Protonix 40mg BID, he began omeprazole 40mg PO BID again, I did advice that this could affect Brilinta, absorption however pt has been on these 2 medications together for several years. Patient is taking metamucil capsules daily and occasional stool softeners, he is still experiencing constipation and I advised him to begin taking metamucil 1-2 times daily. He states his bowel movements range from once daily to one BM every few days. He states he does not always eat healthy foods. Patient has had an esophagram and modified barium swallow done per ENT. Patient was noted to have a delayed swallowing response, I explained to him that it was unlikely that a esophageal dilation would help manage this issue and he verbalizes understanding. He states that over the past 2 months that his swallowing has gotten much worse and he feels like things are getting stuck in his esophagus. The esophagram that was done in November 16 did not note a stricture however this was performed 4 months ago. Patient had an EGD done in the and was found to have a bleeding ulcer he also had a colonoscopy done at that time and he states that it was normal. Patient has chronic diarrhea versus constipation patient has a history of gastroschisis repaired as an . Patient has 5 cardiac stents the last 3 were placed 10/10/2023, permission from cardiology will have to be obtained to hold Brilinta. I discussed procedural and anesthesia risk given patient's comorbidities, patient verbalized understanding. Patient is currently taking omeprazole 40 mg p.o. twice daily he is not having any acid reflux on this medication he is agreeable to trialing pantoprazole 40 mg p.o. twice daily due to his anticoagulation usage he has no known family history of colon or stomach cancer. He states that his great uncle had esophageal cancer. Patient had COVID-19 in 2019 and he states that he has had multiple health issues since then that he has long-term COVID EGD 04/22/2024: Resistance found at the upper esophageal sphincter. Distal esophageal acid peptic stricture. 20 mm TTS balloon dilation. Mild nonerosive gastritis. Normal exam to the duodenum.Pathology: GE junction biopsy negative for intestinal metaplasia. Stomach biopsy negative for H. pylori. Duodenal biopsy revealed focal reactive changes, mildly increased intraepithelial lymphocytes.Colonosco py 04/22/2024: Small internal hemorrhoids. 5 mm sessile transverse colon polyp removed completely. 5 mm sessile right colon polyp removed completely. Unfortunately the polyp was lost during the extraction process. Due to excessive resistance, exam of the cecum could not be performed. Otherwise normal exam to the right colon.Pathology: Transverse polypectomy revealed tubular adenoma. Random colon biopsy unremarkable. CT abdomen pelvis 05/01/2024: Hepatic steatosis. No bowel obstruction. Normal appendix. No free fluid or free air. There is an abdominal wall hernia to the left of midline containing loops of colon and small bowel. No findings to indicate incarceration/inflamm atory process. Impression:1. Periumbilical abdominal pain2. Dysphagia--s/p esophageal dilation . GERD--Protonix 40mg BID4. Abdominal bloating5. Chronic diarrhea vs constipation6. History of Gastroschisis7. History of peptic ulcers8. Family history of Esophageal cancer in great uncle9. Cardiac stents x 5, the last 3 were placed 09/2023--Pt takes [id number]. Previous EGD and colonoscopy in the [id number]. 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 Follow up General surgery referral for abdominal wall hernia, pt being sent to [facility] he states2. Continue omeprazole 40mg BID3. Continue Metamucil capsules and Add Miralax 1-2 cap fulls PO BID4. Low FODMAP diet5. Vitamin B6 and morgan for nausea6. Anti-reflux precautions7. Repeat colonoscopy in 2 years due to loss of polyp during extraction and incomplete exam of the cecum (March 2026)8. Follow up in 3 weeks GAGE ARCE NP [address] [facility], [place], [address], [place] [facility] [place] 07/01/2024 12:14:42 07/22/2024 text/html 48-year-old male presents to clinic to for follow up. He was originally seen for consultation regarding dysphagia GERD and abdominal bloating. He reports sour stomach, on occasional which dairy items. he is taking Omeprazole 40mg PO BID. Patient is taking metamucil capsules daily and occasional stool softeners, he is still experiencing constipation and I advised him to begin taking metamucil 1-2 times and Miralax 1 cap full daily. He states his bowel movements range from once daily to one BM every few days. He states he does not always eat healthy foods. Patient has had an esophagram and modified barium swallow done per ENT. Patient was noted to have a delayed swallowing response, I explained to him that it was unlikely that a esophageal dilation would help manage this issue and he verbalizes understanding. He states that over the past 2 months that his swallowing has gotten much worse and he feels like things are getting stuck in his esophagus. The esophagram that was done in November 16 did not note a stricture however this was performed 4 months ago. Patient had an EGD done in the and was found to have a bleeding ulcer he also had a colonoscopy done at that time and he states that it was normal. Patient has chronic diarrhea versus constipation patient has a history of gastroschisis repaired as an . Patient has 5 cardiac stents the last 3 were placed 10/10/2023, permission from cardiology will have to be obtained to hold Brilinta. I discussed procedural and anesthesia risk given patient's comorbidities, patient verbalized understanding. Patient is currently taking omeprazole 40 mg p.o. twice daily he is not having any acid reflux on this medication he is agreeable to trialing pantoprazole 40 mg p.o. twice daily due to his anticoagulation usage he has no known family history of colon or stomach cancer. He states that his great uncle had esophageal cancer. Patient had COVID-19 in 2019 and he states that he has had multiple health issues since then that he has long-term COVID EGD 04/22/2024: Resistance found at the upper esophageal sphincter. Distal esophageal acid peptic stricture. 20 mm TTS balloon dilation. Mild nonerosive gastritis. Normal exam to the duodenum.Pathology: GE junction biopsy negative for intestinal metaplasia. Stomach biopsy negative for H. pylori. Duodenal biopsy revealed focal reactive changes, mildly increased intraepithelial lymphocytes.Colonosco py 04/22/2024: Small internal hemorrhoids. 5 mm sessile transverse colon polyp removed completely. 5 mm sessile right colon polyp removed completely. Unfortunately the polyp was lost during the extraction process. Due to excessive resistance, exam of the cecum could not be performed. Otherwise normal exam to the right colon.Pathology: Transverse polypectomy revealed tubular adenoma. Random colon biopsy unremarkable. CT abdomen pelvis 05/01/2024: Hepatic steatosis. No bowel obstruction. Normal appendix. No free fluid or free air. There is an abdominal wall hernia to the left of midline containing loops of colon and small bowel. No findings to indicate incarceration/inflamm atory process. Impression:1. Periumbilical abdominal pain2. Dysphagia--s/p esophageal dilation . GERD--Protonix 40mg BID4. Abdominal bloating5. Chronic diarrhea vs constipation6. History of Gastroschisis7. History of peptic ulcers8. Family history of Esophageal cancer in great uncle9. Cardiac stents x 5, the last 3 were placed 09/2023--Pt takes [id number]. Previous EGD and colonoscopy in the [id number]. 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 Follow up General surgery referral for abdominal wall hernia, pt being sent to [facility] he states2. Continue omeprazole 40mg BID3. Continue Metamucil capsules and Add Miralax 1-2 cap fulls PO BID4. Low FODMAP diet5. Vitamin B6 and morgan for nausea6. Anti-reflux precautions7. Repeat colonoscopy in 2 years due to loss of polyp during extraction and incomplete exam of the cecum (March 2026)8. Carafate 10mls PO QID prn for LUQ pain9. Follow up in 3 months GAGE ARCE NP [address] [facility], [place], [address], [address] 07/22/2024 13:09:39 08/18/2024 text/html 48 y/o male presents today for a follow up. The patient arrives today feeling good. 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 Patient has a history of coronary disease, underwent angiogram, for stable angina, followed by PCI to proximal LAD with Synergy overlapping drug-eluting stents. 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 He reports he has not been able to work that last few weeks due to worsening chest pain. Patient has seasonal allergies, he is currently on antihistamines. Testing & procedures:- 3 Cardiac cath: Mild elevated left ventricular end diastolic pressure with LVEDP of 21 mmHg. Mild gradient of 19 mmHg across the aortic valve. Proximal LAD stent, with 70% in stent restenosis, IFR hemodynamically significant, proximally 0.74, in the mid LAD 0.77, indicating hemodynamically significant stenosis. There was a previously placed stent in the proximal LAD, which was undersized. This was treated using 2 overlapping stents, 4.5 x 28 overlapped with a 3.5 x 38 mm Synergy drug eluting stent deployed at 18 sherif. Preprocedure was MADHAV 3 flow, post procedure was MADHAV 3 flow. The stent was post dilated using a 4.5 x 20 mm Non compliant balloon to 18 sherif. Multiple passes of intra arterial US was performed. There is a type B lesion. TR band for hemostasis of right radial artery. SALVADOR ESPINAL MD [address] [place], [address], [facility] - [facility] [place] 08/24/2024 22:09:41 10/20/2024 text/html 48-year-old male presents to clinic to for follow up. He was originally seen for consultation regarding dysphagia GERD and abdominal bloating. He is rarely experiencing constipation and I advised him to begin taking metamucil, along with and Miralax 1 cap full daily. He states his bowel movements range from once daily to one BM every few days. He states he does not always eat healthy foods. He is nauseated today, but this has been infrequent. He believes that it is due to recent stress. Patient has had an esophagram and modified barium swallow done per ENT. Patient was noted to have a delayed swallowing response, I explained to him that it was unlikely that a esophageal dilation would help manage this issue and he verbalizes understanding. He states that over the past 2 months that his swallowing has gotten much worse and he feels like things are getting stuck in his esophagus. The esophagram that was done in November 16 did not note a stricture however this was performed 4 months ago. Patient had an EGD done in the and was found to have a bleeding ulcer he also had a colonoscopy done at that time and he states that it was normal. Patient has chronic diarrhea versus constipation patient has a history of gastroschisis repaired as an infant. Patient has 5 cardiac stents the last 3 were placed 10/10/2023, permission from cardiology will have to be obtained to hold Brilinta. I discussed procedural and anesthesia risk given patient's comorbidities, patient verbalized understanding. Patient is currently taking omeprazole 40 mg p.o. twice daily he is not having any acid reflux on this medication he is agreeable to trialing pantoprazole 40 mg p.o. twice daily due to his anticoagulation usage he has no known family history of colon or stomach cancer. He states that his great uncle had esophageal cancer. Patient had COVID-19 in 2019 and he states that he has had multiple health issues since then that he has long-term COVID EGD 04/22/2024: Resistance found at the upper esophageal sphincter. Distal esophageal acid peptic stricture. 20 mm TTS balloon dilation. Mild nonerosive gastritis. Normal exam to the duodenum.Pathology: GE junction biopsy negative for intestinal metaplasia. Stomach biopsy negative for H. pylori. Duodenal biopsy revealed focal reactive changes, mildly increased intraepithelial lymphocytes.Colonosco py 04/22/2024: Small internal hemorrhoids. 5 mm sessile transverse colon polyp removed completely. 5 mm sessile right colon polyp removed completely. Unfortunately the polyp was lost during the extraction process. Due to excessive resistance, exam of the cecum could not be performed. Otherwise normal exam to the right colon.Pathology: Transverse polypectomy revealed tubular adenoma. Random colon biopsy unremarkable. CT abdomen pelvis 05/01/2024: Hepatic steatosis. No bowel obstruction. Normal appendix. No free fluid or free air. There is an abdominal wall hernia to the left of midline containing loops of colon and small bowel. No findings to indicate incarceration/inflamm atory process. Impression:1. Periumbilical abdominal pain2. Dysphagia--s/p esophageal dilation . GERD--Protonix 40mg BID4. Abdominal bloating5. Chronic diarrhea vs constipation6. History of Gastroschisis7. History of peptic ulcers8. Family history of Esophageal cancer in great uncle9. Cardiac stents x 5, the last 3 were placed 09/2023--Pt takes [id number]. Previous EGD and colonoscopy in the [id number]. 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 Follow up General surgery referral for abdominal wall hernia, pt being sent to [facility] states2. Continue omeprazole 40mg BID3. Continue Metamucil capsules and Add Miralax 1-2 cap fulls PO BID4. Low FODMAP diet5. Vitamin B6 and morgan, Zofran 4mg PO BID prn for nausea6. Anti-reflux precautions7. Repeat colonoscopy in 2 years due to loss of polyp during extraction and incomplete exam of the cecum (March 2026)8. Carafate 10mls PO QID prn for LUQ pain9. Follow up in 3 months GAGE ARCE NP [address] [place], [address], [facility] - [facility] [place] 10/20/2024 12:48:28
--- NOTE | 2025-10-16 13:58 | ED_ITS ---
HPI - Abdominal Pain 2 General: Chief Complaint: Abdominal Pain Stated Complaint: low rt abd drain issue (09/23 surgery) Time Seen by Provider: 10/16/25 13:58 History of Present Illness: 49-year-old man with a history of abdomi nal wall deformity that recently had to have a hernia repair. This is a congenital defect he said his bowel was in different places and abdominal wall and it had to be repaired so it was done in [place]. He reports today that he has been having some drainage from the construct of the umbilicus and some mild generalized pain. He said the drain that they had put in had stopped working a few days ago. He said no nausea or vomiting. Good bowel movements. Mild generalized tenderness. No altered mental status. No fever. Related Data Home Medications ?Medication ?Instructions ?Recorded ?Confirmed metformin 500 mg tablet,extended 1,000 mg PO BID 02/1710/16/25 release 24 hr Held on 02/18/25. Instructions: resume after 48 hours sucralfate 100 mg/mL oral 10 ml PO QID PRN Stomach Ups et 02/17/25 10/16/25 suspension Previous Rx's ?Medication ?Instructions ?Recorded fluticasone propionate 50 1 spray intranasal DAILY PRN 12/09/24 mcg/actuation nasal allergy symptoms #16 grams spray,suspension spironolactone 25 mg tablet 25 mg PO DAILY #90 tabs ticagrelor 90 mg tablet (Brilinta) 90 mg PO BID #180 t abs 03/10/25 blood-glucose sensor (Dexcom G7 #9 ea 05/31/25 Sensor device) atorvastatin 40 mg tablet See Rx Instructions .Route 0 06/22/25 .COMPLEX #90 tabs empagliflozin 10 mg tablet 10 mg PO DAILY #90 tabs (Jardiance) sertraline 100 mg tablet See Rx Instructions .Route 0 07/19/25 .COMPLEX #45 tabs nitroglycerin 0.4 mg sublingual 0.4 mg sublingual Q5M PRN chest 07/20/25 tablet pain 90 days #90 tabs cetirizine 10 mg tablet 10 mg PO DAILY #90 tabs 07/26 08/19 losartan 50 mg tablet 50 mg PO DAILY #30 tabs 07/27 03/19 aspirin 81 mg tablet,delayed See Rx Instructions .Rout e 08/25/25 release .COMPLEX #90 tabs docusate sodium 100 mg capsule See Rx Instructions .Ro camron 08/25/25 .COMPLEX #30 caps furosemide 20 mg tablet 20 mg PO DAILY@0800 #90 tabs 09/13/25 insulin aspart U-100 100 unit/mL See Rx Instructions . Route 09/20/25 subcutaneous solution .COMPLEX #130 mL metoprolol tartrate 50 mg tablet 50 mg PO BID #180 tab s 10/11/25 insulin pump cart,auto,BT,G6/7 #30 ea 10/12/25 (Omnipod 5 G6-G7 Pods (Gen 5) subcutaneous cartridge) cephalexin 500 mg tablet 500 mg PO TID 10 days #30 ta bs 10/16/25 hydrocodone 5 mg-acetaminophen 325 1 tab PO Q6H PRN pa in #20 tabs 10/16/25 mg tablet polyethylene glycol 3350 17 17 g PO DAILY #510 grams 1 12/16/24 gram/dose oral powder (Miralax) Allergies Allergy/AdvReac Type Severity Reaction Status Date / Time promethazine Allergy Intermediate ALGY-Swell Verified 10/16/25 13:55 Lip/Tongue/Throat nalbuphine (From [facility]) Allergy Unknown Verified 10/16/25 13:55 Review of Systems 2 Narrative: Constitutional symptoms: Negative except as documented in HPI. Skin symptoms: Negative except as documented in HPI. Eye symptoms: Negative except as documented in HPI. ENMT symptoms: Negative except as documented in HPI. Respiratory symptoms: Negative except as documented in HPI. Cardiovascular symptoms: Negative except as documented in HPI. Gastrointestinal symptoms: Negative except as documented in HPI. Genitourinary symptoms: Negative except as documented in HPI. Musculoskeletal symptoms: Negative except as documented in HPI. Neurologic symptoms: Negative except as documented in HPI. Psychiatric symptoms: Negative except as documented in HPI. Endocrine symptoms: Negative except as documented in HPI. PFSH ED 2 PFSH: Medical History (Updated 10/16/25 @ 16:25 by Sherry Roger MD) Lower respiratory infection Flu-like symptoms Imaging finding reviewed Cervicogenic headache Abnormal MRI of head Occipital neuralgia, unspecified laterality Hospital discharge follow-up Chronic idiopathic constipation Cough Upper respiratory infection Headache Sinusitis Anemia Seizure Shingles Near syncope Incarcerated ventral hernia COVID Dermatitis Environmental and seasonal allergies Acute bronchitis Chest pain Tobacco use disorder Chest pain Atherosclerosis of coronary artery Abnormal stress test Diabetes mellitus Hyperlipidemia associated with type 2 diabetes mellitus Essential hypertension Chest pain CVA (cerebral vascular accident) Herpes zoster Vertigo Obese Restrictive lung disease Left knee pain Bilateral lower extremity edema Hyperlipidemia Shortness of breath COVID-19 virus infection Anxiety DM type 2 (diabetes mellitus, type 2) Primary hypertension Surgical History History of heart artery stent Family History Grandfather Anesthesia complication CAD (coronary artery disease) Chronic kidney disease (CKD) Dementia Diabetes Grandmother CAD (coronary artery disease) Cancer Chronic kidney disease (CKD) Diabetes Lung disease Stroke Family/Other CAD (coronary artery disease) Cancer Mother Diabetes CAD (coronary artery disease) Grandfather Diabetes Denies family history of Clotting disorder Suicide Bleeding disorder Social History Smoking and tobacco/nicotine status: former use of tobacco/nicotine Quit status (tobacco/nicotine): has quit using Year quit tobacco: 01/17 Former quit date comment: quit chewing Second hand smoke exposure: No Alcohol intake: current Alcohol intake frequency: holidays/special occasions only Substance/Drug Use: never Adopted: No Caregiver/support person: No Lives independently: Yes Household members: spouse Housing: House Marital status: Number of children: 4 Highest education level completed: Some College, No Degree service: No Current occupational status: employed Current occupational exposures/hazards: No Pets and animals: Yes Pets & animals: cat(s), dog(s), bird(s) and ferret(s) Leisure activites: other Leisure activities details: family time, small project (welding or wood working...something hands on) Sexually active: Yes Do you think of yourself as: Straight/Heterosexual Current gender identity: Male Claudine/Church: Taoism Special claudine needs: No Agree to transfusion: Yes Physical Exam 2 Narrative: EXAM NARRATIVE: General: Alert, no acute distress. Skin: Warm, dry. Head: Normocephalic, atraumatic. Neck: Supple, trachea midline. Eye: Extraocular movements are intact. Ears, nose, mouth and throat: mucosa moist. Cardiovascular: Regular, Normal peripheral perfusion. Respiratory: Lungs are clear to auscultation, respirations are non-labored, breath sounds are equal, Symmetrical chest wall expansion. Gastrointestinal: Soft, some mild generalized tenderness, Non distended. The new umbilicus does have some serous drainage. His main complaint is of irritation around this. He had talked with the surgeon and they had said just to keep it is clean and dry as it could. No signs of skin infection. Musculoskeletal: Normal ROM, no deformity. Neurological: Alert and oriented, No focal neurological deficit observed. Psychiatric: Cooperative, appropriate mood & affect. Course 2 Vital Signs: Vital signs: Vital Signs Temperature 97.5 F L 10/16/25 13:51 Pulse Rate 98 10/16/25 16:00 Respiratory Rate 14 10/16/25 13:51 Blood Pressure 148/93 10/16/25 16:00 Pulse Oximetry 93 10/16/25 16:00 Oxygen Delivery Me thod Room Air 10/16/25 16:00 MDM - Abdominal Pain Medical Decision Making Medical decision making Patient's reason for coming to the emergency room: Pain at the surgical site. Social determinants: Part-time employee I reviewed the patient's medical record. History of hyperlipidemia, diabetes, hypertension, coronary artery disease, obesity, depression, PTSD, and a recent abdominal repair. I reviewed the patient's current home meds Reviewed prescription monitoring. Patient did seem to oxycodone earlier in the month. This was right after surgery. No chronic pain medications. Alternate historians: None Differential diagnosis: including but not limited to and based on the above HPI, review of systems and physical exam: Basic lab work and inflammatory markers. Orders placed to evaluate differential diagnosis based on the above differential, HPI and physical exam Patient has no obstructive symptoms. No nausea or vomiting. Normal bowel movements. His pain is localized in the spot where he has been having some drainage. CT was considered but I decided to hold off. He can follow with his primary or with the surgeons or return here if things worsen Lab Review: Laboratory results were reviewed and interpreted by myself the emergency room physician. No leukocytosis. No anemia. No renal failure. CRP is mildly elevated. Lactate is not elevated. Urinalysis is negative for infection. Assessment of risk: Level of risk: Moderate risk patient. Multiple comorbidities and recent surgery done in [place]. Hospitalization considerations: No indications for hospitalization today. Reexamination: Patient remained stable. No increased work of breathing. No altered mental status. No focal motor deficits. Assessment and plan: Drainage from surgical site Skin irritation - Discharged home - Discussed findings and plan with patient. Answered any questions. - All laboratory values were reviewed and interpreted personally by myself, the ER physician - All imaging was reviewed and interpreted personally by myself, the ER physician. - Evaluation and treatment of this problem were appropriate in the emergency setting Lab Data 10/16/25 14:03 10/16/25 14:03 Labs/Radiology: Laboratory Results WBC 11.42 10^3/uL (3.29-11.43) 10/16/25 14:03 RBC 4.73 10^6/uL (3.85-5.65) 10/16/25 14:03 Hgb 12.60 g/dL (11.27-16.99) 10/16/25 14:03 Hct 39.9 % (37-53) 10/16/25 14:03 MCV 84.4 fl (82-101) 10/16/25 14:03 MCH 26.6 pg (27-33) L 10/16/25 14:03 MCHC 31.6 g/dL (30-55) 10/16/25 14:03 RDW 12.5 % (12.1-15.1) 10/16/25 14:03 Plt Count 376 10^3/cmm (157-399) 10/16/25 14:03 MPV 8.7 fL (7.4-10.4) 10/16/25 14:03 Neut % (Auto) 67.7 % 10/16/25 14:03 Lymph % (Auto) 19.0 % 10/16/25 14:03 [place] % (Auto) 7.1 % 10/16/25 14:03 Eos % (Auto) 1.3 % 10/16/25 14:03 Baso % (Auto) 1.2 % 10/16/25 14:03 Neut # (Auto) 7.73 10^3/uL (1.8-7.7) H 10/16/25 14:03 Lymph # (Auto) 2.2 10^3/uL (0.8-4.8) 10/16/25 14:03 [place] # (Auto) 0.8 10^3/uL (0.2-0.9) 10/16/25 14:03 Eos # (Auto) 0.2 10^3/uL (0.0-0.8) 10/16/25 14:03 Baso # (Auto) 0.1 10^3/uL (0.0-0.1) 10/16/25 14:03 Nucleated RBC % (auto) 0 % 10/16/25 14:03 Nucleated RBCs # 0.0 /100WBC 10/16/25 14:03 Sodium 133 mmol/L (136-145) L 10/16/25 14:03 Potassium 4.1 mmol/L (3.5-5.1) 10/16/25 14:03 Chloride 99 mmol/L (98-107) 10/16/25 14:03 Carbon Dioxide 23 mmol/L (22-29) 10/16/25 14:03 Anion Gap 15.1 (5-19) 10/16/25 14:03 BUN 9 mg/dL (6-20) 10/16/25 14:03 Creatinine 0.8 mg/dL (0.7-1.2) 10/16/25 14:03 GFR Calculation 103.6 mL/min (90-130) 10/16/25 14:03 Glucose 139 mg/dL (65-115) H 10/16/25 14:03 Calculated Osmolality 277 mOsm/kg (285-295) L 10/16/25 14:03 Lactic Acid 2.2 mmol/L (0.5-2.2) 10/16/25 14:03 Calcium 9.0 mg/dL (8.5-10.5) 10/16/25 14:03 Total Bilirubin 0.3 mg/dL (0.15-1.2) 10/16/25 14:03 AST 8 U/L (0-40) 10/16/25 14:03 ALT 7 U/L (0-41) 10/16/25 14:03 Alkaline Phosphatase 112 U/L (40-130) 10/16/25 14:03 C-Reactive Protein 31.3 mg/L (0.0-4.9) H 10/16/25 14:03 Total Protein 7.9 g/dL (6.6-8.7) 10/16/25 14:03 Albumin 3.3 g/dL (3.5-5.2) L 10/16/25 14:03 Globulin 4.6 g/dL (1.3-4.6) 10/16/25 14:03 Lipase 42 U/L (13-60) 10/16/25 14:03 Urine Color Yellow (Yellow) 10/16/25 14:20 Urine Appearance Clear (CLEAR) 10/16/25 14:20 Urine pH 5.5 (5-7) 10/16/25 14:20 Ur Specific [place] 1.023 (1.005-1.030) 10/16/25 14:20 Urine Protein Negative (Negative) 10/16/25 14:20 Urine Glucose (UA) 3+ (Normal) H 10/16/25 14:20 Urine Ketones Negative (Negative) 10/16/25 14:20 Urine Blood Negative (Negative) 10/16/25 14:20 Urine Nitrate Negative (Negative) 10/16/25 14:20 Urine Bilirubin Negative (Negative) 10/16/25 14:20 Urine Urobilinogen 1.0 mg/dL (Negative) 10/16/25 14:20 Ur Leukocyte Esterase Negative (Negative) 10/16/25 14:20 Urine RBC 0-2 /hpf (0-2) 10/16/25 14:20 Urine WBC 0-5 /hpf (0-5) 10/16/25 14:20 Ur Squamous Epith Cells 0-5 /hpf (0-5) 10/16/25 14:20 Amorphous Sediment Not Reportable 10/16/25 14:20 Urine Bacteria None seen /hpf (NONE) 10/16/25 14:20 Hyaline Casts 1.65 /lpf 10/16/25 14:20 No radiology studies performed this visit Discharge Plan Discharge Patient Disposition: Home Clinical Impression: Drainage from surgical wound Condition: Stable Prescriptions: New cephalexin 500 mg tablet 500 mg PO TID 10 Days Qty: 30 0RF hydrocodone-acetaminophen 5-325 mg tablet 1 tab PO Q6H PRN (Reason: pain) Qty: 20 0RF polyethylene glycol 3350 [Miralax] 17 gram/dose powder 17 g PO DAILY Qty: 510 0RF Rx Instructions: Take 1 scoop daily while taking pain medications. No Action fluticasone propionate 50 mcg/actuation spray,suspension 1 spray intranasal DAILY PRN (Reason: allergy symptoms) Qty: 16 0RF Rx Instructions: administer into each nostril spironolactone 25 mg tablet 25 mg PO DAILY Qty: 90 3RF Brilinta 90 mg tablet 90 mg PO BID Qty: 180 3RF (DME) Dexcom G7 Sensor Device See Rx Instructions .ROUTE .COMPLEX Qty: 9 2RF Dose Instruction: USE TO CHECK BLOOD SUGAR (CHANGE every 10 DAYS) Rx Instructions: USE TO CHECK BLOOD SUGAR (CHANGE every 10 DAYS) atorvastatin 40 mg tablet See Rx Instructions .ROUTE .COMPLEX Qty: 90 1RF Dose Instruction: TAKE 1 TABLET BY MOUTH DAILY Rx Instructions: TAKE 1 TABLET BY MOUTH DAILY Jardiance 10 mg tablet 10 mg PO DAILY Qty: 90 1RF Rx Instructions: TAKE 1 TABLET BY MOUTH EVERY DAY FOR 30 DAYS sertraline 100 mg tablet See Rx Instructions .ROUTE .COMPLEX Qty: 45 3RF Dose Instruction: TAKE 1 & 1/2 TABLETS BY MOUTH DAILY Rx Instructions: TAKE 1 & 1/2 TABLETS BY MOUTH DAILY nitroglycerin 0.4 mg tablet, sublingual 0.4 mg sublingual Q5M PRN (Reason: chest pain) 90 Days Qty: 90 0RF Rx Instructions: do not exceed 3 doses per episode cetirizine 10 mg tablet 10 mg PO DAILY Qty: 90 0RF aspirin 81 mg tablet,delayed release (DR/EC) See Rx Instructions .ROUTE .COMPLEX Qty: 90 3RF Dose Instruction: TAKE 1 TABLET BY MOUTH DAILY Rx Instructions: TAKE 1 TABLET BY MOUTH DAILY docusate sodium 100 mg capsule See Rx Instructions .ROUTE .COMPLEX Qty: 30 5RF Dose Instruction: TAKE 1 CAPSULE BY MOUTH TWICE DAILY Rx Instructions: TAKE 1 CAPSULE BY MOUTH TWICE DAILY furosemide 20 mg tablet 20 mg PO DAILY@0800 Qty: 90 3RF insulin aspart U-100 100 unit/mL solution See Rx Instructions .ROUTE .COMPLEX Qty: 130 1RF Dose Instruction: FOR INSULIN PUMP subcutaneously 3 TIMES DAILY; MAX DAILY DOSE 80 UNITS Rx Instructions: FOR INSULIN PUMP subcutaneously 3 TIMES DAILY; MAX DAILY DOSE 80 UNITS metoprolol tartrate 50 mg tablet 50 mg PO BID Qty: 180 4RF (DME) Omnipod 5 G6-G7 Pods (Gen 5) Cartridge See Rx Instructions .ROUTE .COMPLEX Qty: 30 1RF Dose Instruction: USE DIRECTED Rx Instructions: USE DIRECTED sucralfate 100 mg/mL suspension 10 ml PO QID PRN (Reason: Stomach Upset) metformin 500 mg tablet extended release 24 hr 1,000 mg PO BID losartan 50 mg tablet 50 mg PO DAILY Qty: 30 1RF Discharge Orders: Discharge ED (Routine); Ordered 10/16/25 Ordered By: Sherry Roger Referrals: CIARA Kendall, MASON LINER [Primary Care Provider, Family Practice] Discharge Diet: Usual diet Discharge Activity: Increase activity as tolerated Patient Instructions: Abdominal Pain (ED), Opioid Safety, Pain Management, Patient Portal & [facility] Instructions Activity Restrictions/Additional Instructions: Please follow with your surgeon as soon as possible. Thank you for choosing [facility] for your healthcare needs today. You have been screened and evaluated and felt safe for discharge. Health conditions do change or evolve sometimes and as such it is important that you follow up with your Primary Doctor to be re checked, 3-5 days is a general good time frame for follow up. You are always welcome to return to the ED for re assessment if your symptoms are worsening or you have new concerns Print Language: Tuvaluan Coding Level of Care Code ED Marketing Pr Intern for Anthony Lara
[2025-10-16 14:06] VITALS: BP 148/90; PULSE 98; O2SAT 93
[2025-10-16 14:22] LABS: Hematocrit 39.9 % (37-53); Hemoglobin 12.60 g/dL (11.27-16.99); Mean Corpuscular HGB Conc 31.6 g/dL (30-55); Mean Corpuscular Hemoglobin 26.6 pg (27-33); Mean Corpuscular Volume 84.4 fl (82-101); Nucleated Red Blood Cells % 0 %; Platelet Count 376 10^3/cmm (157-399); Red Blood Count 4.73 10^6/uL (3.85-5.65); White Blood Count 11.42 10^3/uL (3.29-11.43)
[2025-10-16 14:43] LABS: Alanine Aminotransferase 7 U/L (0-41); Albumin Level 3.3 g/dL (3.5-5.2); Alkaline Phosphatase 112 U/L (40-130); Anion Gap 15.1 (5-19); Aspartate Amino Transferase 8 U/L (0-40); Blood Urea Nitrogen 9 mg/dL (6-20); Calcium 9.0 mg/dL (8.5-10.5); Carbon Dioxide 23 mmol/L (22-29); Chloride 99 mmol/L (98-107); Creatinine Clr Calc Pharmacy 146.8845; Globulin 4.6 g/dL (1.3-4.6); Glucose 139 mg/dL (65-115); Lipase 42 U/L (13-60); Osmolality Calculated 277 mOsm/kg (285-295); Potassium 4.1 mmol/L (3.5-5.1); Sodium 133 mmol/L (136-145); Total Protein 7.9 g/dL (6.6-8.7)
[2025-10-16 14:44] LABS: Lactic Sepsis W/Reflex 2.2 mmol/L (0.5-2.2)
[2025-10-16 15:00] VITALS: BP 148/101; PULSE 101; O2SAT 93
[2025-10-16 15:13] LABS: Reflex Lactate Order REFLEX LACTIC ORDERD
[2025-10-16 16:00] VITALS: BP 148/93; PULSE 98; O2SAT 93
[2025-10-16 16:11] LABS: Glucose Urine UA 3+ (Normal); Nitrate Urine Negative (Negative); Specific Gravity, Urine 1.023 (1.005-1.030)
[2025-10-16] MEDS: HYDROmorphone 0.5 MG/0.5 ML INJ 1 MG IVP (16:53)
[2025-10-16] MEDS: cefepime 2,000 mg SDV 2000 MG IVP (16:58)
[2025-10-16 17:20] LABS: Lactic Acid level (Lactate) 2.3 mmol/L (0.5-2.2)
[2025-10-16 17:24] VITALS: BP 147/92; PULSE 101; O2SAT 94
--- NOTE | 2025-10-16 17:27 | PC.NURSE ---
pt ABD pads used t/o stay x16.
== END 2025-10-16 17:27 | disposition home or self-care (01) ==
PROVIDERS: Emergency Provider Emergency Medicine; PCP Nurse Practitioner Family
DX: T81.89XA Other complications of procedures, not elsewhere classified, initial encounter (principal); X58.XXXA Exposure to other specified factors, initial encounter; Z79.82 Long term (current) use of aspirin; Z79.4 Long term (current) use of insulin; Z79.84 Long term (current) use of oral hypoglycemic drugs; Z87.891 Personal history of nicotine dependence; I25.10 Atherosclerotic heart disease of native coronary artery without angina pectoris; Z86.73 Personal history of transient ischemic attack (TIA), and cerebral infarction without residual deficits; E78.5 Hyperlipidemia, unspecified; E11.9 Type 2 diabetes mellitus without complications; I10 Essential (primary) hypertension
CPT/HCPCS: 36415; 80053; 81001; 83605; 83690; 85025; 86140; 87040; 96374; 96375; 99284; J0692; J1171